=== PATIENT | male | born 1965 | race Caucasian/White ===

== ENCOUNTER 2018-05-21 13:30 | Outpatient (RCR) | payer OTHER, SELFPAY ==
[2018-05-14 14:03] VITALS: BP 128/60; PULSE 101; RESP 20; TEMP 36.6; BMI 81.3
--- NOTE | 2018-05-14 15:28 | PN.PCM_ITS ---
(1) Ulcer of right foot with fat layer exposed Status: Chronic Current Visit: Yes Code(s): L97.512 - Non-pressure chronic ulcer of other part of right foot with fat layer exposed (2) Small vessel disease Status: Chronic Current Visit: Yes Code(s): I99.9 - Unspecified disorder of circulatory system (3) Diabetes mellitus with neuropathy Status: Chronic Current Visit: Yes Code(s): E11.40 - Type 2 diabetes mellitus with diabetic neuropathy, unspecified Type of Wound Date of Service: 05/14/18 Chief Complaint: Right foot ulcer History of Wound: This 52 year old male was seen today for right sub-first metatarsal head ulcer with an onset of less than 2 weeks ago. He has kept his dressing clean, dry, and intact and changes it daily as advised with hydrogel with collagen.He offloads with his surgical shoe and pocket offloading pad as recommended. He has diabetic neuropathy. He denies fever, chill, nausea,. He denies foot redness. Progress of Wound: Stable - Physical Exam Vital Signs Temp Pulse Resp BP 98 F 101 H 20 H 128/60 H 05/14/18 14:03 05/14/18 14:03 05/14/18 14:03 05/14/18 14:03 General: Alert, Oriented x3, Cooperative Extremities: No cyanosis, Capillary Refill Less than 3 Seconds, No Calf Tenderness - Negative Renato and Aldrich right, Diminished Peripheral Pulses, Edema - Scant right foot Skin: Ulcer/ Wound - No purulence, no erythema, streaking, no odor, no acute signs of infection. The skin is atrophic and hairless right Wound Measurements and Assessment WC - Nurse 1 - General Ulcer Measurement Start: 05/14/18 14:02 Freq: Status: Active Protocol: Activity Type Activity Date Activity User E-Sign Co-Sign Detail Recorded Client Recorded Date Recorded By Document 05/14/18 14:03 DL [id number] 05/14/18 14:21 DL 05/14/18 14:03 Wound Center Nurse 1 [Ulcer Assessment] #4 R Foot Plantar -Current Size (cm) - Length 0.2 -Current Size (cm) - Width 0.2 -Current Size (cm) - Depth 0.2 -Total Square Cm 0.04 -Photo Taken Yes -Exudate Amt None Present (0 %) -Wound Margin Thickened -Granulation Amt Small (1-33%) -Granulation Quality [place] -Necrosis Amt None Present (0 %) -Structure Exposed N/A -Texture (Aleyda-wound Skin Appearance) Callus -Moisture (Aleyda-wound Skin Appearance Dry/Scaly ) -Color (Aleyda-wound Skin Appearance) No Abnormality -Temperature (Aleyda-wound Skin No Abnormality Appearance) (Pt Warm) -Tenderness on Palpation (Aleyda-wound No Skin Appearance) -Ulcer Cleansing Wound Cleanser -Foul Odor after Cleansing No -Anesthetic Used 4% Lidocaine Solution - Nurse 2 - General Ulcer CM Notes Start: 05/14/18 14:02 Freq: Status: Active Protocol: Activity Type Activity Date Activity User E-Sign Co-Sign Detail Recorded Client Recorded Date Recorded By Document 05/14/18 15:02 [id number] 05/14/18 15:04 05/14/18 15:02 Wound Center Nurse 2 [Procedure/Treatment] -Time 15:04 -Correct Patient Yes -Correct Side, Site, Position Yes -Correct Procedure Yes -Procedure Performed Yes -Type of Procedure Debridement -Clinical Debridement Subcutaneous -Post Debridement Size (cm) - Length 0.3 -Post Debridement Size (cm) - Width 0.4 -Post Debridement Size (cm) - Depth 0.1 -Total Square Cm 0.12 -Wound/Ulcer Outcome Not Healed -Ulcer Cleansing Rinsed/ Irrigated with Saline -Foul Odor after Cleansing No -Bioengineered Tissue No -Bleeding Controlled with Pressure -Treatment Response Procedure Tolerated Well [See Physician Procedure note for Specifics] Pain Scale: 0-10 Numeric [Pain] -Is Patient Pain Free? Yes Musculoskeletal: No Tenderness to Palpation of Joints or Extremities, Muscle Wasting, - - Right hallux amputation Neurological: - - Lack of epicritic sensation light touch right foot Psych/Mental Status: Normal Affect, Appropriate Debridement Note Post-Debridement Measurements/Treatment - Nurse 2 - General Ulcer CM Notes Start: 05/14/18 14:02 Freq: Status: Active Protocol: Activity Type Activity Date Activity User E-Sign Co-Sign Detail Recorded Client Recorded Date Recorded By Document 05/14/18 15:02 [id number] 05/14/18 15:04 05/14/18 15:02 Wound Center Nurse 2 #4 R Foot Plantar -Time 15:04 -Correct Patient Yes -Correct Side, Site, Position Yes -Correct Procedure Yes -Procedure Performed Yes -Type of Procedure Debridement -Clinical Debridement Subcutaneous -Post Debridement Size (cm) - Length 0.3 -Post Debridement Size (cm) - Width 0.4 -Post Debridement Size (cm) - Depth 0.1 -Total Square Cm 0.12 -Wound/Ulcer Outcome Not Healed -Ulcer Cleansing Rinsed/ Irrigated with Saline -Foul Odor after Cleansing No -Bioengineered Tissue No -Bleeding Controlled with Pressure -Treatment Response Procedure Tolerated Well Pain Scale: 0-10 Numeric Is Patient Pain Free? Yes Wound debrided: sub 1st metatarsal head Laterality: Right Wound Grade/Stage: grade 1 Type of Debridement: Excisional debridement Anesthesia Used: 5% Lidocaine Gel Depth: in the subcutaneous layer Percentage of wound debrided: 100 Instrument Used: #15 blade Tissue Removed: fibrous, devitalized subcutaneous, biofilm, slough Severity: Fat Layer Exposed Amount of bleeding with debridement: Mild Bleeding Controlled with: Pressure Patient tolerated procedure well Assessment/Plan Active Problems Small vessel disease (Chronic) Diabetes mellitus with neuropathy (Chronic) Ulcer of right foot with fat layer exposed (Chronic) Assessment: Right sub-first metatarsal head-grade 1. h/o delayed wound healing. peripheral vascular disease; small vessel disease. diabetes with peripheral neuropathy. malnutrition Plan: I discussed and reviewed his case and plan today. Debridement was performed as noted in the clinical panel. To continue daily dressing changes w / hydrogel/collagen and offoad with adjusted surgical shoe with offloading pocket with Plastizote. To moisturize limbs daily but not right before donning socks and shoes to avoid excess motion. To optimize healing by proper glycemic control and nutritional supplementation. He is receiving this at a skilled facility. All of his questions were answered. To return to clinic in one week or call sooner if problems.
[2018-05-21 13:15] VITALS: BP 141/96; PULSE 100; RESP 18; TEMP 36.6; BMI 81.3
--- NOTE | 2018-05-21 16:04 | PCM.WC.PN ---
(1) Ulcer of right foot with fat layer exposed Status: Resolved Current Visit: Yes Code(s): L97.512 - Non-pressure chronic ulcer of other part of right foot with fat layer exposed (2) Small vessel disease Status: Chronic Current Visit: Yes Code(s): I99.9 - Unspecified disorder of circulatory system (3) Diabetes mellitus with neuropathy Status: Chronic Current Visit: Yes Code(s): E11.40 - Type 2 diabetes mellitus with diabetic neuropathy, unspecified Type of Wound Date of Service: 05/21/18 Chief Complaint: Right foot ulcer History of Wound: This 52 year old male was seen today for right sub-first metatarsal head ulcer. He has kept his dressing clean, dry, and intact and changes it daily as advised with hydrogel with collagen.He offloads with his surgical shoe and pocket offloading pad as recommended. He has diabetic neuropathy. He denies fever, chill, nausea. He denies drainage and thinks the site has healed today. Progress of Wound: healed - Physical Exam Vital Signs Temp Pulse Resp BP 97.8 F 100 18 141/96 H 05/21/18 13:15 05/21/18 13:15 05/21/18 13:15 05/21/18 13:15 General: Alert, Oriented x3, Cooperative Extremities: Capillary Refill Less than 3 Seconds, No Calf Tenderness, Diminished Peripheral Pulses Skin: Ulcer/ Wound - no purulence, infection or redness noted. full epithelialiation is noted and the wound site has healed. his skin is atrophic Wound Measurements and Assessment WC - Nurse 1 - General Ulcer Measurement Start: 05/14/18 14:02 Freq: Status: Active Protocol: Activity Type Activity Date Activity User E-Sign Co-Sign Detail Recorded Client Recorded Date Recorded By Document 05/21/18 13:15 RB [id number] 05/21/18 13:23 RB 05/21/18 13:15 Wound Center Nurse 1 [Ulcer Assessment] #4 R Foot Plantar -Combined with other wound No -Current Size (cm) - Length 0.1 -Current Size (cm) - Width 0.1 -Current Size (cm) - Depth 0.1 -Total Square Cm 0.01 -Photo Taken No -Tunneling No -Undermining/Tunneling No -Circular Undermining No -Classification - Little Grading ( Grade 1 Diabetic Ulcer) -Exudate Amt None Present (0 %) -Wound Margin Distinct, Outline Attached -Granulation Amt Large (67-100%) -Granulation Quality [place] -Slough/Fibrin Yes -Necrosis Amt Small (1-33%) -Necrotic Tissue Type Adherent Slough -Structure Exposed N/A -Texture (Aleyda-wound Skin Appearance) Assessed Callus -Moisture (Aleyda-wound Skin Appearance Assessed ) -Color (Aleyda-wound Skin Appearance) Assessed -Temperature (Aleyda-wound Skin No Abnormality Appearance) (Pt Warm) -Tenderness on Palpation (Aleyda-wound No Skin Appearance) -Ulcer Cleansing Rinsed/ Irrigated with Saline -Foul Odor after Cleansing No -Anesthetic Used 4% Lidocaine Solution - Nurse 2 - General Ulcer CM Notes Start: 05/14/18 14:02 Freq: Status: Active Protocol: Activity Type Activity Date Activity User E-Sign Co-Sign Detail Recorded Client Recorded Date Recorded By Document 05/21/18 13:39 [id number] 05/21/18 13:42 05/21/18 13:39 Wound Center Nurse 2 [Procedure/Treatment] -Time 13:40 -Post Debridement Size (cm) - Length 0 -Post Debridement Size (cm) - Width 0 -Post Debridement Size (cm) - Depth 0 -Total Square Cm 0 -Wound/Ulcer Outcome Healed- Epithelialized [See Physician Procedure note for Specifics] Pain Scale: 0-10 Numeric [Pain] -Is Patient Pain Free? Yes Musculoskeletal: No Tenderness to Palpation of Joints or Extremities, Muscle Wasting, - - prominent metatarsal head Neurological: - - lack of epicritic sensation via light touch Psych/Mental Status: Normal Affect, Appropriate Debridement Note Post-Debridement Measurements/Treatment - Nurse 2 - General Ulcer CM Notes Start: 05/14/18 14:02 Freq: Status: Active Protocol: Activity Type Activity Date Activity User E-Sign Co-Sign Detail Recorded Client Recorded Date Recorded By Document 05/14/18 15:02 [id number] 05/14/18 15:04 Document 05/21/18 13:39 [id number] 05/21/18 13:42 05/14/18 05/21/18 15:02 13:39 Wound Center Nurse 2 #4 R Foot Plantar -Time 15:04 13:40 -Correct Patient Yes -Correct Side, Site, Position Yes -Correct Procedure Yes -Procedure Performed Yes -Type of Procedure Debridement -Clinical Debridement Subcutaneous -Post Debridement Size (cm) - Length 0.3 0 -Post Debridement Size (cm) - Width 0.4 0 -Post Debridement Size (cm) - Depth 0.1 0 -Total Square Cm 0.12 0 -Wound/Ulcer Outcome Not Healed Healed- Epithelialized -Ulcer Cleansing Rinsed/ Irrigated with Saline -Foul Odor after Cleansing No -Bioengineered Tissue No -Bleeding Controlled with Pressure -Treatment Response Procedure Tolerated Well Pain Scale: 0-10 Numeric Is Patient Pain Free? Yes Yes No debridement was completed today - the wound site has healed Assessment/Plan Active Problems Small vessel disease (Chronic) Diabetes mellitus with neuropathy (Chronic) Assessment: Right sub-first metatarsal head-grade 1. h/o delayed wound healing. peripheral vascular disease; small vessel disease. diabetes with peripheral neuropathy. malnutrition Plan: I discussed and reviewed his case and plan today. Debridement was not performed as noted in the clinical panel because the site is healed. To continue offloading shoe until next follow up to allow skin remodeling. To d/c daily dressing changes due to wound healing. To moisturize limbs daily but not right before donning socks and shoes to avoid excess motion. To optimize healing by proper glycemic control. All of his questions were answered. To return to clinic in two week or call sooner if problems to confirm this friable site is still closed.
== END 2018-05-24 23:59 ==
LOC: WC 13:30
PROVIDERS: Family Provider Family Medicine Geriatric Medicine; PCP Family Medicine Geriatric Medicine; Visit Provider Podiatrist
DX: E11.621 Type 2 diabetes mellitus with foot ulcer (principal); I99.9 Unspecified disorder of circulatory system; L97.512 Non-pressure chronic ulcer of other part of right foot with fat layer exposed; E11.51 Type 2 diabetes mellitus with diabetic peripheral angiopathy without gangrene; E11.42 Type 2 diabetes mellitus with diabetic polyneuropathy
CPT/HCPCS: 11042; 99213; G0463

== ENCOUNTER 2018-06-04 09:05 | Outpatient (RCR) | payer MEDICARE, MEDICAID, SELFPAY ==
[2018-05-25 01:15] VITALS: BP 141/96; PULSE 100; RESP 18; TEMP 36.6
[2018-06-04 11:25] VITALS: BP 153/82; PULSE 78; RESP 16; TEMP 35.7
--- NOTE | 2018-06-04 12:59 | PCM.WC.PN ---
(1) Ulcer of right foot with fat layer exposed Status: Resolved Current Visit: Yes Code(s): L97.512 - Non-pressure chronic ulcer of other part of right foot with fat layer exposed (2) Other acquired deformities of right foot Status: Chronic Current Visit: Yes Code(s): M21.6X1 - Other acquired deformities of right foot Comment: plantarflexed 2nd metatarsal (3) Small vessel disease Status: Chronic Current Visit: Yes Code(s): I99.9 - Unspecified disorder of circulatory system (4) Malnutrition Status: Chronic Current Visit: Yes Code(s): E46 - Unspecified protein-calorie malnutrition (5) Diabetes mellitus with neuropathy Status: Chronic Current Visit: Yes Qualifiers: Diabetes mellitus type: type 2 Code(s): E11.40 - Type 2 diabetes mellitus with diabetic neuropathy, unspecified (6) Hammer toe of right foot Status: Chronic Current Visit: Yes Code(s): M20.41 - Other hammer toe(s) (acquired), right foot (7) Healed ulcer of right foot on examination Status: Acute Current Visit: Yes Code(s): L97.519 - Non-pressure chronic ulcer of other part of right foot with unspecified severity Type of Wound Date of Service: 06/04/18 Chief Complaint: Right foot ulcer healed History of Wound: This 52 year old male was seen today for right sub-first metatarsal head ulcer. He has kept his dressing clean, dry, and intact and changes it daily as advised. He has diabetic neuropathy. He denies fever, chill, nausea. He denies drainage and thinks the site has healed today. Progress of Wound: healed - Physical Exam Vital Signs Temp Pulse Resp BP 96.2 F L 78 16 153/82 H 06/04/18 11:25 06/04/18 11:25 06/04/18 11:25 06/04/18 11:25 General: Alert, Oriented x3, Cooperative Extremities: No cyanosis, Capillary Refill Less than 3 Seconds, No Calf Tenderness, Diminished Peripheral Pulses, - - hallux amputation noted . dorsal contraction of lesser digits Skin: Ulcer/ Wound - no purulence, no erythema, no infection, no streaking, no odor noted. full epithelialization noted to sub 1st metatarsal head, - - atrophic skin noted Wound Measurements and Assessment WC - Nurse 1 - General Ulcer Measurement Start: 06/04/18 11:25 Freq: Status: Active Protocol: Activity Type Activity Date Activity User E-Sign Co-Sign Detail Recorded Client Recorded Date Recorded By Document 06/04/18 11:25 [id number] 06/04/18 11:26 06/04/18 11:25 Wound Center Nurse 1 [Edema Assessment] -Lower Limb Edema Present NA WC - Nurse 2 - General Ulcer CM Notes Start: 06/04/18 11:25 Freq: Status: Active Protocol: Activity Type Activity Date Activity User E-Sign Co-Sign Detail Recorded Client Recorded Date Recorded By Document 06/04/18 11:36 [id number] 06/04/18 11:38 06/04/18 11:36 Pain Scale: 0-10 Numeric [Pain] -Is Patient Pain Free? Yes Musculoskeletal: No Tenderness to Palpation of Joints or Extremities, Muscle Wasting Neurological: - - lack of epicritic sensation to touch noted Psych/Mental Status: Normal Affect, Appropriate Debridement Note Post-Debridement Measurements/Treatment - Nurse 2 - General Ulcer CM Notes Start: 06/04/18 11:25 Freq: Status: Active Protocol: Activity Type Activity Date Activity User E-Sign Co-Sign Detail Recorded Client Recorded Date Recorded By Document 06/04/18 11:36 [id number] 06/04/18 11:38 06/04/18 11:36 Pain Scale: 0-10 Numeric Is Patient Pain Free? Yes No debridement was completed today - Wound has healed Assessment/Plan Active Problems Other acquired deformities of right foot (Chronic) plantarflexed 2nd metatarsal Small vessel disease (Chronic) Malnutrition (Chronic) Diabetes mellitus with neuropathy (Chronic) Hammer toe of right foot (Chronic) Healed ulcer of right foot on examination (Acute) Assessment: Right sub-first metatarsal head-healed. h/o delayed wound healing. peripheral vascular disease; small vessel disease. diabetes with peripheral neuropathy. malnutrition Plan: I discussed and reviewed his case and plan today. Debridement was not performed as noted in the clinical panel because the site remains healed. Okay to transition back to extra-depth diabetic shoes with dual density Plastizote liners. To monitor very closely during this transitional. To look for any skin irritation, blister, wound reopening. To d/c daily dressing changes due to wound healing. To moisturize limbs daily but not right before donning socks and shoes to avoid excess motion. To optimize healing by proper glycemic control. All of his questions were answered. He is discharged from the wound care center today we will follow-up at the foot and ankle center as previously scheduled.
--- NOTE | 2018-06-04 13:08 | PN.PCM_ITS ---
(1) Ulcer of right foot with fat layer exposed Status: Resolved Current Visit: Yes Code(s): L97.512 - Non-pressure chronic ulcer of other part of right foot with fat layer exposed (2) Other acquired deformities of right foot Status: Chronic Current Visit: Yes Code(s): M21.6X1 - Other acquired deformities of right foot Comment: plantarflexed 2nd metatarsal (3) Small vessel disease Status: Chronic Current Visit: Yes Code(s): I99.9 - Unspecified disorder of circulatory system (4) Malnutrition Status: Chronic Current Visit: Yes Code(s): E46 - Unspecified protein- calorie malnutrition (5) Diabetes mellitus with neuropathy Status: Chronic Current Visit: Yes Qualifiers: Diabetes mellitus type: type 2 Code(s): E11.40 - Type 2 diabetes mellitus with diabetic neuropathy, unspecified (6) Hammer toe of right foot Status: Chronic Current Visit: Yes Code(s): M20.41 - Other hammer toe(s) ( acquired), right foot (7) Healed ulcer of right foot on examination Status: Acute Current Visit: Yes Code(s): L97.519 - Non-pressure chronic ulcer of other part of right foot with unspecified severity Type of Wound Date of Service: 06/04/18 Chief Complaint: Right foot ulcer healed History of Wound: This 52 year old male was seen today for right sub-first metatarsal head ulcer. He has kept his dressing clean, dry, and intact and changes it daily as advised. He has diabetic neuropathy. He denies fever, chill, nausea. He denies drainage and thinks the site has healed today. Progress of Wound: healed - Physical Exam Vital Signs Temp Pulse Resp BP 96.2 F L 78 16 153/82 H 06/04/18 11:25 06/04/18 11:25 06/04/18 11:25 06/04/18 11:25 General: Alert, Oriented x3, Cooperative Extremities: No cyanosis, Capillary Refill Less than 3 Seconds, No Calf Tenderness, Diminished Peripheral Pulses, - - hallux amputation noted . dorsal contraction of lesser digits Skin: Ulcer/ Wound - no purulence, no erythema, no infection, no streaking, no odor noted. full epithelialization noted to sub 1st metatarsal head, - - atrophic skin noted Wound Measurements and Assessment WC - Nurse 1 - General Ulcer Measurement Start: 06/04/18 11:25 Freq: Status: Active Protocol: Activity Type Activity Date Activity User E-Sign Co-Sign Detail Recorded Client Recorded Date Recorded By Document 06/04/18 11:25 [id number] 06/04/18 11:26 06/04/18 11:25 Wound Center Nurse 1 [Edema Assessment] -Lower Limb Edema Present NA WC - Nurse 2 - General Ulcer CM Notes Start: 06/04/18 11:25 Freq: Status: Active Protocol: Activity Type Activity Date Activity User E-Sign Co-Sign Detail Recorded Client Recorded Date Recorded By Document 06/04/18 11:36 [id number] 06/04/18 11:38 06/04/18 11:36 Pain Scale: 0-10 Numeric [Pain] -Is Patient Pain Free? Yes Musculoskeletal: No Tenderness to Palpation of Joints or Extremities, Muscle Wasting Neurological: - - lack of epicritic sensation to touch noted Psych/Mental Status: Normal Affect, Appropriate Debridement Note Post-Debridement Measurements/Treatment - Nurse 2 - General Ulcer CM Notes Start: 06/04/18 11:25 Freq: Status: Active Protocol: Activity Type Activity Date Activity User E-Sign Co-Sign Detail Recorded Client Recorded Date Recorded By Document 06/04/18 11:36 [id number] 06/04/18 11:38 06/04/18 11:36 Pain Scale: 0-10 Numeric Is Patient Pain Free? Yes No debridement was completed today - Wound has healed Assessment/Plan Active Problems Other acquired deformities of right foot (Chronic) plantarflexed 2nd metatarsal Small vessel disease (Chronic) Malnutrition (Chronic) Diabetes mellitus with neuropathy (Chronic) Hammer toe of right foot (Chronic) Healed ulcer of right foot on examination (Acute) Assessment: Right sub-first metatarsal head-healed. h/o delayed wound healing. peripheral vascular disease; small vessel disease. diabetes with peripheral neuropathy. malnutrition Plan: I discussed and reviewed his case and plan today. Debridement was not performed as noted in the clinical panel because the site remains healed. Okay to transition back to extra-depth diabetic shoes with dual density Plastizote liners. To monitor very closely during this transitional. To look for any skin irritation, blister, wound reopening. To d/c daily dressing changes due to wound healing. To moisturize limbs daily but not right before donning socks and shoes to avoid excess motion. To optimize healing by proper glycemic control. All of his questions were answered. He is discharged from the wound care center today we will follow-up at the foot and ankle center as previously scheduled.
== END 2018-06-24 23:59 ==
LOC: WC 09:05
PROVIDERS: Family Provider Family Medicine Geriatric Medicine; PCP Family Medicine Geriatric Medicine; Visit Provider Podiatrist
DX: E11.621 Type 2 diabetes mellitus with foot ulcer (principal); M21.6X1 Other acquired deformities of right foot; E11.40 Type 2 diabetes mellitus with diabetic neuropathy, unspecified; L97.512 Non-pressure chronic ulcer of other part of right foot with fat layer exposed; M20.41 Other hammer toe(s) (acquired), right foot; E11.51 Type 2 diabetes mellitus with diabetic peripheral angiopathy without gangrene
CPT/HCPCS: 99213; G0463

== ENCOUNTER → 2018-12-22 11:37 | Outpatient (CLI) | payer MEDICARE, MEDICAID, SELFPAY ==
[2018-10-01 09:05] VITALS: BMI 36.3
--- NOTE | 2018-12-22 11:45 | RAD_ITS ---
STUDY: X-RAY - LEFT HIP REASON FOR EXAM: Male, 53 years old. Pain times several weeks TECHNIQUE: 3 views of the hip. COMPARISON: None. FINDINGS: Normal femoral head, neck, intertrochanteric region and visualized proximal femur. Normal acetabulum. There is mild articular joint space narrowing. Normal visualized superior and inferior pubic rami and ischial tuberosities. RAD/HIP, UNI W/ Pelvis 2-3 Views IMPRESSION: Mild arthrosis, no demonstrated fracture. Electronically Signed: Michael Richardson MD at 12:13 EST , Service support ,
== END ==
PROVIDERS: Family Provider Family Medicine Geriatric Medicine; PCP Family Medicine Geriatric Medicine; Referring Provider Anesthesiology Pain Medicine; Visit Provider Anesthesiology Pain Medicine
DX: M25.552 Pain in left hip (principal)
CPT/HCPCS: 73502

== ENCOUNTER → 2019-03-24 | Outpatient (CLI) | payer MEDICARE, SELFPAY ==
--- NOTE | 2019-03-24 10:09 | MRI_ITS ---
STUDY: MRI LUMBAR SPINE WITHOUT CONTRAST REASON FOR EXAM: Male, 53 years old. TECHNIQUE: Standardized fat and water weighted pulse sequences were obtained in the sagittal and axial planes. COMPARISON: 07/24/2018 radiographs FINDINGS: T12-L1: Normal endplates. Normal disc height, hydration and morphology. Normal bilateral facet joints. Normal central canal and bilateral lateral recesses. Normal bilateral intervertebral neural foramina. 10 mm of grade 1 L4-5 anterolisthesis. 10 mm of grade 1 L3-4 retrolisthesis. S shaped scoliosis. Normal conus medullaris that terminates at the L1 level. L1-2: Disc space narrowing and desiccation with discogenic endplate changes and anterior osteophytes. Bulging annulus with moderate left and mild right foraminal stenoses. L2-3: Bulging annulus and bilateral facet and ligamentum flavum hypertrophy and facet joint effusions. Moderate central canal stenosis and severe left lateral recess stenosis, with mass effect on the transiting left L3 nerve root. Severe left and moderate right foraminal stenoses, with mass effect on the exiting left L2 nerve root. L3-4: Bulging annulus and bilateral facet hypertrophy with moderate to severe central canal stenosis and severe bilateral foraminal stenoses, with mass effect on both exiting L3 nerve roots. L4-5: Bulging annulus and bilateral facet hypertrophy with severe bilateral foraminal stenoses and mass effect on both exiting L4 nerve roots. L5-S1: Bulging annulus with severe right foraminal stenosis and mass effect on the exiting right L5 nerve root. Normal visualized sacral ala. Normal visualized paraspinous soft tissue structures. MRI/Spine Lumbar (Routine) IMPRESSION: Multilevel degenerative disease as described. Severe foraminal stenoses on the left at L2-3, bilaterally at L3-4, bilaterally at L4-5, and on the right at L5-S1, with mass effect on corresponding exiting nerve roots. Severe left lateral recess stenosis at L2-3 with mass effect on the transiting left L3 nerve root. 10 mm of grade 1 L4-5 anterolisthesis. 10 mm of grade 1 L3-4 retrolisthesis. Electronically Signed: Abisai Diez MD at 17:37 EDT Tel , Service support ,
== END | disposition home or self-care (01) ==
LOC: MRI 09:38
PROVIDERS: Family Provider Nurse Practitioner Adult Health; PCP Nurse Practitioner Adult Health; Referring Provider Physician Assistant; Visit Provider Physician Assistant
DX: M54.16 Radiculopathy, lumbar region (principal)
CPT/HCPCS: 72148

== ENCOUNTER → 2019-05-07 | Outpatient (CLI) | payer MEDICARE, SELFPAY ==
[2019-05-07 12:08] LABS: Absolute Lymphocyte Count 1.17 X10^3/ul (0.83-4.51); Absolute Neutrophil Count 5.7 X10^3/uL (2.0-7.7); Basophil# 0.02 X10^3/uL; Basophil% 0.3 % (0-1); Eosinophil# 0.11 X10^3/uL; Eosinophils% 1.4 % (0-5); Hematocrit 38.2 % (40-54); Hemoglobin 13.1 g/dl (13.0-16.5); Lymphocyte # 1.17 X10^3/ul (4.0); Lymphocyte % 15.2 % (19-41); Mean Corp Hgb Conc 34.3 g/gl (32-36); Mean Corpuscular Hgb 29.4 pg (27.0-32.0); Mean Corpuscular Volume 85.8 fL (80-94); Mean Platelet Vol. 9.1 fl (6.2-12.0); Monocyte# 0.66 X10^3/uL; Monocyte% 8.6 % (0-10); Neutrophil # 5.74 X10^3/uL (2.7-7.7); Neutrophil % 74.4 % (47-70); Platelet Count 287 K/mm3 (150-450); RBC Distribution Width CV 12.6 % (11.6-14.6); RBC Distribution Width SD 38.9 fl (35.1-43.9); Red Blood Count 4.45 M/mm3 (4.6-6.2); White Blood Count 7.7 K/mm3 (4.4-11.0)
[2019-05-07 12:19] LABS: POSITIVE COUNT NO; POSITIVE DIFFERENTIAL NO; POSITIVE MORPHOLOGY NO
[2019-05-07 12:50] LABS: ALB/GLOB Ratio 1.2 RATIO (0.9-2.4); AST(SGOT) 17 U/L (15-37); Alanine Aminotransfer ALT/SGPT 28 U/L (16-61); Alkaline Phosphatase 113 U/L (45-117); Anion Gap 7 (5-15); BUN 15 mg/dL (7-18); BUN/Creat Ratio 23.1 RATIO (10-20); Calcium,Total 9.1 mg/dL (8.5-10.1); Chloride 97 mmol/L (98-107); Creatinine, Serum 0.65 mg/dL (0.70-1.30); EST Glomerular Filtration Rate 136 mL/min (>60); Est Glom Filt Rate - Afr Amer 164 mL/min (>60); Globulin 3.3 g/dL (2.2-4.2); Glucose 84 mg/dL (74-106); Potassium 3.9 mmol/L (3.5-5.1); Protein, Total 7.3 g/dL (6.4-8.2); Sodium Level 129 mmol/L (136-145); Thyroid Stim Hormone (TSH) 0.88 uIU/mL (0.358-3.74)
== END | disposition home or self-care (01) ==
LOC: POLAB3 08:40
PROVIDERS: Family Provider Nurse Practitioner Adult Health; PCP Nurse Practitioner Adult Health; Visit Provider Family Medicine Geriatric Medicine
DX: E11.9 Type 2 diabetes mellitus without complications (principal); I10 Essential (primary) hypertension
CPT/HCPCS: 36415; 80053; 84443; 85025

== ENCOUNTER → 2019-05-13 | Outpatient (CLI) | payer MEDICARE, SELFPAY ==
[2019-05-13 10:55] LABS: Osmolality, Serum 272 mOsm/KG (275-295)
[2019-05-13 13:08] LABS: Urine Sodium 35 mmol/L (Not Establ.)
[2019-05-13 13:19] LABS: Osmolality, Urine 208 mOsm/KG
== END | disposition home or self-care (01) ==
LOC: LAB.FUTURE 09:58
PROVIDERS: Family Provider Nurse Practitioner Adult Health; PCP Nurse Practitioner Adult Health; Visit Provider Family Medicine Geriatric Medicine
DX: E87.1 Hypo-osmolality and hyponatremia (principal)
CPT/HCPCS: 36415; 82436; 83930; 83935; 84133; 84300

== ENCOUNTER → 2019-05-18 | Outpatient (CLI) | payer MEDICARE, SELFPAY ==
[2018-10-01 09:05] VITALS: BMI 36.3
[2019-05-18 12:01] LABS: Anion Gap 10 (5-15); BUN 10 mg/dL (7-18); BUN/Creat Ratio 16.3 RATIO (10-20); Calcium,Total 9.2 mg/dL (8.5-10.1); Chloride 100 mmol/L (98-107); Creatinine, Serum 0.61 mg/dL (0.70-1.30); EST Glomerular Filtration Rate 145 mL/min (>60); Est Glom Filt Rate - Afr Amer 176 mL/min (>60); Glucose 107 mg/dL (74-106); Potassium 3.8 mmol/L (3.5-5.1); Sodium Level 136 mmol/L (136-145)
== END | disposition home or self-care (01) ==
LOC: POLAB3 10:20
PROVIDERS: Family Provider Nurse Practitioner Adult Health; PCP Nurse Practitioner Adult Health; Visit Provider Family Medicine Geriatric Medicine
DX: E87.1 Hypo-osmolality and hyponatremia (principal)
CPT/HCPCS: 36415; 80048

== ENCOUNTER → 2019-07-07 10:40 | Outpatient (CLI) | payer MEDICARE, SELFPAY ==
[2019-07-07 10:34] VITALS: BMI 36.3
--- NOTE | 2019-07-07 10:43 | RAD_ITS ---
STUDY: X-RAY - LUMBAR SPINE REASON FOR EXAM: Male, 53 years old. Back pain TECHNIQUE: 4 view(s) of the lumbar spine were obtained. COMPARISON: None FINDINGS: Normal lumbar lordosis. There is a lumbar dextroscoliosis. There is a grade 1 anterolisthesis of L4 relative to L3 and L5. There is diffuse endplate spondylosis. There is multi-level degenerative disc disease with multi-level disc space narrowing. The soft tissue structures are unremarkable. RAD/L/S Spine Min 4 Views IMPRESSION: Lumbar dextroscoliosis. Grade 1 anterolisthesis of L4 relative to L3 and L5. Diffuse endplate spondylosis. Multilevel severe degenerative disc disease with multilevel disc space narrowing. Electronically Signed: Raimundo Martinez MD at 17:06 EDT , Service support ,
--- NOTE | 2019-07-07 11:33 | RAD_ITS ---
STUDY: X-RAY - CERVICAL SPINE REASON FOR EXAM: Male, 53 years old. Neck pain TECHNIQUE: 4 view(s) of the cervical spine were obtained. COMPARISON: Prior study of March 26, 2016 FINDINGS: And AP open-mouth odontoid view was not obtained. The atlantoaxial articulation appears within normal limits on the lateral and AP views. Normal odontoid process. There is reversal of the normal cervical lordosis. There is diffuse endplate spondylosis of the cervical spine. There is multi-level degenerative disc disease with multilevel disc space narrowing. The soft tissue structures are unremarkable. RAD/Cerv Spine 4 or 5 Views IMPRESSION: Cervical degenerative changes as detailed above. There is no evidence of fracture or subluxation. Electronically Signed: Raimundo Martinez MD at 17:08 EDT , Service support ,
== END ==
PROVIDERS: Family Provider Nurse Practitioner Adult Health; PCP Nurse Practitioner Adult Health; Referring Provider Orthopaedic Surgery; Visit Provider Orthopaedic Surgery
DX: M41.9 Scoliosis, unspecified (principal); M43.16 Spondylolisthesis, lumbar region; M54.16 Radiculopathy, lumbar region; M51.36 Other intervertebral disc degeneration, lumbar region; M54.2 Cervicalgia
CPT/HCPCS: 72050; 72110

== ENCOUNTER 2019-08-25 15:16 | Inpatient (IN) | payer MEDICARE, SELFPAY ==
[2019-07-07 10:34] VITALS: BMI 36.3
[2019-08-25 15:28] VITALS: BP 131/65; PULSE 70; RESP 18; TEMP 36.9; O2SAT 96; BMI 24.7
--- NOTE | 2019-08-25 17:06 | NURSING ---
PT ARRIVED BY COT FROM [facility] AT [id number].
[2019-08-25 17:40] LABS: Bedside Glucose 96 mg/dL (70-110)
[2019-08-25] MEDS: oxyCODONE 5 MG Tablet NG ×2 (18:43→22:43)
--- NOTE | 2019-08-25 19:40 | RAD_ITS ---
STUDY: X-RAY - ABDOMEN/PELVIS REASON FOR EXAM: Male, 53 years old. NG tube placement TECHNIQUE: KUB COMPARISON: None. FINDINGS: Normal visualized lung bases. There is an unremarkable bowel gas pattern. There is no demonstrated free abdominal air. The visualized liver, spleen and kidneys are grossly normal in size and morphology. NG tube noted with tip in expected location of the transverse portion of the duodenum Normal soft tissue structures. Lumbar spine demonstrates scoliosis and degenerative change RAD/Abdomen Single View (Portable) IMPRESSION: NG tube placement with tip in the expected location of the transverse portion of the duodenum. Electronically Signed: Niko Cortes MD at 20:42 EDT , Service support ,
--- NOTE | 2019-08-25 20:48 | HP.PCM_ITS ---
Problem List (1) Debility Status: Acute (2) Cervical spinal stenosis Status: Acute (3) Dysphagia Status: Acute (4) Lumbar spinal stenosis Status: Acute (5) Diet-controlled diabetes mellitus Status: Chronic (6) Hyperlipidemia Status: Chronic (7) Opioid dependence Status: Chronic (8) PAOD (peripheral arterial occlusive disease) Status: Chronic (9) Hypertension Status: Chronic (10) Sleep apnea Status: Chronic (11) COPD (chronic obstructive pulmonary disease) Status: Chronic History of Present Illness Date of Admission: 08/25/19 Chief Complaint: Here for rehabilitation, strengthening, prior to discharge to [facility]. The patient is a 53 year old Male with past medical history of Type 2 Diabetes Mellitus, Peripheral vascular disease, Hypertension, Obstructive sleep apnea, Hyperlipidemia who presented to the [facility] as a direct admission with C2-C7 cervical spinal stenosis with myeloradiculopathy and weakness, cervical kyphosis, multilevel lumbar spinal stenosis with scoliosis, urinary retention with chronic Bradley Catheter, chronic opioid use, and nicotine use. The patient elected to proceed with surgical intervention. The patient underwent stage 1: C3-C4 diskectomy, decompression fusion, C4-C5 diskectomy, decompression, fusion, C3 to C5 instrumentation; stage 2: posterior C3-C6 laminectomy, bilateral medial facetectomy, foraminotomy, C7 dome laminectomy, bilateral C4-C5 foraminotomy, and C2-T2 fusion with C2-T2 instrumentation on August 17, [address] Lora Senior. Urology assisted with bradley catheter placement (18 Fr coude catheter in the bladder) intra-operatively. The patient tolerated the procedures well. On POD 1, he was transferred to SICU for aggressive pulmonary hygiene, pain control, hemodynamic monitoring. He was transferred to medical-surgical status and patient was also seen and evaluated by hospital medicine colleagues for inpatient medical co-management. Pain was initially controlled with IV pain medication and was later transitioned to oral pain medication. Home medications continued. Hospitalist started Augmentin BID for 1 week thru 08/31/2019 for hospital- acquired pneumonia. Speech therapy recommended Dobhoff for tube feeding, his diet is NPO. 08/25/2019 Admit to TCU with debility, here for rehabilitation, strengthening, prior to discharge to [facility]. Past Medical History Past Medical History (Chronic Problems): Chronic Problems (Last Reviewed 10/01/18 @ 09:13 by Skylar Grady) Diet-controlled diabetes mellitus (Chronic) Hyperlipidemia (Chronic) Opioid dependence (Chronic) PAOD (peripheral arterial occlusive disease) (Chronic) Scoliosis (Chronic) Other acquired deformities of right foot (Chronic) plantarflexed 2nd metatarsal Small vessel disease (Chronic) Malnutrition (Chronic) Diabetes mellitus with neuropathy (Chronic) Hammer toe of right foot (Chronic) Tinea unguium (Chronic) Delayed wound healing (Chronic) Chronic ulcer of right foot with fat layer exposed (Chronic) Amputation of right foot with complication (Chronic) Dehiscence of amputation stump (Chronic) 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 2 diabetes mellitus with diabetic polyneuropathy (Chronic) Peripheral vascular disease (Chronic) Hammer toes, bilateral (Chronic) Hammer toe of left foot (Chronic) Hypertension (Chronic) Sleep apnea (Chronic) COPD (chronic obstructive pulmonary disease) (Chronic) Medical History: Medical History (Last Reviewed 10/01/18 @ 09:13 by Skylar Grady) Scoliosis (Chronic) M41.9 Allergies shellfish derived Allergy (Verified 05/14/18 14:25) Rash bacitracin [From Neosporin Plus] Adverse Reaction (Verified 05/14/18 14:25) Unknown bacitracin zinc [From Neosporin Plus] Adverse Reaction (Verified 05/14/18 14:25) Unknown lisinopril Adverse Reaction (Verified 05/14/18 14:25) Hives, throat closed neomycin sulfate [From Neosporin Plus] Adverse Reaction (Verified 05/14/18 14:25) Unknown polymyxin B [From Neosporin Plus] Adverse Reaction (Verified 05/14/18 14:25) Unknown polymyxin B sulfate [From Neosporin Plus] Adverse Reaction (Verified 05/14/18 14:25) Unknown pramoxine [From Neosporin Plus] Adverse Reaction (Verified 05/14/18 14:25) Unknown pramoxine HCl [From Neosporin Plus] Adverse Reaction (Verified 05/14/18 14:25) infection when placed on a cut Home Medications: Ambulatory Orders Medication Instructions Recorded Aspirin E.C. [Ecotrin] 81 mg NG DAILY@0800 08/22/16 Atorvastatin Calcium [Lipitor] 40 mg NG QHS 08/22/16 Ibuprofen 600 mg PO 4X/DAY PRN 08/22/16 Polyethylene Glycol 3350 [Miralax] 17 gm NG DAILY PRN 08/22/16 Calcium Carbonate [Tums] 1 tab PO PRN PRN 08/31/16 Losartan Potassium 100 mg NG QHS 05/01/17 amlodipine 5 mg tablet 1 tab NG DAILY #30 tab 07/07/19 buprenorphine 5 mcg/hour weekly 1 patch TRANSDERMAL QWEEK 07/07/19 transdermal patch citalopram 20 mg tablet 20 mg NG DAILY #30 tab 07/07/19 doxepin 25 mg capsule 25 mg NG QHS #30 cap 07/07/19 Albuterol Inhaler [Ventolin Hfa 2 puff INHALATION Q6H PRN PRN 08/25/19 (SP)] Amox/Clav 400mg/5ml Suspension 10 ml NG Q12H 08/25/19 [Augmentin Suspension 400mg/5ml] Ascorbic Acid 500 mg NG BID 08/25/19 Divalproex Sodium [Depakote 125 mg NG 4X/DAY 08/25/19 Sprinkle] Docusate Sodium [Docu Liquid] 50 mg NG BID 08/25/19 Enoxaparin [Lovenox] 40 mg SUBCUT DAILY@0600 08/25/19 Guaifenesin 15 ml NG Q4H 08/25/19 Multivitamin with Minerals 1 ea NG DAILY 08/25/19 [Multiple Vitamin] Oxycodone HCl [Roxicodone] 5 - 10 mg NG Q4H PRN PRN 08/25/19 Sennosides/Docusate Sodium [Senna 1 tab NG BID 08/25/19 Plus 8.6-50 mg Tablet] Surgical History: tonsillectomy, - - Cervical spine surgery 08/17/2019 Dr. Senior. Psychiatric History: Depression Lives: Skilled Nursing - [facility]. Smoking Status: Former smoker Tobacco Use: Cigarettes Alcohol: Sober Drugs: None - *Family History Maternal History Items: Cancer - Lung. Paternal History Items: Cancer, Diabetes Review of Systems Constitutional: Denies: Chills, Fever, Weight Change HEENT: Denies: Head Aches, Sinus Congestion, Sinus Drainage Cardiovascular: Denies: Chest Pain, Palpitations Respiratory: Denies: Cough, Shortness of breath at rest, Sputum production Gastrointestinal: Denies: Abdominal Pain, Nausea, Vomiting Genitourinary: Denies: Dysuria Musculoskeletal: Denies: Joint Pain, Joint Tenderness Skin: Denies: Rash, Wounds Neurological: Denies: Numbness, Tingling, Focal weakness Psychiatric: Denies: Anxiety, Depression, Homicidal Ideations, Suicidal Ideations Hematologic/ Lymphatic: Denies: Easy Bruising, Easy Bleeding VTE Information - Inpt Only VTE Present on Admission: No VTE Mechan Device Prophylaxis: Knee High LYNNE Hose VTE Pharm Prophylaxis ordered?: Yes Patient Problems: Active and Suspected Problems (Last Reviewed 10/01/18 @ 09:13 by Skylar Grady) Debility (Acute) Cervical spinal stenosis (Acute) Dysphagia (Acute) Lumbar spinal stenosis (Acute) - Physical Exam General: Alert, Oriented x3, Cooperative HEENT: Atraumatic, PERRLA, EOMI, Normocephalic, - - Dobbhoff tube present. Neck: Supple, No JVD, Negative Carotid Bruits Lungs: Clear to auscultation, Normal air movement Cardiovascular: Regular rate, No murmurs Abdomen: Bowel Sounds Present, Soft, Non Tender, - - Indwelling bradley catheter. Extremities: No edema, Capillary Refill Less than 3 Seconds Skin: No rashes, No breakdown, Incision - Upper back incision clean, dry, intact. Musculoskeletal: No Tenderness to Palpation of Joints or Extremities Neurological: Cranial nerves II-XII grossly intact Psych/Mental Status: Normal Affect, Appropriate Vital Signs Temp Pulse Resp BP Pulse Ox 98.4 F 70 18 131/65 H 96 08/25/19 15:28 08/25/19 15:28 08/25/19 15:28 08/25/19 15:28 08/25/19 15:28 Oxygen Delivery Method Room Air Weight: 78.2 kg Body Mass Index (BMI) 24.7 Intake and Output for Last 24 Hours 08/23/19 08/24/19 08/25/19 23:59 23:59 23:59 Output Total 900 / 900 Balance -900 / -900 POC Glucose 08/25/19 17:10 POC Glucose 96 Assessment/Plan All Active Problems (Last Reviewed 10/01/18 @ 09:13 by Skylar Grady) Debility (Acute) Cervical spinal stenosis (Acute) Dysphagia (Acute) Lumbar spinal stenosis (Acute) Segmental and somatic dysfunction of pelvic region (Acute) Segmental and somatic dysfunction of thoracic region (Acute) Segmental and somatic dysfunction of lumbar region (Acute) Ulcer of right foot with fat layer exposed (Resolved) Healed ulcer of right foot on examination (Acute) Non-pressure chronic ulcer of other part of right foot with necrosis of muscle (Acute) Non-pressure chronic ulcer of other part of right foot with fat layer exposed (Acute) Osteomyelitis of toe of right foot (Ruled-out) Diabetic ulcer of foot with fat layer exposed (Resolved) Ulcer of toe due to diabetes (Acute) Diabetic ulcer of toe with fat layer exposed (Resolved) Cellulitis of great toe of right foot (Acute) 53 year old male with below past medical history significant for C2-C7 cervical spinal stenosis with myeloradiculopathy, weakness, hospitalized for cervical spine surgery 08/17/[address] Lora Senior, admitted to TCU with debility, here for rehabilitation, strengthening, prior to discharge to [facility]. * Debility - PT/OT. * Dysphagia - NPO, TF via Dobbhoff, ST to advance diet. * Pain - Tylenol 1000MG Q8H PRN mild pain, Oxycodone 5-10MG Q4H PRN pain. * Bowel - Miralax 17GM daily, Senna/colace 1 tablet BID, Dulcolax 10MG daily PRN. * Pneumonia vaccination - Administer Prevnar 13 and/or Pneumovax 23 as necessary. * DVT prophylaxis - Lovenox 40MG SC daily. * Hypertension - Losartan 100MG daily, Amlodipine 5MG daily. * Hospital acquired pneumonia - Augmentin 800MG Q12H thru 08/31/2019. * Hyperlipidemia - Atorvastatin 40MG QHS. * Depression - Citalopram 20MG daily. 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 * Diet controlled Diabetes Mellitus - Monitor blood sugar.
[2019-08-25 22:18] VITALS: O2SAT 95
--- NOTE | 2019-08-25 22:18 | CPS ---
pt states wore at [facility] but no settings are confirmed and no notes from respiratory - pt does not know setting- pt also has ng tube.
[2019-08-25] MEDS: Losartan Potassium 100 MG Tablet NG (22:20)
[2019-08-25] MEDS: Atorvastatin Calcium 40 MG Tablet NG (22:20)
[2019-08-25] MEDS: Amox/Clav 400mg/5ml Susp 800 MG NG (22:21)
[2019-08-25] MEDS: Vital AF 1.2 Cal Liq 1,500 ML 30 ML GT (22:30)
--- NOTE | 2019-08-25 23:42 | CPS ---
pt placed on cool aerosol at 25% because pt could not go to sleep without mask on face.
[2019-08-26] MEDS: Polyethylene Glycol 3350 17 GM PACKET GT (04:46)
[2019-08-26] MEDS: oxyCODONE 5 MG Tablet NG ×4 (04:47→20:39)
[2019-08-26] MEDS: Senna/Docusate Sodium 1 Tablet NG ×2 (04:48→18:12)
[2019-08-26] MEDS: amLODIPine 5 MG Tablet NG (04:48)
[2019-08-26] MEDS: Citalopram 20 MG Tablet NG (04:48)
[2019-08-26] MEDS: Amox/Clav 400mg/5ml Susp 800 MG NG ×2 (04:50→18:12)
[2019-08-26] MEDS: Enoxaparin 40 MG/0.4 ML Syringe SC (05:01)
[2019-08-26 05:44] LABS: Absolute Lymphocyte Count 1.14 X10^3/uL (0.83-4.51); Absolute Neutrophil Count 6.7 X10^3/uL (2.0-7.7); Basophil# 0.04 X10^3/uL; Basophil% 0.4 % (0-1); Eosinophil# 0.14 X10^3/uL; Eosinophils% 1.5 % (0-5); Hematocrit 33.9 % (40-54); Hemoglobin 10.8 g/dL (13.0-16.5); Lymphocyte # 1.14 X10^3/ul (4.0); Lymphocyte % 12.6 % (19-41); Mean Corp Hgb Conc 31.9 g/dL (32-36); Mean Corpuscular Hgb 27.9 pg (27.0-32.0); Mean Corpuscular Volume 87.6 fL (80-94); Mean Platelet Vol. 8.9 fl (6.2-12.0); Monocyte# 0.97 X10^3/uL; Monocyte% 10.7 % (0-10); NRBC Flagged by Analyzer 0 % (0-5); Neutrophil # 6.73 X10^3/uL (2.7-7.7); Neutrophil % 74.2 % (47-70); Platelet Count 458 K/mm3 (150-450); RBC Distribution Width CV 13.9 % (11.6-14.6); Red Blood Count 3.87 M/mm3 (4.6-6.2); White Blood Count 9.1 K/mm3 (4.4-11.0)
[2019-08-26 06:04] LABS: Anion Gap 8 (5-15); BUN 20 mg/dL (7-18); Chloride 98 mmol/L (98-107); EST Glomerular Filtration Rate 184 mL/min (>60); Est Glom Filt Rate - Afr Amer 222 mL/min (>60); Estimated Creatinine Clearance 174.39 ml/min; Glucose 121 mg/dL (74-106); Potassium 4.2 mmol/L (3.5-5.1); Sodium Level 136 mmol/L (136-145)
[2019-08-26 06:21] LABS: Bedside Glucose 114 mg/dL (70-110)
[2019-08-26] MEDS: Tuberculin,Purif.prot.deriv. 50 TU/ML Vial 5 ML ID (09:54)
--- NOTE | 2019-08-26 13:50 | PCM.CONS.GEN ---
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 He is currently undergoing a rehabilitation program postoperative cervical neck surgery. He denies foot pain, redness, or drainage. He noticed a dark spot. He denies trauma. He has an extensive history of foot ulcers with delayed healing and infections and amputations. Past Medical History Past Medical History (Chronic Problems): Chronic Problems (Last Reviewed 10/01/18 @ 09:13 by Skylar Grady) Diet-controlled diabetes mellitus (Chronic) Hyperlipidemia (Chronic) Opioid dependence (Chronic) PAOD (peripheral arterial occlusive disease) (Chronic) Scoliosis (Chronic) Other acquired deformities of right foot (Chronic) plantarflexed 2nd metatarsal Small vessel disease (Chronic) Malnutrition (Chronic) Diabetes mellitus with neuropathy (Chronic) Hammer toe of right foot (Chronic) Tinea unguium (Chronic) Delayed wound healing (Chronic) Chronic ulcer of right foot with fat layer exposed (Chronic) Amputation of right foot with complication (Chronic) Dehiscence of amputation stump (Chronic) 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 2 diabetes mellitus with diabetic polyneuropathy (Chronic) Peripheral vascular disease (Chronic) Hammer toes, bilateral (Chronic) Hammer toe of left foot (Chronic) Hypertension (Chronic) Sleep apnea (Chronic) COPD (chronic obstructive pulmonary disease) (Chronic) Medical History: Medical History (Last Reviewed 10/01/18 @ 09:13 by Skylar Grady) Scoliosis (Chronic) M41.9 Allergies shellfish derived Allergy (Verified 05/14/18 14:25) Rash bacitracin [From Neosporin Plus] Adverse Reaction (Verified 05/14/18 14:25) Unknown bacitracin zinc [From Neosporin Plus] Adverse Reaction (Verified 05/14/18 14:25) Unknown lisinopril Adverse Reaction (Verified 05/14/18 14:25) Hives, throat closed neomycin sulfate [From Neosporin Plus] Adverse Reaction (Verified 05/14/18 14:25) Unknown polymyxin B [From Neosporin Plus] Adverse Reaction (Verified 05/14/18 14:25) Unknown polymyxin B sulfate [From Neosporin Plus] Adverse Reaction (Verified 05/14/18 14:25) Unknown pramoxine [From Neosporin Plus] Adverse Reaction (Verified 05/14/18 14:25) Unknown pramoxine HCl [From Neosporin Plus] Adverse Reaction (Verified 05/14/18 14:25) infection when placed on a cut Home Medications: Ambulatory Orders Medication Instructions Recorded Aspirin E.C. [Ecotrin] 81 mg NG DAILY@0800 08/22/16 Atorvastatin Calcium [Lipitor] 40 mg NG QHS 08/22/16 Ibuprofen 600 mg PO 4X/DAY PRN 08/22/16 Polyethylene Glycol 3350 [Miralax] 17 gm NG DAILY PRN 08/22/16 Calcium Carbonate [Tums] 1 tab PO PRN PRN 08/31/16 Losartan Potassium 100 mg NG QHS 05/01/17 amlodipine 5 mg tablet 1 tab NG DAILY #30 tab 07/07/19 buprenorphine 5 mcg/hour weekly 1 patch TRANSDERMAL QWEEK 07/07/19 transdermal patch citalopram 20 mg tablet 20 mg NG DAILY #30 tab 07/07/19 doxepin 25 mg capsule 25 mg NG QHS #30 cap 07/07/19 Albuterol Inhaler [Ventolin Hfa 2 puff INHALATION Q6H PRN PRN 08/25/19 (SP)] Amox/Clav 400mg/5ml Suspension 10 ml NG Q12H 08/25/19 [Augmentin Suspension 400mg/5ml] Ascorbic Acid 500 mg NG BID 08/25/19 Divalproex Sodium [Depakote 125 mg NG 4X/DAY 08/25/19 Sprinkle] Docusate Sodium [Docu Liquid] 50 mg NG BID 08/25/19 Enoxaparin [Lovenox] 40 mg SUBCUT DAILY@0600 08/25/19 Guaifenesin 15 ml NG Q4H 08/25/19 Multivitamin with Minerals 1 ea NG DAILY 08/25/19 [Multiple Vitamin] Oxycodone HCl [Roxicodone] 5 - 10 mg NG Q4H PRN PRN 08/25/19 Sennosides/Docusate Sodium [Senna 1 tab NG BID 08/25/19 Plus 8.6-50 mg Tablet] Surgical History: tonsillectomy, - - Cervical spine surgery 08/17/2019 Dr. Senior. Psychiatric History: Depression Lives: Detention - [facility]. Smoking Status: Former smoker Tobacco Use: Cigarettes Alcohol: Sober Drugs: None - *Family History Maternal History Items: Cancer - Lung. Paternal History Items: Cancer, Diabetes Review of Systems Constitutional: Denies: Chills, Fever Cardiovascular: Denies: Claudication Gastrointestinal: Denies: Vomiting Musculoskeletal: Denies: Foot Pain, Leg Pain Skin: Reports: Wounds Neurological: Reports: Balance problems, Numbness Patient Problems: Active and Suspected Problems (Last Reviewed 10/01/18 @ 09:13 by Skylar Grady) Debility (Acute) Cervical spinal stenosis (Acute) Dysphagia (Acute) Lumbar spinal stenosis (Acute) - Physical Exam General: Alert, Oriented x3, Cooperative HEENT: Atraumatic Extremities: No cyanosis - Bilateral foot, No edema - Bilateral foot, Capillary Refill Less than 3 Seconds - All remaining digit portions bilateral, No Calf Tenderness - Negative Renato and Aldrich sign bilateral, Diminished Peripheral Pulses, - - Dorsal contraction of lesser digits rigid bilateral with previous hallux amputation noted right Skin: Ulcer/ Wound - There is no skin discontinuity noted. There is evidence of a previous abrasion with well adhered eschar and full epithelialization is noted to the dorsal proximal interphalangeal joint level of the right second toe. There is no purulence, erythema, streaking, odor, infection. No interdigital maceration or necrosis noted., - - His lower extremity foot skin is hairless and atrophic. Musculoskeletal: No Tenderness to Palpation of Joints or Extremities, Muscle Wasting, - Neurological: - - Lack of normal epicritic sensation light touch is consistent with neuropathy status bilateral lower extremities Vital Signs Temp Pulse Resp BP Pulse Ox 98.4 F 70 18 131/65 H 95 08/25/19 15:28 08/25/19 15:28 08/25/19 15:28 08/25/19 15:28 08/25/19 22:18 Oxygen Delivery Method Room Air Weight: 78.2 kg Body Mass Index (BMI) 24.7 Intake and Output for Last 24 Hours 08/24/19 08/25/19 08/26/19 23:59 23:59 23:59 Intake Total 50 / 50 Output Total 900 / 900 1999 Balance -850 / -850 -1999 Laboratory Tests Past 24 Hrs 08/26/19 08/26/19 05:10 05:10 WBC 9.1 RBC 3.87 L Hgb 10.8 L Hct 33.9 L MCV 87.6 MCH 27.9 MCHC 31.9 L RDW Std Deviation 44.0 H RDW Coeff of Francine 13.9 Plt Count 458 H MPV 8.9 Immature Gran % (Auto) 0.600 Neut % (Auto) 74.2 H Lymph % (Auto) 12.6 L [place] % (Auto) 10.7 H Eos % (Auto) 1.5 Baso % (Auto) 0.4 Absolute Neuts (auto) 6.7 Absolute Lymphs (auto) 1.14 Nucleated RBC % 0 Sodium 136 Potassium 4.2 Chloride 98 Carbon Dioxide 30.0 Anion Gap 8 BUN 20 H Creatinine 0.50 L Estim Creat Clear Calc 174.39 Est GFR (MDRD) Af Amer 222 Est GFR (MDRD) Non-Af 184 BUN/Creatinine Ratio 40.0 H Glucose 121 H Calcium 9.0 POC Glucose 08/26/19 08/25/19 06:14 17:10 POC Glucose 114 H 96 Assessment/Plan All Active Problems (Last Reviewed 10/01/18 @ 09:13 by Skylar Grady) Debility (Acute) Cervical spinal stenosis (Acute) Dysphagia (Acute) Lumbar spinal stenosis (Acute) Ulcer of right second toe, limited to breakdown of skin (Resolved) Segmental and somatic dysfunction of pelvic region (Acute) Segmental and somatic dysfunction of thoracic region (Acute) Segmental and somatic dysfunction of lumbar region (Acute) Ulcer of right foot with fat layer exposed (Resolved) Healed ulcer of right foot on examination (Acute) Non-pressure chronic ulcer of other part of right foot with necrosis of muscle (Acute) Non-pressure chronic ulcer of other part of right foot with fat layer exposed (Acute) Osteomyelitis of toe of right foot (Ruled-out) Diabetic ulcer of foot with fat layer exposed (Resolved) Ulcer of toe due to diabetes (Acute) Diabetic ulcer of toe with fat layer exposed (Resolved) Cellulitis of great toe of right foot (Acute) Stable eschar right dorsal second toe, no open ulceration or infection Right hammertoe Diabetes with neuropathy Status post cervical neck surgery and transitional care unit I reviewed and discussed his case. Lower extremity exam was performed and he was reassured no open wound or infection is noted today. I do not recommend dressing care. He was advised to wear soft slippers or surgical shoes to keep pressure off his hammertoe sites. To periodically elevate the legs to reduce lower extremity edema. His lower extremity edema appears to be well controlled at this time. To perform daily foot checks. Thank you for the consultation. I will continue to follow him on a monthly or bimonthly basis while in the transitional care unit. Otherwise, he can follow-up at the foot and ankle center as scheduled for diabetic foot screenings, palliative foot care, or sooner if new problems arise. All of his questions. Eloise Villalba DPM, FACFAS [facility] [phone]
--- NOTE | 2019-08-26 14:19 | PHA.CONS_ITS ---
<JohndonnaChhaya - Last Filed: 08/26/19 14:19> Progress Note - Pharmacy Subjective: TCU Admission Objective: Allergies shellfish derived Allergy (Verified 05/14/18 14:25) Rash bacitracin [From Neosporin Plus] Adverse Reaction (Verified 05/14/18 14:25) Unknown bacitracin zinc [From Neosporin Plus] Adverse Reaction (Verified 05/14/18 14:25) Unknown lisinopril Adverse Reaction (Verified 05/14/18 14:25) Hives, throat closed neomycin sulfate [From Neosporin Plus] Adverse Reaction (Verified 05/14/18 14:25) Unknown polymyxin B [From Neosporin Plus] Adverse Reaction (Verified 05/14/18 14:25) Unknown polymyxin B sulfate [From Neosporin Plus] Adverse Reaction (Verified 05/14/18 14:25) Unknown pramoxine [From Neosporin Plus] Adverse Reaction (Verified 05/14/18 14:25) Unknown pramoxine HCl [From Neosporin Plus] Adverse Reaction (Verified 05/14/18 14:25) infection when placed on a cut Current Medications Generic Name Dose Route Start Last Admin Trade Name Freq PRN Reason Stop Dose Admin Acetaminophen 650 mg 08/25/19 21:12 Tylenol Liquid NG Q4H PRN PRN Pain Score 1-3/10 Amlodipine Besylate 5 mg 08/26/19 06:00 08/26/19 04:48 Norvasc NG 5 mg DAILY GOGO Administration Amoxicillin/Clavulanate Potassium 800 mg 08/25/19 19:30 08/26/19 04:50 Augmentin Suspension 400mg/5ml NG 08/31/19 19:31 800 mg Q12 GOGO Administration Atorvastatin Calcium 40 mg 08/25/19 22:00 08/25/19 22:20 Lipitor NG 40 mg QHS GOGO Administration Bisacodyl 10 mg 08/25/19 21:13 Dulcolax RECTAL DAILY PRN Constipation Citalopram Hydrobromide 20 mg 08/26/19 06:00 08/26/19 04:48 Celexa NG 20 mg DAILY GOGO Administration Enoxaparin Sodium 40 mg 08/26/19 06:00 08/26/19 05:01 Lovenox SC 40 mg DAILY@0600 GOGO Administration Nutritional Form-Impair Digest-Fibe 1,500 mls @ 30 mls/hr 08/25/19 21:00 08/25/19 22:30 Vital Af 1.2 Ivan Liquid GT 30 mls/hr .Q48H GOGO Administration Losartan Potassium 100 mg 08/25/19 22:00 08/25/19 22:20 Cozaar NG 100 mg QHS GOGO Administration Oxycodone HCl 5 - 10 mg 08/25/19 18:00 08/26/19 09:59 Oxyir NG 10 mg Q4H PRN PRN Administration Pain Score 1-1010 Polyethylene Glycol 17 gm 08/26/19 06:00 08/26/19 04:46 Miralax GT 17 gm DAILY GOGO Administration Senna/Docusate Sodium 1 tablet 08/26/19 06:00 08/26/19 04:48 Senokot-S, Aleyda-Colace NG 1 tablet BID GOGO Administration Tuberculin PPD 5 tu 09/02/19 10:00 Tubersol, Aplisol, Ppd ID 09/02/19 10:01 X1 ONE Problem List (Last Reviewed 10/01/18 @ 09:13 by Skylra Grady) Debility (Acute) Cervical spinal stenosis (Acute) Dysphagia (Acute) Lumbar spinal stenosis (Acute) Diet-controlled diabetes mellitus (Chronic) Hyperlipidemia (Chronic) Opioid dependence (Chronic) PAOD (peripheral arterial occlusive disease) (Chronic) Vital Signs Temp Pulse Resp BP Pulse Ox 98.4 F 70 18 131/65 H 95 08/25/19 15:28 08/25/19 15:28 08/25/19 15:28 08/25/19 15:28 08/25/19 22:18 Oxygen Delivery Method Room Air Weight: 78.2 kg Body Mass Index (BMI) 24.7 Sodium 136 mmol/L (136-145) 08/26/19 05:10 Potassium 4.2 mmol/L (3.5-5.1) 08/26/19 05:10 Chloride 98 mmol/L (98-107) 08/26/19 05:10 Carbon Dioxide 30.0 mmol/L (21.0-32.0) 08/26/19 05:10 Anion Gap 8 (5-15) 08/26/19 05:10 BUN 20 mg/dL (7-18) H 08/26/19 05:10 Creatinine 0.50 mg/dL (0.70-1.30) L 08/26/19 05:10 Est GFR (MDRD) Af Amer 222 mL/min (>60) 08/26/19 05:10 Est GFR (MDRD) Non-Af 184 mL/min (>60) 08/26/19 05:10 BUN/Creatinine Ratio 40.0 RATIO (10-20) H 08/26/19 05:10 Glucose 121 mg/dL (74-106) H 08/26/19 05:10 Assessment/Plan: *1. Pain: acetaminophen 650mg NG Q4H PRN mild pain (1-3/10) and oxycodone 5-10mg NG Q4H PRN pain (1-10/10, 5mg for pain scale 1-5/10, 10mg for pain scale 6- 10/10). There are duplicate orders for mild pain scores from 1-3. Please consider making acetaminophen 1st line and oxycodone 2nd line for a pain score of 1-3. Please continue to monitor for constipation, respiratory depression, and PRN usage. 2. Hospital acquired pneumonia: amoxicillin/clavulanate suspension 800mg NG Q12H thru 08/31/19. Please continue to monitor for S/S of worsening infection and diarrhea. 3. DVT prophylaxis: enoxaparin 40mg SC daily. Please continue to monitor renal function, platelets and S/S of bleeding. 4. Hypertension: losartan 100mg NG QHS, amlodipine 5mg NG daily. Please continue to monitor BP. *5. Hyperlipidemia: atorvastatin 40mg NG QHS. I could not find a lipid panel in patient's chart. Please consider ordering a lipid panel now and then annually as clinically appropriate. LFTs are WNL and appropriate for continued use. Please continue to monitor LFTs and muscle pain. Psychotropic Medications: 1. Depression: citalopram 20mg NG daily. Consider GDR 02/2020. Unnecessary Medications: None Bowel Regimen: Miralax 17gm GT daily, senna/docusate 1T NG BID, bisacodyl 10mg rectally daily PRN constipation. Please continue to monitor for constipation and diarrhea. Date of Note:: 08/26/19 - Provider Comments Provider responsibility: Provider responsible to enter orders to implement recommendations <Michael De Dios Chi - Last Filed: 08/26/19 16:53> Progress Note - Pharmacy Subjective: [] Objective: Allergies shellfish derived Allergy (Verified 05/14/18 14:25) Rash bacitracin [From Neosporin Plus] Adverse Reaction (Verified 05/14/18 14:25) Unknown bacitracin zinc [From Neosporin Plus] Adverse Reaction (Verified 05/14/18 14:25) Unknown lisinopril Adverse Reaction (Verified 05/14/18 14:25) Hives, throat closed neomycin sulfate [From Neosporin Plus] Adverse Reaction (Verified 05/14/18 14:25) Unknown polymyxin B [From Neosporin Plus] Adverse Reaction (Verified 05/14/18 14:25) Unknown polymyxin B sulfate [From Neosporin Plus] Adverse Reaction (Verified 05/14/18 14:25) Unknown pramoxine [From Neosporin Plus] Adverse Reaction (Verified 05/14/18 14:25) Unknown pramoxine HCl [From Neosporin Plus] Adverse Reaction (Verified 05/14/18 14:25) infection when placed on a cut Current Medications Generic Name Dose Route Start Last Admin Trade Name Freq PRN Reason Stop Dose Admin Acetaminophen 650 mg 08/25/19 21:12 Tylenol Liquid NG Q4H PRN PRN Pain Score 1-3/10 Amlodipine Besylate 5 mg 08/26/19 06:00 08/26/19 04:48 Norvasc NG 5 mg DAILY GOGO Administration Amoxicillin/Clavulanate Potassium 800 mg 08/25/19 19:30 08/26/19 04:50 Augmentin Suspension 400mg/5ml NG 08/31/19 19:31 800 mg Q12 GOGO Administration Atorvastatin Calcium 40 mg 08/25/19 22:00 08/25/19 22:20 Lipitor NG 40 mg QHS GOGO Administration Bisacodyl 10 mg 08/25/19 21:13 Dulcolax RECTAL DAILY PRN Constipation Citalopram Hydrobromide 20 mg 08/26/19 06:00 08/26/19 04:48 Celexa NG 20 mg DAILY GOGO Administration Enoxaparin Sodium 40 mg 08/26/19 06:00 08/26/19 05:01 Lovenox SC 40 mg DAILY@0600 GOGO Administration Nutritional Form-Impair Digest-Fibe 1,500 mls @ 30 mls/hr 08/25/19 21:00 08/25/19 22:30 Vital Af 1.2 Ivan Liquid GT 30 mls/hr .Q48H GOGO Administration Losartan Potassium 100 mg 08/25/19 22:00 08/25/19 22:20 Cozaar NG 100 mg QHS GOGO Administration Oxycodone HCl 5 - 10 mg 08/25/19 18:00 08/26/19 15:04 Oxyir NG 10 mg Q4H PRN PRN Administration Pain Score 1-09/03 Polyethylene Glycol 17 gm 08/26/19 06:00 08/26/19 04:46 Miralax GT 17 gm DAILY GOGO Administration Senna/Docusate Sodium 1 tablet 08/26/19 06:00 08/26/19 04:48 Senokot-S, Aleyda-Colace NG 1 tablet BID GOGO Administration Tuberculin PPD 5 tu 09/02/19 10:00 Tubersol, Aplisol, Ppd ID 09/02/19 10:01 X1 ONE Problem List (Last Reviewed 10/01/18 @ 09:13 by Skylar Grady) Debility (Acute) Cervical spinal stenosis (Acute) Dysphagia (Acute) Lumbar spinal stenosis (Acute) Diet-controlled diabetes mellitus (Chronic) Hyperlipidemia (Chronic) Opioid dependence (Chronic) PAOD (peripheral arterial occlusive disease) (Chronic) Vital Signs Temp Pulse Resp BP Pulse Ox 98.4 F 70 18 131/65 H 95 08/25/19 15:28 08/25/19 15:28 08/25/19 15:28 08/25/19 15:28 08/25/19 22:18 Oxygen Delivery Method Room Air Weight: 78.2 kg Body Mass Index (BMI) 24.7 Sodium 136 mmol/L (136-145) 08/26/19 05:10 Potassium 4.2 mmol/L (3.5-5.1) 08/26/19 05:10 Chloride 98 mmol/L (98-107) 08/26/19 05:10 Carbon Dioxide 30.0 mmol/L (21.0-32.0) 08/26/19 05:10 Anion Gap 8 (5-15) 08/26/19 05:10 BUN 20 mg/dL (7-18) H 08/26/19 05:10 Creatinine 0.50 mg/dL (0.70-1.30) L 08/26/19 05:10 Est GFR (MDRD) Af Amer 222 mL/min (>60) 08/26/19 05:10 Est GFR (MDRD) Non-Af 184 mL/min (>60) 08/26/19 05:10 BUN/Creatinine Ratio 40.0 RATIO (10-20) H 08/26/19 05:10 Glucose 121 mg/dL (74-106) H 08/26/19 05:10 Assessment/Plan: Psychotropic Medications: Unnecessary Medications: Bowel Regimen: - Provider Comments Provider responsibility: Provider responsible to enter orders to implement recommendations Provider Comments to Recommendations by Pharmacy: Agree
[2019-08-26] MEDS: Magnesium Citrate 300 ML NG (15:53)
[2019-08-26 16:00] VITALS: BP 123/58; PULSE 84; RESP 20; TEMP 36.6; O2SAT 94
[2019-08-26] MEDS: Losartan Potassium 100 MG Tablet NG (20:29)
[2019-08-26] MEDS: Atorvastatin Calcium 40 MG Tablet NG (20:29)
--- NOTE | 2019-08-26 20:52 | NURSING ---
Rosio patched noted to Rt deltoid dated 08/19. Pt without an order for it. Pt stating they put it on him at the other hospital to help with his pain. Patch removed and placed in Rx destroyer. Witnessed by KARIN Velasquez.
[2019-08-27] MEDS: amLODIPine 5 MG Tablet NG (04:56)
[2019-08-27] MEDS: Amox/Clav 400mg/5ml Susp 800 MG NG ×2 (04:56→17:08)
[2019-08-27] MEDS: Citalopram 20 MG Tablet NG (04:56)
[2019-08-27] MEDS: Enoxaparin 40 MG/0.4 ML Syringe SC (04:57)
[2019-08-27] MEDS: Senna/Docusate Sodium 1 Tablet NG ×2 (04:57→17:07)
[2019-08-27] MEDS: Polyethylene Glycol 3350 17 GM PACKET GT (04:57)
[2019-08-27] MEDS: oxyCODONE 5 MG Tablet NG ×4 (05:00→21:23)
--- NOTE | 2019-08-27 09:22 | NURSING ---
Addendum entered by Mahsa Simon 08/27/19 09:48: pt unhooked from tube feed at this time, flushed NG tube, 0cc residual. Mouth care given. slight coating noted on tongue. denies pain or sores. pt sitting in WC. pleasant and cooperative.Dr De Dios aware and ok with dieticians new orders per recommendations. Original Note: PT requesting to have tube feeding stopped so he can move around room in WC. Senior Qc Technician notified, she will review and adjust his tube feeds to run at night to assist pt in more freedom with therapy during day. Dr De Dios updated for new orders.
[2019-08-27 15:18] VITALS: BP 121/59; PULSE 80; RESP 20; TEMP 36.7; O2SAT 96
--- NOTE | 2019-08-27 16:18 | CASEMGMT ---
Insurance: Continued stay review faxed on 08/27/19. Auth #[id number]
--- NOTE | 2019-08-27 17:12 | CASEMGMT ---
Insurance: continued stay approved. Next update due 08/31/19. Auth # [id number]
[2019-08-27] MEDS: Losartan Potassium 100 MG Tablet NG (21:23)
[2019-08-27] MEDS: Atorvastatin Calcium 40 MG Tablet NG (21:23)
[2019-08-27] MEDS: Vital AF 1.2 Cal Liq 1,500 ML 70 ML GT (21:34)
--- NOTE | 2019-08-28 00:36 | NURSING ---
Addendum entered by Fátima Molina 08/28/19 03:35: Patient continues to tolerate tube feedings. Patient increased at this time to 130 cc/hr which is goal rate. Addendum entered by Fátima Molina 08/28/19 02:27: Patient continues to tolerate tube feeding. Patient at this time increased to 120 cc/hr. Patient has no residuals noted at this time. Original Note: Per Cut Off Machine Helper order patient has been increased by 10 cc/hr every hour since 2129. Patient increased to 100 cc/hr. Patient tolerating tube feed. No residuals noted at this time.
[2019-08-28] MEDS: oxyCODONE 5 MG Tablet NG ×3 (03:02→21:38)
--- NOTE | 2019-08-28 03:27 | NURSING ---
Pt requesting pain medication, pt sitting upright in recliner. Pt denies feeling full or discomfort to abdomen. Abd noted to be soft. Pain medication provided for back pain, no cough noted following administration.
[2019-08-28] MEDS: amLODIPine 5 MG Tablet NG (05:06)
[2019-08-28] MEDS: Citalopram 20 MG Tablet NG (05:06)
[2019-08-28] MEDS: Polyethylene Glycol 3350 17 GM PACKET GT (05:06)
[2019-08-28] MEDS: Senna/Docusate Sodium 1 Tablet NG ×2 (05:06→18:21)
[2019-08-28] MEDS: Amox/Clav 400mg/5ml Susp 800 MG NG ×2 (05:10→18:23)
[2019-08-28] MEDS: Enoxaparin 40 MG/0.4 ML Syringe SC (05:20)
[2019-08-28 06:20] LABS: Bedside Glucose 148 mg/dL (70-110)
[2019-08-28 15:58] VITALS: BP 123/59; PULSE 86; RESP 18; TEMP 36.6; O2SAT 97
[2019-08-28] MEDS: oxyCODONE 5 MG Tablet 10 MG NG (18:20)
[2019-08-28] MEDS: cycloBENZAPRine HCl 10 MG Tablet 5 MG NG (18:20)
[2019-08-28] MEDS: Atorvastatin Calcium 40 MG Tablet NG (21:40)
[2019-08-28] MEDS: Losartan Potassium 50 MG Tablet 100 MG NG (21:40)
[2019-08-28] MEDS: Vital AF 1.2 Cal Liq 1,500 ML 70 ML GT (21:40)
[2019-08-29] MEDS: Acetaminophen 650 MG/20 ML UDC NG ×3 (00:39→22:33)
[2019-08-29] MEDS: oxyCODONE 5 MG Tablet 10 MG NG ×2 (05:21→17:41)
[2019-08-29] MEDS: Amox/Clav 400mg/5ml Susp 800 MG NG ×2 (05:21→17:41)
[2019-08-29] MEDS: Citalopram 20 MG Tablet NG (05:22)
[2019-08-29] MEDS: cycloBENZAPRine HCl 10 MG Tablet 5 MG NG ×2 (05:22→17:42)
[2019-08-29] MEDS: amLODIPine 5 MG Tablet NG (05:23)
[2019-08-29] MEDS: Enoxaparin 40 MG/0.4 ML Syringe SC (05:23)
[2019-08-29 06:31] LABS: Bedside Glucose 183 mg/dL (70-110)
[2019-08-29] MEDS: oxyCODONE 5 MG Tablet NG ×2 (10:28→22:31)
--- NOTE | 2019-08-29 11:14 | NURSING ---
Oliveira removed at this time, NG remains patent, pt c/o of dryness to throat from tubing, oral mouth care done by patient
--- NOTE | 2019-08-29 12:15 | NURSING ---
ron patch applied to R posterior shoulder
[2019-08-29 15:36] LABS: Bedside Glucose 103 mg/dL (70-110)
[2019-08-29 16:00] VITALS: BP 111/56; PULSE 94; RESP 22; TEMP 36.4; O2SAT 95
[2019-08-29 16:29] VITALS: RESP 18
[2019-08-29] MEDS: Senna/Docusate Sodium 1 Tablet NG (17:42)
[2019-08-29] MEDS: Losartan Potassium 50 MG Tablet 100 MG NG (20:52)
[2019-08-29] MEDS: Atorvastatin Calcium 40 MG Tablet NG (20:52)
[2019-08-29] MEDS: Vital AF 1.2 Cal Liq 1,500 ML 70 ML GT (20:57)
--- NOTE | 2019-08-30 00:33 | NURSING ---
Butrans patch is on patient's right posterior shoulder.
[2019-08-30] MEDS: oxyCODONE 5 MG Tablet 10 MG NG ×2 (05:14→17:52)
[2019-08-30] MEDS: Amox/Clav 400mg/5ml Susp 800 MG NG ×2 (05:14→17:51)
[2019-08-30] MEDS: amLODIPine 5 MG Tablet NG (05:15)
[2019-08-30] MEDS: Polyethylene Glycol 3350 17 GM PACKET GT (05:15)
[2019-08-30] MEDS: Senna/Docusate Sodium 1 Tablet NG ×2 (05:15→17:53)
[2019-08-30] MEDS: Citalopram 20 MG Tablet NG (05:15)
[2019-08-30] MEDS: cycloBENZAPRine HCl 10 MG Tablet 5 MG NG ×2 (05:15→17:52)
--- NOTE | 2019-08-30 05:15 | NURSING ---
In to give patient his medications this morning, patient dry heaving and spitting in trash can. Patient c/o feeling full and that his stomach hurts. Patient tube feed stopped for a little while at this time. Patient has been encouraged to keep head of bed elevated all night and educated on the importance of having it elevated due to patient receiving tube feeds. Patient has expressed understanding but continues to put bed down because it hurts my back to sit up. Will continue to educate patient on importance of elevating head of bed.
[2019-08-30] MEDS: Enoxaparin 40 MG/0.4 ML Syringe SC (05:26)
[2019-08-30 11:27] LABS: Bedside Glucose 143 mg/dL (70-110)
--- NOTE | 2019-08-30 13:20 | NURSING ---
Butrans patch is on patient's right posterior shoulder.
[2019-08-30 15:35] VITALS: BP 151/72; PULSE 91; RESP 19; TEMP 36.1; O2SAT 96
[2019-08-30] MEDS: Losartan Potassium 50 MG Tablet 100 MG NG ×2 (20:27→20:28)
[2019-08-30] MEDS: Atorvastatin Calcium 40 MG Tablet NG (20:27)
[2019-08-30] MEDS: Acetaminophen 650 MG/20 ML UDC NG (20:28)
[2019-08-30] MEDS: Vital AF 1.2 Cal Liq 1,500 ML 70 ML GT (20:30)
[2019-08-30] MEDS: oxyCODONE 5 MG Tablet NG (22:28)
--- NOTE | 2019-08-30 22:32 | NURSING ---
Butrans patch is on patient's right posterior shoulder.
--- NOTE | 2019-08-31 | RAD_ITS ---
STUDY: SWALLOWING STUDY REASON FOR EXAM: Male, 53 years old. Patient had an anterior and posterior cervical fusion with difficulty swallowing. TECHNIQUE: The examination was performed with Speech Pathology in attendance. Under fluoroscopic observation, the patient ingested thin barium, thick barium, barium pudding, and barium coated cracker. FLUOROSCOPY TIME: 3:00 minutes/seconds RADIOLOGIST INVOLVEMENT: , Supervised the procedure COMPARISON: None. FINDINGS: The following was observed during swallowing of the various mixtures of barium: Thin Barium: There was penetration and aspiration with thin liquid barium with a mild cough reflex. Thick Barium: There was mild penetration was noted. Barium Pudding: No penetration or aspiration was seen. Barium Coated Cracker: Was not given as the patient had an NG tube in place.. RAD/Swallowing Function w/Video IMPRESSION: There was penetration and aspiration with thin liquid barium and penetration with nectar thick barium. The swallow study findings were discussed with the patient by the speech pathologist at the conclusion of the examination. Please see speech pathology report for more information and recommendations. The procedure was performed by the speech therapist under the direct supervision of Dr. Francis Odonnell Electronically Signed: Francis Odonnell, at 16:25 EDT Tel , Service support ,
[2019-08-31] MEDS: oxyCODONE 5 MG Tablet 10 MG NG ×2 (04:45→16:51)
[2019-08-31] MEDS: Enoxaparin 40 MG/0.4 ML Syringe SC (04:46)
[2019-08-31] MEDS: amLODIPine 5 MG Tablet NG (04:46)
[2019-08-31] MEDS: Citalopram 20 MG Tablet NG (04:46)
[2019-08-31] MEDS: Senna/Docusate Sodium 1 Tablet NG ×2 (04:46→16:50)
[2019-08-31] MEDS: cycloBENZAPRine HCl 10 MG Tablet 5 MG NG ×2 (04:46→16:50)
[2019-08-31] MEDS: Amox/Clav 400mg/5ml Susp 800 MG NG ×2 (04:47→16:50)
[2019-08-31 06:10] LABS: Bedside Glucose 189 mg/dL (70-110)
--- NOTE | 2019-08-31 08:24 | NURSING ---
butrans patch intact to RT upper shoulder/neck/back area. Unhooked Tube feeding from NG tube. flushed after w/100cc sterile water. Pt oral care provided at this time. pt assisted to BR then back to WC.
--- NOTE | 2019-08-31 10:56 | CASEMGMT ---
Insurance: Continued stay review faxed to [facility] this day. Auth #[id number]
[2019-08-31] MEDS: oxyCODONE 5 MG Tablet NG (11:23)
[2019-08-31 11:44] VITALS: PULSE 88
--- NOTE | 2019-08-31 13:03 | NURSING ---
Addendum entered by Lindsay Morales 08/31/19 13:22: STRAIGHT CATH AT THIS TIME FOR 475CC CLEAR, STRAW-COLORED URINE. R' TOLERATED WELL. Original Note: NOTIFIED DR RED OF PVR 591CC AFTER VOIDING 200CC. ORDER FOR ST CATH UP TO 3 TIMES FOR PVR >500CC THEN NOTIFY HIM IF STILL CONTINUES HIGH PVR'S. .
--- NOTE | 2019-08-31 13:30 | SP.MBSS_ITS ---
PRIMARY / SECONDARY DIAGNOSIS: dysphagia (R13.10) REFERRING PHYSICIAN: Dr. Debbie De Dios MD CURRENT DIET: NPO with Dobhoff DENTITION: WFL MENTAL STATUS: sufficient for participation. RESPIRATORY STATUS: O2 via room air REASON FOR REFERRAL: The Patient is a 53 year old male referred for a modified barium swallow (MBS) study to objectively assess the Patients oropharyngeal swallow function under fluoroscopy secondary to concerns for dysphagia associated with C2-C7 cervical spinal stenosis with myeloradiculopathy, status post 08/17/2019 C3- C5 cervical fusion and diskectomy and C2-T2 fusion. 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 PREVIOUS MODIFIED BARIUM SWALLOW STUDY: None. ASSESSMENT PARAMETERS: The Patient participated in a Modified Barium Swallow (MBS) study on 08/31/2019. Dr. Odonnell was the radiologist present for this evaluation. This study was recorded in the lateral view and images were sent to PACs for storage. Scoring was completed through each trial using the 8-point Penetration-Aspiration Scale (PAS) and the Videofluoroscopic Scale Score (VSS), and summarized via the Modified Barium Swallow Impairment Profile (MBSImP) and the Bolus Residue Scale (BRS), with severity scoring through the Dysphagia Severity Rating Scale (DSRS) and the Swallowing Performance Scale (PSP), and recommended diet textures through the International Dysphagia Diet Standardisation Initiative (IDDSI). RESULTS OF THE EVALUATION: The Patient presents with moderate pharyngeal dysphagia (DSRS: 4; SPS: 5) with grade I overt aspiration of thin liquids status post C2-C7 cervical spinal stenosis with myeloradiculopathy status post C3-C5 and C2-T2 fusion. OBJECTIVE ASSESSMENT OF SWALLOW FUNCTION (QUANTITATIVE ? PER TRIAL): PENETRATION / ASPIRATION SCALE (CARVER): 1 = does not enter airway 2 = enters airway/above vocal folds/ejected 3 = enters airway/above vocal folds/not ejected 4 = enters airway/contacts vocal folds/ejected 5 = enters airway/contacts vocal folds/not ejected 6 = enters airway/below vocal folds/ejected 7 = enters airway/below vocal folds/not ejected despite effort 8 = enters airway/below vocal folds/no effort VIDEOFLOROSCOPIC SCALE SCORE (CARVER): Grade I = aspiration of material that has penetrated into the laryngeal vestibule, intact cough reflex Grade II = aspiration < 10 % of the bolus, intact cough reflex Grade III = aspiration of < 10 % of the bolus, reduced cough reflex or aspiration of > 10 % of the bolus, intact cough reflex Grade IV = aspiration of > 10 % of the bolus, reduced cough reflex PENETRATION / ASPIRATION SCALE (SCORE) WITH VIDEOFLOROSCOPIC SCALE SCORE: Thin liquid - 5 mL tsp.: 1 Thin liquids via cup (single sip): 2 Thin liquids via straw (single sip): 2 Thin liquids via straw (single sip): 5 Thin liquids via straw (single sip): 5 Thin liquids via straw (single sip): 7 ? Grade I [place] thickened liquids via straw (single sip): 1 [place] thickened liquids via straw (single sip): 2* [place] thickened liquids via straw (single sip): 1 [place] thickened liquids via straw (single sip): 1 Pudding via spoon: 1 [place] thickened liquids via straw (single sip): 2* [place] thickened liquids via straw (single sip): 3* [place] thickened liquids via straw (single sip): 2 [place] thickened liquids via straw (single sip): 2* [place] thickened liquids via straw (post cough): 1 * denotes occurrence with re-swallow OBJECTIVE ASSESSMENT OF SWALLOW FUNCTION (QUANTITATIVE ? AGGREGATE): MODIFIED BARIUM SWALLOW IMPAIRMENT PROFILE (MBSImP) LABIAL SEAL: 0 (of 4) no labial escape TONGUE CONTROL: 0 (of 3) cohesive bolus BOLUS PREPARATION / MASTICATION: did not test BOLUS TRANSPORT / LINGUAL MOTION: 0 (of 4) brisk tongue motion ORAL RESIDUE: 2 (of 4) residue collection on oral structures INITIATION OF PHARYNGEAL SWALLOW: 1 (of 4) valleculae SOFT PALATE ELEVATION: 0 (of 4) no bolus between soft palate & pharyngeal wall LARYNGEAL ELEVATION: 2 (of 3) minimal superior movement / approximation ANTERIOR HYOID EXCURSION: 1 (of 2) partial movement EPIGLOTTIC MOVEMENT: 1 (of 2) partial inversion LARYNGEAL VESTIBULE CLOSURE: 1 (of 2) incomplete closure PHARYNGEAL STRIPPING WAVE: 1 (of 2) present / diminished PE SEGMENT OPENIN (of 3) partial distension / duration / obstruction TONGUE BASE RETRACTION: 2 (of 4) narrow column of contrast PHARYNGEAL RESIDUE: 2 (of 4) collection of residue ESOPHAGEAL BOLUS CLEARANCE: could not view BOLUS RESIDUE SCALE (BRS): 6 (of 6) residue in valleculae, posterior pharyngeal wall, and piriform sinus DYSPHAGIA SEVERITY RATING SCALE (DSRS): 4 (moderate) SWALLOWING PERFORMANCE SCALE (SPS): 5 (moderate) OBJECTIVE ASSESSMENT OF SWALLOW FUNCTION (QUALITATIVE): ORAL PREPARATORY PHASE: solid textures held due to concerns for asphyxiation given the large amounts of pharyngeal retention complicated by the presence of the nasogastric tube; sufficient anterior oral containment during presentation / manipulation; preserved management of breathing / bolus formation. ORAL TRANSITIONAL PHASE: no presence of transitional incompetence; overall sufficient oral clearance; no presence of premature posterior bolus loss; PHARYNGEAL PHASE: no signs of pharyngeal dyssynchrony; reduced hyolaryngeal excursion and duration with inconsistent laryngeal vestibule pressure generated to expel penetrated material; significant pharyngeal dysmotility most prominently with thicker viscosities attributed to reduced pharyngeal constriction, pharyngoesophageal segment opening, and incomplete epiglottic deflection, all complicated by the presence of the nasogastric tube (difficult to fully assess pharyngeal constriction; NG tube impeding full epiglottic deflection); no signs of velopharyngeal impairments. ESOPHAGEAL PHASE: no obvious esophageal phase abnormalities observed. CONTRIBUTING / COMPLICATING FACTORS AND NOTABLE FINDINGS: strategy selection complicated by the Patients limited cervical mobility / range of motion limitations and restrictions; sufficient volitional cough intensity to expel penetrated material / laryngotracheal aspiration; extensive hardware visualized following extensive cervical fusion with both a posterior (C1-T1) and anterior (C4-C6) approach with suspected tissue swelling complicating pharyngeal motility; nasopharyngeal tube observed complicating pharyngoesophageal segment opening and pharyngeal motility, further complicating assessment of pharyngeal constrictor sufficiency. RESPONSE TO STRATEGIES: all deficits managed successfully with reduction in bolus rate / volume adjustments, diet texture adjustments, diet texture / viscosity adjustments, alteration between solids and liquids, and execution of post deglutition cough. INTERVENTION RECOMMENDATIONS AND CONSIDERATIONS: The Patient requires continued skilled speech-language intervention targeting diet texture management and training / implementation of recommended compensatory strategies; training and implementation of recommended oropharyngeal strengthening exercises to facilitate improved laryngeal vestibule closure / pressure and pharyngeal motility, training, implementation, and Patient / caregiver education regarding implementation of the [place] Free Water Protocol (FFWP); Patient and caregiver training targeting meal preparation / thickened liquid preparation if unable to advance to baseline diet textures prior to discharge. POST ASSESSMENT EDUCATION: Results and recommendations were briefly discussed with the Patient immediately following MBS completion, with the Patient verbalizing understanding and agreement with all recommendations and education provided, though further education is indicated. DIET TEXTURE RECOMMENDATIONS: Will recommend a pureed textured (IDDSI: 4), nectar thickened liquid (IDDSI: 2) diet RECOMMENDED COMPENSATORY STRATEGIES: Supervision, cough post deglutition (consider training and implementation of the supraglottic swallow), reduced bolus volume / rate of ingestion, liquid chaser following semisolids and solids, seated upright at 90 degrees during PO intake, remain upright for 30-60 minutes post meal (GERD precaution), medications crushed in purees. IMAGE COUNT: [id number] Rivas Landry M.A., AMY-ECOMMERCE ANALYST, CBIS MBSImP Certified, LSVT Certified [facility] Speech-Language Pathology Department [email or web address]
[2019-08-31] MEDS: Acetaminophen 650 MG/20 ML UDC NG ×2 (15:36→21:00)
[2019-08-31 16:00] VITALS: BP 123/68; PULSE 74; RESP 18; TEMP 36.4; O2SAT 100
--- NOTE | 2019-08-31 17:12 | NURSING ---
DR. RED ASSESSED REDNESS TO INCISION. NO NEW ORDERS.
--- NOTE | 2019-08-31 17:32 | NURSING ---
speech requesting that NG tube be pulled, Dr De Dios aware. New order to run feeding until 3am then remove dobhoff when pt awake in AM, so he can eat brkfst with supervision of speech therapy.
[2019-08-31] MEDS: Losartan Potassium 50 MG Tablet 100 MG NG (20:59)
[2019-08-31] MEDS: Atorvastatin Calcium 40 MG Tablet NG (21:00)
[2019-08-31] MEDS: Vital AF 1.2 Cal Liq 1,500 ML 70 ML GT (21:12)
--- NOTE | 2019-08-31 22:56 | NURSING ---
Butrans patch intact to Rt posterior shoulder.
[2019-09-01] MEDS: cycloBENZAPRine HCl 10 MG Tablet 5 MG NG (05:29)
[2019-09-01] MEDS: Enoxaparin 40 MG/0.4 ML Syringe SC (05:29)
[2019-09-01] MEDS: oxyCODONE 5 MG Tablet 10 MG NG (05:29)
[2019-09-01] MEDS: Citalopram 20 MG Tablet NG (05:29)
[2019-09-01] MEDS: amLODIPine 5 MG Tablet NG (05:29)
[2019-09-01] MEDS: Senna/Docusate Sodium 1 Tablet NG (05:29)
[2019-09-01 05:39] VITALS: O2SAT 98
[2019-09-01 06:36] LABS: Bedside Glucose 109 mg/dL (70-110)
--- NOTE | 2019-09-01 07:32 | NURSING ---
Addendum entered by Mahsa Simon 09/01/19 09:45: pt ate 25% of brkfst with speech this AM. she reported he did very well, pt c/o scratchy throat from NG tube. Original Note: Removed dobhoff tube this AM w/out incident. Tube intact, dark discoloration noted to distal end of tube on removal. Pt tolerated well, denied any issues or complaints. Speech to supervise pt with brkfst this AM. Pt sitting in recliner chair, call light in reach.
[2019-09-01] MEDS: oxyCODONE 5 MG Tablet NG (10:32)
--- NOTE | 2019-09-01 11:31 | NURSING ---
Reports urinating a small amount prior to this nurse entering his room. Assisted to bed and bladder scanned for a PVR of 42. Denies feeling of bladder feeling full. Refuses offer of tylenol at this pain.
[2019-09-01] MEDS: Acetaminophen 325 MG Tablet 650 MG PO (14:23)
[2019-09-01 16:00] VITALS: BP 140/76; PULSE 80; RESP 18; TEMP 36.6; O2SAT 96
[2019-09-01] MEDS: Senna/Docusate Sodium 1 Tablet PO (17:15)
[2019-09-01] MEDS: cycloBENZAPRine HCl 10 MG Tablet 5 MG PO (17:15)
[2019-09-01] MEDS: oxyCODONE 5 MG Tablet 10 MG PO (17:15)
[2019-09-01] MEDS: Atorvastatin Calcium 40 MG Tablet PO (20:00)
[2019-09-01] MEDS: Losartan Potassium 50 MG Tablet 100 MG PO (20:00)
--- NOTE | 2019-09-01 22:19 | NURSING ---
Butrans patch intact to Rt posterior shoulder.
[2019-09-01] MEDS: oxyCODONE 5 MG Tablet PO (23:07)
[2019-09-02] MEDS: Citalopram 20 MG Tablet PO (05:44)
[2019-09-02] MEDS: Senna/Docusate Sodium 1 Tablet PO ×2 (05:44→18:11)
[2019-09-02] MEDS: oxyCODONE 5 MG Tablet 10 MG PO ×2 (05:45→18:10)
[2019-09-02] MEDS: cycloBENZAPRine HCl 10 MG Tablet 5 MG PO ×2 (05:45→18:11)
[2019-09-02] MEDS: amLODIPine 5 MG Tablet PO (05:45)
[2019-09-02] MEDS: Enoxaparin 40 MG/0.4 ML Syringe SC (05:50)
[2019-09-02 06:05] LABS: Absolute Lymphocyte Count 1.67 X10^3/uL (0.83-4.51); Absolute Neutrophil Count 9.6 X10^3/uL (2.0-7.7); Basophil# 0.06 X10^3/uL; Basophil% 0.5 % (0-1); Eosinophil# 0.08 X10^3/uL; Eosinophils% 0.6 % (0-5); Hematocrit 37.3 % (40-54); Hemoglobin 11.7 g/dL (13.0-16.5); Lymphocyte # 1.67 X10^3/ul (4.0); Lymphocyte % 13.5 % (19-41); Mean Corp Hgb Conc 31.4 g/dL (32-36); Mean Corpuscular Hgb 27.5 pg (27.0-32.0); Mean Corpuscular Volume 87.8 fL (80-94); Mean Platelet Vol. 8.5 fl (6.2-12.0); Monocyte# 0.84 X10^3/uL; Monocyte% 6.8 % (0-10); NRBC Flagged by Analyzer 0 % (0-5); Neutrophil # 9.64 X10^3/uL (2.7-7.7); Neutrophil % 78.2 % (47-70); Platelet Count 578 K/mm3 (150-450); RBC Distribution Width CV 14.2 % (11.6-14.6); RBC Distribution Width SD 45.5 fl (35.1-43.9); Red Blood Count 4.25 M/mm3 (4.6-6.2); White Blood Count 12.3 K/mm3 (4.4-11.0)
[2019-09-02 06:22] LABS: Anion Gap 7 (5-15); BUN 15 mg/dL (7-18); BUN/Creat Ratio 29.6 RATIO (10-20); Calcium,Total 9.3 mg/dL (8.5-10.1); Chloride 99 mmol/L (98-107); Creatinine, Serum 0.51 mg/dL (0.70-1.30); EST Glomerular Filtration Rate 181 mL/min (>60); Est Glom Filt Rate - Afr Amer 219 mL/min (>60); Estimated Creatinine Clearance 170.97 ml/min; Glucose 95 mg/dL (74-106); Potassium 4.2 mmol/L (3.5-5.1); Sodium Level 137 mmol/L (136-145)
[2019-09-02 06:25] LABS: Bedside Glucose 69 mg/dL (70-110)
[2019-09-02 07:01] LABS: Bedside Glucose 141 mg/dL (70-110)
--- NOTE | 2019-09-02 10:15 | CASEMGMT ---
Social Work IDT met with patient and aunt for care plan meeting. Discussed patient's progress in therapy. Patient is puree, nectar, diabetic diet with supervision with meals. Pt has magic cup and ensure to assist with weight gain and nutrition. Patient is SBA to min assist with walking with FWW and ADLs - pt still struggles with fatigue. Pt will continue to work with therapy. Explained insurance and NRD 09/07. Pt is not please with [facility] and would like to search for other places to reside. Will notify watch case polisher to search for options and pt gave permission to speak with aunt about those options. Pt is awaiting to get medical clearance for CPAP and SW will assist in getting new CPAP at home through [facility]. Will continue to follow. MARC SantiagoW
--- NOTE | 2019-09-02 10:47 | NURSING ---
Spoke to resp therapy regarding cpap at night now that dobhoff is removed, they will set up tonight.
[2019-09-02] MEDS: oxyCODONE 5 MG Tablet PO (11:03)
[2019-09-02] MEDS: Tuberculin,Purif.prot.deriv. 50 TU/ML Vial 5 ML ID (11:05)
[2019-09-02 15:42] VITALS: BP 106/53; PULSE 91; RESP 18; TEMP 36.8; O2SAT 95
[2019-09-02] MEDS: Atorvastatin Calcium 40 MG Tablet PO (21:15)
[2019-09-02] MEDS: Losartan Potassium 50 MG Tablet 100 MG PO (21:15)
--- NOTE | 2019-09-02 21:19 | NURSING ---
Butrans patch intact to Rt posterior shoulder.
[2019-09-02 22:18] VITALS: O2SAT 97
--- NOTE | 2019-09-02 22:18 | CPS ---
PATIENT REFUSED BIPAP. RT EXPLAINED IMPORTANCE OF THERAPY. PATIENT REFUSED. RT EXPLAINED IMPORTANCE OF WEARING DEVICE FOR INSURANCE APPROVAL AT HOME. PATIENT REFUSED. PATIENTS NURSE INFOMRED. PATIENT PLACED ON 2 LPM NC.
[2019-09-03] MEDS: oxyCODONE 5 MG Tablet PO ×2 (02:09→23:52)
[2019-09-03] MEDS: Senna/Docusate Sodium 1 Tablet PO ×2 (05:38→17:23)
[2019-09-03] MEDS: cycloBENZAPRine HCl 10 MG Tablet 5 MG PO ×2 (05:39→17:24)
[2019-09-03] MEDS: oxyCODONE 5 MG Tablet 10 MG PO ×2 (05:39→17:23)
[2019-09-03] MEDS: Citalopram 20 MG Tablet PO (05:39)
[2019-09-03] MEDS: amLODIPine 5 MG Tablet PO (05:39)
[2019-09-03] MEDS: Enoxaparin 40 MG/0.4 ML Syringe SC (05:41)
[2019-09-03 06:20] LABS: Bedside Glucose 98 mg/dL (70-110)
[2019-09-03] MEDS: Acetaminophen 325 MG Tablet 650 MG PO (10:22)
--- NOTE | 2019-09-03 10:34 | NURSING ---
Leaves unit for ALESSANDRA today.
--- NOTE | 2019-09-03 11:56 | CASEMGMT ---
Insurance: Next continued stay review is due 09/07/19. auth 3 [id number]
--- NOTE | 2019-09-03 11:56 | MDS.RN ---
Information for the mds was obtained from review of the clinical record, interview of resident, staff, and direct observation of resident's care. Did not finalize assessment/ 5 day assessment per instructions from information systems, will finalize when instructed.
--- NOTE | 2019-09-03 12:03 | NURSING ---
Pt left for [facility]A with Aunt and just returned for lunch.
[2019-09-03 16:00] VITALS: BP 122/68; PULSE 90; RESP 20; TEMP 36.4; O2SAT 96
[2019-09-03] MEDS: Atorvastatin Calcium 40 MG Tablet PO (19:49)
[2019-09-03] MEDS: Losartan Potassium 50 MG Tablet 100 MG PO (19:49)
[2019-09-04] MEDS: oxyCODONE 5 MG Tablet 10 MG PO ×2 (05:15→18:04)
[2019-09-04] MEDS: Enoxaparin 40 MG/0.4 ML Syringe SC (05:16)
[2019-09-04] MEDS: Citalopram 20 MG Tablet PO (05:16)
[2019-09-04] MEDS: Senna/Docusate Sodium 1 Tablet PO ×2 (05:16→18:04)
[2019-09-04] MEDS: amLODIPine 5 MG Tablet PO (05:16)
[2019-09-04] MEDS: cycloBENZAPRine HCl 10 MG Tablet 5 MG PO ×2 (05:17→18:05)
[2019-09-04] MEDS: Polyethylene Glycol 3350 17 GM PACKET PO (05:17)
[2019-09-04 06:25] LABS: Bedside Glucose 115 mg/dL (70-110)
[2019-09-04] MEDS: Acetaminophen 325 MG Tablet 650 MG PO (12:57)
[2019-09-04] MEDS: oxyCODONE 5 MG Tablet PO (12:57)
[2019-09-04 16:00] VITALS: BP 129/64; PULSE 104; RESP 20; TEMP 36.7; O2SAT 96
[2019-09-04] MEDS: Atorvastatin Calcium 40 MG Tablet PO (19:49)
[2019-09-04] MEDS: Losartan Potassium 50 MG Tablet 100 MG PO (19:49)
--- NOTE | 2019-09-04 19:52 | NURSING ---
Butrans patch intact to Rt posterior shoulder.
[2019-09-04 19:53] VITALS: O2SAT 97
[2019-09-05] MEDS: oxyCODONE 5 MG Tablet PO ×2 (02:07→12:33)
[2019-09-05] MEDS: Citalopram 20 MG Tablet PO (05:44)
[2019-09-05] MEDS: amLODIPine 5 MG Tablet PO (05:44)
[2019-09-05] MEDS: Senna/Docusate Sodium 1 Tablet PO ×2 (05:44→17:32)
[2019-09-05] MEDS: cycloBENZAPRine HCl 10 MG Tablet 5 MG PO ×2 (05:44→17:33)
[2019-09-05] MEDS: Polyethylene Glycol 3350 17 GM PACKET PO (05:44)
[2019-09-05] MEDS: Enoxaparin 40 MG/0.4 ML Syringe SC (05:44)
[2019-09-05] MEDS: oxyCODONE 5 MG Tablet 10 MG PO ×2 (05:44→17:30)
[2019-09-05 06:46] LABS: Bedside Glucose 129 mg/dL (70-110)
[2019-09-05] MEDS: Acetaminophen 325 MG Tablet 650 MG PO (09:02)
[2019-09-05 15:54] VITALS: BP 119/64; PULSE 89; RESP 18; TEMP 36.4; O2SAT 96
--- NOTE | 2019-09-05 18:28 | CPS ---
Pts. BiPAP taken out of room. Pt. reported that he was not using it the past few nights and didn't care to have it in his room. He will wear O2 by [place] for tonight.
[2019-09-05] MEDS: Atorvastatin Calcium 40 MG Tablet PO (20:22)
[2019-09-05] MEDS: Losartan Potassium 50 MG Tablet 100 MG PO (20:22)
--- NOTE | 2019-09-06 00:10 | NURSING ---
09/05/192099 Butranz patch noted to be in place on L shoulder.
[2019-09-06] MEDS: Citalopram 20 MG Tablet PO (04:18)
[2019-09-06] MEDS: cycloBENZAPRine HCl 10 MG Tablet 5 MG PO ×2 (04:19→17:06)
[2019-09-06] MEDS: Enoxaparin 40 MG/0.4 ML Syringe SC (04:19)
[2019-09-06] MEDS: Polyethylene Glycol 3350 17 GM PACKET PO (04:20)
[2019-09-06] MEDS: amLODIPine 5 MG Tablet PO (04:20)
[2019-09-06] MEDS: Senna/Docusate Sodium 1 Tablet PO ×2 (04:20→17:06)
[2019-09-06] MEDS: oxyCODONE 5 MG Tablet 10 MG PO ×2 (05:07→17:06)
--- NOTE | 2019-09-06 05:13 | NURSING ---
[id number]- pt asked nurse to check his coccyx states it feels like there's something back there. Site assessed and pt has what appears to be a small stage ii presure injury with a protruding piece of dry skin, surrounding site has a small amount of erythema. Site cleansed and mepilex applied. pt educated on importance of changing position. pt is frequently moving between bed and chair and wheelchair. will monitor.
[2019-09-06 06:45] LABS: Bedside Glucose 89 mg/dL (70-110)
[2019-09-06 09:33] VITALS: O2SAT 92
[2019-09-06 20:20] VITALS: BP 98/53; PULSE 84; RESP 14; TEMP 37; O2SAT 99
[2019-09-06] MEDS: Atorvastatin Calcium 40 MG Tablet PO (20:24)
[2019-09-06] MEDS: Losartan Potassium 50 MG Tablet 100 MG PO (20:24)
[2019-09-07] MEDS: oxyCODONE 5 MG Tablet PO ×2 (01:57→14:27)
[2019-09-07] MEDS: oxyCODONE 5 MG Tablet 10 MG PO ×2 (05:25→17:01)
[2019-09-07] MEDS: Enoxaparin 40 MG/0.4 ML Syringe SC (05:25)
[2019-09-07] MEDS: Senna/Docusate Sodium 1 Tablet PO (05:25)
[2019-09-07] MEDS: cycloBENZAPRine HCl 10 MG Tablet 5 MG PO ×2 (05:26→17:01)
[2019-09-07] MEDS: Citalopram 20 MG Tablet PO (05:26)
[2019-09-07] MEDS: amLODIPine 5 MG Tablet PO (05:26)
[2019-09-07] MEDS: Polyethylene Glycol 3350 17 GM PACKET PO (05:26)
[2019-09-07 06:46] LABS: Bedside Glucose 89 mg/dL (70-110)
[2019-09-07] MEDS: Acetaminophen 325 MG Tablet 650 MG PO (12:17)
[2019-09-07 15:36] VITALS: BP 118/76; PULSE 95; RESP 16; TEMP 36.8; O2SAT 96
--- NOTE | 2019-09-07 16:17 | CASEMGMT ---
Addendum entered by Ellie Foley 09/08/19 14:58: Patient has extended tub bench already. Referred to [facility]. Faxed DC instructions to [facility] and [facility]. Original Note: Social Work Spoke with patient about discharge plans. Pt agreeable to DC to [facility] 09/10 with [facility] PT/OT/SN and needs an extended tub bench. Left message with C.M. about DME and HHC used prior. No other needs. WIll continue to follow to make necessary referrals. Plan: DC to [facility] 09/10 with [facility] PT/OT/SN and extended tub bench Ellie Foley, MARC LEESW
--- NOTE | 2019-09-07 19:43 | DCINST_ITS ---
- Discharge Diagnoses Current Active Problems: Current Active and Chronic Problems (Last Reviewed 10/01/18 @ 09:13 by Skylar Grady) Debility (Acute) Cervical spinal stenosis (Acute) Dysphagia (Acute) Lumbar spinal stenosis (Acute) Diet-controlled diabetes mellitus (Chronic) Hyperlipidemia (Chronic) Opioid dependence (Chronic) PAOD (peripheral arterial occlusive disease) (Chronic) You will use the following diet at home:: No restrictions, Regular Your food should be the consistency of: Regular Your liquids should be the consistency of: Regular/Thin Discharge Activity: Return to Normal Activity, May Shower, Use Walker Weight Bearing Status: Weight bearing as tolerated Call your doctor if you observe: Fever of 101 or Higher, Inability to urinate, Inability to have a bowel movement, Shortness of breath, Chest pain, Uncontrolled pain Allergies/Adverse Reactions: Allergies shellfish derived Allergy (Verified 05/14/18 14:25) Rash bacitracin [From Neosporin Plus] Adverse Reaction (Verified 05/14/18 14:25) Unknown bacitracin zinc [From Neosporin Plus] Adverse Reaction (Verified 05/14/18 14:25) Unknown lisinopril Adverse Reaction (Verified 05/14/18 14:25) Hives, throat closed neomycin sulfate [From Neosporin Plus] Adverse Reaction (Verified 05/14/18 14:25) Unknown polymyxin B [From Neosporin Plus] Adverse Reaction (Verified 05/14/18 14:25) Unknown polymyxin B sulfate [From Neosporin Plus] Adverse Reaction (Verified 05/14/18 14:25) Unknown pramoxine [From Neosporin Plus] Adverse Reaction (Verified 05/14/18 14:25) Unknown pramoxine HCl [From Neosporin Plus] Adverse Reaction (Verified 05/14/18 14:25) infection when placed on a cut Medications to take at Discharge buprenorphine 5 mcg/hour weekly transdermal patch 1 patch TRANSDERMAL QWEEK 07/07/19 Acetaminophen [Tylenol Tablet] 650 mg PO Q4H PRN PRN tab 09/07/19 Amlodipine [Norvasc] 5 mg PO DAILY tab 09/07/19 Atorvastatin Calcium [Lipitor] 40 mg PO QHS tab 09/07/19 Buprenorphine [Butrans 5 Mcg/Hr] 1 ea TD Sa@1000 7 Days #1 patch.tdwk 09/07/19 Citalopram [Celexa] 20 mg PO DAILY tab 09/07/19 Losartan Potassium [Cozaar] 100 mg PO QHS tab 09/07/19 Oxycodone [Oxyir] 5 mg PO Q12H PRN PRN 7 Days #14 tab 09/07/19 Oxycodone [Oxyir] 10 mg PO Q12H 7 Days #28 tab 09/07/19 Polyethylene Glycol 3350 [Miralax] 17 gm PO DAILY #30 packet 09/07/19 Senna/Docusate Sodium [Senokot-S] 1 tab PO BID #60 tab 09/07/19 cycloBENZAPRine HCl [Flexeril] 5 mg PO BID tab 09/07/19 The following prescriptions were given: Buprenorphine [Butrans 5 Mcg/Hr] 1 ea TD Sa@1000 7 Days #1 patch.tdwk Prescription Printed Polyethylene Glycol 3350 [Miralax] 17 gm PO DAILY #30 packet Prescription Printed Oxycodone [Oxyir] 5 mg PO Q12H PRN PRN 7 Days #14 tab PRN Reason: Pain Score 4-10/10 Prescription Printed Oxycodone [Oxyir] 10 mg PO Q12H 7 Days #28 tab Prescription Printed Senna/Docusate Sodium [Senokot-S] 1 tab PO BID #60 tab Prescription Printed Primary Care Physician: Michael D eDios Chi, MD [COURTESY STAFF PHYSICIAN] - Please follow up with your Primary Care Physician in: 1 week. Test Results: Test results from this visit will be discussed in further detail at your follow- up appointment, if applicable. Please Follow Up With: Tony Stephenson PA When: 2 weeks. Please Follow Up With: Shwetha Simon APRN-MARLENA When: 2 weeks. Please Follow Up With: SPR CALL When: 2 weeks. Please Follow Up With: Lora Senior MD When: 2 weeks. Please Follow Up With: Charley Shepherd MD When: 2 weeks. Proposed Discharge Date: 09/10/19
--- NOTE | 2019-09-07 19:46 | PCM.DC.SUM ---
Discharge Date and Diagnosis - Problem List Patient Problems: Active and Suspected Problems (Last Reviewed 10/01/18 @ 09:13 by Skylar Grady) Debility (Acute) Cervical spinal stenosis (Acute) Dysphagia (Acute) Lumbar spinal stenosis (Acute) Date of Admission: 08/25/19 Date of Discharge: 09/10/19 - Primary Discharge Diagnosis Active and Suspected Problems (Last Reviewed 10/01/18 @ 09:13 by Skylar Grady) Debility (Acute) Cervical spinal stenosis (Acute) Dysphagia (Acute) Lumbar spinal stenosis (Acute) - Secondary Discharge Diagnosis Chronic Problems (Last Reviewed 10/01/18 @ 09:13 by Skylar Grady) Diet-controlled diabetes mellitus (Chronic) Hyperlipidemia (Chronic) Opioid dependence (Chronic) PAOD (peripheral arterial occlusive disease) (Chronic) Scoliosis (Chronic) Other acquired deformities of right foot (Chronic) plantarflexed 2nd metatarsal Small vessel disease (Chronic) Malnutrition (Chronic) Diabetes mellitus with neuropathy (Chronic) Hammer toe of right foot (Chronic) Tinea unguium (Chronic) Delayed wound healing (Chronic) Chronic ulcer of right foot with fat layer exposed (Chronic) Amputation of right foot with complication (Chronic) Dehiscence of amputation stump (Chronic) 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 2 diabetes mellitus with diabetic polyneuropathy (Chronic) Peripheral vascular disease (Chronic) Hammer toes, bilateral (Chronic) Hammer toe of left foot (Chronic) Hypertension (Chronic) Sleep apnea (Chronic) COPD (chronic obstructive pulmonary disease) (Chronic) Hospital Course and Treatment Imaging Results: 08/31/19 19:34 Diet: Regular Diet Food consistency:: Mechanical Soft/Ground Liquid Consistency:: [place] Thick Is pt able to select menu?: Yes Diet Comments: supervised meals; cough and re-swallow with every bite and sip Clinical Impression(s) from Imaging Studies KUB X-Ray 08/25/19 19:40 IMPRESSION: NG tube placement with tip in the expected location of the transverse portion of the duodenum. Electronically Signed: Niko Cortes MD at 20:42 EDT , Service support , Videofluoroscopic Swallow 08/31/19 00:00 IMPRESSION: There was penetration and aspiration with thin liquid barium and penetration with nectar thick barium. The swallow study findings were discussed with the patient by the speech pathologist at the conclusion of the examination. Please see speech pathology report for more information and recommendations. The procedure was performed by the speech therapist under the direct supervision of Dr. Francis Odonnell Electronically Signed: Francis Odonnell, at 16:25 EDT Tel , Service support , Labs (Last 48 Hours) 09/06/19 09/07/19 06:39 06:33 POC Glucose 89 89 Operations: None Procedures: None Summary of Care Provided: The patient is a 53 year old Male with below past medical history significant for C2-C7 cervical spinal stenosis with myeloradiculopathy, weakness, hospitalized for cervical spine surgery 08/17/[address] Lora Senior, admitted to TCU with debility, here for rehabilitation, strengthening, prior to discharge to [facility]. Discharge to [facility], Home Health Care for PT/OT/SN, extended tub bench. Patient Problems: Active and Suspected Problems (Last Reviewed 10/01/18 @ 09:13 by Skylar Grady) Debility (Acute) Cervical spinal stenosis (Acute) Dysphagia (Acute) Lumbar spinal stenosis (Acute) - Physical Exam Vital Signs Temp Pulse Resp BP Pulse Ox 98.2 F 95 16 118/76 96 09/07/19 15:36 09/07/19 15:36 09/07/19 15:36 09/07/19 15:36 09/07/19 15:36 Oxygen Flow Rate (L/min) 2 Oxygen Delivery Method Room Air Weight: 72.745 kg Body Mass Index (BMI) 24.7 Intake and Output for Last 24 Hours 09/05/19 09/06/19 09/07/19 23:59 23:59 23:59 Intake Total 600 / 600 600 / 600 720 / 720 Balance 600 / 600 600 / 600 720 / 720 POC Glucose 09/07/19 06:33 POC Glucose 89 Discharge Diet: No Restrictions Discharge Activity: Return to Normal Activity, May Shower, Use Walker Weight Bearing Status: Weight bearing as tolerated Call your doctor if you observe: Fever of 101 or Higher, Inability to urinate, Inability to have a bowel movement, Shortness of breath, Chest pain, Uncontrolled pain Home Medications: Medications to take at Discharge buprenorphine 5 mcg/hour weekly transdermal patch 1 patch TRANSDERMAL QWEEK 07/07/19 Acetaminophen [Tylenol Tablet] 650 mg PO Q4H PRN PRN tab 09/07/19 Amlodipine [Norvasc] 5 mg PO DAILY tab 09/07/19 Atorvastatin Calcium [Lipitor] 40 mg PO QHS tab 09/07/19 Buprenorphine [Butrans 5 Mcg/Hr] 1 ea TD Sa@1000 7 Days #1 patch.tdwk 09/07/19 Citalopram [Celexa] 20 mg PO DAILY tab 09/07/19 Losartan Potassium [Cozaar] 100 mg PO QHS tab 09/07/19 Oxycodone [Oxyir] 5 mg PO Q12H PRN PRN 7 Days #14 tab 09/07/19 Oxycodone [Oxyir] 10 mg PO Q12H 7 Days #28 tab 09/07/19 Polyethylene Glycol 3350 [Miralax] 17 gm PO DAILY #30 packet 09/07/19 Senna/Docusate Sodium [Senokot-S] 1 tab PO BID #60 tab 09/07/19 cycloBENZAPRine HCl [Flexeril] 5 mg PO BID tab 09/07/19 Following Prescrptions Were Given to Patient: Buprenorphine [Butrans 5 Mcg/Hr] 1 ea TD Sa@1000 7 Days #1 patch.tdwk Prescription Printed Polyethylene Glycol 3350 [Miralax] 17 gm PO DAILY #30 packet Prescription Printed Oxycodone [Oxyir] 5 mg PO Q12H PRN PRN 7 Days #14 tab PRN Reason: Pain Score 4-10/10 Prescription Printed Oxycodone [Oxyir] 10 mg PO Q12H 7 Days #28 tab Prescription Printed Senna/Docusate Sodium [Senokot-S] 1 tab PO BID #60 tab Prescription Printed Primary Care Physician: Michael De Dios Chi, MD [COURTESY STAFF PHYSICIAN] - Please follow up with your Primary Care Physician in: 1 week. Please Follow Up With: Tony Stephenson PA When: 2 weeks. Please Follow Up With: Shwetha Simon APRN-MARLENA When: 2 weeks. Please Follow Up With: SPR CALL When: 2 weeks. Please Follow Up With: Lora Senior MD When: 2 weeks. Please Follow Up With: Charley Shepherd MD When: 2 weeks. Disposition: Asstd Living/Non-Skill NH Minutes spent on discharge:: 35 Patient Condition:: Good Medical Necessity - Tobacco Use Smoking Status: Former smoker Tobacco Use: Cigarettes Meaningful Use Info Meaningful Use Diagnoses (Choose all that apply): None applicable
--- NOTE | 2019-09-07 19:48 | HHNOTE_ITS ---
Home Health Note - Plan Overview of reason of hospitalization: The patient is a 53 year old Male with below past medical history significant for C2-C7 cervical spinal stenosis with myeloradiculopathy, weakness, hospitalized for cervical spine surgery 08/17/[address] Lora Senior, admitted to TCU with debility, here for rehabilitation, strengthening, prior to discharge to [facility]. Discharge to [facility], Home Health Care for PT/OT/SN, extended tub bench. Problems: Patient was seen for (Last Reviewed 10/01/18 @ 09:13 by Skylar Grady) Debility (Acute) Cervical spinal stenosis (Acute) Dysphagia (Acute) Lumbar spinal stenosis (Acute) Diet-controlled diabetes mellitus (Chronic) Hyperlipidemia (Chronic) Opioid dependence (Chronic) PAOD (peripheral arterial occlusive disease) (Chronic) Complete List of Medical Problems (Last Reviewed 10/01/18 @ 09:13 by Skylar Grady) Debility (Acute) Cervical spinal stenosis (Acute) Dysphagia (Acute) Lumbar spinal stenosis (Acute) Diet-controlled diabetes mellitus (Chronic) Hyperlipidemia (Chronic) Opioid dependence (Chronic) PAOD (peripheral arterial occlusive disease) (Chronic) Scoliosis (Chronic) Segmental and somatic dysfunction of pelvic region (Acute) Segmental and somatic dysfunction of thoracic region (Acute) Segmental and somatic dysfunction of lumbar region (Acute) Other acquired deformities of right foot (Chronic) Small vessel disease (Chronic) Malnutrition (Chronic) Diabetes mellitus with neuropathy (Chronic) Hammer toe of right foot (Chronic) Tinea unguium (Chronic) Healed ulcer of right foot on examination (Acute) Delayed wound healing (Chronic) Chronic ulcer of right foot with fat layer exposed (Chronic) Non-pressure chronic ulcer of other part of right foot with necrosis of muscle (Acute) Non-pressure chronic ulcer of other part of right foot with fat layer exposed (Acute) Amputation of right foot with complication (Chronic) Dehiscence of amputation stump (Chronic) 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) Ulcer of toe due to diabetes (Acute) Type 2 diabetes mellitus with diabetic polyneuropathy (Chronic) Peripheral vascular disease (Chronic) Hammer toes, bilateral (Chronic) Hammer toe of left foot (Chronic) Cellulitis of great toe of right foot (Acute) Hypertension (Chronic) Sleep apnea (Chronic) COPD (chronic obstructive pulmonary disease) (Chronic) - Requirements and Reasons Disciplines Needed/Ordered: Group Home, Physical Therapy Reason for Disciplines: Disease Specific Monitoring/education, Medication Management/Knowledge Deficit, Gait Training, Stair Training, Fall Prevention, Home Safety/Equipment Instruction, Balance and/or Posture Training, Transfer Training, Swallowing Exercise/Education Related To: Change in Medical Treatment Plan, Limited/Poor Endurance, Shortness of Breath with Activity, Physical Impairments, Unsteady Gait/Balance, Intractable Pain Patient is unable to leave the home: Without Aid of Supportive Devices (crutches, cane, wheelchair, walker), Without the assistance of another person - Additional Disciplines Additional Disciplines Needed/Ordered: Occupational Therapy
[2019-09-07] MEDS: Losartan Potassium 50 MG Tablet 100 MG PO (20:14)
[2019-09-07] MEDS: Atorvastatin Calcium 40 MG Tablet PO (20:14)
[2019-09-07 20:19] VITALS: O2SAT 97
[2019-09-08] MEDS: amLODIPine 5 MG Tablet PO (05:06)
[2019-09-08] MEDS: cycloBENZAPRine HCl 10 MG Tablet 5 MG PO ×2 (05:06→17:08)
[2019-09-08] MEDS: Senna/Docusate Sodium 1 Tablet PO ×2 (05:06→17:08)
[2019-09-08] MEDS: oxyCODONE 5 MG Tablet 10 MG PO ×2 (05:06→17:08)
[2019-09-08] MEDS: Enoxaparin 40 MG/0.4 ML Syringe SC (05:06)
[2019-09-08] MEDS: Citalopram 20 MG Tablet PO (05:07)
[2019-09-08 06:36] LABS: Bedside Glucose 104 mg/dL (70-110)
--- NOTE | 2019-09-08 11:23 | NURSING ---
Butran patch to Lt shoulder.
[2019-09-08] MEDS: Acetaminophen 325 MG Tablet 650 MG PO (11:31)
--- NOTE | 2019-09-08 11:35 | NURSING ---
Reports not feeling like he is emptying his bladder. States he feels like he has to urinate all the time but able to only go a little at a time. Urinates a little bit at this time and bladder scanned done. Will update Dr De Dios.
--- NOTE | 2019-09-08 11:49 | CASEMGMT ---
Insurance: Continued stay review faxed to [facility] on 09/07. Next update due 09/14. auth # [id number]
[2019-09-08] MEDS: oxyCODONE 5 MG Tablet PO (12:07)
[2019-09-08 13:35] VITALS: O2SAT 93
[2019-09-08 15:57] VITALS: BP 132/74; PULSE 102; RESP 18; TEMP 36.7; O2SAT 98
[2019-09-08] MEDS: Losartan Potassium 50 MG Tablet 100 MG PO (19:40)
[2019-09-08] MEDS: Atorvastatin Calcium 40 MG Tablet PO (19:40)
--- NOTE | 2019-09-08 22:37 | NURSING ---
Butrans patch intact to Lt shoulder.
[2019-09-09] MEDS: oxyCODONE 5 MG Tablet PO ×2 (00:08→19:58)
[2019-09-09] MEDS: amLODIPine 5 MG Tablet PO (05:04)
[2019-09-09] MEDS: cycloBENZAPRine HCl 10 MG Tablet 5 MG PO ×2 (05:04→17:49)
[2019-09-09] MEDS: Citalopram 20 MG Tablet PO (05:04)
[2019-09-09] MEDS: Senna/Docusate Sodium 1 Tablet PO ×2 (05:04→17:50)
[2019-09-09] MEDS: Enoxaparin 40 MG/0.4 ML Syringe SC (05:04)
[2019-09-09] MEDS: oxyCODONE 5 MG Tablet 10 MG PO ×2 (05:04→17:49)
[2019-09-09 05:52] LABS: Absolute Lymphocyte Count 1.44 X10^3/uL (0.83-4.51); Absolute Neutrophil Count 7.5 X10^3/uL (2.0-7.7); Basophil# 0.02 X10^3/uL; Basophil% 0.2 % (0-1); Eosinophil# 0.09 X10^3/uL; Eosinophils% 0.9 % (0-5); Hematocrit 37.7 % (40-54); Hemoglobin 11.8 g/dL (13.0-16.5); Lymphocyte # 1.44 X10^3/ul (4.0); Lymphocyte % 14.7 % (19-41); Mean Corp Hgb Conc 31.3 g/dL (32-36); Mean Corpuscular Hgb 27.6 pg (27.0-32.0); Mean Corpuscular Volume 88.3 fL (80-94); Mean Platelet Vol. 8.6 fl (6.2-12.0); Monocyte# 0.74 X10^3/uL; Monocyte% 7.5 % (0-10); NRBC Flagged by Analyzer 0 % (0-5); Neutrophil # 7.47 X10^3/uL (2.7-7.7); Neutrophil % 76.2 % (47-70); Platelet Count 341 K/mm3 (150-450); RBC Distribution Width CV 13.9 % (11.6-14.6); RBC Distribution Width SD 44.9 fl (35.1-43.9); Red Blood Count 4.27 M/mm3 (4.6-6.2); White Blood Count 9.8 K/mm3 (4.4-11.0)
[2019-09-09 06:17] LABS: Anion Gap 5 (5-15); BUN 10 mg/dL (7-18); BUN/Creat Ratio 19.6 RATIO (10-20); Chloride 100 mmol/L (98-107); Creatinine, Serum 0.51 mg/dL (0.70-1.30); EST Glomerular Filtration Rate 179 mL/min (>60); Est Glom Filt Rate - Afr Amer 217 mL/min (>60); Estimated Creatinine Clearance 170.44 ml/min; Glucose 98 mg/dL (74-106); Potassium 3.7 mmol/L (3.5-5.1); Sodium Level 136 mmol/L (136-145)
[2019-09-09 06:26] LABS: Bedside Glucose 90 mg/dL (70-110)
--- NOTE | 2019-09-09 12:30 | NURSING ---
Addendum entered by Mahsa Simon 09/09/19 17:47: pt is following up with DR De Dios after discharge and he will consult Dr Bentley at appt. Addendum entered by Mahsa Simon 09/09/19 15:17: will set up outpt appt for pt since pt discharging home tomorrow, Original Note: attempted to call DR Bentley office but office closed
--- NOTE | 2019-09-09 15:24 | NURSING ---
Butrans patch to LT posterior shoulder intact
[2019-09-09 16:00] VITALS: BP 100/53; PULSE 93; RESP 18; TEMP 36.6; O2SAT 99
[2019-09-09] MEDS: Losartan Potassium 50 MG Tablet 100 MG PO (19:58)
[2019-09-09] MEDS: Atorvastatin Calcium 40 MG Tablet PO (19:59)
--- NOTE | 2019-09-09 20:00 | NURSING ---
Patient has Butrans patch to LT posterior shoulder.
[2019-09-10] MEDS: oxyCODONE 5 MG Tablet 10 MG PO (05:56)
[2019-09-10] MEDS: Enoxaparin 40 MG/0.4 ML Syringe SC (05:56)
[2019-09-10] MEDS: cycloBENZAPRine HCl 10 MG Tablet 5 MG PO (05:57)
[2019-09-10] MEDS: Citalopram 20 MG Tablet PO (05:57)
[2019-09-10] MEDS: amLODIPine 5 MG Tablet PO (05:57)
[2019-09-10 06:21] LABS: Bedside Glucose 76 mg/dL (70-110)
--- NOTE | 2019-09-10 08:00 | PCM.PROGNOTE ---
Subjective: Patient was seen today for follow up on his feet. He relates he is doing well, no new complaints. No complaints of fever, chills, nausea or vomiting. He relates he is going to be discharged home today. - Physical Exam General: Alert, Oriented x3, Cooperative, No apparent distress Extremities: Capillary Refill Less than 3 Seconds, No Calf Tenderness, - - No open lesions, no drainage, no erythema, no cellulitis, no fluctuance, no crepitus bilateral foot/ankle. There is very small stable eschar to the dorsal right 2nd toe. No necrosis, no evidence of acute ischemia to the foot/ankle bilateral. No POP or pain on ROM to the foot or ankle bilateral. Vital Signs Temp Pulse Resp BP Pulse Ox 98.2 F 88 18 110/64 98 09/10/19 09:48 09/10/19 09:48 09/10/19 09:48 09/10/19 09:48 09/10/19 09:48 Oxygen Flow Rate (L/min) 2 Oxygen Delivery Method Room Air Weight: 72.773 kg Body Mass Index (BMI) 24.7 Intake and Output for Last 24 Hours 09/08/19 09/09/19 09/10/19 23:59 23:59 23:59 Intake Total 1000 / 1000 720 / 720 120 / 120 Balance 1000 / 1000 720 / 720 120 / 120 POC Glucose 09/10/19 06:03 POC Glucose 76 Medical Necessity - Tobacco Use Smoking Status: Former smoker Tobacco Use: Cigarettes Assessment/Plan All Active Problems (Last Reviewed 10/01/18 @ 09:13 by Skylar Grady) Debility (Acute) Cervical spinal stenosis (Acute) Dysphagia (Acute) Lumbar spinal stenosis (Acute) Ulcer of right second toe, limited to breakdown of skin (Resolved) Segmental and somatic dysfunction of pelvic region (Acute) Segmental and somatic dysfunction of thoracic region (Acute) Segmental and somatic dysfunction of lumbar region (Acute) Ulcer of right foot with fat layer exposed (Resolved) Healed ulcer of right foot on examination (Acute) Non-pressure chronic ulcer of other part of right foot with necrosis of muscle (Acute) Non-pressure chronic ulcer of other part of right foot with fat layer exposed (Acute) Osteomyelitis of toe of right foot (Ruled-out) Diabetic ulcer of foot with fat layer exposed (Resolved) Ulcer of toe due to diabetes (Acute) Diabetic ulcer of toe with fat layer exposed (Resolved) Cellulitis of great toe of right foot (Acute) Stable eschar right dorsal second toe, no open ulceration or infection Right hammertoe Diabetes with neuropathy Status post cervical neck surgery and transitional care unit Lower extremity exam was performed and he was reassured no open wound or infection is noted today. I do not recommend dressing care. He was advised to wear shoes which do not rub. To perform daily foot checks. Patient to follow up at [facility] center once discharged.
[2019-09-10 08:51] VITALS: O2SAT 95
[2019-09-10 09:48] VITALS: BP 110/64; PULSE 88; RESP 18; TEMP 36.8; O2SAT 98
== END 2019-09-10 09:50 | disposition home health service (06) | DRG 559 ==
PROVIDERS: Admitting Provider Family Medicine Geriatric Medicine; Family Provider Nurse Practitioner Adult Health; PCP Nurse Practitioner Adult Health; Visit Provider Family Medicine Geriatric Medicine
DX: Z47.89 Encounter for other orthopedic aftercare (principal); J18.9 Pneumonia, unspecified organism; F11.20 Opioid dependence, uncomplicated; J44.0 Chronic obstructive pulmonary disease with (acute) lower respiratory infection; G47.33 Obstructive sleep apnea (adult) (pediatric); E11.42 Type 2 diabetes mellitus with diabetic polyneuropathy; Z23 Encounter for immunization; E11.51 Type 2 diabetes mellitus with diabetic peripheral angiopathy without gangrene; E78.5 Hyperlipidemia, unspecified; I10 Essential (primary) hypertension; M43.22 Fusion of spine, cervical region; M41.9 Scoliosis, unspecified; F32.9 Major depressive disorder, single episode, unspecified; Y95 Nosocomial condition; R33.9 Retention of urine, unspecified; F17.210 Nicotine dependence, cigarettes, uncomplicated; M99.05 Segmental and somatic dysfunction of pelvic region; M99.03 Segmental and somatic dysfunction of lumbar region; M99.02 Segmental and somatic dysfunction of thoracic region; M20.41 Other hammer toe(s) (acquired), right foot; M20.42 Other hammer toe(s) (acquired), left foot; S90.414D Abrasion, right lesser toe(s), subsequent encounter; X58.XXXD Exposure to other specified factors, subsequent encounter
CPT/HCPCS: 36415; 74018; 74230; 80048; 82962; 85025; 92526; 92610; 92611; 97110; 97116; 97162; 97166; 97530; 97535; 97802; 97803; 90686

== ENCOUNTER → 2019-09-15 | Outpatient (CLI) | payer MEDICARE, MEDICAID, SELFPAY ==
[2019-09-15 09:21] VITALS: BMI 24.7
--- NOTE | 2019-09-15 09:33 | RAD_ITS ---
STUDY: X-RAY - CERVICAL SPINE REASON FOR EXAM: Male, 53 years old. Postop TECHNIQUE: 3 view(s) of the cervical spine were obtained. COMPARISON: Prior study of 07/07/2019 FINDINGS: Normal anterior atlantoaxial articulation. Normal odontoid process. There is straightening of the normal cervical lordosis. There are posterior spinal fusion changes with rods and intrapedicular screws from C2 to T2. Disc spaces are present at the C3-4 and 4-5 levels. An anterior fusion plate is also noted from C3 to C5. There is endplate spondylosis of the mid to lower cervical spine. There is narrowing of the C5-6 and 6-7 disc spaces. There are posterior laminectomy changes from C3 through C6. The soft tissue structures are unremarkable. RAD/Cerv Spine 2 or 3 Views IMPRESSION: Postsurgical and degenerative changes as detailed above. There is no evidence of fracture or subluxation. Electronically Signed: Raimundo Martinez MD at 17:24 EDT , Service support ,
== END | disposition home or self-care (01) ==
LOC: HPRAD 09:33
PROVIDERS: Family Provider Nurse Practitioner Adult Health; PCP Nurse Practitioner Adult Health; Referring Provider Orthopaedic Surgery; Visit Provider Orthopaedic Surgery
DX: M54.2 Cervicalgia (principal)
CPT/HCPCS: 72040

== ENCOUNTER → 2019-09-16 | Outpatient (CLI) | payer MEDICARE, SELFPAY ==
[2019-09-15 09:21] VITALS: BMI 24.7
[2019-09-16 12:50] LABS: Absolute Lymphocyte Count 1.39 X10^3/uL (0.83-4.51); Absolute Neutrophil Count 4.6 X10^3/uL (2.0-7.7); Basophil# 0.02 X10^3/uL; Basophil% 0.3 % (0-1); Eosinophil# 0.22 X10^3/uL; Eosinophils% 3.2 % (0-5); Hematocrit 35.1 % (40-54); Hemoglobin 11.3 g/dL (13.0-16.5); Lymphocyte # 1.39 X10^3/ul (4.0); Lymphocyte % 20.1 % (19-41); Mean Corp Hgb Conc 32.2 g/dL (32-36); Mean Corpuscular Hgb 27.7 pg (27.0-32.0); Monocyte# 0.68 X10^3/uL; Monocyte% 9.8 % (0-10); NRBC Flagged by Analyzer 0 % (0-5); Neutrophil # 4.57 X10^3/uL (2.7-7.7); Neutrophil % 66.2 % (47-70); Platelet Count 260 K/mm3 (150-450); RBC Distribution Width SD 43.9 fl (35.1-43.9); Red Blood Count 4.08 M/mm3 (4.6-6.2); White Blood Count 6.9 K/mm3 (4.4-11.0)
[2019-09-16 13:07] LABS: Vitamin D,25 Hydroxy 25.3 ng/mL (29.95-100.01)
[2019-09-16 13:08] LABS: ALB/GLOB Ratio 0.8 RATIO (0.9-2.4); AST(SGOT) 20 U/L (15-37); Alanine Aminotransfer ALT/SGPT 32 U/L (16-61); Albumin, Serum 3.1 g/dL (3.2-5.0); Alkaline Phosphatase 128 U/L (45-117); Anion Gap 7 (5-15); BUN 7 mg/dL (7-18); BUN/Creat Ratio 11.9 RATIO (10-20); Calcium,Total 8.7 mg/dL (8.5-10.1); Chloride 101 mmol/L (98-107); Creatinine, Serum 0.59 mg/dL (0.70-1.30); EST Glomerular Filtration Rate 153 mL/min (>60); Est Glom Filt Rate - Afr Amer 185 mL/min (>60); Glucose 82 mg/dL (74-106); Potassium 4.2 mmol/L (3.5-5.1); Protein, Total 7.1 g/dL (6.4-8.2); Sodium Level 135 mmol/L (136-145); Thyroid Stim Hormone (TSH) 1.12 uIU/mL (0.358-3.74)
== END | disposition home or self-care (01) ==
LOC: POLAB3 11:20
PROVIDERS: Visit Provider Family Medicine Geriatric Medicine
DX: E11.9 Type 2 diabetes mellitus without complications (principal); E55.9 Vitamin D deficiency, unspecified; I10 Essential (primary) hypertension
CPT/HCPCS: 36415; 80053; 82306; 84443; 85025

== ENCOUNTER 2019-11-03 12:25 | Inpatient (IN) | payer MEDICARE, MEDICAID, SELFPAY ==
[2019-09-15 09:21] VITALS: BMI 24.7
[2019-11-03 12:36] VITALS: BMI 27.3
[2019-11-03 12:37] VITALS: BP 120/75; PULSE 103; RESP 20; TEMP 36.9; O2SAT 100
[2019-11-03 12:45] VITALS: BP 120/75; PULSE 100; RESP 20; TEMP 36.9
[2019-11-03] MEDS: oxyCODONE 5 MG Tablet PO (14:33)
[2019-11-03 15:32] VITALS: BP 109/55; PULSE 103; RESP 18; TEMP 36.7; O2SAT 98
[2019-11-03] MEDS: Divalproex Sodium 125 MG Tablet PO ×2 (17:40→21:19)
[2019-11-03] MEDS: Senna/Docusate Sodium 1 Tablet PO (17:40)
[2019-11-03] MEDS: cycloBENZAPRine HCl 5 MG TABLET PO (17:40)
[2019-11-03] MEDS: Ascorbic Acid 500 MG Tablet PO (17:40)
[2019-11-03] MEDS: Doxepin Hcl 25 MG Capsule PO (21:19)
[2019-11-03] MEDS: Atorvastatin Calcium 40 MG Tablet PO (21:19)
[2019-11-03] MEDS: Losartan Potassium 100 MG Tablet PO (21:19)
[2019-11-03 21:31] LABS: Bedside Glucose 158 mg/dL (70-110)
--- NOTE | 2019-11-03 21:34 | PCM.HP.STD ---
Problem List (1) Pseudomonas aeruginosa infection Status: Acute (2) Hyponatremia Status: Acute (3) Hypomagnesemia Status: Acute (4) Complicated UTI (urinary tract infection) Status: Acute (5) Sepsis Status: Acute (6) Obstructive sleep apnea Status: Chronic (7) Urinary retention Status: Chronic (8) Debility Status: Acute (9) Lumbar spinal stenosis Status: Chronic (10) Diet-controlled diabetes mellitus Status: Chronic (11) Hyperlipidemia Status: Chronic (12) Opioid dependence Status: Chronic (13) PAOD (peripheral arterial occlusive disease) Status: Chronic (14) Hypertension Status: Chronic (15) COPD (chronic obstructive pulmonary disease) Status: Chronic History of Present Illness Date of Admission: 11/03/19 Chief Complaint: Here for rehabilitation, strengthening, prior to discharge to [facility]. The patient is a 53 year old Male with below past medical history admitted to [facility] 10/24/2019 with lumbar spinal stenosis with spondylolisthesis L1-L2, L2-L3, L3-L4, L4-L5, L5-S1, degenerative thoracolumbar scoliosis, and chronic urinary retention and weakness. The patient elected to proceed with surgical intervention. The patient underwent an L1-L2, L2-L3, L3-L4, L4-L5, L5-S1 laminectomy, bilateral medial facetectomy and foraminotomy, [id number] fusion with T10-S1 instrumentation, bilateral pelvic instrumentation, and S2A1 screws on October 26, [address] Lora Senior. The patient tolerated procedure well. On POD 2, he had episode of hypoxia, with persistent tachycardia, CT chest negative for PE. Pain controlled with IV pain medication, transitioned to oral pain medication. Diet advanced and tolerated. Postoperative course complicated by sepsis secondary to urinary tract infection treated with antibiotics. Patient does have indwelling bradley catheter for urinary retention. He is to wear TLSO brace. 11/03/2019 Admit to TCU with debility, here for rehabilitation, strengthening, prior to discharge to [facility]. Past Medical History Past Medical History (Chronic Problems): Chronic Problems (Last Reviewed 10/01/18 @ 09:13 by Skylar Grady) Lumbar spinal stenosis (Chronic) Diet-controlled diabetes mellitus (Chronic) Hyperlipidemia (Chronic) Opioid dependence (Chronic) PAOD (peripheral arterial occlusive disease) (Chronic) Obstructive sleep apnea (Chronic) Urinary retention (Chronic) Scoliosis (Chronic) Other acquired deformities of right foot (Chronic) plantarflexed 2nd metatarsal Small vessel disease (Chronic) Malnutrition (Chronic) Diabetes mellitus with neuropathy (Chronic) Hammer toe of right foot (Chronic) Tinea unguium (Chronic) Delayed wound healing (Chronic) Chronic ulcer of right foot with fat layer exposed (Chronic) Amputation of right foot with complication (Chronic) Dehiscence of amputation stump (Chronic) 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 2 diabetes mellitus with diabetic polyneuropathy (Chronic) Peripheral vascular disease (Chronic) Hammer toes, bilateral (Chronic) Hammer toe of left foot (Chronic) Hypertension (Chronic) Sleep apnea (Chronic) COPD (chronic obstructive pulmonary disease) (Chronic) Medical History: Medical History (Last Reviewed 10/01/18 @ 09:13 by Skylar Grady) Scoliosis (Chronic) M41.9 Allergies shellfish derived Allergy (Verified 05/14/18 14:25) Rash bacitracin [From Neosporin Plus] Adverse Reaction (Verified 05/14/18 14:25) Unknown bacitracin zinc [From Neosporin Plus] Adverse Reaction (Verified 05/14/18 14:25) Unknown lisinopril Adverse Reaction (Verified 05/14/18 14:25) Hives, throat closed neomycin sulfate [From Neosporin Plus] Adverse Reaction (Verified 05/14/18 14:25) Unknown polymyxin B [From Neosporin Plus] Adverse Reaction (Verified 05/14/18 14:25) Unknown polymyxin B sulfate [From Neosporin Plus] Adverse Reaction (Verified 05/14/18 14:25) Unknown pramoxine [From Neosporin Plus] Adverse Reaction (Verified 05/14/18 14:25) Unknown pramoxine HCl [From Neosporin Plus] Adverse Reaction (Verified 05/14/18 14:25) infection when placed on a cut Home Medications: Ambulatory Orders Medication Instructions Recorded buprenorphine 5 mcg/hour weekly 1 patch TRANSDERMAL QWEEK 07/07/19 transdermal patch Acetaminophen [Tylenol Tablet] 650 mg PO Q4H PRN PRN tab 09/07/19 Amlodipine [Norvasc] 5 mg PO DAILY 11/03/19 Ascorbic Acid 500 mg PO BID 11/03/19 Aspirin 81 mg PO DAILY 11/03/19 Atorvastatin Calcium [Lipitor] 40 mg PO QHS 11/03/19 Citalopram [Celexa] 20 mg PO DAILY 11/03/19 Divalproex Sodium 125 mg PO 4X/DAY 11/03/19 Doxepin HCl [Sinequan] 25 mg PO QHS 11/03/19 Enoxaparin [Lovenox] 40 mg SUBCUT DAILY@0600 11/03/19 Losartan Potassium [Cozaar] 100 mg PO QHS 11/03/19 Multivitamin [Daily Multiple 1 ea PO DAILY 11/03/19 Vitamin] Oxycodone [Oxyir] 5 mg PO Q6H PRN PRN 11/03/19 Polyethylene Glycol 3350 [Miralax] 17 gm PO DAILY 11/03/19 Senna/Docusate Sodium [Senokot-S] 1 tab PO BID 11/03/19 Tamsulosin HCl [Flomax] 0.4 mg PO DAILY 11/03/19 cycloBENZAPRine HCl [Flexeril] 5 mg PO BID 11/03/19 traMADol [Ultram (G)] 50 mg PO Q8H PRN PRN 11/03/19 Surgical History: tonsillectomy, - - Cervical spine surgery 08/17/2019 Dr. Senior. Lumbar spine surgery Dr. Senior. Psychiatric History: Depression Lives: Senior Living - [facility]. Smoking Status: Former smoker Tobacco Use: Cigarettes Alcohol: None Drugs: None - *Family History Maternal History Items: Cancer - Lung. Paternal History Items: Cancer, Diabetes Review of Systems Constitutional: Denies: Chills, Fever, Weight Change HEENT: Denies: Head Aches, Sinus Congestion, Sinus Drainage Cardiovascular: Denies: Chest Pain, Palpitations Respiratory: Denies: Cough, Shortness of breath at rest, Sputum production Gastrointestinal: Denies: Abdominal Pain, Nausea, Vomiting Genitourinary: Denies: Dysuria Musculoskeletal: Denies: Joint Pain, Joint Tenderness Skin: Denies: Rash, Wounds Neurological: Denies: Numbness, Tingling, Focal weakness Psychiatric: Denies: Anxiety, Depression, Homicidal Ideations, Suicidal Ideations Hematologic/ Lymphatic: Denies: Easy Bruising, Easy Bleeding VTE Information - Inpt Only VTE Present on Admission: No VTE Mechan Device Prophylaxis: Knee High LYNNE Hose VTE Pharm Prophylaxis ordered?: Yes Patient Problems: Active and Suspected Problems (Last Reviewed 10/01/18 @ 09:13 by Skylar Grady) Pseudomonas aeruginosa infection (Acute) Hyponatremia (Acute) Hypomagnesemia (Acute) Complicated UTI (urinary tract infection) (Acute) Sepsis (Acute) - Physical Exam Vitals/I&O's: Vital Signs Temp Pulse Resp BP Pulse Ox 98.0 F 103 H 18 109/55 L 98 11/03/19 15:32 11/03/19 15:32 11/03/19 15:32 11/03/19 15:32 11/03/19 15:32 Oxygen Flow Rate (L/min) 103 Oxygen Delivery Method Room Air Weight: 76.856 kg Body Mass Index (BMI) 27.3 Intake and Output for Last 24 Hours 11/01/19 11/02/19 11/03/19 23:59 23:59 23:59 Output Total 800 / 800 Balance -800 / -800 General: Alert, Oriented x3, Cooperative HEENT: Atraumatic, PERRLA, EOMI, Normocephalic Neck: Supple, No JVD, Negative Carotid Bruits Lungs: Clear to auscultation, Normal air movement Cardiovascular: Regular rate, No murmurs, - - TLSO brace. Abdomen: Bowel Sounds Present, Soft, Non Tender, - - Indwelling bradley catheter. Extremities: No edema, Capillary Refill Less than 3 Seconds Skin: No rashes, No breakdown Musculoskeletal: No Tenderness to Palpation of Joints or Extremities Neurological: Cranial nerves II-XII grossly intact Psych/Mental Status: Normal Affect, Appropriate Laboratory Results 11/03/19 21:21: POC Glucose 158 H Current Medications Acetaminophen (Tylenol) 650 mg PO Q4H PRN PRN PRN Reason: Pain Score 1-3/10 Amlodipine Besylate (Norvasc) 5 mg PO DAILY [facility] Ascorbic Acid (Vitamin C) 500 mg PO BIDCM [facility] Last Admin: 11/03/19 17:40 Dose: 500 mg Documented by: Aspirin (Aspirin, Baby) 81 mg PO DAILY@0745 [facility] Atorvastatin Calcium (Lipitor) 40 mg PO QHS [facility] Last Admin: 11/03/19 21:19 Dose: 40 mg Documented by: Citalopram Hydrobromide (Celexa) 20 mg PO DAILY [facility] Cyclobenzaprine HCl (Cyclobenzaprine Hcl) 5 mg PO BID [facility] Last Admin: 11/03/19 17:40 Dose: 5 mg Documented by: Divalproex Sodium (Depakote) 125 mg PO 4X/DAY [facility] Last Admin: 11/03/19 21:19 Dose: 125 mg Documented by: Doxepin HCl (Sinequan) 25 mg PO QHS [facility] Last Admin: 11/03/19 21:19 Dose: 25 mg Documented by: Enoxaparin Sodium (Lovenox) 40 mg SC DAILY@0600 [facility] Losartan Potassium (Cozaar) 100 mg PO QHS [facility] Last Admin: 11/03/19 21:19 Dose: 100 mg Documented by: Multivitamins (Multivitamin) 1 tablet PO DAILY@0800 [facility] Oxycodone HCl (Oxyir) 5 mg PO Q6H PRN PRN PRN Reason: Pain Score 6-10/10 Last Admin: 11/03/19 14:33 Dose: 5 mg Documented by: Polyethylene Glycol (Miralax) 17 gm PO DAILY [facility] Senna/Docusate Sodium (Senokot-S, Aleyda-Colace) 1 tablet PO BID [facility] Last Admin: 11/03/19 17:40 Dose: 1 tablet Documented by: Tamsulosin HCl (Flomax) 0.4 mg PO DAILY [facility] Tramadol HCl (Ultram) 50 mg PO Q8H PRN PRN PRN Reason: Pain Score 4-5/10 Tuberculin PPD (Tubersol, Aplisol, Ppd) 5 tu ID X1 ONE Stop: 11/04/19 10:01 Tuberculin PPD (Tubersol, Aplisol, Ppd) 5 tu ID X1 ONE Stop: 11/11/19 10:01 Assessment/Plan All Active Problems (Last Reviewed 10/01/18 @ 09:13 by Skylar Grady) Debility (Acute) Cervical spinal stenosis (Acute) Dysphagia (Acute) Ulcer of right second toe, limited to breakdown of skin (Resolved) Pseudomonas aeruginosa infection (Acute) Hyponatremia (Acute) Hypomagnesemia (Acute) Complicated UTI (urinary tract infection) (Acute) Sepsis (Acute) Segmental and somatic dysfunction of pelvic region (Acute) Segmental and somatic dysfunction of thoracic region (Acute) Segmental and somatic dysfunction of lumbar region (Acute) Ulcer of right foot with fat layer exposed (Resolved) Healed ulcer of right foot on examination (Acute) Non-pressure chronic ulcer of other part of right foot with necrosis of muscle (Acute) Non-pressure chronic ulcer of other part of right foot with fat layer exposed (Acute) Osteomyelitis of toe of right foot (Ruled-out) Diabetic ulcer of foot with fat layer exposed (Resolved) Ulcer of toe due to diabetes (Acute) Diabetic ulcer of toe with fat layer exposed (Resolved) Cellulitis of great toe of right foot (Acute) 53 year old male with below past medical history hospitalized for lumbar spinal stenosis, underwent lumbar spine surgery 10/26/[address] Lora Senior, complicated by complicated urinary tract infection, admitted to TCU with debility, here for rehabilitation, strengthening, prior to discharge to [facility]. Debility - PT/OT. Pain - Tylenol 650MG Q4H PRN pain (1-3), Tramadol 50MG Q6H PRN pain (4-5), Oxycodone 5MG Q4H PRN pain (6-10) Bowel - Miralax 17GM daily, Senna/colace 2 tablets BID, Dulcolax 10MG daily PRN. Adult immunization - Administer Prevnar 13, Pneumovax 23, Fluzone as necessary. DVT prophylaxis - Lovenox 40MG SC daily. Hyperlipidemia - Atorvastatin 40MG QHS. Opioid dependence - Butrans 5MCG patch 1 patch TD per week. Depression - Citalopram 20MG daily, stable chronic salvage determiner use, GDR clinically not recommended. Muscle spasm - Flexeril 5MG BID. Insomnia - Doxepin 25MG QHS. BPH - Tamsulosin 0.4MG daily. Neurogenic bladder - Chronic indwelling bradley catheter, will attempt voiding trials.
[2019-11-04] MEDS: oxyCODONE 5 MG Tablet PO ×4 (00:58→21:07)
[2019-11-04] MEDS: Tamsulosin HCl 0.4 MG Capsule PO (05:41)
[2019-11-04] MEDS: cycloBENZAPRine HCl 5 MG TABLET PO ×2 (05:41→16:51)
[2019-11-04] MEDS: Enoxaparin 40 MG/0.4 ML Syringe SC (05:41)
[2019-11-04] MEDS: Citalopram 20 MG Tablet PO (05:41)
[2019-11-04] MEDS: Senna/Docusate Sodium 1 Tablet 2 TABLET PO ×2 (05:42→16:51)
[2019-11-04 06:17] LABS: Absolute Lymphocyte Count 1.39 X10^3/uL (0.83-4.51); Absolute Neutrophil Count 8.2 X10^3/uL (2.0-7.7); Basophil# 0.03 X10^3/uL; Basophil% 0.3 % (0-1); Eosinophil# 0.16 X10^3/uL; Eosinophils% 1.5 % (0-5); Hematocrit 32.3 % (40-54); Hemoglobin 10.5 g/dL (13.0-16.5); Lymphocyte # 1.39 X10^3/ul (4.0); Lymphocyte % 12.9 % (19-41); Mean Corp Hgb Conc 32.5 g/dL (32-36); Mean Corpuscular Hgb 27.6 pg (27.0-32.0); Mean Corpuscular Volume 84.8 fL (80-94); Mean Platelet Vol. 8.8 fl (6.2-12.0); Monocyte# 0.88 X10^3/uL; Monocyte% 8.2 % (0-10); NRBC Flagged by Analyzer 0 % (0-5); Neutrophil # 8.24 X10^3/uL (2.7-7.7); Neutrophil % 76.5 % (47-70); Platelet Count 417 K/mm3 (150-450); RBC Distribution Width CV 14.1 % (11.6-14.6); RBC Distribution Width SD 43.3 fl (35.1-43.9); Red Blood Count 3.81 M/mm3 (4.6-6.2); White Blood Count 10.8 K/mm3 (4.4-11.0)
[2019-11-04 06:30] LABS: Anion Gap 5 (5-15); BUN 9 mg/dL (7-18); BUN/Creat Ratio 19.4 RATIO (10-20); Calcium,Total 8.8 mg/dL (8.5-10.1); Chloride 102 mmol/L (98-107); Creatinine, Serum 0.46 mg/dL (0.70-1.30); EST Glomerular Filtration Rate 200 mL/min (>60); Est Glom Filt Rate - Afr Amer 242 mL/min (>60); Estimated Creatinine Clearance 165.66 ml/min; Glucose 112 mg/dL (74-106); Sodium Level 134 mmol/L (136-145)
[2019-11-04 06:40] LABS: Bedside Glucose 103 mg/dL (70-110)
[2019-11-04] MEDS: traMADol 50 MG Tablet PO (09:43)
[2019-11-04 10:55] LABS: Bedside Glucose 140 mg/dL (70-110)
[2019-11-04] MEDS: Tuberculin,Purif.prot.deriv. 50 TU/ML Vial 5 ML ID (11:29)
[2019-11-04 16:00] VITALS: BP 99/73; PULSE 103; RESP 18; TEMP 36.8; O2SAT 98
[2019-11-04 17:35] LABS: Bedside Glucose 114 mg/dL (70-110)
[2019-11-04] MEDS: Atorvastatin Calcium 40 MG Tablet PO (21:07)
[2019-11-04] MEDS: Doxepin Hcl 25 MG Capsule PO (21:07)
[2019-11-04 21:45] LABS: Bedside Glucose 132 mg/dL (70-110)
[2019-11-05] MEDS: Senna/Docusate Sodium 1 Tablet 2 TABLET PO (05:38)
[2019-11-05] MEDS: oxyCODONE 5 MG Tablet PO ×3 (05:39→21:01)
[2019-11-05] MEDS: Citalopram 20 MG Tablet PO (05:39)
[2019-11-05] MEDS: Enoxaparin 40 MG/0.4 ML Syringe SC (05:39)
[2019-11-05] MEDS: cycloBENZAPRine HCl 5 MG TABLET PO ×2 (05:39→17:49)
[2019-11-05] MEDS: Tamsulosin HCl 0.4 MG Capsule PO (05:39)
[2019-11-05 06:25] LABS: Bedside Glucose 121 mg/dL (70-110)
--- NOTE | 2019-11-05 07:51 | PCM.CONS.U ---
Reason for Consult Date of Consultation: 11/05/19 Reason for Consultation: Postop urinary retention History of Present Illness: The patient is a 53 year old male with spinal stenosis underwent decompression surgery done at [facility]. Postoperatively he was not able to urinate required a Oliveira catheter also had an infection that was been treated. Currently has a catheter in place. Currently is taking Flomax 0.4 mg daily. Probably would be reasonable to do another voiding trial to see if he can urinate he does admit to having some difficulties emptying his bladder before the surgery. Denies having prostate cancer. Past Medical History Past Medical History (Chronic Problems): Chronic Problems (Last Reviewed 10/01/18 @ 09:13 by Skylar Grady) Lumbar spinal stenosis (Chronic) Diet-controlled diabetes mellitus (Chronic) Hyperlipidemia (Chronic) Opioid dependence (Chronic) PAOD (peripheral arterial occlusive disease) (Chronic) Obstructive sleep apnea (Chronic) Urinary retention (Chronic) Scoliosis (Chronic) Other acquired deformities of right foot (Chronic) plantarflexed 2nd metatarsal Small vessel disease (Chronic) Malnutrition (Chronic) Diabetes mellitus with neuropathy (Chronic) Hammer toe of right foot (Chronic) Tinea unguium (Chronic) Delayed wound healing (Chronic) Chronic ulcer of right foot with fat layer exposed (Chronic) Amputation of right foot with complication (Chronic) Dehiscence of amputation stump (Chronic) 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 2 diabetes mellitus with diabetic polyneuropathy (Chronic) Peripheral vascular disease (Chronic) Hammer toes, bilateral (Chronic) Hammer toe of left foot (Chronic) Hypertension (Chronic) Sleep apnea (Chronic) COPD (chronic obstructive pulmonary disease) (Chronic) Medical History: Medical History (Last Reviewed 10/01/18 @ 09:13 by Skylar Grady) Scoliosis (Chronic) M41.9 Allergies shellfish derived Allergy (Verified 05/14/18 14:25) Rash bacitracin [From Neosporin Plus] Adverse Reaction (Verified 05/14/18 14:25) Unknown bacitracin zinc [From Neosporin Plus] Adverse Reaction (Verified 05/14/18 14:25) Unknown lisinopril Adverse Reaction (Verified 05/14/18 14:25) Hives, throat closed neomycin sulfate [From Neosporin Plus] Adverse Reaction (Verified 05/14/18 14:25) Unknown polymyxin B [From Neosporin Plus] Adverse Reaction (Verified 05/14/18 14:25) Unknown polymyxin B sulfate [From Neosporin Plus] Adverse Reaction (Verified 05/14/18 14:25) Unknown pramoxine [From Neosporin Plus] Adverse Reaction (Verified 05/14/18 14:25) Unknown pramoxine HCl [From Neosporin Plus] Adverse Reaction (Verified 05/14/18 14:25) infection when placed on a cut Home Medications: Ambulatory Orders Medication Instructions Recorded buprenorphine 5 mcg/hour weekly 1 patch TRANSDERMAL QWEEK 07/07/19 transdermal patch Acetaminophen [Tylenol Tablet] 650 mg PO Q4H PRN PRN tab 09/07/19 Amlodipine [Norvasc] 5 mg PO DAILY 11/03/19 Ascorbic Acid 500 mg PO BID 11/03/19 Aspirin 81 mg PO DAILY 11/03/19 Atorvastatin Calcium [Lipitor] 40 mg PO QHS 11/03/19 Citalopram [Celexa] 20 mg PO DAILY 11/03/19 Divalproex Sodium 125 mg PO 4X/DAY 11/03/19 Doxepin HCl [Sinequan] 25 mg PO QHS 11/03/19 Enoxaparin [Lovenox] 40 mg SUBCUT DAILY@0600 11/03/19 Losartan Potassium [Cozaar] 100 mg PO QHS 11/03/19 Multivitamin [Daily Multiple 1 ea PO DAILY 11/03/19 Vitamin] Oxycodone [Oxyir] 5 mg PO Q6H PRN PRN 11/03/19 Polyethylene Glycol 3350 [Miralax] 17 gm PO DAILY 11/03/19 Senna/Docusate Sodium [Senokot-S] 1 tab PO BID 11/03/19 Tamsulosin HCl [Flomax] 0.4 mg PO DAILY 11/03/19 cycloBENZAPRine HCl [Flexeril] 5 mg PO BID 11/03/19 traMADol [Ultram (G)] 50 mg PO Q8H PRN PRN 11/03/19 Surgical History: tonsillectomy, - - Cervical spine surgery 08/17/2019 Dr. Senior. Lumbar spine surgery Dr. Senior. Psychiatric History: Depression Lives: Custodial - [facility]. Smoking Status: Former smoker Tobacco Use: Cigarettes Alcohol: None Drugs: None - *Family History Maternal History Items: Cancer - Lung. Paternal History Items: Cancer, Diabetes Physical Exam - Physical Exam Vital Signs Temp 98.2 F 11/04/19 16:00 Pulse 103 H 11/04/19 16:00 Resp 18 11/04/19 16:00 BP 99/73 11/04/19 16:00 Pulse Ox 98 11/04/19 16:00 Intake & Output 11/03/19 11/04/19 11/05/19 23:59 23:59 23:59 Intake Total 360 / 360 840 / 840 Output Total 800 / 800 4600 / 4600 2800 / 2800 Balance -440 / -440 -3760 / -3760 -2800 / -2800 Weight: 76.856 kg 76.856 kg Intake: Oral 360 / 360 840 / 840 Output: Urine 800 / 800 4600 / 4600 2800 / 2800 General: Alert, Oriented x3 Oral: Moist Mucosa Neck: Supple - Is alert oriented x3 is in a wheelchair unable to do a rectal exam today still not ambulatory Rectal: Exam deferred - Patient's in a wheelchair still not ambulatory Assessment/Plan All Active Problems (Last Reviewed 10/01/18 @ 09:13 by Skylar Grady) Debility (Acute) Cervical spinal stenosis (Acute) Dysphagia (Acute) Ulcer of right second toe, limited to breakdown of skin (Resolved) Pseudomonas aeruginosa infection (Acute) Hyponatremia (Acute) Hypomagnesemia (Acute) Complicated UTI (urinary tract infection) (Acute) Sepsis (Acute) Segmental and somatic dysfunction of pelvic region (Acute) Segmental and somatic dysfunction of thoracic region (Acute) Segmental and somatic dysfunction of lumbar region (Acute) Ulcer of right foot with fat layer exposed (Resolved) Healed ulcer of right foot on examination (Acute) Non-pressure chronic ulcer of other part of right foot with necrosis of muscle (Acute) Non-pressure chronic ulcer of other part of right foot with fat layer exposed (Acute) Osteomyelitis of toe of right foot (Ruled-out) Diabetic ulcer of foot with fat layer exposed (Resolved) Ulcer of toe due to diabetes (Acute) Diabetic ulcer of toe with fat layer exposed (Resolved) Cellulitis of great toe of right foot (Acute) 53-year-old male with a history of spinal stenosis underwent decompression surgery on the spine has a catheter in place is currently on Flomax recommend we do another voiding trial remove the catheter to see if he can urinate we can do self intermittent catheterization x3-4 times every 8 hours but if still is in retention of urine then I would replace the Oliveira continue with Flomax he can follow-up in the office for another voiding trial as an outpatient. Call with questions
[2019-11-05 10:51] LABS: Bedside Glucose 167 mg/dL (70-110)
[2019-11-05] MEDS: Acetaminophen 325 MG Tablet 650 MG PO ×2 (12:18→21:01)
--- NOTE | 2019-11-05 14:22 | PHA.CONS_ITS ---
<Leesa Bains M - Last Filed: 11/05/19 14:22> Progress Note - Pharmacy Subjective: TCU ADMISSION Objective: Allergies shellfish derived Allergy (Verified 05/14/18 14:25) Rash bacitracin [From Neosporin Plus] Adverse Reaction (Verified 05/14/18 14:25) Unknown bacitracin zinc [From Neosporin Plus] Adverse Reaction (Verified 05/14/18 14:25) Unknown lisinopril Adverse Reaction (Verified 05/14/18 14:25) Hives, throat closed neomycin sulfate [From Neosporin Plus] Adverse Reaction (Verified 05/14/18 14:25) Unknown polymyxin B [From Neosporin Plus] Adverse Reaction (Verified 05/14/18 14:25) Unknown polymyxin B sulfate [From Neosporin Plus] Adverse Reaction (Verified 05/14/18 14:25) Unknown pramoxine [From Neosporin Plus] Adverse Reaction (Verified 05/14/18 14:25) Unknown pramoxine HCl [From Neosporin Plus] Adverse Reaction (Verified 05/14/18 14:25) infection when placed on a cut Current Medications Generic Name Dose Route Start Last Admin Trade Name Freq PRN Reason Stop Dose Admin Acetaminophen 650 mg 11/03/19 13:34 11/05/19 12:18 Tylenol PO 650 mg Q4H PRN PRN Administration Pain Score 1-3/10 Atorvastatin Calcium 40 mg 11/03/19 22:00 11/04/19 21:07 Lipitor PO 40 mg QHS GOGO Administration Bisacodyl 10 mg 11/03/19 21:58 Dulcolax PO DAILY PRN Constipation Citalopram Hydrobromide 20 mg 11/04/19 06:00 11/05/19 05:39 Celexa PO 20 mg DAILY GOGO Administration Cyclobenzaprine HCl 5 mg 11/03/19 18:00 11/05/19 05:39 Cyclobenzaprine Hcl PO 5 mg BID GOGO Administration Doxepin HCl 25 mg 11/03/19 22:00 11/04/19 21:07 Sinequan PO 25 mg QHS GOGO Administration Enoxaparin Sodium 40 mg 11/04/19 06:00 11/05/19 05:39 Lovenox SC 40 mg DAILY@0600 GOGO Administration Nutritional Formula (Lactose Free) 120 ml 11/05/19 07:45 12/12/19 12:19 Glucerna Shake PO Not Given TIDCM GOGO Oxycodone HCl 5 mg 11/03/19 21:58 11/05/19 12:18 Oxyir PO 5 mg Q4H PRN Administration Pain Score 6-10/10 Polyethylene Glycol 17 gm 11/04/19 06:00 11/05/19 05:40 Miralax PO Not Given DAILY GOGO Senna/Docusate Sodium 2 tablet 11/04/19 06:00 11/05/19 05:38 Senokot-S, Aleyda-Colace PO 2 tablet BID GOGO Administration Tamsulosin HCl 0.4 mg 11/04/19 06:00 11/05/19 05:39 Flomax PO 0.4 mg DAILY GOGO Administration Tramadol HCl 50 mg 11/03/19 21:59 11/04/19 09:43 Ultram PO 50 mg Q6H PRN PRN Administration Pain Score 4-5/10 Tuberculin PPD 5 tu 11/11/19 10:00 Tubersol, Aplisol, Ppd ID 11/11/19 10:01 X1 ONE Problem List (Last Reviewed 10/01/18 @ 09:13 by Skylar Grady) Pseudomonas aeruginosa infection (Acute) Hyponatremia (Acute) Hypomagnesemia (Acute) Complicated UTI (urinary tract infection) (Acute) Sepsis (Acute) Obstructive sleep apnea (Chronic) Urinary retention (Chronic) Vital Signs Temp Pulse Resp BP Pulse Ox 98.2 F 103 H 18 99/73 98 11/04/19 16:00 11/04/19 16:00 11/04/19 16:00 11/04/19 16:00 11/04/19 16:00 Oxygen Flow Rate (L/min) 103 Oxygen Delivery Method Room Air Weight: 76.856 kg Body Mass Index (BMI) 27.3 Sodium 134 mmol/L (136-145) L 11/04/19 05:25 Potassium 4.0 mmol/L (3.5-5.1) 11/04/19 05:25 Chloride 102 mmol/L (98-107) 11/04/19 05:25 Carbon Dioxide 27.0 mmol/L (21.0-32.0) 11/04/19 05:25 Anion Gap 5 (5-15) 11/04/19 05:25 BUN 9 mg/dL (7-18) 11/04/19 05:25 Creatinine 0.46 mg/dL (0.70-1.30) L 11/04/19 05:25 Est GFR (MDRD) Af Amer 242 mL/min (>60) 11/04/19 05:25 Est GFR (MDRD) Non-Af 200 mL/min (>60) 11/04/19 05:25 BUN/Creatinine Ratio 19.4 RATIO (10-20) 11/04/19 05:25 Glucose 112 mg/dL (74-106) H 11/04/19 05:25 Assessment/Plan: 1. Pain: Tylenol 650mg PO Q4H PRN pain (1-3), Tramadol 50mg PO Q6H PRN pain (4- 5), Oxycodone 5mg PO Q4H PRN pain (6-10). Please continue to monitor for increased/decreased pain, PRN use 2. DVT prophylaxis: Lovenox 40mg SC daily. Please continue to monitor renal function, and for S/S bleeding and/or bruising 3. Hyperlipidemia: Atorvastatin 40mg PO QHS. Please continue to monitor lipid panels. Have lipid panel drawn at least annually or more frequently if clinically appropriate 4. Opioid dependence: Butrans 5mcg patch 1 patch transdermally per week. Please continue to monitor for medication effectiveness, respiratory status, and PRN opioid medication use while using Butrans Patch 5. Muscle spasm: Flexeril 5mg PO BID. Please continue to monitor for medication effectiveness, drowsiness, respiratory status with opioid use 6. Insomnia: Doxepin 25mg PO QHS. Please continue to monitor medication effectiveness 7. BPH: Tamsulosin 0.4mg PO daily. Please continue to monitor for improvement in BPH symptoms, effectiveness of medication Psychotropic Medications: 8. Depression: Citalopram 20mg PO daily. Per H/P, pt has been stable on medication and has been using chronically, GDR not clinically appropriate per H/P. Continue to monitor. Unnecessary Medications: None Bowel Regimen: Miralax 17g PO daily, Senna/Docusate 2 tablets PO BID, Dulcolax 10mg PO daily PRN. Please continue to monitor PRN medication use, Increased/decreased bowel movements. Date of Note:: 12/12/19 - Provider Comments Provider responsibility: Provider responsible to enter orders to implement recommendations <Michael De Dios Chi - Last Filed: 11/05/19 20:25> Progress Note - Pharmacy Subjective: [] Objective: Allergies shellfish derived Allergy (Verified 05/14/18 14:25) Rash bacitracin [From Neosporin Plus] Adverse Reaction (Verified 05/14/18 14:25) Unknown bacitracin zinc [From Neosporin Plus] Adverse Reaction (Verified 05/14/18 14:25) Unknown lisinopril Adverse Reaction (Verified 05/14/18 14:25) Hives, throat closed neomycin sulfate [From Neosporin Plus] Adverse Reaction (Verified 05/14/18 14:25) Unknown polymyxin B [From Neosporin Plus] Adverse Reaction (Verified 05/14/18 14:25) Unknown polymyxin B sulfate [From Neosporin Plus] Adverse Reaction (Verified 05/14/18 14:25) Unknown pramoxine [From Neosporin Plus] Adverse Reaction (Verified 05/14/18 14:25) Unknown pramoxine HCl [From Neosporin Plus] Adverse Reaction (Verified 05/14/18 14:25) infection when placed on a cut Current Medications Generic Name Dose Route Start Last Admin Trade Name Freq PRN Reason Stop Dose Admin Acetaminophen 650 mg 11/03/19 13:34 11/05/19 12:18 Tylenol PO 650 mg Q4H PRN PRN Administration Pain Score 1-3/10 Atorvastatin Calcium 40 mg 11/03/19 22:00 11/04/19 21:07 Lipitor PO 40 mg QHS GOGO Administration Bisacodyl 10 mg 11/03/19 21:58 Dulcolax PO DAILY PRN Constipation Citalopram Hydrobromide 20 mg 11/04/19 06:00 11/05/19 05:39 Celexa PO 20 mg DAILY GOGO Administration Cyclobenzaprine HCl 5 mg 11/03/19 18:00 11/05/19 17:49 Cyclobenzaprine Hcl PO 5 mg BID GOGO Administration Doxepin HCl 25 mg 11/03/19 22:00 11/04/19 21:07 Sinequan PO 25 mg QHS GOGO Administration Enoxaparin Sodium 40 mg 11/04/19 06:00 11/05/19 05:39 Lovenox SC 40 mg DAILY@0600 GOGO Administration Nutritional Formula (Lactose Free) 120 ml 11/05/19 07:45 11/05/19 17:49 Glucerna Shake PO Not Given TIDCM GOGO Oxycodone HCl 5 mg 11/03/19 21:58 11/05/19 12:18 Oxyir PO 5 mg Q4H PRN Administration Pain Score 6-10/10 Polyethylene Glycol 17 gm 11/04/19 06:00 11/05/19 05:40 Miralax PO Not Given DAILY [facility] Senna/Docusate Sodium 2 tablet 11/04/19 06:00 11/05/19 17:49 Senokot-S, Aleyda-Colace PO Not Given BID [facility] Tamsulosin HCl 0.4 mg 11/04/19 06:00 11/05/19 05:39 Flomax PO 0.4 mg DAILY GOGO Administration Tramadol HCl 50 mg 11/03/19 21:59 11/04/19 09:43 Ultram PO 50 mg Q6H PRN PRN Administration Pain Score 4-5/10 Tuberculin PPD 5 tu 11/11/19 10:00 Tubersol, Aplisol, Ppd ID 11/11/19 10:01 X1 ONE Problem List (Last Reviewed 10/01/18 @ 09:13 by Skylar Grady) Pseudomonas aeruginosa infection (Acute) Hyponatremia (Acute) Hypomagnesemia (Acute) Complicated UTI (urinary tract infection) (Acute) Sepsis (Acute) Obstructive sleep apnea (Chronic) Urinary retention (Chronic) Vital Signs Temp Pulse Resp BP Pulse Ox 98.2 F 107 H 18 116/62 98 11/05/19 16:00 11/05/19 16:00 11/05/19 16:00 11/05/19 16:00 11/05/19 16:00 Oxygen Flow Rate (L/min) 103 Oxygen Delivery Method Room Air Weight: 76.856 kg Body Mass Index (BMI) 27.3 Sodium 134 mmol/L (136-145) L 11/04/19 05:25 Potassium 4.0 mmol/L (3.5-5.1) 11/04/19 05:25 Chloride 102 mmol/L (98-107) 11/04/19 05:25 Carbon Dioxide 27.0 mmol/L (21.0-32.0) 11/04/19 05:25 Anion Gap 5 (5-15) 11/04/19 05:25 BUN 9 mg/dL (7-18) 11/04/19 05:25 Creatinine 0.46 mg/dL (0.70-1.30) L 11/04/19 05:25 Est GFR (MDRD) Af Amer 242 mL/min (>60) 11/04/19 05:25 Est GFR (MDRD) Non-Af 200 mL/min (>60) 11/04/19 05:25 BUN/Creatinine Ratio 19.4 RATIO (10-20) 11/04/19 05:25 Glucose 112 mg/dL (74-106) H 11/04/19 05:25 Assessment/Plan: Psychotropic Medications: Unnecessary Medications: Bowel Regimen: - Provider Comments Provider responsibility: Provider responsible to enter orders to implement recommendations Provider Comments to Recommendations by Pharmacy: Agree
[2019-11-05 16:00] VITALS: BP 116/62; PULSE 107; RESP 18; TEMP 36.8; O2SAT 98
[2019-11-05 17:11] LABS: Bedside Glucose 117 mg/dL (70-110)
[2019-11-05] MEDS: Atorvastatin Calcium 40 MG Tablet PO (21:01)
[2019-11-05] MEDS: Doxepin Hcl 25 MG Capsule PO (21:01)
[2019-11-05 21:41] LABS: Bedside Glucose 164 mg/dL (70-110)
--- NOTE | 2019-11-06 03:42 | NURSING ---
Per orders, patient's bradley removed at this time for voiding trials. Patient tolerated procedure well.
[2019-11-06] MEDS: Acetaminophen 325 MG Tablet 650 MG PO ×3 (04:40→20:54)
[2019-11-06] MEDS: oxyCODONE 5 MG Tablet PO ×3 (04:40→20:54)
[2019-11-06] MEDS: Tamsulosin HCl 0.4 MG Capsule PO (04:41)
[2019-11-06] MEDS: cycloBENZAPRine HCl 5 MG TABLET PO ×2 (04:41→17:39)
[2019-11-06] MEDS: Enoxaparin 40 MG/0.4 ML Syringe SC (04:41)
[2019-11-06] MEDS: Citalopram 20 MG Tablet PO (04:41)
[2019-11-06] MEDS: Senna/Docusate Sodium 1 Tablet 2 TABLET PO ×2 (04:42→17:39)
[2019-11-06 06:46] LABS: Bedside Glucose 118 mg/dL (70-110)
--- NOTE | 2019-11-06 08:02 | NURSING ---
butrans patch intact to RT posterior shoulder blade
[2019-11-06 11:01] LABS: Bedside Glucose 123 mg/dL (70-110)
--- NOTE | 2019-11-06 15:10 | MDS.RN ---
Pain interview for alisa 11/10/19 completed.
[2019-11-06 16:00] VITALS: BP 122/65; PULSE 108; RESP 17; TEMP 36.8; O2SAT 96
--- NOTE | 2019-11-06 16:25 | NURSING ---
Addendum entered by Yue Andersen 11/11/19 10:42: late entry: Original Note: Pt failed voiding trial, unable to void, expressed discomfort, requesting that bradley be put back in, bladder scanned for 450ml, DOMO from Dr. De Dios to replace bradley. Placed using sterile technique, clear yellow urine returned, pt tolerated.
[2019-11-06 17:31] LABS: Bedside Glucose 114 mg/dL (70-110)
[2019-11-06] MEDS: Doxepin Hcl 25 MG Capsule PO (20:54)
[2019-11-06] MEDS: Atorvastatin Calcium 40 MG Tablet PO (20:54)
[2019-11-06 22:25] LABS: Bedside Glucose 125 mg/dL (70-110)
[2019-11-07] MEDS: oxyCODONE 5 MG Tablet PO ×3 (03:46→21:29)
[2019-11-07] MEDS: Acetaminophen 325 MG Tablet 650 MG PO ×3 (03:47→21:30)
[2019-11-07] MEDS: cycloBENZAPRine HCl 5 MG TABLET PO ×2 (06:18→18:00)
[2019-11-07] MEDS: Enoxaparin 40 MG/0.4 ML Syringe SC (06:18)
[2019-11-07] MEDS: Senna/Docusate Sodium 1 Tablet 2 TABLET PO ×2 (06:18→18:00)
[2019-11-07] MEDS: Tamsulosin HCl 0.4 MG Capsule PO (06:19)
[2019-11-07] MEDS: Citalopram 20 MG Tablet PO (06:19)
[2019-11-07 06:21] LABS: Bedside Glucose 134 mg/dL (70-110)
[2019-11-07 11:05] LABS: Bedside Glucose 127 mg/dL (70-110)
[2019-11-07 16:00] VITALS: BP 116/59; PULSE 118; RESP 20; TEMP 36.8; O2SAT 98
[2019-11-07 18:45] LABS: Bedside Glucose 212 mg/dL (70-110)
[2019-11-07] MEDS: Doxepin Hcl 25 MG Capsule PO (21:31)
[2019-11-07] MEDS: Atorvastatin Calcium 40 MG Tablet PO (21:31)
[2019-11-07 22:00] LABS: Bedside Glucose 121 mg/dL (70-110)
[2019-11-08] MEDS: Enoxaparin 40 MG/0.4 ML Syringe SC (06:21)
[2019-11-08] MEDS: Senna/Docusate Sodium 1 Tablet 2 TABLET PO ×2 (06:21→16:57)
[2019-11-08] MEDS: Polyethylene Glycol 3350 17 GM PACKET PO (06:21)
[2019-11-08] MEDS: cycloBENZAPRine HCl 5 MG TABLET PO ×2 (06:21→16:57)
[2019-11-08] MEDS: Tamsulosin HCl 0.4 MG Capsule PO (06:21)
[2019-11-08] MEDS: oxyCODONE 5 MG Tablet PO ×3 (06:21→20:21)
[2019-11-08] MEDS: Acetaminophen 325 MG Tablet 650 MG PO ×3 (06:22→20:21)
[2019-11-08] MEDS: Citalopram 20 MG Tablet PO (06:22)
[2019-11-08 06:31] LABS: Bedside Glucose 100 mg/dL (70-110)
[2019-11-08 11:05] LABS: Bedside Glucose 121 mg/dL (70-110)
--- NOTE | 2019-11-08 11:34 | NURSING ---
Butrans patch intact to RT posterior shoulder
[2019-11-08 16:00] VITALS: BP 138/73; PULSE 101; RESP 20; TEMP 36.7; O2SAT 100
[2019-11-08 17:40] LABS: Bedside Glucose 123 mg/dL (70-110)
[2019-11-08] MEDS: Doxepin Hcl 25 MG Capsule PO (20:22)
[2019-11-08] MEDS: Atorvastatin Calcium 40 MG Tablet PO (20:22)
[2019-11-08 21:25] LABS: Bedside Glucose 141 mg/dL (70-110)
[2019-11-09] MEDS: oxyCODONE 5 MG Tablet PO ×3 (05:25→20:30)
[2019-11-09] MEDS: Polyethylene Glycol 3350 17 GM PACKET PO (05:25)
[2019-11-09] MEDS: Senna/Docusate Sodium 1 Tablet 2 TABLET PO ×2 (05:29→16:59)
[2019-11-09] MEDS: cycloBENZAPRine HCl 5 MG TABLET PO ×2 (05:29→16:59)
[2019-11-09] MEDS: Enoxaparin 40 MG/0.4 ML Syringe SC (05:29)
[2019-11-09] MEDS: Citalopram 20 MG Tablet PO (05:29)
[2019-11-09] MEDS: Tamsulosin HCl 0.4 MG Capsule PO (05:29)
[2019-11-09 06:26] LABS: Bedside Glucose 115 mg/dL (70-110)
[2019-11-09] MEDS: Acetaminophen 325 MG Tablet 650 MG PO ×2 (08:22→20:30)
[2019-11-09 10:51] LABS: Bedside Glucose 106 mg/dL (70-110)
[2019-11-09 15:50] VITALS: BP 122/67; PULSE 107; RESP 20; TEMP 36.8; O2SAT 98
[2019-11-09 17:00] LABS: Bedside Glucose 106 mg/dL (70-110)
[2019-11-09] MEDS: traMADol 50 MG Tablet PO (17:04)
[2019-11-09] MEDS: Atorvastatin Calcium 40 MG Tablet PO (20:31)
[2019-11-09] MEDS: Doxepin Hcl 25 MG Capsule PO (20:32)
[2019-11-09 21:31] LABS: Bedside Glucose 136 mg/dL (70-110)
[2019-11-10] MEDS: oxyCODONE 5 MG Tablet PO ×3 (04:55→20:54)
[2019-11-10] MEDS: Tamsulosin HCl 0.4 MG Capsule PO (04:56)
[2019-11-10] MEDS: cycloBENZAPRine HCl 5 MG TABLET PO ×2 (04:56→16:47)
[2019-11-10] MEDS: Citalopram 20 MG Tablet PO (04:56)
[2019-11-10] MEDS: Enoxaparin 40 MG/0.4 ML Syringe SC (04:56)
[2019-11-10] MEDS: Senna/Docusate Sodium 1 Tablet 2 TABLET PO (04:57)
[2019-11-10] MEDS: Polyethylene Glycol 3350 17 GM PACKET PO (04:57)
[2019-11-10 06:56] LABS: Bedside Glucose 107 mg/dL (70-110)
--- NOTE | 2019-11-10 10:53 | NURSING ---
Butrans Patch intact to rt posterior shoulder
--- NOTE | 2019-11-10 11:05 | NURSING ---
Butrans patch in place to Rt posterior shoulder.
[2019-11-10] MEDS: traMADol 50 MG Tablet PO (11:08)
[2019-11-10 16:00] VITALS: BP 129/62; PULSE 105; RESP 17; TEMP 36.9; O2SAT 98
[2019-11-10 17:06] LABS: Bedside Glucose 93 mg/dL (70-110)
[2019-11-10] MEDS: Acetaminophen 325 MG Tablet 650 MG PO (20:53)
[2019-11-10] MEDS: Atorvastatin Calcium 40 MG Tablet PO (20:54)
[2019-11-10] MEDS: Doxepin Hcl 25 MG Capsule PO (20:54)
[2019-11-10 21:41] LABS: Bedside Glucose 143 mg/dL (70-110)
--- NOTE | 2019-11-11 01:49 | NURSING ---
Chis patch noted to rt back
[2019-11-11 05:54] LABS: Absolute Lymphocyte Count 1.52 X10^3/uL (0.83-4.51); Absolute Neutrophil Count 4.4 X10^3/uL (2.0-7.7); Basophil# 0.04 X10^3/uL; Basophil% 0.6 % (0-1); Eosinophil# 0.18 X10^3/uL; Eosinophils% 2.6 % (0-5); Hematocrit 32.2 % (40-54); Hemoglobin 10.2 g/dL (13.0-16.5); Lymphocyte # 1.52 X10^3/ul (4.0); Lymphocyte % 22.2 % (19-41); Mean Corp Hgb Conc 31.7 g/dL (32-36); Mean Corpuscular Hgb 27.2 pg (27.0-32.0); Mean Corpuscular Volume 85.9 fL (80-94); Mean Platelet Vol. 8.4 fl (6.2-12.0); Monocyte# 0.72 X10^3/uL; Monocyte% 10.5 % (0-10); NRBC Flagged by Analyzer 0 % (0-5); Neutrophil # 4.35 X10^3/uL (2.7-7.7); Neutrophil % 63.7 % (47-70); Platelet Count 469 K/mm3 (150-450); RBC Distribution Width SD 43.8 fl (35.1-43.9); Red Blood Count 3.75 M/mm3 (4.6-6.2); White Blood Count 6.8 K/mm3 (4.4-11.0)
[2019-11-11] MEDS: Citalopram 20 MG Tablet PO (05:54)
[2019-11-11] MEDS: Senna/Docusate Sodium 1 Tablet 2 TABLET PO ×2 (05:54→16:45)
[2019-11-11] MEDS: Enoxaparin 40 MG/0.4 ML Syringe SC (05:54)
[2019-11-11] MEDS: cycloBENZAPRine HCl 5 MG TABLET PO ×2 (05:54→16:45)
[2019-11-11] MEDS: Tamsulosin HCl 0.4 MG Capsule PO (05:54)
[2019-11-11] MEDS: oxyCODONE 5 MG Tablet PO ×3 (05:57→21:07)
[2019-11-11 06:27] LABS: Bedside Glucose 72 mg/dL (70-110)
[2019-11-11 06:44] LABS: Anion Gap 4 (5-15); BUN 7 mg/dL (7-18); BUN/Creat Ratio 16.1 RATIO (10-20); Calcium,Total 8.8 mg/dL (8.5-10.1); Chloride 103 mmol/L (98-107); Creatinine, Serum 0.43 mg/dL (0.70-1.30); EST Glomerular Filtration Rate 216 mL/min (>60); Est Glom Filt Rate - Afr Amer 262 mL/min (>60); Estimated Creatinine Clearance 177.22 ml/min; Glucose 90 mg/dL (74-106); Potassium 4.1 mmol/L (3.5-5.1); Sodium Level 137 mmol/L (136-145)
--- NOTE | 2019-11-11 09:59 | NURSING ---
old patch removed from RT upper back and new Butrans patch applied to LT upper shoulder/back
[2019-11-11] MEDS: Tuberculin,Purif.prot.deriv. 50 TU/ML Vial 5 ML ID (10:45)
[2019-11-11] MEDS: Iron Polysaccharide Complex 150 MG CAPSULE PO (10:47)
[2019-11-11] MEDS: Acetaminophen 325 MG Tablet 650 MG PO ×2 (10:53→21:07)
--- NOTE | 2019-11-11 11:07 | CASEMGMT ---
Social Work IDT met with patient and aunt for care plan meeting. Discussed patient's progress in therapy. Pt has back brace and precautions to follow. CGA for transfers, 90 ft FWW SBA, mod assist for LE ADLs, min assist for UE ADLs, min to max for toileting tasks. Pt will return to [facility]. Aunt expressed concerns with AL. Pt does not share all of the same concerns, but would like to ensure [facility] can assist with back brace, catheter and ADLs to adhere to precautions. Pt has [facility] Bhavana [place] [phone]. Will relay DC instructions to AL to ensure pt can return. Explained insurance update 11/16 and continued stay is not guaranteed. Will continue to follow. MARC SantiagoW
[2019-11-11 11:31] LABS: Bedside Glucose 165 mg/dL (70-110)
[2019-11-11 15:26] VITALS: BP 125/70; PULSE 105; RESP 18; TEMP 36.6; O2SAT 97
[2019-11-11 17:30] LABS: Bedside Glucose 137 mg/dL (70-110)
[2019-11-11] MEDS: Atorvastatin Calcium 40 MG Tablet PO (21:08)
[2019-11-11] MEDS: Doxepin Hcl 25 MG Capsule PO (21:08)
[2019-11-11 21:36] LABS: Bedside Glucose 108 mg/dL (70-110)
--- NOTE | 2019-11-12 00:27 | NURSING ---
Butrans patch noted to left upper back
[2019-11-12] MEDS: Tamsulosin HCl 0.4 MG Capsule PO (06:15)
[2019-11-12] MEDS: Citalopram 20 MG Tablet PO (06:15)
[2019-11-12] MEDS: cycloBENZAPRine HCl 5 MG TABLET PO ×2 (06:15→17:49)
[2019-11-12] MEDS: Polyethylene Glycol 3350 17 GM PACKET PO (06:16)
[2019-11-12] MEDS: Senna/Docusate Sodium 1 Tablet 2 TABLET PO (06:16)
[2019-11-12] MEDS: Enoxaparin 40 MG/0.4 ML Syringe SC (06:16)
[2019-11-12] MEDS: oxyCODONE 5 MG Tablet PO ×3 (06:16→20:10)
[2019-11-12 06:31] LABS: Bedside Glucose 88 mg/dL (70-110)
[2019-11-12] MEDS: Iron Polysaccharide Complex 150 MG CAPSULE PO (08:01)
[2019-11-12] MEDS: Acetaminophen 325 MG Tablet 650 MG PO (10:29)
--- NOTE | 2019-11-12 10:32 | NURSING ---
medicated for back pain 8-08/04. pt up in [facility] in rec room w/group and staff making cookies
[2019-11-12 11:10] LABS: Bedside Glucose 132 mg/dL (70-110)
[2019-11-12] MEDS: traMADol 50 MG Tablet PO ×2 (12:56→20:57)
--- NOTE | 2019-11-12 12:57 | NURSING ---
back pain 4/10, ultram given.
[2019-11-12 16:00] VITALS: BP 130/69; PULSE 100; RESP 16; TEMP 36.8; O2SAT 99
[2019-11-12 17:21] LABS: Bedside Glucose 109 mg/dL (70-110)
[2019-11-12] MEDS: Doxepin Hcl 25 MG Capsule PO (20:11)
[2019-11-12] MEDS: Atorvastatin Calcium 40 MG Tablet PO (20:11)
[2019-11-12 22:05] LABS: Bedside Glucose 111 mg/dL (70-110)
[2019-11-13] MEDS: oxyCODONE 5 MG Tablet PO ×3 (01:01→21:18)
[2019-11-13] MEDS: cycloBENZAPRine HCl 5 MG TABLET PO ×2 (05:18→17:16)
[2019-11-13] MEDS: Citalopram 20 MG Tablet PO (05:19)
[2019-11-13] MEDS: Tamsulosin HCl 0.4 MG Capsule PO (05:19)
[2019-11-13] MEDS: Enoxaparin 40 MG/0.4 ML Syringe SC (05:19)
[2019-11-13] MEDS: traMADol 50 MG Tablet PO (06:26)
[2019-11-13 06:31] LABS: Bedside Glucose 74 mg/dL (70-110)
[2019-11-13] MEDS: Iron Polysaccharide Complex 150 MG CAPSULE PO (08:09)
[2019-11-13 11:11] LABS: Bedside Glucose 159 mg/dL (70-110)
--- NOTE | 2019-11-13 12:23 | CASEMGMT ---
Social Work Spoke with DON at [facility] to update on patient's status and needs at DC. DON stated they can assist with back brace, cath, and ADLs as requested. DON to visit pt on this date and get training from nursing on back brace and precautions. Insurance update 11/16. Spoke with aunt ALEYDA to update on above as aunt had concerns. Aunt appreciative and feels more comfortable with DC to [facility]. Will continue to follow. Ellie Foley, [employer] SURFACE HEATER OPERATOR
[2019-11-13 16:00] VITALS: BP 136/76; PULSE 117; RESP 19; TEMP 37; O2SAT 98
[2019-11-13 17:41] LABS: Bedside Glucose 106 mg/dL (70-110)
[2019-11-13] MEDS: Atorvastatin Calcium 40 MG Tablet PO (21:18)
[2019-11-13] MEDS: Doxepin Hcl 25 MG Capsule PO (21:18)
[2019-11-13] MEDS: Acetaminophen 325 MG Tablet 650 MG PO (21:19)
[2019-11-13 21:30] LABS: Bedside Glucose 103 mg/dL (70-110)
[2019-11-14] MEDS: Acetaminophen 325 MG Tablet 650 MG PO ×2 (06:31→22:28)
[2019-11-14] MEDS: Citalopram 20 MG Tablet PO (06:32)
[2019-11-14] MEDS: Enoxaparin 40 MG/0.4 ML Syringe SC (06:32)
[2019-11-14] MEDS: cycloBENZAPRine HCl 5 MG TABLET PO ×2 (06:32→16:46)
[2019-11-14] MEDS: oxyCODONE 5 MG Tablet PO ×2 (06:32→22:29)
[2019-11-14] MEDS: Tamsulosin HCl 0.4 MG Capsule PO (06:32)
[2019-11-14 06:36] LABS: Bedside Glucose 89 mg/dL (70-110)
[2019-11-14] MEDS: Iron Polysaccharide Complex 150 MG CAPSULE PO (09:17)
[2019-11-14] MEDS: traMADol 50 MG Tablet PO (10:25)
[2019-11-14 10:56] LABS: Bedside Glucose 92 mg/dL (70-110)
[2019-11-14 16:00] VITALS: BP 138/61; PULSE 111; RESP 17; TEMP 36.8; O2SAT 97
[2019-11-14 17:01] LABS: Bedside Glucose 136 mg/dL (70-110)
[2019-11-14 21:21] LABS: Bedside Glucose 122 mg/dL (70-110)
[2019-11-14] MEDS: Atorvastatin Calcium 40 MG Tablet PO (22:29)
[2019-11-14] MEDS: Doxepin Hcl 25 MG Capsule PO (22:29)
[2019-11-15] MEDS: Citalopram 20 MG Tablet PO (05:57)
[2019-11-15] MEDS: Tamsulosin HCl 0.4 MG Capsule PO (05:58)
[2019-11-15] MEDS: oxyCODONE 5 MG Tablet PO ×2 (05:58→19:59)
[2019-11-15] MEDS: cycloBENZAPRine HCl 5 MG TABLET PO ×2 (05:58→17:33)
[2019-11-15] MEDS: Acetaminophen 325 MG Tablet 650 MG PO ×2 (05:58→19:59)
[2019-11-15] MEDS: Enoxaparin 40 MG/0.4 ML Syringe SC (05:58)
[2019-11-15 06:31] LABS: Bedside Glucose 54 mg/dL (70-110)
--- NOTE | 2019-11-15 06:48 | NURSING ---
butrans patch noted to left posterior shoulder
[2019-11-15 07:01] LABS: Bedside Glucose 107 mg/dL (70-110)
[2019-11-15] MEDS: Iron Polysaccharide Complex 150 MG CAPSULE PO (08:29)
[2019-11-15 11:00] LABS: Bedside Glucose 120 mg/dL (70-110)
--- NOTE | 2019-11-15 14:50 | NURSING ---
Dr De Dios updated on pt low BS this AM, pt is not on any diabetic medications. would like pt to eat an HS snack to prevent hypoglycemia.
[2019-11-15 16:00] VITALS: BP 121/67; PULSE 96; RESP 18; TEMP 37; O2SAT 97
[2019-11-15 16:50] LABS: Bedside Glucose 131 mg/dL (70-110)
[2019-11-15] MEDS: Doxepin Hcl 25 MG Capsule PO (19:59)
[2019-11-15] MEDS: Atorvastatin Calcium 40 MG Tablet PO (19:59)
[2019-11-15 21:01] LABS: Bedside Glucose 147 mg/dL (70-110)
[2019-11-16] MEDS: Tamsulosin HCl 0.4 MG Capsule PO (05:36)
[2019-11-16] MEDS: Citalopram 20 MG Tablet PO (05:36)
[2019-11-16] MEDS: cycloBENZAPRine HCl 5 MG TABLET PO ×2 (05:36→16:54)
[2019-11-16] MEDS: oxyCODONE 5 MG Tablet PO ×3 (05:36→19:56)
[2019-11-16] MEDS: Acetaminophen 325 MG Tablet 650 MG PO ×3 (05:36→19:57)
[2019-11-16] MEDS: Enoxaparin 40 MG/0.4 ML Syringe SC (05:37)
[2019-11-16 06:21] LABS: Bedside Glucose 71 mg/dL (70-110)
[2019-11-16] MEDS: Iron Polysaccharide Complex 150 MG CAPSULE PO (07:59)
--- NOTE | 2019-11-16 08:55 | MDS.RN ---
Information for the mds was obtained from review of the clinical record, interview of resident, staff, and direct observation of resident's care.
[2019-11-16 11:31] LABS: Bedside Glucose 137 mg/dL (70-110)
[2019-11-16 16:00] VITALS: BP 117/58; PULSE 98; RESP 18; TEMP 36.8; O2SAT 94
[2019-11-16 17:10] LABS: Bedside Glucose 152 mg/dL (70-110)
[2019-11-16] MEDS: Atorvastatin Calcium 40 MG Tablet PO (19:57)
[2019-11-16] MEDS: Doxepin Hcl 25 MG Capsule PO (19:58)
[2019-11-16 21:50] LABS: Bedside Glucose 104 mg/dL (70-110)
--- NOTE | 2019-11-17 01:10 | NURSING ---
Butran patch noted to left posterior shoulder
[2019-11-17] MEDS: oxyCODONE 5 MG Tablet PO ×3 (05:18→20:08)
[2019-11-17] MEDS: Tamsulosin HCl 0.4 MG Capsule PO (05:19)
[2019-11-17] MEDS: cycloBENZAPRine HCl 5 MG TABLET PO ×2 (05:19→16:46)
[2019-11-17] MEDS: Acetaminophen 325 MG Tablet 650 MG PO ×3 (05:19→20:08)
[2019-11-17] MEDS: Citalopram 20 MG Tablet PO (05:19)
[2019-11-17] MEDS: Enoxaparin 40 MG/0.4 ML Syringe SC (05:19)
[2019-11-17] MEDS: Polyethylene Glycol 3350 17 GM PACKET PO (05:22)
[2019-11-17] MEDS: Senna/Docusate Sodium 1 Tablet 2 TABLET PO (05:24)
[2019-11-17 06:31] LABS: Bedside Glucose 83 mg/dL (70-110)
[2019-11-17] MEDS: Iron Polysaccharide Complex 150 MG CAPSULE PO (08:04)
--- NOTE | 2019-11-17 10:38 | NURSING ---
BUTRANS PATCH IN PLACE TO LEFT POSTERIOR SHOULDER.
[2019-11-17 11:56] LABS: Bedside Glucose 104 mg/dL (70-110)
[2019-11-17 15:32] VITALS: BP 127/70; PULSE 93; RESP 20; TEMP 36.5; O2SAT 98
[2019-11-17 17:06] LABS: Bedside Glucose 117 mg/dL (70-110)
[2019-11-17] MEDS: Atorvastatin Calcium 40 MG Tablet PO (20:09)
[2019-11-17] MEDS: Doxepin Hcl 25 MG Capsule PO (20:09)
[2019-11-17 21:16] LABS: Bedside Glucose 117 mg/dL (70-110)
[2019-11-18] MEDS: oxyCODONE 5 MG Tablet PO ×3 (05:18→20:45)
[2019-11-18] MEDS: Enoxaparin 40 MG/0.4 ML Syringe SC (05:18)
[2019-11-18] MEDS: Acetaminophen 325 MG Tablet 650 MG PO ×2 (05:18→11:32)
[2019-11-18] MEDS: cycloBENZAPRine HCl 5 MG TABLET PO ×2 (05:19→17:03)
[2019-11-18] MEDS: Tamsulosin HCl 0.4 MG Capsule PO (05:19)
[2019-11-18] MEDS: Citalopram 20 MG Tablet PO (05:19)
[2019-11-18 06:10] LABS: Bedside Glucose 135 mg/dL (70-110)
[2019-11-18 06:21] LABS: Absolute Lymphocyte Count 1.15 X10^3/uL (0.83-4.51); Absolute Neutrophil Count 4.1 X10^3/uL (2.0-7.7); Basophil# 0.02 X10^3/uL; Basophil% 0.3 % (0-1); Eosinophil# 0.12 X10^3/uL; Hemoglobin 10.8 g/dL (13.0-16.5); Lymphocyte # 1.15 X10^3/ul (4.0); Lymphocyte % 19.3 % (19-41); Mean Corp Hgb Conc 30.9 g/dL (32-36); Mean Corpuscular Hgb 26.6 pg (27.0-32.0); Mean Corpuscular Volume 86.2 fL (80-94); Mean Platelet Vol. 8.5 fl (6.2-12.0); Monocyte# 0.51 X10^3/uL; Monocyte% 8.6 % (0-10); NRBC Flagged by Analyzer 0 % (0-5); Neutrophil # 4.14 X10^3/uL (2.7-7.7); Neutrophil % 69.5 % (47-70); Platelet Count 319 K/mm3 (150-450); RBC Distribution Width CV 13.8 % (11.6-14.6); RBC Distribution Width SD 42.9 fl (35.1-43.9); Red Blood Count 4.06 M/mm3 (4.6-6.2)
[2019-11-18 06:43] LABS: Anion Gap 8 (5-15); BUN 10 mg/dL (7-18); BUN/Creat Ratio 17.9 RATIO (10-20); Calcium,Total 8.6 mg/dL (8.5-10.1); Chloride 99 mmol/L (98-107); Creatinine, Serum 0.56 mg/dL (0.70-1.30); EST Glomerular Filtration Rate 161 mL/min (>60); Est Glom Filt Rate - Afr Amer 195 mL/min (>60); Estimated Creatinine Clearance 136.08 ml/min; Glucose 107 mg/dL (74-106); Potassium 3.6 mmol/L (3.5-5.1); Sodium Level 136 mmol/L (136-145)
[2019-11-18] MEDS: Iron Polysaccharide Complex 150 MG CAPSULE PO (08:16)
--- NOTE | 2019-11-18 09:50 | NURSING ---
removed old butrans patch, applied new one to Rt upper post shoulder/back.
--- NOTE | 2019-11-18 10:16 | NURSING ---
Dr De Dios here, requesting that staff remove bradley and start voiding trials again.
[2019-11-18 11:01] LABS: Bedside Glucose 97 mg/dL (70-110)
[2019-11-18 16:00] VITALS: BP 107/65; PULSE 70; RESP 18; TEMP 36.7; O2SAT 97
[2019-11-18 17:01] LABS: Bedside Glucose 140 mg/dL (70-110)
[2019-11-18] MEDS: Atorvastatin Calcium 40 MG Tablet PO (20:45)
[2019-11-18] MEDS: Doxepin Hcl 25 MG Capsule PO (20:45)
[2019-11-18 21:21] LABS: Bedside Glucose 116 mg/dL (70-110)
[2019-11-19] MEDS: oxyCODONE 5 MG Tablet PO ×3 (03:47→20:07)
[2019-11-19] MEDS: Tamsulosin HCl 0.4 MG Capsule PO (05:12)
[2019-11-19] MEDS: Citalopram 20 MG Tablet PO (05:14)
[2019-11-19] MEDS: Enoxaparin 40 MG/0.4 ML Syringe SC (05:14)
[2019-11-19] MEDS: cycloBENZAPRine HCl 5 MG TABLET PO ×2 (05:14→17:30)
[2019-11-19 06:35] LABS: Bedside Glucose 110 mg/dL (70-110)
[2019-11-19] MEDS: Iron Polysaccharide Complex 150 MG CAPSULE PO (08:37)
[2019-11-19] MEDS: Acetaminophen 325 MG Tablet 650 MG PO ×2 (08:45→20:08)
[2019-11-19 10:46] LABS: Bedside Glucose 154 mg/dL (70-110)
--- NOTE | 2019-11-19 14:28 | CASEMGMT ---
Social Work Spoke with pt [facility] IDT agreeable. No DME or HHC needs. Spoke with aunt to confirm. Plan: DC to [facility] 11/22. MARC SantiagoW
[2019-11-19 15:44] VITALS: BP 150/69; PULSE 105; RESP 20; TEMP 36.9; O2SAT 97
[2019-11-19 17:16] LABS: Bedside Glucose 96 mg/dL (70-110)
--- NOTE | 2019-11-19 19:53 | PCM.DC ---
- Discharge Diagnoses Current Active Problems: Current Active and Chronic Problems (Last Reviewed 10/01/18 @ 09:13 by Skylar Grady) Pseudomonas aeruginosa infection (Acute) Hyponatremia (Acute) Hypomagnesemia (Acute) Complicated UTI (urinary tract infection) (Acute) Sepsis (Acute) Obstructive sleep apnea (Chronic) Urinary retention (Chronic) You will use the following diet at home:: No restrictions, Regular Your food should be the consistency of: Regular Your liquids should be the consistency of: Regular/Thin Discharge Activity: Return to Normal Activity, Use Walker Weight Bearing Status: Weight bearing as tolerated Call your doctor if you observe: Fever of 101 or Higher, Inability to urinate, Inability to have a bowel movement, Shortness of breath, Chest pain, Uncontrolled pain Allergies/Adverse Reactions: Allergies shellfish derived Allergy (Verified 05/14/18 14:25) Rash bacitracin [From Neosporin Plus] Adverse Reaction (Verified 05/14/18 14:25) Unknown bacitracin zinc [From Neosporin Plus] Adverse Reaction (Verified 05/14/18 14:25) Unknown lisinopril Adverse Reaction (Verified 05/14/18 14:25) Hives, throat closed neomycin sulfate [From Neosporin Plus] Adverse Reaction (Verified 05/14/18 14:25) Unknown polymyxin B [From Neosporin Plus] Adverse Reaction (Verified 05/14/18 14:25) Unknown polymyxin B sulfate [From Neosporin Plus] Adverse Reaction (Verified 05/14/18 14:25) Unknown pramoxine [From Neosporin Plus] Adverse Reaction (Verified 05/14/18 14:25) Unknown pramoxine HCl [From Neosporin Plus] Adverse Reaction (Verified 05/14/18 14:25) infection when placed on a cut Medications to take at Discharge Acetaminophen [Tylenol Tablet] 650 mg PO Q4H PRN PRN tab 09/07/19 Atorvastatin Calcium [Lipitor] 40 mg PO QHS 11/03/19 Citalopram [Celexa] 20 mg PO DAILY 11/03/19 cycloBENZAPRine HCl [Flexeril] 5 mg PO BID 11/03/19 Buprenorphine 1 patch TRANSDERMAL QWEEK 14 Days #2 11/19/19 Buprenorphine [Butrans 5 Mcg/Hr] 1 each TD We@1000 14 Days #2 patch.tdwk 11/19/19 Doxepin HCl [Sinequan] 25 mg PO QHS #30 cap 11/19/19 Iron Polysaccharide Complex [Ferrex 150] 150 mg PO DAILYCM #30 cap 11/19/19 Oxycodone [Oxyir] 5 mg PO Q6H PRN PRN 7 Days #28 tab 11/19/19 Polyethylene Glycol 3350 [Miralax] 17 gm PO DAILY #30 packet 11/19/19 Senna/Docusate Sodium [Senokot-S] 2 tab PO BID PRN #120 tab 11/19/19 Tamsulosin HCl [Flomax] 0.4 mg PO DAILY #30 cap 11/19/19 The following prescriptions were given: Buprenorphine 1 patch TRANSDERMAL QWEEK 14 Days #2 Buprenorphine [Butrans 5 Mcg/Hr] 1 each TD We@1000 14 Days #2 patch.tdwk Transmission Status: Received by [address] Iron Polysaccharide Complex [Ferrex 150] 150 mg PO DAILYCM #30 cap Transmission Status: Received by [address] Tamsulosin HCl [Flomax] 0.4 mg PO DAILY #30 cap Transmission Status: Received by [address] Polyethylene Glycol 3350 [Miralax] 17 gm PO DAILY #30 packet Transmission Status: Received by [address] Oxycodone [Oxyir] 5 mg PO Q6H PRN PRN 7 Days #28 tab PRN Reason: Pain Score 6-10/10 Transmission Status: Received by [address] Senna/Docusate Sodium [Senokot-S] 2 tab PO BID PRN #120 tab PRN Reason: Constipation Transmission Status: Received by [address] Doxepin HCl [Sinequan] 25 mg PO QHS #30 cap Transmission Status: Received by [address] Primary Care Physician: Michael De Dios Chi, MD [COURTESY STAFF PHYSICIAN] - Please follow up with your Primary Care Physician in: 1 week. Test Results: Test results from this visit will be discussed in further detail at your follow-up appointment, if applicable. Please Follow Up With: Tony Stephenson PA When: As scheduled. Please Follow Up With: Kia Salas APRN-MARLENA When: As scheduled. Please Follow Up With: Michael De Dios Chi, MD When: 1 week after discharge from TCU. Please Follow Up With: Dr. Lora Senior When: As scheduled. Proposed Discharge Date: 11/22/19
--- NOTE | 2019-11-19 19:56 | DS.PCM_ITS ---
Discharge Date and Diagnosis - Problem List Patient Problems: Active and Suspected Problems (Last Reviewed 10/01/18 @ 09:13 by Skylar Grady) Pseudomonas aeruginosa infection (Acute) Hyponatremia (Acute) Hypomagnesemia (Acute) Complicated UTI (urinary tract infection) (Acute) Sepsis (Acute) Date of Admission: 11/03/19 Date of Discharge: 11/22/19 - Primary Discharge Diagnosis Active and Suspected Problems (Last Reviewed 10/01/18 @ 09:13 by Skylar Grady) Pseudomonas aeruginosa infection (Acute) Hyponatremia (Acute) Hypomagnesemia (Acute) Complicated UTI (urinary tract infection) (Acute) Sepsis (Acute) - Secondary Discharge Diagnosis Chronic Problems (Last Reviewed 10/01/18 @ 09:13 by Skylar Grady) Lumbar spinal stenosis (Chronic) Diet-controlled diabetes mellitus (Chronic) Hyperlipidemia (Chronic) Opioid dependence (Chronic) PAOD (peripheral arterial occlusive disease) (Chronic) Obstructive sleep apnea (Chronic) Urinary retention (Chronic) Scoliosis (Chronic) Other acquired deformities of right foot (Chronic) plantarflexed 2nd metatarsal Small vessel disease (Chronic) Malnutrition (Chronic) Diabetes mellitus with neuropathy (Chronic) Hammer toe of right foot (Chronic) Tinea unguium (Chronic) Delayed wound healing (Chronic) Chronic ulcer of right foot with fat layer exposed (Chronic) Amputation of right foot with complication (Chronic) Dehiscence of amputation stump (Chronic) 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 2 diabetes mellitus with diabetic polyneuropathy (Chronic) Peripheral vascular disease (Chronic) Hammer toes, bilateral (Chronic) Hammer toe of left foot (Chronic) Hypertension (Chronic) Sleep apnea (Chronic) COPD (chronic obstructive pulmonary disease) (Chronic) Hospital Course and Treatment Imaging Results: 11/03/19 13:33 Diet: Regular Diet Is pt able to select menu?: Yes Labs (Last 48 Hours) 11/17/19 11/18/19 11/18/19 21:04 06:05 06:05 WBC 6.0 RBC 4.06 L Hgb 10.8 L Hct 35.0 L MCV 86.2 MCH 26.6 L MCHC 30.9 L RDW Std Deviation 42.9 RDW Coeff of Francine 13.8 Plt Count 319 MPV 8.5 Immature Gran % (Auto) 0.300 Neut % (Auto) 69.5 Lymph % (Auto) 19.3 [place] % (Auto) 8.6 Eos % (Auto) 2.0 Baso % (Auto) 0.3 Absolute Neuts (auto) 4.1 Absolute Lymphs (auto) 1.15 Nucleated RBC % 0 Sodium 136 Potassium 3.6 Chloride 99 Carbon Dioxide 29.0 Anion Gap 8 BUN 10 Creatinine 0.56 L Estim Creat Clear Calc 136.08 Est GFR (MDRD) Af Amer 195 Est GFR (MDRD) Non-Af 161 BUN/Creatinine Ratio 17.9 Glucose 107 H Calcium 8.6 POC Glucose 117 H 11/18/19 11/18/19 11/18/19 06:07 10:55 16:55 WBC RBC Hgb Hct MCV MCH MCHC RDW Std Deviation RDW Coeff of Francine Plt Count MPV Immature Gran % (Auto) Neut % (Auto) Lymph % (Auto) [place] % (Auto) Eos % (Auto) Baso % (Auto) Absolute Neuts (auto) Absolute Lymphs (auto) Nucleated RBC % Sodium Potassium Chloride Carbon Dioxide Anion Gap BUN Creatinine Estim Creat Clear Calc Est GFR (MDRD) Af Amer Est GFR (MDRD) Non-Af BUN/Creatinine Ratio Glucose Calcium POC Glucose 135 H 97 140 H 11/18/19 11/19/19 11/19/19 21:16 06:32 10:39 WBC RBC Hgb Hct MCV MCH MCHC RDW Std Deviation RDW Coeff of Francine Plt Count MPV Immature Gran % (Auto) Neut % (Auto) Lymph % (Auto) [place] % (Auto) Eos % (Auto) Baso % (Auto) Absolute Neuts (auto) Absolute Lymphs (auto) Nucleated RBC % Sodium Potassium Chloride Carbon Dioxide Anion Gap BUN Creatinine Estim Creat Clear Calc Est GFR (MDRD) Af Amer Est GFR (MDRD) Non-Af BUN/Creatinine Ratio Glucose Calcium POC Glucose 116 H 110 154 H 11/19/19 17:09 WBC RBC Hgb Hct MCV MCH MCHC RDW Std Deviation RDW Coeff of Francine Plt Count MPV Immature Gran % (Auto) Neut % (Auto) Lymph % (Auto) [place] % (Auto) Eos % (Auto) Baso % (Auto) Absolute Neuts (auto) Absolute Lymphs (auto) Nucleated RBC % Sodium Potassium Chloride Carbon Dioxide Anion Gap BUN Creatinine Estim Creat Clear Calc Est GFR (MDRD) Af Amer Est GFR (MDRD) Non-Af BUN/Creatinine Ratio Glucose Calcium POC Glucose 96 Operations: None Procedures: None Summary of Care Provided: The patient is a 53 year old Male with below past medical history hospitalized for lumbar spinal stenosis, underwent lumbar spine surgery 10/26/[address] Lora Senior, complicated by complicated urinary tract infection, admitted to TCU with debility, here for rehabilitation, strengthening, prior to discharge to [facility]. Oliveira removed after 2nd attempt, now CIC. Discharge to [facility]. Patient Problems: Active and Suspected Problems (Last Reviewed 10/01/18 @ 09:13 by Skylar Grady) Pseudomonas aeruginosa infection (Acute) Hyponatremia (Acute) Hypomagnesemia (Acute) Complicated UTI (urinary tract infection) (Acute) Sepsis (Acute) - Physical Exam Vitals/I&O's: Vital Signs Temp Pulse Resp BP Pulse Ox 98.4 F 105 H 20 H 150/69 H 97 11/19/19 15:44 11/19/19 15:44 11/19/19 15:44 11/19/19 15:44 11/19/19 15:44 Oxygen Flow Rate (L/min) 103 Oxygen Delivery Method Room Air Weight: 75.495 kg Body Mass Index (BMI) 27.3 Intake and Output for Last 24 Hours 11/17/19 11/18/19 11/19/19 23:59 23:59 23:59 Intake Total 1140 / 1140 1080 / 1080 840 / 840 Output Total 4100 / 4100 4100 / 4100 3275 / 3275 Balance -2960 / -2960 -3020 / -3020 -2435 / -2435 Laboratory Results 11/18/19 21:16: POC Glucose 116 H 11/19/19 06:32: POC Glucose 110 11/19/19 10:39: POC Glucose 154 H 11/19/19 17:09: POC Glucose 96 Current Medications Acetaminophen (Tylenol) 650 mg PO Q4H PRN PRN PRN Reason: Pain Score 1-3/10 Last Admin: 11/19/19 08:45 Dose: 650 mg Documented by: Atorvastatin Calcium (Lipitor) 40 mg PO QHS GOGO Last Admin: 11/18/19 20:45 Dose: 40 mg Documented by: Bisacodyl (Dulcolax) 10 mg PO DAILY PRN PRN Reason: Constipation Citalopram Hydrobromide (Celexa) 20 mg PO DAILY [facility] Last Admin: 11/19/19 05:14 Dose: 20 mg Documented by: Cyclobenzaprine HCl (Cyclobenzaprine Hcl) 5 mg PO BID [facility] Last Admin: 11/19/19 17:30 Dose: 5 mg Documented by: Doxepin HCl (Sinequan) 25 mg PO QHS [facility] Last Admin: 11/18/19 20:45 Dose: 25 mg Documented by: Enoxaparin Sodium (Lovenox) 40 mg SC DAILY@0600 [facility] Last Admin: 11/19/19 05:14 Dose: 40 mg Documented by: Oxycodone HCl (Oxyir) 5 mg PO Q4H PRN PRN Reason: Pain Score 6-10/10 Last Admin: 11/19/19 14:59 Dose: 5 mg Documented by: Polyethylene Glycol (Miralax) 17 gm PO DAILY PRN PRN Reason: Constipation Last Admin: 11/17/19 05:22 Dose: 17 gm Documented by: Pol[facility]accharide [facility] 150[facility] Admin: 11/19/19 08:37 Dose: 150 mg Documented by: Senna/Docusate Sodium (Senokot-S, Aleyda-Colace) 2 tablet PO BID PRN PRN Reason: Constipation Last Admin: 11/17/19 05:24 Dose: 1 tablet Documented by: Tamsulosin HCl (Flomax) 0.4 mg PO DAILY [facility] Last Admin: 11/19/19 05:12 Dose: 0.4 mg Documented by: Tramadol HCl (Ultram) 50 mg PO Q6H PRN PRN PRN Reason: Pain Score 4-5/10 Last Admin: 11/14/19 10:25 Dose: 50 mg Documented by: Discharge Diet: No Restrictions Discharge Activity: Return to Normal Activity, Use Walker Weight Bearing Status: Weight bearing as tolerated Call your doctor if you observe: Fever of 101 or Higher, Inability to urinate, Inability to have a bowel movement, Shortness of breath, Chest pain, Uncontrolled pain Home Medications: Medications to take at Discharge Acetaminophen [Tylenol Tablet] 650 mg PO Q4H PRN PRN tab 09/07/19 Atorvastatin Calcium [Lipitor] 40 mg PO QHS 11/03/19 Citalopram [Celexa] 20 mg PO DAILY 11/03/19 cycloBENZAPRine HCl [Flexeril] 5 mg PO BID 11/03/19 Buprenorphine 1 patch TRANSDERMAL QWEEK 14 Days #2 11/19/19 Buprenorphine [Butrans 5 Mcg/Hr] 1 each TD We@1000 14 Days #2 patch.tdwk 11/19/19 Doxepin HCl [Sinequan] 25 mg PO QHS #30 cap 11/19/19 Iron Polysaccharide Complex [Ferrex 150] 150 mg PO DAILYCM #30 cap 11/19/19 Oxycodone [Oxyir] 5 mg PO Q6H PRN PRN 7 Days #28 tab 11/19/19 Polyethylene Glycol 3350 [Miralax] 17 gm PO DAILY #30 packet 11/19/19 Senna/Docusate Sodium [Senokot-S] 2 tab PO BID PRN #120 tab 11/19/19 Tamsulosin HCl [Flomax] 0.4 mg PO DAILY #30 cap 11/19/19 Following Prescrptions Were Given to Patient: Buprenorphine 1 patch TRANSDERMAL QWEEK 14 Days #2 Buprenorphine [Butrans 5 Mcg/Hr] 1 each TD We@1000 14 Days #2 patch.tdwk Transmission Status: Received by [facility] Iron Polysaccharide Complex [Ferrex 150] 150 mg PO DAILYCM #30 cap Transmission Status: Received by [facility] [address] Tamsulosin HCl [Flomax] 0.4 mg PO DAILY #30 cap Transmission Status: Received by JOHN [address] Polyethylene Glycol 3350 [Miralax] 17 gm PO DAILY #30 packet Transmission Status: Received by [address] Oxycodone [Oxyir] 5 mg PO Q6H PRN PRN 7 Days #28 tab PRN Reason: Pain Score 6-10/10 Transmission Status: Received by JOHN [address] Senna/Docusate Sodium [Senokot-S] 2 tab PO BID PRN #120 tab PRN Reason: Constipation Transmission Status: [facility] [place] [address] Doxepin HCl [Sinequan] 25 mg PO QHS #30 cap Transmission Status: Received by JOHN TEMPLETON[address] Primary Care Physician: Michael De Dios Chi, MD [COURTESY STAFF PHYSICIAN] - Please follow up with your Primary Care Physician in: 1 week. Please Follow Up With: Tony Stephenson PA When: As scheduled. Please Follow Up With: Kia Salas APRN-CNP When: As scheduled. Please Follow Up With: Michael De Dios Chi, MD When: 1 week after discharge from TCU. Please Follow Up With: Dr. Lora Senior When: As scheduled. Disposition: Asstd Living/Non-Skill OK Minutes spent on discharge:: 35 Patient Condition:: Stable Medical Necessity - Tobacco Use Smoking Status: Former smoker Tobacco Use: Cigarettes Meaningful Use Info Meaningful Use Diagnoses (Choose all that apply): None applicable
--- NOTE | 2019-11-19 19:57 | PCM.TXEXTCAR ---
- Diet 11/03/19 13:33 Diet: Regular Diet Is pt able to select menu?: Yes - Routine Orders/Code Status Suppository Type: Dulcolax 10mg Suppository Frequency: Daily PRN Code Status: Full Code - Wound(s) LOWER MID BACK Wound Type: Surgical Incision Dressing Change: Dry Sterile Dressing - Therapies Weight Bearing: Weight bearing as tolerated Extremity Affected:: Bilateral Lower - Problem/Diagnosis (1) Pseudomonas aeruginosa infection Status: Acute Current Visit: Yes (2) Hyponatremia Status: Acute Current Visit: Yes (3) Hypomagnesemia Status: Acute Current Visit: Yes (4) Complicated UTI (urinary tract infection) Status: Acute Current Visit: Yes (5) Sepsis Status: Acute Current Visit: Yes (6) Obstructive sleep apnea Status: Chronic Current Visit: Yes (7) Urinary retention Status: Chronic Current Visit: Yes (8) Debility Status: Acute Current Visit: No (9) Lumbar spinal stenosis Status: Chronic Current Visit: No (10) Diet-controlled diabetes mellitus Status: Chronic Current Visit: No (11) Hyperlipidemia Status: Chronic Current Visit: No (12) Opioid dependence Status: Chronic Current Visit: No (13) PAOD (peripheral arterial occlusive disease) Status: Chronic Current Visit: No (14) Hypertension Status: Chronic Current Visit: No (15) COPD (chronic obstructive pulmonary disease) Status: Chronic Current Visit: No - Allergies/Procedures Done in Hospital Allergies/Adverse Reactions: Allergies shellfish derived Allergy (Verified 05/14/18 14:25) Rash bacitracin [From Neosporin Plus] Adverse Reaction (Verified 05/14/18 14:25) Unknown bacitracin zinc [From Neosporin Plus] Adverse Reaction (Verified 05/14/18 14:25) Unknown lisinopril Adverse Reaction (Verified 05/14/18 14:25) Hives, throat closed neomycin sulfate [From Neosporin Plus] Adverse Reaction (Verified 05/14/18 14:25) Unknown polymyxin B [From Neosporin Plus] Adverse Reaction (Verified 05/14/18 14:25) Unknown polymyxin B sulfate [From Neosporin Plus] Adverse Reaction (Verified 05/14/18 14:25) Unknown pramoxine [From Neosporin Plus] Adverse Reaction (Verified 05/14/18 14:25) Unknown pramoxine HCl [From Neosporin Plus] Adverse Reaction (Verified 05/14/18 14:25) infection when placed on a cut - Type of Care/Length of Stay Estimated LOS: More Than 30 Days Type of Care Needed: Alf/Assisted Living Rehab Potential: Fair Prognosis: Fair - Additional Orders/Day of Discharge Day of Discharge: 11/22/19 - Dietary and Speech Recommendations Dietitian Recommendations/Changes: Rec diet change to Cardiac/CHO control d/t pmhx - Follow Up Care Primary Care Physician: Michael De Dios Chi, MD [COURTESY STAFF PHYSICIAN] - Please follow up with your Primary Care Physician in: 1 week. Please Follow Up With: Tony Stephenson PA When: As scheduled. Please Follow Up With: Kia Salas APRN-SERGEANT MISSILE CREWMAN When: As scheduled. Please Follow Up With: Michael De Dios Chi, MD When: 1 week after discharge from TCU. Please Follow Up With: Dr. Lora Senior When: As scheduled.
[2019-11-19] MEDS: Atorvastatin Calcium 40 MG Tablet PO (20:07)
[2019-11-19] MEDS: Doxepin Hcl 25 MG Capsule PO (20:08)
--- NOTE | 2019-11-19 20:24 | NURSING ---
Butrans patch noted to right posterior shoulder
[2019-11-19 21:36] LABS: Bedside Glucose 118 mg/dL (70-110)
[2019-11-20] MEDS: Polyethylene Glycol 3350 17 GM PACKET PO (05:16)
[2019-11-20] MEDS: Tamsulosin HCl 0.4 MG Capsule PO (05:18)
[2019-11-20] MEDS: Citalopram 20 MG Tablet PO (05:19)
[2019-11-20] MEDS: Acetaminophen 325 MG Tablet 650 MG PO ×2 (05:19→20:05)
[2019-11-20] MEDS: Senna/Docusate Sodium 1 Tablet 2 TABLET PO (05:19)
[2019-11-20] MEDS: oxyCODONE 5 MG Tablet PO ×2 (05:19→20:06)
[2019-11-20] MEDS: cycloBENZAPRine HCl 5 MG TABLET PO ×2 (05:19→17:19)
[2019-11-20] MEDS: Enoxaparin 40 MG/0.4 ML Syringe SC (05:19)
[2019-11-20 06:31] LABS: Bedside Glucose 110 mg/dL (70-110)
[2019-11-20] MEDS: Iron Polysaccharide Complex 150 MG CAPSULE PO (08:44)
--- NOTE | 2019-11-20 09:06 | NURSING ---
butrans patch intact to rt post shoulder
[2019-11-20 10:00] VITALS: PULSE 86; RESP 18
[2019-11-20 11:30] LABS: Bedside Glucose 98 mg/dL (70-110)
--- NOTE | 2019-11-20 12:52 | MDS.RN ---
Pain interview for alisa 11/22/19 completed.
--- NOTE | 2019-11-20 12:59 | CASEMGMT ---
Social Work BIMS and PHQ-9 completed for MDS assessment. Ellie Foley, E[employer]AME POLISHER DIRECTOR OF PARTNERSHIPS
[2019-11-20 15:03] VITALS: BP 120/64; PULSE 66; RESP 18; O2SAT 95
[2019-11-20 15:36] VITALS: BP 120/64; PULSE 90; RESP 18; TEMP 36.6; O2SAT 97
[2019-11-20 17:01] LABS: Bedside Glucose 126 mg/dL (70-110)
[2019-11-20] MEDS: Atorvastatin Calcium 40 MG Tablet PO (20:06)
[2019-11-20] MEDS: Doxepin Hcl 25 MG Capsule PO (20:07)
[2019-11-20 22:06] LABS: Bedside Glucose 102 mg/dL (70-110)
[2019-11-21] MEDS: Acetaminophen 325 MG Tablet 650 MG PO (06:17)
[2019-11-21] MEDS: oxyCODONE 5 MG Tablet PO ×2 (06:17→20:49)
[2019-11-21] MEDS: cycloBENZAPRine HCl 5 MG TABLET PO ×2 (06:18→16:47)
[2019-11-21] MEDS: Enoxaparin 40 MG/0.4 ML Syringe SC (06:18)
[2019-11-21] MEDS: Tamsulosin HCl 0.4 MG Capsule PO (06:18)
[2019-11-21] MEDS: Citalopram 20 MG Tablet PO (06:18)
[2019-11-21 06:26] LABS: Bedside Glucose 81 mg/dL (70-110)
[2019-11-21] MEDS: Iron Polysaccharide Complex 150 MG CAPSULE PO (07:55)
[2019-11-21 11:01] LABS: Bedside Glucose 97 mg/dL (70-110)
[2019-11-21 16:00] VITALS: BP 129/69; PULSE 103; RESP 17; TEMP 37.1; O2SAT 98
--- NOTE | 2019-11-21 16:48 | NURSING ---
Butran patch to Lt posterior shoulder.
[2019-11-21 16:56] LABS: Bedside Glucose 122 mg/dL (70-110)
[2019-11-21] MEDS: Atorvastatin Calcium 40 MG Tablet PO (20:49)
[2019-11-21] MEDS: Doxepin Hcl 25 MG Capsule PO (20:49)
[2019-11-21 21:06] LABS: Bedside Glucose 123 mg/dL (70-110)
--- NOTE | 2019-11-22 00:08 | NURSING ---
Butrans Patch is on Right posterior shoulder.
[2019-11-22] MEDS: Tamsulosin HCl 0.4 MG Capsule PO (05:06)
[2019-11-22] MEDS: Enoxaparin 40 MG/0.4 ML Syringe SC (05:07)
[2019-11-22] MEDS: Citalopram 20 MG Tablet PO (05:07)
[2019-11-22] MEDS: cycloBENZAPRine HCl 5 MG TABLET PO (05:07)
[2019-11-22] MEDS: oxyCODONE 5 MG Tablet PO (05:10)
[2019-11-22 06:45] LABS: Bedside Glucose 92 mg/dL (70-110)
[2019-11-22] MEDS: Iron Polysaccharide Complex 150 MG CAPSULE PO (07:36)
--- NOTE | 2019-11-22 08:50 | NURSING ---
report called to umang STOCKTON
[2019-11-22 11:06] VITALS: BP 130/70; PULSE 84; RESP 16; TEMP 36.9; O2SAT 97
== END 2019-11-22 10:05 | disposition home or self-care (01) | DRG 560 ==
PROVIDERS: Admitting Provider Family Medicine Geriatric Medicine; Referring Provider Family Medicine Geriatric Medicine; Visit Provider Family Medicine Geriatric Medicine
DX: Z47.89 Encounter for other orthopedic aftercare (principal); F11.20 Opioid dependence, uncomplicated; J44.9 Chronic obstructive pulmonary disease, unspecified; E78.5 Hyperlipidemia, unspecified; G47.33 Obstructive sleep apnea (adult) (pediatric); I10 Essential (primary) hypertension; E11.42 Type 2 diabetes mellitus with diabetic polyneuropathy; E11.51 Type 2 diabetes mellitus with diabetic peripheral angiopathy without gangrene; M41.9 Scoliosis, unspecified; Z87.891 Personal history of nicotine dependence; M99.05 Segmental and somatic dysfunction of pelvic region; M99.03 Segmental and somatic dysfunction of lumbar region; M99.02 Segmental and somatic dysfunction of thoracic region; F32.9 Major depressive disorder, single episode, unspecified; N40.0 Benign prostatic hyperplasia without lower urinary tract symptoms; N31.9 Neuromuscular dysfunction of bladder, unspecified; Z87.440 Personal history of urinary (tract) infections; R33.9 Retention of urine, unspecified
CPT/HCPCS: 36415; 80048; 82962; 85025; 97110; 97116; 97162; 97166; 97530; 97535; 97802

== ENCOUNTER → 2019-11-09 08:50 | Outpatient (CLI) | payer MEDICARE, MEDICAID, SELFPAY ==
[2019-11-09 08:39] VITALS: BMI 27.3
--- NOTE | 2019-11-09 08:51 | RAD_ITS ---
STUDY: X-RAY - LUMBAR SPINE REASON FOR EXAM: Male, 53 years old. Status post fusion TECHNIQUE: 3 view(s) of the lumbar spine were obtained. COMPARISON: 07/07/2019 FINDINGS: Normal lumbar lordosis. There is no substantial scoliosis. There is a normal alignment of the vertebrae. Long segment fusion of the thoracolumbar spine extending from T10 through the sacrum. Spondylolisthesis of L4-L5 is grossly similar. Multilevel laminectomies involving L1-L5. No destructive bony process. The soft tissue structures are unremarkable. RAD/Lumbar Spine 2 or 3 Views IMPRESSION: Status post long segment fusion of the thoracolumbar spine extending into the sacroiliac joints. Laminectomies. Electronically Signed: Chato Maddox MD (Brooks) at 22:44 EST , Service support ,
== END ==
PROVIDERS: Referring Provider Physician Assistant; Visit Provider Physician Assistant
DX: M48.062 Spinal stenosis, lumbar region with neurogenic claudication (principal); Z98.890 Other specified postprocedural states
CPT/HCPCS: 72100

== ENCOUNTER → 2019-11-30 15:15 | Outpatient (CLI) | payer MEDICARE, SELFPAY ==
[2019-11-09 08:39] VITALS: BMI 27.3
[2019-11-30 18:07] LABS: Absolute Lymphocyte Count 1.45 X10^3/uL (0.83-4.51); Basophil# 0.04 X10^3/uL; Basophil% 0.6 % (0-1); Eosinophil# 0.13 X10^3/uL; Eosinophils% 1.8 % (0-5); Hematocrit 32.5 % (40-54); Hemoglobin 10.2 g/dL (13.0-16.5); Lymphocyte # 1.45 X10^3/ul (4.0); Lymphocyte % 20.1 % (19-41); Mean Corp Hgb Conc 31.4 g/dL (32-36); Mean Corpuscular Hgb 26.1 pg (27.0-32.0); Mean Corpuscular Volume 83.1 fL (80-94); Mean Platelet Vol. 9.3 fl (6.2-12.0); Monocyte# 0.61 X10^3/uL; Monocyte% 8.4 % (0-10); NRBC Flagged by Analyzer 0 % (0-5); Neutrophil # 4.97 X10^3/uL (2.7-7.7); Neutrophil % 68.8 % (47-70); Platelet Count 379 K/mm3 (150-450); RBC Distribution Width SD 42.6 fl (35.1-43.9); Red Blood Count 3.91 M/mm3 (4.6-6.2); White Blood Count 7.2 K/mm3 (4.4-11.0)
[2019-11-30 18:13] LABS: ALB/GLOB Ratio 0.8 RATIO (0.9-2.4); AST(SGOT) 12 U/L (15-37); Alanine Aminotransfer ALT/SGPT 19 U/L (16-61); Alkaline Phosphatase 136 U/L (45-117); Anion Gap 9 (5-15); BUN 20 mg/dL (7-18); BUN/Creat Ratio 28.1 RATIO (10-20); Calcium,Total 8.6 mg/dL (8.5-10.1); Chloride 101 mmol/L (98-107); Creatinine, Serum 0.71 mg/dL (0.70-1.30); EST Glomerular Filtration Rate 122 mL/min (>60); Est Glom Filt Rate - Afr Amer 147 mL/min (>60); Globulin 3.9 g/dL (2.2-4.2); Glucose 81 mg/dL (74-106); Potassium 4.1 mmol/L (3.5-5.1); Protein, Total 6.9 g/dL (6.4-8.2); Sodium Level 133 mmol/L (136-145)
== END ==
PROVIDERS: Visit Provider Family Medicine Geriatric Medicine
DX: E11.9 Type 2 diabetes mellitus without complications (principal); I10 Essential (primary) hypertension
CPT/HCPCS: 36415; 80053; 84443; 85025

== ENCOUNTER → 2019-12-08 09:24 | Outpatient (CLI) | payer MEDICARE, SELFPAY ==
[2019-11-09 08:39] VITALS: BMI 27.3
--- NOTE | 2019-12-08 09:32 | RAD_ITS ---
STUDY: X-RAY EXAMINATION: ENTIRE SPINE (CERVICAL, THORACIC AND LUMBAR SPINE). REASON FOR EXAM: Male, 54 years old. POST OP LOWER BACK, FIRST SET IMAGES DONE WITH 5 DEGREE TUBE ANGULATION, SECOND SET DONE WITH 10 DEGREE ANGULATION TO INCLUDE ALL HARDWARE AND SPINE TECHNIQUE: 2 views of the cervical and thoracolumbar spine were obtained in the upright standing position. COMPARISON: Cervical spine radiographs 09/15/2019. Lumbar spine radiographs 11/09/2019. No prior thoracic spine radiographs for comparison. FINDINGS: CERVICAL SPINE: Metallic plate with transfixing screws and disc implants at C3-C4 and C4-C5 disc space levels remain intact and unchanged. Articular pillar screws both sides at C2, particularly over screw in the right C3, bilateral articular pillar screws at C4, C5-6, T1 and T2 and the respective vertical rods are intact and unchanged. Pronounced C5-C6 and C6-C7 disc space height narrowing are unchanged along with the anterior and posterior marginal spurs. Minimal anterolisthesis of C7 on T1 is unchanged. LUMBAR SPINE: Intact by pedicular screws T10, T11, T12, L1, L2, L4, L5 and S1. Intact left L3 pedicular screw. Intact vertical rods extending from T10 down to S1. Intact metallic screws across the SI joints. Postsurgical absence of the spinous processes and lamina at L2 down to S1. Bone graft in the paraspinal region from T12-L1 down to L5. Anterolisthesis of L4 on L5 is unchanged. THORACIC SPINE: No acute or remote compression fractures of the thoracic spine. Intact by pedicular screws coming from the cervical spine and the accompanying rods at at T1, T2. Intact by pedicular screws and rods at T10, T11 and T12. This extends down to the sacrum. RAD/Scoliosis 2 or 3 views IMPRESSION: 1. No acute abnormality of the cervical spine, thoracic spine and lumbar spine as described above in detail. 2. No significant interval changes when compared to lumbar spine radiographs dated 11/09/2019 and cervical spine radiographs dated 09/15/2019. Electronically Signed: Balaji Garibay MD at 10:43 EST , Service support ,
== END ==
PROVIDERS: Referring Provider Orthopaedic Surgery; Visit Provider Orthopaedic Surgery
DX: M54.9 Dorsalgia, unspecified (principal)
CPT/HCPCS: 72082

== ENCOUNTER → 2019-12-29 | Outpatient (CLI) | payer MEDICARE, SELFPAY ==
[2019-11-09 08:39] VITALS: BMI 27.3
[2019-12-08 10:00] VITALS: BMI 27.3
[2019-12-29 08:56] LABS: Hematocrit 38.4 % (40-54); Hemoglobin 12.2 g/dL (13.0-16.5)
== END | disposition home or self-care (01) ==
LOC: POLAB3 08:39
PROVIDERS: Visit Provider Family Medicine Geriatric Medicine
DX: D64.9 Anemia, unspecified (principal)
CPT/HCPCS: 36415; 85014; 85018

== ENCOUNTER → 2020-01-27 10:37 | Outpatient (CLI) | payer MEDICARE, SELFPAY ==
[2019-12-08 10:00] VITALS: BMI 27.3
[2020-01-27 12:44] LABS: Hematocrit 38.1 % (40-54); Hemoglobin 11.6 g/dL (13.0-16.5)
== END ==
PROVIDERS: PCP Family Medicine Geriatric Medicine; Visit Provider Family Medicine Geriatric Medicine
DX: D64.9 Anemia, unspecified (principal)
CPT/HCPCS: 36415; 85014; 85018

== ENCOUNTER → 2020-05-03 10:43 | Outpatient (CLI) | payer MEDICARE, MEDICAID, SELFPAY ==
[2019-12-08 10:00] VITALS: BMI 27.3
--- NOTE | 2020-05-03 10:43 | RAD_ITS ---
HISTORY: POST OP ADDITIONAL HISTORY: None provided. TECHNIQUE: AP and lateral views of the cervical, thoracic and spine Number of images including paperwork: 6 COMPARISON: 12/08/2019 FINDINGS: VERTEBRAE: No acute fracture. VERTEBRAL ALIGNMENT: No traumatic subluxation. DISKS AND JOINTS: Posterior spinal fusion hardware is noted spanning C2-T2 and T10 through this sacroiliac joints. Multilevel laminectomies are noted. Anterior spinal fusion hardware is noted at C3-C5. SOFT TISSUES: Unremarkable paraspinous soft tissues. RAD/Scoliosis 2 or 3 views IMPRESSION: Postoperative changes of the cervicothoracic and thoracolumbar spine. No acute findings. at [id number] Reported and signed by: Fátima Holbrook MD Electronically Signed: Fátima Holbrook MD at 4:48 EDT Tel , Service support ,
== END ==
PROVIDERS: PCP Family Medicine Geriatric Medicine; Referring Provider Orthopaedic Surgery; Visit Provider Orthopaedic Surgery
DX: Z98.1 Arthrodesis status (principal)
CPT/HCPCS: 72082

== ENCOUNTER → 2020-05-10 | Outpatient (CLI) | payer MEDICARE, MEDICAID, SELFPAY ==
[2020-05-03 10:46] VITALS: BMI 27.3
[2020-05-10 15:53] LABS: Absolute Lymphocyte Count 0.99 X10^3/uL (0.83-4.51); Absolute Neutrophil Count 4.4 X10^3/uL (2.0-7.7); Basophil# 0.04 X10^3/uL; Basophil% 0.6 % (0-1); Eosinophil# 0.35 X10^3/uL; Eosinophils% 5.3 % (0-5); Hematocrit 40.4 % (40-54); Hemoglobin 12.7 g/dL (13.0-16.5); Lymphocyte # 0.99 X10^3/ul (4.0); Lymphocyte % 15.1 % (19-41); Mean Corp Hgb Conc 31.4 g/dL (32-36); Mean Corpuscular Hgb 25.6 pg (27.0-32.0); Mean Corpuscular Volume 81.3 fL (80-94); Mean Platelet Vol. 9.2 fl (6.2-12.0); Monocyte# 0.77 X10^3/uL; Monocyte% 11.7 % (0-10); NRBC Flagged by Analyzer 0 % (0-5); Platelet Count 253 K/mm3 (150-450); RBC Distribution Width CV 15.4 % (11.6-14.6); RBC Distribution Width SD 44.7 fl (35.1-43.9); Red Blood Count 4.97 M/mm3 (4.6-6.2); White Blood Count 6.6 K/mm3 (4.4-11.0)
[2020-05-10 16:18] LABS: ALB/GLOB Ratio 0.9 RATIO (0.9-2.4); AST(SGOT) 19 U/L (15-37); Alanine Aminotransfer ALT/SGPT 28 U/L (16-61); Albumin, Serum 3.5 g/dL (3.2-5.0); Alkaline Phosphatase 115 U/L (45-117); Anion Gap 7 (5-15); BUN 17 mg/dL (7-18); BUN/Creat Ratio 28.1 RATIO (10-20); Calcium,Total 8.9 mg/dL (8.5-10.1); Chloride 102 mmol/L (98-107); Creatinine, Serum 0.61 mg/dL (0.70-1.30); EST Glomerular Filtration Rate 147 mL/min (>60); Est Glom Filt Rate - Afr Amer 178 mL/min (>60); Glucose 71 mg/dL (74-106); PSA,Total - Annual Screen 2.44 ng/mL (0.00-4.00); Protein, Total 7.5 g/dL (6.4-8.2); Sodium Level 136 mmol/L (136-145)
== END | disposition home or self-care (01) ==
PROVIDERS: PCP Family Medicine Geriatric Medicine; Visit Provider Family Medicine Geriatric Medicine
DX: E11.9 Type 2 diabetes mellitus without complications (principal); I10 Essential (primary) hypertension; Z12.5 Encounter for screening for malignant neoplasm of prostate
CPT/HCPCS: 36415; 80053; 84153; 84443; 85025; G0103

== ENCOUNTER → 2020-08-15 | Outpatient (CLI) | payer MEDICARE, MEDICAID, SELFPAY ==
[2020-05-03 10:46] VITALS: BMI 27.3
[2020-08-15 12:39] LABS: Absolute Lymphocyte Count 0.96 X10^3/uL (0.83-4.51); Absolute Neutrophil Count 5.1 X10^3/uL (2.0-7.7); Basophil# 0.04 X10^3/uL; Basophil% 0.6 % (0-1); Eosinophil# 0.45 X10^3/uL; Eosinophils% 6.2 % (0-5); Hemoglobin 13.2 g/dL (13.0-16.5); Lymphocyte # 0.96 X10^3/ul (4.0); Lymphocyte % 13.3 % (19-41); Mean Corp Hgb Conc 32.2 g/dL (32-36); Mean Corpuscular Hgb 27.4 pg (27.0-32.0); Mean Corpuscular Volume 85.2 fL (80-94); Mean Platelet Vol. 8.9 fl (6.2-12.0); Monocyte# 0.64 X10^3/uL; Monocyte% 8.9 % (0-10); NRBC Flagged by Analyzer 0 % (0-5); Neutrophil # 5.12 X10^3/uL (2.7-7.7); Neutrophil % 70.7 % (47-70); Platelet Count 270 K/mm3 (150-450); RBC Distribution Width CV 14.5 % (11.6-14.6); RBC Distribution Width SD 44.8 fl (35.1-43.9); Red Blood Count 4.81 M/mm3 (4.6-6.2); White Blood Count 7.2 K/mm3 (4.4-11.0)
[2020-08-15 13:03] LABS: ALB/GLOB Ratio 0.9 RATIO (0.9-2.4); AST(SGOT) 23 U/L (15-37); Alanine Aminotransfer ALT/SGPT 34 U/L (16-61); Albumin, Serum 3.7 g/dL (3.2-5.0); Alkaline Phosphatase 103 U/L (45-117); Anion Gap 9 (5-15); BUN 19 mg/dL (7-18); BUN/Creat Ratio 24.5 RATIO (10-20); Calcium,Total 9.2 mg/dL (8.5-10.1); Chloride 101 mmol/L (98-107); Creatinine, Serum 0.78 mg/dL (0.70-1.30); EST Glomerular Filtration Rate 110 mL/min (>60); Est Glom Filt Rate - Afr Amer 133 mL/min (>60); Globulin 4.1 g/dL (2.2-4.2); Glucose 103 mg/dL (74-106); Potassium 4.5 mmol/L (3.5-5.1); Protein, Total 7.8 g/dL (6.4-8.2); Sodium Level 135 mmol/L (136-145); Thyroid Stim Hormone (TSH) 0.83 uIU/mL (0.358-3.74)
== END | disposition home or self-care (01) ==
LOC: POLAB3 12:03
PROVIDERS: PCP Family Medicine Geriatric Medicine; Visit Provider Family Medicine Geriatric Medicine
DX: E11.9 Type 2 diabetes mellitus without complications (principal); I10 Essential (primary) hypertension
CPT/HCPCS: 36415; 80053; 84443; 85025

== ENCOUNTER → 2020-11-29 10:22 | Outpatient (CLI) | payer MEDICARE, MEDICAID, SELFPAY ==
[2020-05-03 10:46] VITALS: BMI 27.3
[2020-11-29 12:22] LABS: Absolute Lymphocyte Count 0.95 X10^3/uL (0.83-4.51); Absolute Neutrophil Count 6.3 X10^3/uL (2.0-7.7); Basophil# 0.05 X10^3/uL; Basophil% 0.6 % (0-1); Eosinophil# 0.35 X10^3/uL; Eosinophils% 4.3 % (0-5); Hematocrit 39.5 % (40-54); Hemoglobin 12.8 g/dL (13.0-16.5); Lymphocyte # 0.95 X10^3/ul (4.0); Lymphocyte % 11.6 % (19-41); Mean Corp Hgb Conc 32.4 g/dL (32-36); Mean Corpuscular Hgb 27.6 pg (27.0-32.0); Mean Corpuscular Volume 85.3 fL (80-94); Mean Platelet Vol. 8.8 fl (6.2-12.0); Monocyte# 0.55 X10^3/uL; Monocyte% 6.7 % (0-10); NRBC Flagged by Analyzer 0 % (0-5); Neutrophil % 76.6 % (47-70); Platelet Count 297 K/mm3 (150-450); RBC Distribution Width CV 13.1 % (11.6-14.6); RBC Distribution Width SD 41.1 fl (35.1-43.9); Red Blood Count 4.63 M/mm3 (4.6-6.2); White Blood Count 8.2 K/mm3 (4.4-11.0)
[2020-11-29 12:42] LABS: ALB/GLOB Ratio 0.9 RATIO (0.9-2.4); AST(SGOT) 17 U/L (15-37); Alanine Aminotransfer ALT/SGPT 32 U/L (16-61); Albumin, Serum 3.6 g/dL (3.2-5.0); Alkaline Phosphatase 102 U/L (45-117); Anion Gap 7 (5-15); BUN 18 mg/dL (7-18); BUN/Creat Ratio 21.5 RATIO (10-20); Calcium,Total 8.8 mg/dL (8.5-10.1); Chloride 98 mmol/L (98-107); Creatinine, Serum 0.84 mg/dL (0.70-1.30); EST Glomerular Filtration Rate 101 mL/min (>60); Est Glom Filt Rate - Afr Amer 122 mL/min (>60); Glucose 168 mg/dL (74-106); Potassium 4.5 mmol/L (3.5-5.1); Protein, Total 7.6 g/dL (6.4-8.2); Sodium Level 130 mmol/L (136-145); Thyroid Stim Hormone (TSH) 0.83 uIU/mL (0.358-3.74)
== END ==
PROVIDERS: PCP Family Medicine Geriatric Medicine; Visit Provider Family Medicine Geriatric Medicine
DX: E11.9 Type 2 diabetes mellitus without complications (principal); I10 Essential (primary) hypertension
CPT/HCPCS: 36415; 80053; 84443; 85025

== ENCOUNTER → 2021-02-27 11:27 | Outpatient (CLI) | payer MEDICARE, SELFPAY ==
[2021-02-27 12:19] LABS: Absolute Neutrophil Count 6.8 X10^3/uL (2.0-7.7); Basophil# 0.05 X10^3/uL; Basophil% 0.6 % (0-1); Eosinophil# 0.23 X10^3/uL; Eosinophils% 2.6 % (0-5); Hematocrit 42.1 % (40-54); Hemoglobin 13.3 g/dL (13.0-16.5); Lymphocyte % 12.2 % (19-41); Mean Corp Hgb Conc 31.6 g/dL (32-36); Mean Corpuscular Hgb 27.8 pg (27.0-32.0); Mean Corpuscular Volume 87.9 fL (80-94); Mean Platelet Vol. 9.3 fl (6.2-12.0); Monocyte# 0.75 X10^3/uL; Monocyte% 8.3 % (0-10); NRBC Flagged by Analyzer 0 % (0-5); Neutrophil # 6.84 X10^3/uL (2.7-7.7); Platelet Count 261 K/mm3 (150-450); RBC Distribution Width CV 13.3 % (11.6-14.6); RBC Distribution Width SD 42.8 fl (35.1-43.9); Red Blood Count 4.79 M/mm3 (4.6-6.2)
[2021-02-27 12:49] LABS: ALB/GLOB Ratio 0.9 RATIO (0.9-2.4); AST(SGOT) 16 U/L (15-37); Alanine Aminotransfer ALT/SGPT 31 U/L (16-61); Albumin, Serum 3.6 g/dL (3.2-5.0); Alkaline Phosphatase 102 U/L (45-117); Anion Gap 8 (5-15); BUN 21 mg/dL (7-18); BUN/Creat Ratio 29.7 RATIO (10-20); Calcium,Total 9.1 mg/dL (8.5-10.1); Chloride 98 mmol/L (98-107); Creatinine, Serum 0.71 mg/dL (0.70-1.30); EST Glomerular Filtration Rate 123 mL/min (>60); Est Glom Filt Rate - Afr Amer 148 mL/min (>60); Globulin 3.9 g/dL (2.2-4.2); Glucose 160 mg/dL (74-106); Potassium 4.3 mmol/L (3.5-5.1); Protein, Total 7.5 g/dL (6.4-8.2); Sodium Level 134 mmol/L (136-145); Thyroid Stim Hormone (TSH) 1.01 uIU/mL (0.358-3.74)
== END ==
PROVIDERS: PCP Family Medicine Geriatric Medicine; Visit Provider Family Medicine Geriatric Medicine
DX: E11.9 Type 2 diabetes mellitus without complications (principal); I10 Essential (primary) hypertension
CPT/HCPCS: 36415; 80053; 84443; 85025

== ENCOUNTER 2022-01-18 14:00 | Outpatient (RCR) | payer MEDICARE, MEDICAID, SELFPAY ==
[2022-01-04 14:04] VITALS: BP 142/52; PULSE 74; RESP 16; TEMP 36.6; BMI 31.5
--- NOTE | 2022-01-04 16:24 | HP.PCM_ITS ---
History of Present Illness Date of Service: 01/04/22 Chief Complaint: Right foot ulcer History of Wound: Patient is a 56-year-old male who presents with a non-healing ulcer to his right first metatarsal head. He has a past medical history including type 2 diabetes mellitus, SANTHOSH, chronic back pain, history of falls, history of amputation, history of opioid dependence, HLD, lumbar and cervical spinal stenosis, COPD, and hypertension. The patient states the wound first presented approximately 2 months ago, and he saw Dr. Villalba approximately 1 month ago who recommended a wound care referral and also a TCC. He lives at [facility] where he receives wound care from the nursing staff who are currently applying hydrogel to the wound daily and covering with gauze as ordered by Dr. Villalba. The patient denies any signs or symptoms of systemic or local infection, is a former smoker having quit several years ago, and states his right great toe was amputated years ago after a non-healing wound became infected with osteomyelitis. The patient had routine labs drawn in November 2021 but has not had a hemoglobin A1c drawn since June 2021 at which time it was 7.1. He denies any acute concerns at this time. Past medical, family, and social history reviewed and not pertinent to the current visit and all other systems reviewed and negative with exception of those listed above. [facility] Medical History (Updated 01/04/22 @ 16:43 by Patrick Clifton NP, NET MVC DEVELOPER-C) Diabetic ulcer of left foot associated with type 2 diabetes mellitus Scoliosis Home Medications acetaminophen 650 mg PO Q4H PRN PRN tab 09/07/19 [Rx Last Taken Unknown] atorvastatin 40 mg PO QHS 11/03/19 [History Last Taken Unknown] citalopram 20 mg PO DAILY 11/03/19 [History Last Taken Unknown] cyclobenzaprine 5 mg PO BID 11/03/19 [History Last Taken Unknown] doxepin 25 mg PO QHS #30 cap 11/19/19 [Rx Last Taken Unknown] polyethylene glycol 3350 17 gm PO DAILY #30 packet 11/19/19 [Rx Last Taken Unknown] polysaccharide iron complex 150 mg PO DAILYCM #30 cap 11/19/19 [Rx Last Taken Unknown] sennosides-docusate sodium 2 tab PO BID PRN #120 tab 11/19/19 [Rx Last Taken Unknown] tamsulosin 0.4 mg PO DAILY #30 cap 11/19/19 [Rx Last Taken Unknown] Allergy/AdvReac Type Severity Reaction Status Date / Time shellfish derived Allergy Rash Verified 12/06/20 13:20 bacitracin AdvReac Unknown Verified 12/06/20 13:20 [From Neosporin Plus] bacitracin zinc AdvReac Unknown Verified 12/06/20 13:20 [From Neosporin Plus] lisinopril AdvReac Hives, Verified 12/06/20 13:20 throat closed neomycin sulfate AdvReac Unknown Verified 12/06/20 13:20 [From Neosporin Plus] polymyxin B AdvReac Unknown Verified 12/06/20 13:20 [From Neosporin Plus] polymyxin B sulfate AdvReac Unknown Verified 12/06/20 13:20 [From Neosporin Plus] pramoxine AdvReac Unknown Verified 12/06/20 13:20 [From Neosporin Plus] pramoxine HCl AdvReac infection Verified 12/06/20 13:20 [From Neosporin Plus] when placed on a cut Social History (Updated 12/06/20 @ 13:[address] Lora Senior MD) Smoking Status: Former smoker ROS ROS Narrative Negative x10 systems with exception of those listed above Vital Signs Vital Signs Vital Signs: 01/04/22 14:04 Temperature 97.8 F Temperature Source Temporal Pulse Rate 74 Respiratory Rate 16 Blood Pressure 142/52 H Blood Pressure Mean 82 Blood Pressure Source Monitor Blood Pressure Position Semi-Fowlers Blood Pressure Location Right Forearm Weight Weight: 220 lb Body Mass Index (BMI) 31.5 Physical Exam Const alert, oriented x3, no apparent distress, healthy appearing and well nourished General Appearance: cooperative Exam Limitations: no limitations Nutritional Appearance: obese HEENT normocephalic Head and Scalp: normal to inspection Mouth: oral and palatal mucosa normal Eyes General Eye: normal appearance of both eyes Resp normal respiratory effort, normal air movement and no use of accessory muscles Effort and Inspection: able to speak in complete sentences Auscultation: clear to auscultation bilaterally Cardio regular rate, regular rhythm, S1 normal heart sound, S2 normal heart sound, no murmurs and peripheral pulses 2+ throughout Palpation: normal PMI Rate: regular rate Heart Sounds: S1 normal and S2 normal GI normal to inspection, nondistended, normoactive bowel sounds, soft to palpation, non-tender and non-distended Palpation: soft Extremity normal to inspection and full ROM General Extremity: normal exam except as noted Skin Wound Narrative: Wound to the plantar aspect of the first metatarsal head, dorsal pedis pulses present and 2+ bilaterally Neuro oriented x3 and moves all extremities Sensorium / Orientation: awake, alert, oriented to person, oriented to place and oriented to time Psych mental status grossly normal, thought process normal and denies hallucinations Appearance: grossly normal Attitude: calm Activity / Motor Behavior: appropriate eye contact Speech: normal speech Thought Process: normal thought process Thought Content: normal thought content Attention / Concentration: attention grossly intact Insight: insight good Judgement: judgement good Debridement Note Debridement Note Wound debrided: Left DFU first metatarsal head plantar Laterality: Left Wound Grade/Stage: Little 2 Type of Debridement: Excisional debridement Anesthesia Used: 4% Lidocaine Solution Depth: Down to and including healthy tissue and in the subcutaneous layer Percentage of wound debrided: 100 Instrument Used: 3mm curette Tissue Removed: Slough and devitalized tissue Severity: Fat Layer Exposed Amount of bleeding with debridement: Mild Bleeding Controlled with: Pressure Patient tolerated procedure: Patient tolerated procedure well Post-Debridement Measurements and Additional Note: Post-Debridement Measurements/Treatment - Nurse 1 - General Ulcer Assessment Start: 01/04/22 14:03 Freq: Status: Active Protocol: KAYLA Activity Type Activity Date Activity User E-Sign Co-Sign Detail Recorded Client Recorded Date Recorded By Document 01/04/22 14:04 KELSEY [id number] 01/04/22 14:13 Edit Result 01/04/22 14:04 KELSEY (1) [id number] 01/04/22 14:18 (1) Right - Posterior Tibial Palpable => Yes - Dorsalis Pedis Palpable => Yes - Hair Growth on Legs => Yes - Hair Growth on Toes => Yes - Temperature of Extremity => Warm - Capillary Refill => Less than 3 => Seconds - Dependent Rubor => No - Blanched when Elevated => No - Thick => Yes - Discolored => Yes - Deformed => Yes - Improper Length & Hygeine => No 01/04/22 14:04 - Today's Visit Information Type of service Initial Visit Arrival Mode Wheelchair Patient Identification Verified (Name & Yes ) Patient Requires Transmission-Based No Precautions Finger Stick Blood Sugar(mg/dl) (if 110 indicated): Blood Sugar Stated by Patient Height and Weight Height 5 ft 10 in Weight 220 lb Weight in Pounds 220.0 lbs Weight Measurement Method Estimated by Patient Body Mass Index (BMI) 31.5 BMI Classification Obese BSA - Demetrius 2.17 Vital Signs Temperature (97.8 F-99.1 F) 97.8 F Temperature Source Temporal Pulse Rate (60-100) 74 Pulse Location Monitor Respiratory Rate (12-18) 16 Respiratory rate source Observation Blood Pressure (90/60-120/80) 142/52 H Blood Pressure Mean 82 Source Monitor Position Semi-Fowlers Blood Pressure Location Right Forearm History Since Last Visit- (Skip if this is Patient's initial visit) Left Footwear Diabetic Shoe Right Footwear Surgical Shoe with pressure relief insole Pain Scale: 0-10 Numeric Is Patient Pain Free? Yes Lower Extremity Assessment/ Foot Assessment/ Toe Nail Assessment Right -Posterior Tibial Palpable Yes -Dorsalis Pedis Palpable Yes -Hair Growth on Legs Yes -Hair Growth on Toes Yes -Temperature of Extremity Warm -Capillary Refill Less than 3 Seconds -Dependent Rubor No -Blanched when Elevated No -Thick Yes -Discolored Yes -Deformed Yes -Improper Length & Hygeine No Communication Assessment Preferred language Moldovan Locomotive Operator Helper Required No Able to Read No: states has problems with that Able to Write No: difficulty with writing Communication Tools None Caregiver Communication Skills No Impairment Impairment Right Hearing Abillity Normal Left Hearing Abillity Normal Visual Assistive Devices Glasses Teaching Assessment Preferences Verbal,Written Barriers to Learning Low Literacy Readiness To Learn Fair Willingness to Engage in Self Management Med Activies Readiness to Engage in Self Management Med Activities Anxiety Level Calm Cooperation Cooperative Perception Coherent Interest in Health Problem Uninterested Education Importance Denies Need Does Patient Smoke tobacco or other No substances Smoking Status Former smoker Is Patient Diabetic Yes Functional Assessment Recent Decline in Ability to Perform Lower Body Dressing, Transferring Culture/Rastafarian/Airplane Pilot Helper Cultural/Rastafarian Needs that may affect No Treatment Plan Would you allow our hospital general technician to No meet you for the purpose of spiritual/ emotional support? Airplane Pilot Helper to contact place of baptism No Teaching: Wound Center *Welcome to the Wound Center -Person Taught Patient -Teaching Method Discussion, Demonstration -Response to teaching Return demonstration, Verbalize understanding WC - Nurse 1 - General Ulcer Measurement Start: 01/04/22 14:03 Freq: Status: Active Protocol: Activity Type Activity Date Activity User E-Sign Co-Sign Detail Recorded Client Recorded Date Recorded By Document 01/04/22 14:04 JF [id number] 01/04/22 14:13 JF 01/04/22 14:04 Wound Center Nurse 1 5-right 1st methead foot -Combined with other wound No -Current Size (cm) - Length 0.8 -Current Size (cm) - Width 0.6 -Current Size (cm) - Depth 0.2 -Total Square Cm 0.48 -Photo Taken Yes -Epithelialization Small 1-33% -Tunneling No -Circular Undermining No -Classification - Little Grading ( Grade 2 Diabetic Ulcer) -Exudate Amt Small -Exudate Type Serosanguineous -Wound Margin Flat & Intact -Granulation Amt Small (1-33%) -Granulation Quality Pale -Slough/Fibrin Yes -Necrosis Amt Medium (34-66%) -Necrotic Tissue Type Adherent Slough -Structure Exposed N/A -Texture (Aleyda-wound Skin Appearance) Assessed,Callus -Moisture (Aleyda-wound Skin Appearance) Assessed,Dry/ Scaly -Color (Aleyda-wound Skin Appearance) Assessed -Temperature (Aleyda-wound Skin No Abnormality Appearance) (Pt Warm) -Tenderness on Palpation (Aleyda-wound No Skin Appearance) -Ulcer Cleansing Rinsed/ Irrigated with Saline -Foul Odor after Cleansing No -Anesthetic Used 4% Lidocaine Solution Lower Limb Edema Present Yes Right Calf (cm) 39 Right Ankle (cm) 23 Left Calf (cm) 35.8 Left Ankle (cm) 22.2 - Nurse 2 - General Ulcer CM Notes Start: 01/04/22 14:03 Freq: Status: Active Protocol: Activity Type Activity Date Activity User E-Sign Co-Sign Detail Recorded Client Recorded Date Recorded By Document 01/04/22 14:37 MW [id number] 01/04/22 14:41 MW 01/04/22 14:37 Wound Center Nurse 2 5-right 1st methead foot -Time 14:37 -Correct Patient Yes -Correct Side, Site, Position Yes -Correct Procedure Yes -Procedure Performed Yes -Type of Procedure Debridement -Clinical Debridement Subcutaneous -Tissue Removed Subcutaneous -Post Debridement (cm) - Length 0.9 -Post Debridement (cm) - Width 1.4 -Post Debridement (cm) - Depth 0.1 -Total Square (Post) (cm) 1.26 -Area of Debridement (cm) - Length 0.9 -Area of Debridement (cm) - Width 1.4 -Total Square (Area) (cm) 1.26 -Tunneling No -Undermining/Tunneling No -Circular Undermining No -Wound/Ulcer Outcome Not Healed -Ulcer Cleansing Rinsed/ Irrigated with Saline -Foul Odor after Cleansing No -Bioengineered Tissue No -Bleeding Controlled with Pressure -Offloading No -Treatment Response Procedure Tolerated Well -Debridement - Subq, 1st 20sq cm Yes Pain Scale: 0-10 Numeric Is Patient Pain Free? Yes - Nurse 3 - General Ulcer D/C NN Start: 01/04/22 14:03 Freq: Status: Active Protocol: Activity Type Activity Date Activity User E-Sign Co-Sign Detail Recorded Client Recorded Date Recorded By Document 01/04/22 14:50 KELSEY [id number] 01/04/22 14:51 KELSEY 01/04/22 14:50 Wound Care Nurse 3 5-right 1st methead foot -Ulcer Cleansing Rinsed/ Irrigated with Saline -Foul Odor after Cleansing No -Primary Dressing Applied C Hydrogel ($), NonAdherent Contact Layer -Primary Dressing Covered/Secured with Dry Gauze, Secured with Tape Pain Scale: 0-10 Numeric Is Patient Pain Free? Yes - Visit Discharge Discharge Condition Stable Ambulatory Status Ambulatory, Wheelchair Transportation Private Auto Medication Reconcilliation completed & Yes provided to patient/care provider Clinical Summary of Care Provided Yes Charges/Coding Visit Charges Office Visits / Consults: [id number] OV L4 Est Procedures Integumentary 111xxx-113xx: [id number] Lori subq tissue 20 sq cm/< Assessment/Plan Assessment/Plan (1) Diabetic ulcer of left foot associated with type 2 diabetes mellitus: CODE(S): E11.621 - Type 2 diabetes mellitus with foot ulcer; L97.529 - Non-pressure chronic ulcer of other part of left foot with unspecified severity (2) Lumbar spinal stenosis: CODE(S): M48.061 - Spinal stenosis, lumbar region without neurogenic claudication (3) Hyperlipidemia: CODE(S): E78.5 - Hyperlipidemia, unspecified (4) Obstructive sleep apnea: CODE(S): G47.33 - Obstructive sleep apnea (adult) (pediatric) (5) Delayed wound healing: CODE(S): T14.8 - Other injury of unspecified body region (6) COPD (chronic obstructive pulmonary disease): CODE(S): J44.9 - Chronic obstructive pulmonary disease, unspecified (7) Hypertension: CODE(S): I10 - Essential (primary) hypertension (8) Peripheral vascular disease: CODE(S): I73.9 - Peripheral vascular disease, unspecified PLAN: Debridement performed today in clinic as annotated above. Hydrogel and Adaptic cover with gauze applied. At home wound-care instructions: Daily application of hydrogel and Adaptic cover with gauze, continue with offloading shoe Change dressing once daily or more frequently as needed due to contamination. Wash wounds daily with antibacterial soap and water, rinse and dry thoroughly before each dressing change. Compression: Tubigrip's Off-loading: The patient was instructed to avoid pressure and friction on the affected areas. Reposition every 2 hours at minimum. Avoid prolonged standing and/or dangling of legs. When seated, feet should be elevated at chest level. Frequent ambulation is encouraged. Diet: Patient encouraged to increase protein intake while taking caution to avoid high carbohydrate and/or sugar intake. Patient is a non-smoker Labs/cultures/imaging: Cultures ordered and collected today. Routine baseline lab work held, will reassess if no improvement. Vascular studies held. Follow-up: Return to clinic in 1 week for re-evaluation. Return sooner or repo rt to the emergency room should symptoms worsen, or new symptoms arise. This note was generated with [employer] dictation software. It may contain incorrect words, spelling, and punctuation that were not noted in checking the note before signing. I have spent 35 minutes today reviewing labs, records, and history. Time includes coordinating care, interpretation of tests, and counseling the patient/ family. This also includes time I spent with the patient for exam, treatment plan, and education as well as documenting clinical information in the electronic health record.
--- NOTE | 2022-01-09 12:33 | WC ---
Wound culture results reviewed per Patrick Clifton NP. Antibiotic called in to pharmacy per Patrick. Message left for patient Aunt next of kin on results and antibiotic. Instructed to call wound center if any questions.
[2022-01-11 13:18] VITALS: BP 186/76; PULSE 80; RESP 20; TEMP 36.5; BMI 31.5
--- NOTE | 2022-01-11 16:08 | PCM.WC.PN ---
History of Present Illness Date of Service: 01/11/22 Chief Complaint: Right foot ulcer History of Wound: Patient is a 56-year-old male who presents with a non-healing ulcer to his right first metatarsal head. He has a past medical history including type 2 diabetes mellitus, SANTHOSH, chronic back pain, history of falls, history of amputation, history of opioid dependence, HLD, lumbar and cervical spinal stenosis, COPD, and hypertension. The patient states the wound first presented approximately 2 months ago, and he saw Dr. Villalba approximately 1 month ago who recommended a wound care referral and also a TCC. He lives at [facility] where he receives wound care from the nursing staff who are currently applying hydrogel to the wound daily and covering with gauze as ordered by Dr. Villalba. The patient denies any signs or symptoms of systemic or local infection, is a former smoker having quit several years ago, and states his right great toe was amputated years ago after a non-healing wound became infected with osteomyelitis. The patient had routine labs drawn in November 2021 but has not had a hemoglobin A1c drawn since June 2021 at which time it was 7.1. He denies any acute concerns at this time. Past medical, family, and social history reviewed and not pertinent to the current visit and all other systems reviewed and negative with exception of those listed above. Progress of Wound: 01/11/2022?patient's wound is stable with continued delayed wound healing. He was approved for pur[facility] a.m., and [facility] His wound culture was reviewed and showed Enterobacter cloacae, most likely a skin contaminant as there are no signs of obvious infection at this time such as redness, purulent discharge, or warmth/streaking and patient denies any fever or chills. First application of purapply AM applied today along with a TCC which patient states that he has tolerated well in the past. Objective Data Objective Data Vital Signs: Vital Signs Temp Pulse Resp BP 97.7 F L 80 20 H 186/76 H 01/11/22 13:18 01/11/22 13:18 01/11/22 13:18 01/11/22 13:18 Weight: 220 lb Body Mass Index (BMI) 31.5 Lab / Micro Data Micro: Microbiology 01/05/22 14:45 Wound Abcess - Right Foot Gram Stain - Final 01/05/22 14:45 Wound Abcess - Right Foot Wound Culture - Final Enterobacter cloacae complex 01/05/22 14:45 Wound Abcess - Right Foot Anaerobic Culture - Final No anaerobic bacteria isolated. Charges/Coding Addendum Addendum: 78133 TCC application Procedures Integumentary 150xxx-152xx: 19306 Skin sub graft face/nk/hf/g Physical Exam Const alert, oriented x3, no apparent distress, healthy appearing and well nourished General Appearance: cooperative Exam Limitations: no limitations Nutritional Appearance: obese HEENT normocephalic Head and Scalp: normal to inspection Mouth: oral and palatal mucosa normal Eyes General Eye: normal appearance of both eyes Resp normal respiratory effort, normal air movement and no use of accessory muscles Effort and Inspection: able to speak in complete sentences Auscultation: clear to auscultation bilaterally Cardio regular rate, regular rhythm, S1 normal heart sound, S2 normal heart sound, no murmurs and peripheral pulses 2+ throughout Palpation: normal PMI Rate: regular rate Heart Sounds: S1 normal and S2 normal GI normal to inspection, nondistended, normoactive bowel sounds, soft to palpation, non-tender and non-distended Palpation: soft Extremity normal to inspection and full ROM General Extremity: normal exam except as noted Skin Wound Narrative: Wound to the plantar aspect of the first metatarsal head with callused wound edges, no erythema, warmth, streaking, or purulence noted at this time, dorsal pedis pulses present and 2+ bilaterally Neuro oriented x3 and moves all extremities Sensorium / Orientation: awake, alert, oriented to person, oriented to place and oriented to time Psych mental status grossly normal, thought process normal and denies hallucinations Appearance: grossly normal Attitude: calm Activity / Motor Behavior: appropriate eye contact Speech: normal speech Thought Process: normal thought process Thought Content: normal thought content Attention / Concentration: attention grossly intact Insight: insight good Judgement: judgement good Debridement Note Debridement Note Wound debrided: Right diabetic foot ulcer Laterality: Right Type of Debridement: Excisional debridement Anesthesia Used: 4% Lidocaine Solution and 5% Lidocaine Gel Depth: Down to and including healthy tissue and in the subcutaneous layer Percentage of wound debrided: 100 Instrument Used: 3mm curette and 5mm curette Tissue Removed: Slough and devitalized tissue Severity: Fat Layer Exposed Amount of bleeding with debridement: Mild Bleeding Controlled with: Pressure Patient tolerated procedure: Patient tolerated procedure well Post-Debridement Measurements and Additional Note: Post-Debridement Measurements/Treatment - Nurse 1 - General Ulcer Assessment Start: 01/04/22 14:03 Freq: Status: Active Protocol: KAYLA Activity Type Activity Date Activity User E-Sign Co-Sign Detail Recorded Client Recorded Date Recorded By Document 01/04/22 14:04 JF [id number] 01/04/22 14:13 JF Edit Result 01/04/22 14:04 JF (1) [id number] 01/04/22 14:18 JF Document 01/11/22 13:18 DL [id number] 01/11/22 13:25 DL (1) Right - Posterior Tibial Palpable => Yes - Dorsalis Pedis Palpable => Yes - Hair Growth on Legs => Yes - Hair Growth on Toes => Yes - Temperature of Extremity => Warm - Capillary Refill => Less than 3 => Seconds - Dependent Rubor => No - Blanched when Elevated => No - Thick => Yes - Discolored => Yes - Deformed => Yes - Improper Length & Hygeine => No 01/04/22 01/11/22 14:04 13:18 - Today's Visit Information Type of service Initial Visit Follow-up Visit (Physician/[facility]NER ) Arrival Mode Wheelchair Wheelchair Transfer Assistance None Patient Identification Verified (Name & Yes Yes ) Patient Requires Transmission-Based No No Precautions Finger Stick Blood Sugar(mg/dl) (if 110 110 indicated): Blood Sugar Stated by Stated by Patient Patient Height and Weight Height 5 ft 10 in Weight 220 lb Weight in Pounds 220.0 lbs Weight Measurement Method Estimated by Patient Body Mass Index (BMI) 31.5 31.5 BMI Classification Obese Obese BSA - Demetrius 2.17 Vital Signs Temperature (97.8 F-99.1 F) 97.8 F 97.7 F L Temperature Source Temporal Temporal Pulse Rate (60-100) 74 80 Pulse Location Monitor Monitor Respiratory Rate (12-18) 16 20 H Respiratory rate source Observation Observation Blood Pressure (90/60-120/80) 142/52 H 186/76 H Blood Pressure Mean (mm Hg) 82 112 Source Monitor Monitor Position Semi-Fowlers Blood Pressure Location Right Forearm Have you changed medications since your No last visit? Any new allergies or adverse reactions No Had a fall/change in ADL's that may No increase risk of falls Signs or symptoms of abuse and/or No neglect since last visit Have you been in the hospital since your No last visit? Has dressing in place as prescribed Yes Has compression in place as prescribed N/A Has offloadiing in place as prescribed Yes Experienced any changes in pain level or No management History Since Last Visit- (Skip if this is Patient's initial visit) Left Footwear Diabetic Shoe Right Footwear Surgical Shoe Surgical Shoe with pressure with pressure relief insole relief insole Pain Scale: 0-10 Numeric Is Patient Pain Free? Yes Yes Lower Extremity Assessment/ Foot Assessment/ Toe Nail Assessment Right -Posterior Tibial Palpable Yes -Dorsalis Pedis Palpable Yes -Hair Growth on Legs Yes -Hair Growth on Toes Yes -Temperature of Extremity Warm -Capillary Refill Less than 3 Seconds -Dependent Rubor No -Blanched when Elevated No -Thick Yes -Discolored Yes -Deformed Yes -Improper Length & Hygeine No Communication Assessment Preferred language Swedish Mobile Lounge Driver Required No Able to Read No: states has problems with that Able to Write No: difficulty with writing Communication Tools None Caregiver Communication Skills No Impairment Impairment Right Hearing Abillity Normal Left Hearing Abillity Normal Visual Assistive Devices Glasses Teaching Assessment Preferences Verbal,Written Barriers to Learning Low Literacy Readiness To Learn Fair Willingness to Engage in Self Management Med Activies Readiness to Engage in Self Management Med Activities Anxiety Level Calm Cooperation Cooperative Perception Coherent Interest in Health Problem Uninterested Education Importance Denies Need Does Patient Smoke tobacco or other No substances Smoking Status Former smoker Is Patient Diabetic Yes Functional Assessment Recent Decline in Ability to Perform Lower Body Dressing, Transferring Culture/Episcopal/Dialysis Biomed Technician Cultural/Episcopal Needs that may affect No Treatment Plan Would you allow our hospital instructional paraprofessional to No meet you for the purpose of spiritual/ emotional support? Dialysis Biomed Technician to contact place of jewish No Teaching: Wound Center *Welcome to the Wound Center -Person Taught Patient -Teaching Method Discussion, Demonstration -Response to teaching Return demonstration, Verbalize understanding WC - Nurse 1 - General Ulcer Measurement Start: 01/04/22 14:03 Freq: Status: Active Protocol: Activity Type Activity Date Activity User E-Sign Co-Sign Detail Recorded Client Recorded Date Recorded By Document 01/04/22 14:04 KELSEY [id number] 01/04/22 14:13 JF Document 01/11/22 13:18 DL [id number] 01/11/22 13:25 DL 01/04/22 01/11/22 14:04 13:18 Wound Center Nurse 1 5-right 1st methead foot -Combined with other wound No -Current Size (cm) - Length 0.8 0.7 -Current Size (cm) - Width 0.6 0.7 -Current Size (cm) - Depth 0.2 0.2 -Total Square Cm 0.48 0.49 -Photo Taken Yes No -Epithelialization Small 1-33% -Tunneling No -Circular Undermining No -Classification - Little Grading ( Grade 2 Diabetic Ulcer) -Exudate Amt Small Small -Exudate Type Serosanguineous -Wound Margin Flat & Intact Distinct, Outline Attached -Granulation Amt Small (1-33%) Large (67-100%) -Granulation Quality Pale Pale,[place] -Slough/Fibrin Yes -Necrosis Amt Medium (34-66%) Small (1-33%) -Necrotic Tissue Type Adherent Slough Adherent Slough -Structure Exposed N/A N/A -Texture (Aleyda-wound Skin Appearance) Assessed,Callus Callus -Moisture (Aleyda-wound Skin Appearance) Assessed,Dry/ Dry/Scaly Scaly -Color (Aleyda-wound Skin Appearance) Assessed No Abnormality -Temperature (Aleyda-wound Skin No Abnormality Appearance) (Pt Warm) -Tenderness on Palpation (Aleyda-wound No No Skin Appearance) -Ulcer Cleansing Rinsed/ Soap and Water Irrigated with Saline -Foul Odor after Cleansing No -Anesthetic Used 4% Lidocaine 5% Lidocaine Solution Gel Lower Limb Edema Present Yes Right Calf (cm) 39 Right Ankle (cm) 23 Left Calf (cm) 35.8 Left Ankle (cm) 22.2 WC - Nurse 2 - General Ulcer CM Notes Start: 01/04/22 14:03 Freq: Status: Active Protocol: Activity Type Activity Date Activity User E-Sign Co-Sign Detail Recorded Client Recorded Date Recorded By Document 01/04/22 14:37 MW [id number] 01/04/22 14:41 MW Document 01/11/22 13:46 MW [id number] 01/11/22 13:56 MW Edit Result 01/11/22 13:46 MW (1) [id number] 01/11/22 14:03 MW (1) 5-right 1st methead foot - Offloading No => Yes - Type of Offloading => Total Contact Cast => (TCC) - Right ($) 01/04/22 01/11/22 14:37 13:46 Wound Center Nurse 2 5-right 1st methead foot -Time 14:37 13:46 -Correct Patient Yes Yes -Correct Side, Site, Position Yes Yes -Correct Procedure Yes Yes -Procedure Performed Yes Yes -Type of Procedure Debridement Debridement -Clinical Debridement Subcutaneous Subcutaneous -Tissue Removed Subcutaneous Subcutaneous -Post Debridement (cm) - Length 0.9 1.0 -Post Debridement (cm) - Width 1.4 1.1 -Post Debridement (cm) - Depth 0.1 0.2 -Total Square (Post) (cm) 1.26 1.10 -Area of Debridement (cm) - Length 0.9 1.0 -Area of Debridement (cm) - Width 1.4 1.1 -Total Square (Area) (cm) 1.26 1.10 -Tunneling No No -Undermining/Tunneling No No -Circular Undermining No No -Wound/Ulcer Outcome Not Healed Not Healed -Ulcer Cleansing Rinsed/ Rinsed/ Irrigated with Irrigated with Saline Saline -Foul Odor after Cleansing No No -Bioengineered Tissue No Yes -Type of Bioengineered Tissue PuraPly AM -Expiration Date 10/24/23 -Product Lot Number [id number] -Percent Used 75 -Lot number of Saline Used [id number] -Bleeding Controlled with Pressure Pressure -Offloading No Yes -Type of Offloading Total Contact Cast (TCC) - Right ($) -Treatment Response Procedure Procedure Tolerated Well Tolerated Well -Debridement - Subq, 1st 20sq cm Yes No -Apply Skin Sub - 1st 25 sq cm - Feet 1 -PuraPly AM (per sq cm) 2 Pain Scale: 0-10 Numeric Is Patient Pain Free? Yes Yes - Nurse 3 - General Ulcer D/C NN Start: 01/04/22 14:03 Freq: Status: Active Protocol: Activity Type Activity Date Activity User E-Sign Co-Sign Detail Recorded Client Recorded Date Recorded By Document 01/04/22 14:50 KELSEY [id number] 01/04/22 14:51 KELSEY 01/04/22 14:50 Wound Care Nurse 3 5-right 1st methead foot -Ulcer Cleansing Rinsed/ Irrigated with Saline -Foul Odor after Cleansing No -Primary Dressing Applied C Hydrogel ($), NonAdherent Contact Layer -Primary Dressing Covered/Secured with Dry Gauze, Secured with Tape Pain Scale: 0-10 Numeric Is Patient Pain Free? Yes WC - Visit Discharge Discharge Condition Stable Ambulatory Status Ambulatory, Wheelchair Transportation Private Auto Medication Reconcilliation completed & Yes provided to patient/care provider Clinical Summary of Care Provided Yes Assessment/Plan Assessment/Plan (1) Diabetic ulcer of left foot associated with type 2 diabetes mellitus: CODE(S): E11.621 - Type 2 diabetes mellitus with foot ulcer; L97.529 - Non-pressure chronic ulcer of other part of left foot with unspecified severity (2) Lumbar spinal stenosis: CODE(S): M48.061 - Spinal stenosis, lumbar region without neurogenic claudication (3) Hyperlipidemia: CODE(S): E78.5 - Hyperlipidemia, unspecified (4) Obstructive sleep apnea: CODE(S): G47.33 - Obstructive sleep apnea (adult) (pediatric) (5) Delayed wound healing: CODE(S): T14.8 - Other injury of unspecified body region (6) COPD (chronic obstructive pulmonary disease): CODE(S): J44.9 - Chronic obstructive pulmonary disease, unspecified (7) Hypertension: CODE(S): I10 - Essential (primary) hypertension (8) Peripheral vascular disease: CODE(S): I73.9 - Peripheral vascular disease, unspecified PLAN: Debridement performed today in clinic as annotated above. First application of purapply am, 1.6 cm disc utilized today with 25% wastage due to product availability and center this was covered with wound veil and secured with Steri-Strips and a thin layer of hydrogel was applied afterwards and TCC applied. At home wound-care instructions: TCC applied today and to be changed out in 4 days Compression: n/a Off-loading: The patient was instructed to avoid pressure and friction on the affected areas. Reposition every 2 hours at minimum. Avoid prolonged standing and/or dangling of legs. When seated, feet should be elevated at chest level. Frequent ambulation is encouraged. Diet: Patient encouraged to increase protein intake while taking caution to avoid high carbohydrate and/or sugar intake. Patient is a non-smoker Labs/cultures/imaging: Cultures ordered and collected last week and showed Enterobacter cloacae which is likely a skin contaminant. Routine baseline lab work held, will reassess if no improvement. Vascular studies held. Follow-up: Return to clinic in 1 week for re-evaluation. Return sooner or report to the emergency room should symptoms worsen, or new symptoms arise. This note was generated with [employer] dictation software. It may contain incorrect words, spelling, and punctuation that were not noted in checking the note before signing. I have spent 35 minutes today reviewing labs, records, and history. Time includes coordinating care, interpretation of tests, and counseling the patient/family. This also includes time I spent with the patient for exam, treatment plan, and education as well as documenting clinical information in the electronic health record.
[2022-01-15 13:07] VITALS: BP 199/93; PULSE 67; RESP 16; TEMP 36.2; BMI 31.5
--- NOTE | 2022-01-15 14:07 | PCM.WC.PN ---
History of Present Illness Date of Service: 01/15/22 Chief Complaint: Right foot ulcer History of Wound: Patient is a 56-year-old male who presents with a non-healing ulcer to his right first metatarsal head. He has a past medical history including type 2 diabetes mellitus, SANTHOSH, chronic back pain, history of falls, history of amputation, history of opioid dependence, HLD, lumbar and cervical spinal stenosis, COPD, and hypertension. The patient states the wound first presented approximately 2 months ago, and he saw Dr. Villalba approximately 1 month ago who recommended a wound care referral and also a TCC. He lives at [facility] where he receives wound care from the nursing staff who are currently applying hydrogel to the wound daily and covering with gauze as ordered by Dr. Villalba. The patient denies any signs or symptoms of systemic or local infection, is a former smoker having quit several years ago, and states his right great toe was amputated years ago after a non-healing wound became infected with osteomyelitis. The patient had routine labs drawn in November 2021 but has not had a hemoglobin A1c drawn since June 2021 at which time it was 7.1. He denies any acute concerns at this time. Past medical, family, and social history reviewed and not pertinent to the current visit and all other systems reviewed and negative with exception of those listed above. Progress of Wound: Patient came in today for an evaluation of his skin after TCC placement. He has a new ulcer on his right lateral dorsal foot. The cast had some breakdown on the outer edge where his new ulcer is located. Due to his diabetic neuropathy, he does not have any feeling in his foot. He denies walking on the cast without his boot on. His first application of purapply AM came off when removing his TCC. Will apply Carey to both the right first metatarsal head ulcer and to the right lateral dorsal foot ulcer. Objective Data Objective Data Vital Signs: Vital Signs Temp Pulse Resp BP 97.2 F L 67 16 199/93 H 01/15/22 13:07 01/15/22 13:07 01/15/22 13:07 01/15/22 13:07 Oxygen Delivery Method Room Air Weight: 220 lb Body Mass Index (BMI) 31.5 Lab / Micro Data Micro: Microbiology 01/05/22 14:45 Wound Abcess - Right Foot Gram Stain - Final 01/05/22 14:45 Wound Abcess - Right Foot Wound Culture - Final Enterobacter cloacae complex 01/05/22 14:45 Wound Abcess - Right Foot Anaerobic Culture - Final No anaerobic bacteria isolated. Charges/Coding Addendum Addendum: [id number] right contact cast application Visit Charges Office Visits / Consults: 63598 OV L3 Est (25 modifier) Physical Exam Const alert and oriented x3 HEENT normocephalic Resp normal respiratory effort and clear to auscultation bilaterally Cardio regular rate and regular rhythm GI normal to inspection, nondistended, normoactive bowel sounds and non-tender Palpation: soft Extremity normal capillary refill Skin Wound Narrative: Right first metatarsal head ulcer is dry. No redness or streaking. New ulcer on right lateral dorsal foot is pink, superficial. ItThis occurred after placement of his TCC last week. Neither ulcer were debrided since he sees another provider on . Neuro CN's II-XII intact bilaterally Debridement Note Debridement Note No debridement was completed: No debridement was completed today Post-Debridement Measurements and Additional Note: Post-Debridement Measurements/Treatment WC - Nurse 1 - General Ulcer Assessment Start: 01/04/22 14:03 Freq: Status: Active Protocol: COSTA.LARA Activity Type Activity Date Activity User E-Sign Co-Sign Detail Recorded Client Recorded Date Recorded By Document 01/04/22 14:04 JF [id number] 01/04/22 14:13 JF Edit Result 01/04/22 14:04 KELSEY (1) [id number] 01/04/22 14:18 JF Document 01/11/22 13:18 DL [id number] 01/11/22 13:25 DL Document 01/15/22 13:07 BMF [id number] 01/15/22 13:20 BMF (1) Right - Posterior Tibial Palpable => Yes - Dorsalis Pedis Palpable => Yes - Hair Growth on Legs => Yes - Hair Growth on Toes => Yes - Temperature of Extremity => Warm - Capillary Refill => Less than 3 => Seconds - Dependent Rubor => No - Blanched when Elevated => No - Thick => Yes - Discolored => Yes - Deformed => Yes - Improper Length & Hygeine => No 02/09/1501/11/22 01/15/22 14:04 13:18 13:07 WC - Today's Visit Information Type of service Initial Visit Follow-up Visit Follow-up Visit (Physician/ENERGY AUDIT ADVISOR (Physician/ENERGY AUDIT ADVISOR ) ) Arrival Mode Wheelchair Wheelchair Wheelchair Transfer Assistance None Other Transfer Assist (Other) stand by Patient Identification Verified (Name & Yes Yes Yes ) Patient Requires Transmission-Based No No No Precautions Finger Stick Blood Sugar(mg/dl) (if 110 110 105 indicated): Blood Sugar Stated by Stated by Stated by Patient Patient Patient Height and Weight Height 5 ft 10 in Weight 220 lb Weight in Pounds 220.0 lbs Weight Measurement Method Estimated by Patient Body Mass Index (BMI) 31.5 31.5 31.5 BMI Classification Obese Obese Obese BSA - Demetrius 2.17 Vital Signs Temperature (97.8 F-99.1 F) 97.8 F 97.7 F L 97.2 F L Temperature Source Temporal Temporal Temporal Pulse Rate (60-100) 74 80 67 Pulse Location Monitor Monitor Monitor Respiratory Rate (12-18) 16 20 H 16 Respiratory rate source Observation Observation Observation Oxygen Delivery Method Room Air Blood Pressure (90/60-120/80) 142/52 H 186/76 H 199/93 H Blood Pressure Mean (mm Hg) 82 112 128 Source Monitor Monitor Monitor Position Semi-Fowlers Sitting Blood Pressure Location Right Forearm Comment counseled r/t bp Have you changed medications since your No No last visit? Any new allergies or adverse reactions No No Had a fall/change in ADL's that may No No increase risk of falls Signs or symptoms of abuse and/or No No neglect since last visit Have you been in the hospital since your No No last visit? Has dressing in place as prescribed Yes Yes Has compression in place as prescribed N/A N/A Has offloadiing in place as prescribed Yes Yes Experienced any changes in pain level or No No management History Since Last Visit- (Skip if this is Patient's initial visit) Left Footwear Diabetic Shoe Regular Shoe Right Footwear Surgical Shoe Surgical Shoe Total Contact with pressure with pressure Cast relief insole relief insole Pain Scale: 0-10 Numeric Is Patient Pain Free? Yes Yes Yes Lower Extremity Assessment/ Foot Assessment/ Toe Nail Assessment Right -Posterior Tibial Palpable Yes -Dorsalis Pedis Palpable Yes -Hair Growth on Legs Yes -Hair Growth on Toes Yes -Temperature of Extremity Warm -Capillary Refill Less than 3 Seconds -Dependent Rubor No -Blanched when Elevated No -Thick Yes -Discolored Yes -Deformed Yes -Improper Length & Hygeine No Communication Assessment Preferred language Venezuelan Prn Physical Therapist Required No Able to Read No: states has problems with that Able to Write No: difficulty with writing Communication Tools None Caregiver Communication Skills No Impairment Impairment Right Hearing Abillity Normal Left Hearing Abillity Normal Visual Assistive Devices Glasses Teaching Assessment Preferences Verbal,Written Barriers to Learning Low Literacy Readiness To Learn Fair Willingness to Engage in Self Management Med Activies Readiness to Engage in Self Management Med Activities Anxiety Level Calm Cooperation Cooperative Perception Coherent Interest in Health Problem Uninterested Education Importance Denies Need Does Patient Smoke tobacco or other No substances Smoking Status Former smoker Is Patient Diabetic Yes Functional Assessment Recent Decline in Ability to Perform Lower Body Dressing, Transferring Culture/Catholic/Hospice Consultant Cultural/Catholic Needs that may affect No Treatment Plan Would you allow our hospital locomotive crane operator helper to No meet you for the purpose of spiritual/ emotional support? Hospice Consultant to contact place of moravian No Teaching: Wound Center *Welcome to the Wound Center -Person Taught Patient -Teaching Method Discussion, Demonstration -Response to teaching Return demonstration, Verbalize understanding WC - Nurse 1 - General Ulcer Measurement Start: 01/04/22 14:03 Freq: Status: Active Protocol: Activity Type Activity Date Activity User E-Sign Co-Sign Detail Recorded Client Recorded Date Recorded By Document 01/04/22 14:04 [id number] 01/04/22 14:13 Document 01/11/22 13:18 DL [id number] 01/11/22 13:25 DL Document 01/15/22 13:07 [facility] [id number] 01/15/22 13:20 BM 01/04/22 01/11/22 01/15/22 14:04 13:18 13:07 Wound Center Nurse 1 #6- R LAT FOOT -Combined with other wound No -Current Size (cm) - Length 1 -Current Size (cm) - Width 1 -Current Size (cm) - Depth 0.1 -Total Square Cm 1 -Date of Last Picture (Recall this 01/15/22 field) -Photo Taken Yes -Epithelialization None Present -Tunneling No -Undermining/Tunneling No -Circular Undermining No -Exudate Amt Small -Exudate Type Serosanguineous -Wound Margin Distinct, Outline Attached -Granulation Amt Small (1-33%) -Granulation Quality Red -Slough/Fibrin Yes -Necrosis Amt Large (67-100%) -Necrotic Tissue Type Adherent Slough -Texture (Aleyda-wound Skin Appearance) Assessed -Moisture (Aleyda-wound Skin Appearance) Assessed -Color (Aleyda-wound Skin Appearance) Assessed, Erythema -Temperature (Aleyda-wound Skin No Abnormality Appearance) (Pt Warm) -Tenderness on Palpation (Aleyda-wound Yes Skin Appearance) -Ulcer Cleansing Soap and Water -Foul Odor after Cleansing No -Anesthetic Used 4% Lidocaine Solution 5-right 1st methead foot -Combined with other wound No No -Current Size (cm) - Length 0.8 0.7 1.4 -Current Size (cm) - Width 0.6 0.7 1.4 -Current Size (cm) - Depth 0.2 0.2 0.1 -Total Square Cm 0.48 0.49 1.96 -Date of Last Picture (Recall this 01/15/22 field) -Photo Taken Yes No Yes -Epithelialization Small 1-33% None Present -Tunneling No No -Undermining/Tunneling No -Circular Undermining No No -Classification - Little Grading ( Grade 2 Diabetic Ulcer) -Exudate Amt Small Small Medium -Exudate Type Serosanguineous Serosanguineous -Wound Margin Flat & Intact Distinct, Distinct, Outline Outline Attached Attached -Granulation Amt Small (1-33%) Large (67-100%) None Present (0 %) -Granulation Quality Pale Pale,[place] -Slough/Fibrin Yes Yes -Necrosis Amt Medium (34-66%) Small (1-33%) Large (67-100%) -Necrotic Tissue Type Adherent Slough Adherent Slough Adherent Slough -Structure Exposed N/A N/A -Texture (Aleyda-wound Skin Appearance) Assessed,Callus Callus Assessed, Scarring -Moisture (Aleyda-wound Skin Appearance) Assessed,Dry/ Dry/Scaly Assessed, Scaly Maceration -Color (Aleyda-wound Skin Appearance) Assessed No Abnormality Assessed,Palor -Temperature (Aleyda-wound Skin No Abnormality No Abnormality Appearance) (Pt Warm) (Pt Warm) -Tenderness on Palpation (Aleyda-wound No No Skin Appearance) -Ulcer Cleansing Rinsed/ Soap and Water Soap and Water Irrigated with Saline -Foul Odor after Cleansing No No -Anesthetic Used 4% Lidocaine 5% Lidocaine 4% Lidocaine Solution Gel Solution Lower Limb Edema Present Yes Right Calf (cm) 39 Right Ankle (cm) 23 Left Calf (cm) 35.8 Left Ankle (cm) 22.2 WC - Nurse 2 - General Ulcer CM Notes Start: 01/04/22 14:03 Freq: Status: Active Protocol: Activity Type Activity Date Activity User E-Sign Co-Sign Detail Recorded Client Recorded Date Recorded By Document 01/04/22 14:37 MW [id number] 01/04/22 14:41 MW Document 01/11/22 13:46 MW [id number] 01/11/22 13:56 MW Edit Result 01/11/22 13:46 MW (1) [id number] 01/11/22 14:03 MW Document 01/15/22 13:28 JF [id number] 01/15/22 13:31 JF (1) 5-right 1st methead foot - Offloading No => Yes - Type of Offloading => Total Contact Cast => (TCC) - Right ($) 01/04/22 01/11/22 01/15/22 14:37 13:46 13:28 Wound Center Nurse 2 #6- R LAT FOOT -Correct Patient No -Correct Side, Site, Position No -Correct Procedure No -Procedure Performed No -Wound/Ulcer Outcome Not Healed 5-right 1st methead foot -Time 14:37 13:46 -Correct Patient Yes Yes No -Correct Side, Site, Position Yes Yes No -Correct Procedure Yes Yes No -Procedure Performed Yes Yes No -Type of Procedure Debridement Debridement -Clinical Debridement Subcutaneous Subcutaneous -Tissue Removed Subcutaneous Subcutaneous -Post Debridement (cm) - Length 0.9 1.0 -Post Debridement (cm) - Width 1.4 1.1 -Post Debridement (cm) - Depth 0.1 0.2 -Total Square (Post) (cm) 1.26 1.10 -Area of Debridement (cm) - Length 0.9 1.0 -Area of Debridement (cm) - Width 1.4 1.1 -Total Square (Area) (cm) 1.26 1.10 -Tunneling No No -Undermining/Tunneling No No -Circular Undermining No No -Wound/Ulcer Outcome Not Healed Not Healed Not Healed -Ulcer Cleansing Rinsed/ Rinsed/ Irrigated with Irrigated with Saline Saline -Foul Odor after Cleansing No No -Bioengineered Tissue No Yes -Type of Bioengineered Tissue PuraPly AM -Expiration Date 10/24/23 -Product Lot Number [id number] -Percent Used 75 -Lot number of Saline Used [id number] -Bleeding Controlled with Pressure Pressure -Offloading No Yes -Type of Offloading Total Contact Cast (TCC) - Right ($) -Treatment Response Procedure Procedure Tolerated Well Tolerated Well -Debridement - Subq, 1st 20sq cm Yes No -Apply Skin Sub - 1st 25 sq cm - Feet 1 -PuraPly AM (per sq cm) 2 Pain Scale: 0-10 Numeric Is Patient Pain Free? Yes Yes Yes - Nurse 3 - General Ulcer D/C NN Start: 01/04/22 14:03 Freq: Status: Active Protocol: Activity Type Activity Date Activity User E-Sign Co-Sign Detail Recorded Client Recorded Date Recorded By Document 01/04/22 14:50 [id number] 01/04/22 14:51 01/04/22 14:50 Wound Care Nurse 3 5-right 1st methead foot -Ulcer Cleansing Rinsed/ Irrigated with Saline -Foul Odor after Cleansing No -Primary Dressing Applied C Hydrogel ($), NonAdherent Contact Layer -Primary Dressing Covered/Secured with Dry Gauze, Secured with Tape Pain Scale: 0-10 Numeric Is Patient Pain Free? Yes - Visit Discharge Discharge Condition Stable Ambulatory Status Ambulatory, Wheelchair Transportation Private Auto Medication Reconcilliation completed & Yes provided to patient/care provider Clinical Summary of Care Provided Yes Assessment/Plan Assessment/Plan (1) Diabetic ulcer of left foot associated with type 2 diabetes mellitus: CODE(S): E11.621 - Type 2 diabetes mellitus with foot ulcer; L97.529 - Non-pressure chronic ulcer of other part of left foot with unspecified severity (2) Diabetes mellitus with neuropathy: CODE(S): E11.40 - Type 2 diabetes mellitus with diabetic neuropathy, unspecified QUALIFIERS: Diabetes mellitus type: type 2 (3) Ulcer of right foot with fat layer exposed: CODE(S): L97.512 - Non-pressure chronic ulcer of other part of right foot with fat layer exposed (4) Chronic ulcer of right foot with fat layer exposed: CODE(S): L97.512 - Non-pressure chronic ulcer of other part of right foot with fat layer exposed (5) Peripheral vascular disease: CODE(S): I73.9 - Peripheral vascular disease, unspecified PLAN: His puraply came off his 1st metatarsal ulcer when removing his TCC. He has a new ulcer on his right lateral foot. Wound care - Will apply Carey to both ulcers until when he is seen by his regular provider. TCC placed today with extra padding placed at the site of ulcers to prevent any pressure points. We made him wait an extra 5 minutes to make sure the cast was hardened. Encouraged a diet high in protein and low in carbohydrates/sugars. He will follow up on for his regular appointment. He is to call or come in to be seen sooner if he develops any issues.
[2022-01-18 14:09] VITALS: BP 177/87; PULSE 76; RESP 17; TEMP 37; BMI 31.5
--- NOTE | 2022-01-18 20:54 | PCM.WC.PN ---
History of Present Illness Date of Service: 01/18/22 Chief Complaint: Right foot ulcer History of Wound: Patient is a 56-year-old male who presents with a non-healing ulcer to his right first metatarsal head. He has a past medical history including type 2 diabetes mellitus, SANTHOSH, chronic back pain, history of falls, history of amputation, history of opioid dependence, HLD, lumbar and cervical spinal stenosis, COPD, and hypertension. The patient states the wound first presented approximately 2 months ago, and he saw Dr. Villalba approximately 1 month ago who recommended a wound care referral and also a TCC. He lives at [facility] where he receives wound care from the nursing staff who are currently applying hydrogel to the wound daily and covering with gauze as ordered by Dr. Villalba. The patient denies any signs or symptoms of systemic or local infection, is a former smoker having quit several years ago, and states his right great toe was amputated years ago after a non-healing wound became infected with osteomyelitis. The patient had routine labs drawn in November 2021 but has not had a hemoglobin A1c drawn since June 2021 at which time it was 7.1. He denies any acute concerns at this time. Past medical, family, and social history reviewed and not pertinent to the current visit and all other systems reviewed and negative with exception of those listed above. Progress of Wound: Stable?patient did not tolerate the TCC placement due to it making him feel uncomfortable and also developing a new ulcer on his right lateral dorsal foot. His first application of purapply AM came off when removing his TCC earlier this week and he has been applying Carey to both the right first metatarsal head ulcer and to the right lateral dorsal foot ulcer. Objective Data Objective Data Vital Signs: Vital Signs Temp Pulse Resp BP 98.6 F 76 17 177/87 H 01/18/22 14:09 01/18/22 14:09 01/18/22 14:09 01/18/22 14:09 Oxygen Delivery Method Room Air Weight: 220 lb Body Mass Index (BMI) 31.5 Lab / Micro Data Micro: Microbiology 01/05/22 14:45 Wound Abcess - Right Foot Gram Stain - Final 01/05/22 14:45 Wound Abcess - Right Foot Wound Culture - Final Enterobacter cloacae complex 01/05/22 14:45 Wound Abcess - Right Foot Anaerobic Culture - Final No anaerobic bacteria isolated. Charges/Coding Procedures Integumentary 150xxx-152xx: [id number] Skin sub graft face/nk/hf/g Physical Exam Const alert and oriented x3 HEENT normocephalic Resp normal respiratory effort and clear to auscultation bilaterally Cardio regular rate and regular rhythm GI normal to inspection, nondistended, normoactive bowel sounds and non-tender Palpation: soft Extremity normal capillary refill Skin Wound Narrative: Right first metatarsal head ulcer beefy red after debridement of slough and devitalized tissue, no redness or streaking. New ulcer on right lateral dorsal foot is pink, superficial without any signs of infection Neuro CN's II-XII intact bilaterally Debridement Note Debridement Note Wound debrided: Diabetic foot ulcer right first metatarsal head Laterality: Right Wound Grade/Stage: Little 2 Type of Debridement: Excisional debridement Anesthesia Used: 5% Lidocaine Gel Depth: Down to and including healthy tissue and in the subcutaneous layer Percentage of wound debrided: 100 Instrument Used: 5mm curette Tissue Removed: Slough and devitalized tissue Severity: Fat Layer Exposed Amount of bleeding with debridement: Mild Bleeding Controlled with: Pressure Patient tolerated procedure: Patient tolerated procedure well Post-Debridement Measurements and Additional Note: Post-Debridement Measurements/Treatment WC - Nurse 1 - General Ulcer Assessment Start: 01/04/22 14:03 Freq: Status: Active Protocol: KAYLA Activity Type Activity Date Activity User E-Sign Co-Sign Detail Recorded Client Recorded Date Recorded By Document 01/04/22 14:04 [id number] 01/04/22 14:13 Edit Result 01/04/22 14:04 JF (1) [id number] 01/04/22 14:18 JF Document 01/11/22 13:18 DL [id number] 01/11/22 13:25 DL Document 01/15/22 13:07 BMF [id number] 01/15/22 13:20 BMF Document 01/18/22 14:09 ML [id number] 01/18/22 14:24 ML (1) Right - Posterior Tibial Palpable => Yes - Dorsalis Pedis Palpable => Yes - Hair Growth on Legs => Yes - Hair Growth on Toes => Yes - Temperature of Extremity => Warm - Capillary Refill => Less than 3 => Seconds - Dependent Rubor => No - Blanched when Elevated => No - Thick => Yes - Discolored => Yes - Deformed => Yes - Improper Length & Hygeine => No 01/04/22 01/11/22 01/15/22 14:04 13:18 13:07 WC - Today's Visit Information Type of service Initial Visit Follow-up Visit Follow-up Visit (Physician/[facility] (Physician/[facility] ) ) Arrival Mode Wheelchair Wheelchair Wheelchair Transfer Assistance None Other Transfer Assist (Other) stand by Patient Identification Verified (Name & Yes Yes Yes ) Patient Requires Transmission-Based No No No Precautions Safety Precautions Finger Stick Blood Sugar(mg/dl) (if 110 110 105 indicated): Blood Sugar Stated by Stated by Stated by Patient Patient Patient Height and Weight Height 5 ft 10 in Weight 220 lb Weight in Pounds 220.0 lbs Weight Measurement Method Estimated by Patient Body Mass Index (BMI) 31.5 31.5 31.5 BMI Classification Obese Obese Obese BSA - Demetrius 2.17 Vital Signs Temperature (97.8 F-99.1 F) 97.8 F 97.7 F L 97.2 F L Temperature Source Temporal Temporal Temporal Pulse Rate (60-100) 74 80 67 Pulse Location Monitor Monitor Monitor Respiratory Rate (12-18) 16 20 H 16 Respiratory rate source Observation Observation Observation Oxygen Delivery Method Room Air Blood Pressure (90/60-120/80) 142/52 H 186/76 H 199/93 H Blood Pressure Mean (mm Hg) 82 112 128 Source Monitor Monitor Monitor Position Semi-Fowlers Sitting Blood Pressure Location Right Forearm Comment counseled r/t bp Have you changed medications since your No No last visit? Any new allergies or adverse reactions No No Had a fall/change in ADL's that may No No increase risk of falls Signs or symptoms of abuse and/or No No neglect since last visit Have you been in the hospital since your No No last visit? Has dressing in place as prescribed Yes Yes Has compression in place as prescribed N/A N/A Has offloadiing in place as prescribed Yes Yes Experienced any changes in pain level or No No management History Since Last Visit- (Skip if this is Patient's initial visit) Left Footwear Diabetic Shoe Regular Shoe Right Footwear Surgical Shoe Surgical Shoe Total Contact with pressure with pressure Cast relief insole relief insole Pain Scale: 0-10 Numeric Is Patient Pain Free? Yes Yes Yes Lower Extremity Assessment/ Foot Assessment/ Toe Nail Assessment Right -Posterior Tibial Palpable Yes -Dorsalis Pedis Palpable Yes -Hair Growth on Legs Yes -Hair Growth on Toes Yes -Temperature of Extremity Warm -Capillary Refill Less than 3 Seconds -Dependent Rubor No -Blanched when Elevated No -Thick Yes -Discolored Yes -Deformed Yes -Improper Length & Hygeine No Communication Assessment Preferred language [employer] Staff Member Required No Able to Read No: states has problems with that Able to Write No: difficulty with writing Communication Tools None Caregiver Communication Skills No Impairment Impairment Right Hearing Abillity Normal Left Hearing Abillity Normal Visual Assistive Devices Glasses Teaching Assessment Preferences Verbal,Written Barriers to Learning Low Literacy Readiness To Learn Fair Willingness to Engage in Self Management Med Activies Readiness to Engage in Self Management Med Activities Anxiety Level Calm Cooperation Cooperative Perception Coherent Interest in Health Problem Uninterested Education Importance Denies Need Does Patient Smoke tobacco or other No substances Smoking Status Former smoker Is Patient Diabetic Yes Functional Assessment Recent Decline in Ability to Perform Lower Body Dressing, Transferring Culture/Restorationism/Internal Specialist Cultural/Restorationism Needs that may affect No Treatment Plan Would you allow our hospital gas engineer to No meet you for the purpose of spiritual/ emotional support? Internal Specialist to contact place of jew No Teaching: Wound Center *Welcome to the Wound Center -Person Taught Patient -Teaching Method Discussion, Demonstration -Response to teaching Return demonstration, Verbalize understanding 01/18/22 14:09 WC - Today's Visit Information Type of service Follow-up Visit (Physician/[facility] ) Arrival Mode Wheelchair Transfer Assistance None Transfer Assist (Other) Patient Identification Verified (Name & Yes ) Patient Requires Transmission-Based No Precautions Safety Precautions NA Finger Stick Blood Sugar(mg/dl) (if 110 indicated): Blood Sugar Stated by Patient Height and Weight Height Weight Weight in Pounds Weight Measurement Method Body Mass Index (BMI) 31.5 BMI Classification Obese BSA - Demetrius Vital Signs Temperature (97.8 F-99.1 F) 98.6 F Temperature Source Temporal Pulse Rate (60-100) 76 Pulse Location Monitor Respiratory Rate (12-18) 17 Respiratory rate source Observation Oxygen Delivery Method Blood Pressure (90/60-120/80) 177/87 H Blood Pressure Mean (mm Hg) 117 Source Monitor Position Sitting Blood Pressure Location Right Arm Comment Have you changed medications since your No last visit? Any new allergies or adverse reactions No Had a fall/change in ADL's that may No increase risk of falls Signs or symptoms of abuse and/or No neglect since last visit Have you been in the hospital since your No last visit? Has dressing in place as prescribed Yes Has compression in place as prescribed Yes Has offloadiing in place as prescribed Yes Experienced any changes in pain level or No management History Since Last Visit- (Skip if this is Patient's initial visit) Left Footwear Regular Shoe Right Footwear Surgical Shoe with pressure relief insole Pain Scale: 0-10 Numeric Is Patient Pain Free? Yes Lower Extremity Assessment/ Foot Assessment/ Toe Nail Assessment Right -Posterior Tibial Palpable -Dorsalis Pedis Palpable -Hair Growth on Legs -Hair Growth on Toes -Temperature of Extremity -Capillary Refill -Dependent Rubor -Blanched when Elevated -Thick -Discolored -Deformed -Improper Length & Hygeine Communication Assessment Preferred foreign languages department chair Required Able to Read Able to Write Communication Tools Caregiver Communication Skills Impairment Right Hearing Abillity Left Hearing Abillity Visual Assistive Devices Teaching Assessment Preferences Barriers to Learning Readiness To Learn Willingness to Engage in Self Management Activies Readiness to Engage in Self Management Activities Anxiety Level Cooperation Perception Interest in Health Problem Education Importance Does Patient Smoke tobacco or other substances Smoking Status Is Patient Diabetic Functional Assessment Recent Decline in Ability to Perform Culture/Restorationism/Internal Specialist Cultural/Restorationism Needs that may affect Treatment Plan Would you allow our hospital gas engineer to meet you for the purpose of spiritual/ emotional support? Internal Specialist to contact place of jew Teaching: Wound Center *Welcome to the Wound Center -Person Taught -Teaching Method -Response to teaching WC - Nurse 1 - General Ulcer Measurement Start: 01/04/22 14:03 Freq: Status: Active Protocol: Activity Type Activity Date Activity User E-Sign Co-Sign Detail Recorded Client Recorded Date Recorded By Document 01/04/22 14:04 JF [id number] 01/04/22 14:13 JF Document 01/11/22 13:18 DL [id number] 01/11/22 13:25 DL Document 01/15/22 13:07 [facility] [id number] 01/15/22 13:20 BMF Document 01/18/22 14:09 ML [id number] 01/18/22 14:24 ML 01/04/22 01/11/22 01/15/22 14:04 13:18 13:07 Wound Center Nurse 1 #6- R LAT FOOT -Combined with other wound No -Current Size (cm) - Length 1 -Current Size (cm) - Width 1 -Current Size (cm) - Depth 0.1 -Total Square Cm 1 -Date of Last Picture (Recall this 01/15/22 field) -Photo Taken Yes -Epithelialization None Present -Tunneling No -Undermining/Tunneling No -Circular Undermining No -Exudate Amt Small -Exudate Type Serosanguineous -Wound Margin Distinct, Outline Attached -Granulation Amt Small (1-33%) -Granulation Quality Red -Slough/Fibrin Yes -Necrosis Amt Large (67-100%) -Necrotic Tissue Type Adherent Slough -Structure Exposed -Texture (Aleyda-wound Skin Appearance) Assessed -Moisture (Aleyda-wound Skin Appearance) Assessed -Color (Aleyda-wound Skin Appearance) Assessed, Erythema -Temperature (Aleyda-wound Skin No Abnormality Appearance) (Pt Warm) -Tenderness on Palpation (Aleyda-wound Yes Skin Appearance) -Ulcer Cleansing Soap and Water -Foul Odor after Cleansing No -Anesthetic Used 4% Lidocaine Solution 5-right 1st methead foot -Combined with other wound No No -Current Size (cm) - Length 0.8 0.7 1.4 -Current Size (cm) - Width 0.6 0.7 1.4 -Current Size (cm) - Depth 0.2 0.2 0.1 -Total Square Cm 0.48 0.49 1.96 -Date of Last Picture (Recall this 01/15/22 field) -Photo Taken Yes No Yes -Epithelialization Small 1-33% None Present -Tunneling No No -Undermining/Tunneling No -Circular Undermining No No -Classification - Little Grading ( Grade 2 Diabetic Ulcer) -Exudate Amt Small Small Medium -Exudate Type Serosanguineous Serosanguineous -Wound Margin Flat & Intact Distinct, Distinct, Outline Outline Attached Attached -Granulation Amt Small (1-33%) Large (67-100%) None Present (0 %) -Granulation Quality Pale Pale,[place] -Slough/Fibrin Yes Yes -Necrosis Amt Medium (34-66%) Small (1-33%) Large (67-100%) -Necrotic Tissue Type Adherent Slough Adherent Slough Adherent Slough -Structure Exposed N/A N/A -Texture (Aleyda-wound Skin Appearance) Assessed,Callus Callus Assessed, Scarring -Moisture (Aleyda-wound Skin Appearance) Assessed,Dry/ Dry/Scaly Assessed, Scaly Maceration -Color (Aleyda-wound Skin Appearance) Assessed No Abnormality Assessed,Palor -Temperature (Aleyda-wound Skin No Abnormality No Abnormality Appearance) (Pt Warm) (Pt Warm) -Tenderness on Palpation (Aleyda-wound No No Skin Appearance) -Ulcer Cleansing Rinsed/ Soap and Water Soap and Water Irrigated with Saline -Foul Odor after Cleansing No No -Anesthetic Used 4% Lidocaine 5% Lidocaine 4% Lidocaine Solution Gel Solution Lower Limb Edema Present Yes Right Calf (cm) 39 Right Ankle (cm) 23 Left Calf (cm) 35.8 Left Ankle (cm) 22.2 01/18/22 14:09 Wound Center Nurse 1 #6- R LAT FOOT -Combined with other wound -Current Size (cm) - Length 1.2 -Current Size (cm) - Width 0.8 -Current Size (cm) - Depth 0.1 -Total Square Cm 0.96 -Date of Last Picture (Recall this field) -Photo Taken No -Epithelialization -Tunneling -Undermining/Tunneling -Circular Undermining -Exudate Amt Small -Exudate Type Serosanguineous -Wound Margin Distinct, Outline Attached -Granulation Amt Small (1-33%) -Granulation Quality Red -Slough/Fibrin -Necrosis Amt Small (1-33%) -Necrotic Tissue Type Adherent Slough -Structure Exposed N/A -Texture (Aleyda-wound Skin Appearance) Scarring -Moisture (Aleyda-wound Skin Appearance) No Abnormality -Color (Aleyda-wound Skin Appearance) No Abnormality -Temperature (Aleyda-wound Skin No Abnormality Appearance) (Pt Warm) -Tenderness on Palpation (Aleyda-wound No Skin Appearance) -Ulcer Cleansing Soap and Water -Foul Odor after Cleansing No -Anesthetic Used 4% Lidocaine Solution 5-right 1st methead foot -Combined with other wound -Current Size (cm) - Length 0.3 -Current Size (cm) - Width 0.4 -Current Size (cm) - Depth 0.1 -Total Square Cm 0.12 -Date of Last Picture (Recall this field) -Photo Taken No -Epithelialization -Tunneling -Undermining/Tunneling -Circular Undermining -Classification - Little Grading ( Diabetic Ulcer) -Exudate Amt Small -Exudate Type Serosanguineous -Wound Margin Distinct, Outline Attached -Granulation Amt Large (67-100%) -Granulation Quality -Slough/Fibrin -Necrosis Amt Small (1-33%) -Necrotic Tissue Type Adherent Slough -Structure Exposed -Texture (Aleyda-wound Skin Appearance) Callus -Moisture (Aleyda-wound Skin Appearance) Dry/Scaly -Color (Aleyda-wound Skin Appearance) No Abnormality -Temperature (Aleyda-wound Skin No Abnormality Appearance) (Pt Warm) -Tenderness on Palpation (Aleyda-wound No Skin Appearance) -Ulcer Cleansing Soap and Water -Foul Odor after Cleansing No -Anesthetic Used 4% Lidocaine Solution Lower Limb Edema Present Right Calf (cm) 36.5 Right Ankle (cm) 27 Left Calf (cm) Left Ankle (cm) WC - Nurse 2 - General Ulcer CM Notes Start: 01/04/22 14:03 Freq: Status: Active Protocol: Activity Type Activity Date Activity User E-Sign Co-Sign Detail Recorded Client Recorded Date Recorded By Document 01/04/22 14:37 MW [id number] 01/04/22 14:41 MW Document 01/11/22 13:46 MW [id number] 01/11/22 13:56 MW Edit Result 01/11/22 13:46 MW (1) [id number] 01/11/22 14:03 MW Document 01/15/22 13:28 JF [id number] 01/15/22 13:31 JF Edit Result 01/15/22 13:28 JF (2) [id number] 01/16/22 07:25 PL Document 01/18/22 14:51 MW [id number] 01/18/22 15:05 MW (1) 5-right 1st methead foot - Offloading No => Yes - Type of Offloading => Total Contact Cast => (TCC) - Right ($) (2) #6- R LAT FOOT - Type of Offloading => Total Contact Cast => (TCC) - Right ($) 01/04/22 01/11/22 01/15/22 14:37 13:46 13:28 Wound Center Nurse 2 #6- R LAT FOOT -Time -Correct Patient No -Correct Side, Site, Position No -Correct Procedure No -Procedure Performed No -Type of Procedure -Clinical Debridement -Tissue Removed -Post Debridement (cm) - Length -Post Debridement (cm) - Width -Post Debridement (cm) - Depth -Total Square (Post) (cm) -Area of Debridement (cm) - Length -Area of Debridement (cm) - Width -Total Square (Area) (cm) -Tunneling -Undermining/Tunneling -Circular Undermining -Wound/Ulcer Outcome Not Healed -Ulcer Cleansing -Foul Odor after Cleansing -Bioengineered Tissue -Bleeding Controlled with -Offloading -Type of Offloading Total Contact Cast (TCC) - Right ($) -Treatment Response -Debridement - Subq, 1st 20sq cm 5-right 1st methead foot -Time 14:37 13:46 -Correct Patient Yes Yes No -Correct Side, Site, Position Yes Yes No -Correct Procedure Yes Yes No -Procedure Performed Yes Yes No -Type of Procedure Debridement Debridement -Clinical Debridement Subcutaneous Subcutaneous -Tissue Removed Subcutaneous Subcutaneous -Post Debridement (cm) - Length 0.9 1.0 -Post Debridement (cm) - Width 1.4 1.1 -Post Debridement (cm) - Depth 0.1 0.2 -Total Square (Post) (cm) 1.26 1.10 -Area of Debridement (cm) - Length 0.9 1.0 -Area of Debridement (cm) - Width 1.4 1.1 -Total Square (Area) (cm) 1.26 1.10 -Tunneling No No -Undermining/Tunneling No No -Circular Undermining No No -Wound/Ulcer Outcome Not Healed Not Healed Not Healed -Ulcer Cleansing Rinsed/ Rinsed/ Irrigated with Irrigated with Saline Saline -Foul Odor after Cleansing No No -Bioengineered Tissue No Yes -Type of Bioengineered Tissue PuraPly AM -Expiration Date 10/24/23 -Product Lot Number [id number] -Percent Used 75 -Lot number of Saline Used [id number] -Bleeding Controlled with Pressure Pressure -Offloading No Yes -Type of Offloading Total Contact Cast (TCC) - Right ($) -Treatment Response Procedure Procedure Tolerated Well Tolerated Well -Debridement - Subq, 1st 20sq cm Yes No -Apply Skin Sub - 1st 25 sq cm - Feet 1 -PuraPly AM (per sq cm) 2 -PuraPly AM 16mm Disc (per sq cm) Pain Scale: 0-10 Numeric Is Patient Pain Free? Yes Yes Yes 01/18/22 14:51 Wound Center Nurse 2 #6- R LAT FOOT -Time 14:51 -Correct Patient Yes -Correct Side, Site, Position Yes -Correct Procedure Yes -Procedure Performed Yes -Type of Procedure Debridement -Clinical Debridement Subcutaneous -Tissue Removed Subcutaneous -Post Debridement (cm) - Length 1.0 -Post Debridement (cm) - Width 1.0 -Post Debridement (cm) - Depth 0.1 -Total Square (Post) (cm) 1.00 -Area of Debridement (cm) - Length 1.0 -Area of Debridement (cm) - Width 1.0 -Total Square (Area) (cm) 1.00 -Tunneling No -Undermining/Tunneling No -Circular Undermining No -Wound/Ulcer Outcome Not Healed -Ulcer Cleansing Rinsed/ Irrigated with Saline -Foul Odor after Cleansing No -Bioengineered Tissue No -Bleeding Controlled with Pressure -Offloading No -Type of Offloading -Treatment Response Procedure Tolerated Well -Debridement - Subq, 1st 20sq cm Yes 5-right 1st methead foot -Time 14:52 -Correct Patient Yes -Correct Side, Site, Position Yes -Correct Procedure Yes -Procedure Performed Yes -Type of Procedure Debridement -Clinical Debridement Subcutaneous -Tissue Removed Subcutaneous -Post Debridement (cm) - Length 0.6 -Post Debridement (cm) - Width 0.6 -Post Debridement (cm) - Depth 0.1 -Total Square (Post) (cm) 0.36 -Area of Debridement (cm) - Length 0.6 -Area of Debridement (cm) - Width 0.6 -Total Square (Area) (cm) 0.36 -Tunneling No -Undermining/Tunneling No -Circular Undermining No -Wound/Ulcer Outcome Not Healed -Ulcer Cleansing Rinsed/ Irrigated with Saline -Foul Odor after Cleansing No -Bioengineered Tissue Yes -Type of Bioengineered Tissue PuraPly AM Disc -Expiration Date 02/18/24 -Product Lot Number [id number] -Percent Used 50 -Lot number of Saline Used [id number] -Bleeding Controlled with Pressure -Offloading No -Type of Offloading -Treatment Response Procedure Tolerated Well -Debridement - Subq, 1st 20sq cm No -Apply Skin Sub - 1st 25 sq cm - Feet 1 -PuraPly AM (per sq cm) -PuraPly AM 16mm Disc (per sq cm) 2 Pain Scale: 0-10 Numeric Is Patient Pain Free? Yes - Nurse 3 - General Ulcer D/C NN Start: 01/04/22 14:03 Freq: Status: Active Protocol: Activity Type Activity Date Activity User E-Sign Co-Sign Detail Recorded Client Recorded Date Recorded By Document 01/04/22 14:50 JF [id number] 01/04/22 14:51 JF Document 01/18/22 15:36 AK [id number] 01/18/22 15:38 AK 01/04/22 01/18/22 14:50 15:36 Wound Care Nurse 3 #6- R LAT FOOT -Ulcer Cleansing Rinsed/ Irrigated with Saline -Primary Dressing Applied Aquacel Extra -Primary Dressing Covered/Secured with Dry Gauze, Secured with Tape -Aquacel Extra 1 5-right 1st methead foot -Ulcer Cleansing Rinsed/ Irrigated with Saline -Foul Odor after Cleansing No No -Negative Pressure Wound Therapy N/A -Primary Dressing Applied C Hydrogel ($), Aquacel AG 4x4 NonAdherent Contact Layer -Primary Dressing Covered/Secured with Dry Gauze, Dry Gauze & Secured with Roll Gauze, Tape Secured with Tape -Aquacel AG 4x4 0 Pain Scale: 0-10 Numeric Is Patient Pain Free? Yes Yes - Visit Discharge Discharge Condition Stable Stable Ambulatory Status Ambulatory, Wheelchair Wheelchair Transportation Private Auto Medication Reconcilliation completed & Yes Yes provided to patient/care provider Clinical Summary of Care Provided Yes Yes Assessment/Plan Assessment/Plan (1) Diabetic ulcer of left foot associated with type 2 diabetes mellitus: CODE(S): E11.621 - Type 2 diabetes mellitus with foot ulcer; L97.529 - Non-pressure chronic ulcer of other part of left foot with unspecified severity (2) Diabetes mellitus with neuropathy: CODE(S): E11.40 - Type 2 diabetes mellitus with diabetic neuropathy, unspecified QUALIFIERS: Diabetes mellitus type: type 2 (3) Ulcer of right foot with fat layer exposed: CODE(S): L97.512 - Non-pressure chronic ulcer of other part of right foot with fat layer exposed (4) Chronic ulcer of right foot with fat layer exposed: CODE(S): L97.512 - Non-pressure chronic ulcer of other part of right foot with fat layer exposed (5) Peripheral vascular disease: CODE(S): I73.9 - Peripheral vascular disease, unspecified PLAN: Debridement performed today in clinic as annotated above. Second application of purapply am, 1.6 cm disc utilized today with 50% wastage due to product availability and center policy, this was covered with wound veil and secured with Steri-Strips and a thin layer of hydrogel was applied afterwards. Aquacel extra applied to the new right lateral foot wound which can be changed daily.. At home wound-care instructions: Plan as above Compression: Double layer Tubigrip's Off-loading: The patient was instructed to avoid pressure and friction on the affected areas. Reposition every 2 hours at minimum. Avoid prolonged standing and/or dangling of legs. When seated, feet should be elevated at chest level. Frequent ambulation is encouraged. Diet: Patient encouraged to increase protein intake while taking caution to avoid high carbohydrate and/or sugar intake. Patient is a non-smoker Labs/cultures/imaging: Cultures ordered and collected last week and showed Enterobacter cloacae which is likely a skin contaminant. Routine baseline lab work held, will reassess if no improvement. Vascular studies held, if no improvement will consider ordering. Follow-up: Return to clinic in 1 week for re-evaluation. Return sooner or report to the emergency room should symptoms worsen, or new symptoms arise. This note was generated with [employer] dictation software. It may contain incorrect words, spelling, and punctuation that were not noted in checking the note before signing. I have spent 35 minutes today reviewing labs, records, and history. Time includes coordinating care, interpretation of tests, and counseling the patient/family. This also includes time I spent with the patient for exam, treatment plan, and education as well as documenting clinical information in the electronic health record.
== END 2022-01-22 23:59 | disposition home or self-care (01) ==
LOC: WC 14:00
PROVIDERS: PCP Family Medicine Geriatric Medicine; Visit Provider Nurse Practitioner Family
DX: E11.621 Type 2 diabetes mellitus with foot ulcer (principal); E11.51 Type 2 diabetes mellitus with diabetic peripheral angiopathy without gangrene; L97.512 Non-pressure chronic ulcer of other part of right foot with fat layer exposed; J44.9 Chronic obstructive pulmonary disease, unspecified; E11.40 Type 2 diabetes mellitus with diabetic neuropathy, unspecified; M48.061 Spinal stenosis, lumbar region without neurogenic claudication; E78.5 Hyperlipidemia, unspecified; I10 Essential (primary) hypertension; Z87.891 Personal history of nicotine dependence; G47.33 Obstructive sleep apnea (adult) (pediatric)
CPT/HCPCS: 11042; 15275; 29445; 87070; 87075; 87077; 87186; 87205; 99213; Q4196; G0463

== ENCOUNTER 2022-02-22 15:00 | Outpatient (RCR) | payer MEDICARE, MEDICAID, SELFPAY ==
[2022-01-23 00:10] VITALS: BP 177/87; PULSE 76; RESP 17; TEMP 37; BMI 31.5
[2022-01-25 14:50] VITALS: BP 156/84; RESP 19; TEMP 36.4; BMI 31.5
--- NOTE | 2022-01-25 17:07 | PCM.WC.PN ---
History of Present Illness Date of Service: 01/25/22 Chief Complaint: Right foot ulcer History of Wound: Patient is a 56-year-old male who presents with a non-healing ulcer to his right first metatarsal head. He has a past medical history including type 2 diabetes mellitus, SANTHOSH, chronic back pain, history of falls, history of amputation, history of opioid dependence, HLD, lumbar and cervical spinal stenosis, COPD, and hypertension. The patient states the wound first presented approximately 2 months ago, and he saw Dr. Villalba approximately 1 month ago who recommended a wound care referral and also a TCC. He lives at [facility] where he receives wound care from the nursing staff who are currently applying hydrogel to the wound daily and covering with gauze as ordered by Dr. Villlaba. The patient denies any signs or symptoms of systemic or local infection, is a former smoker having quit several years ago, and states his right great toe was amputated years ago after a non-healing wound became infected with osteomyelitis. The patient had routine labs drawn in November 2021 but has not had a hemoglobin A1c drawn since June 2021 at which time it was 7.1. He denies any acute concerns at this time. Past medical, family, and social history reviewed and not pertinent to the current visit and all other systems reviewed and negative with exception of those listed above. Progress of Wound: Stable?no new concerns, the patient's wound to his first metatarsal head has basically healed and is only 0.1 cm with 2 applications of purapply a.m., newer wound to his right lateral foot is improving in size, no obvious infection at this time Objective Data Objective Data Vital Signs: Vital Signs Temp Pulse Resp BP 97.6 F L 76 19 H 156/84 H 01/25/22 14:50 01/23/22 00:10 01/25/22 14:50 01/25/22 14:50 Weight: 220 lb Body Mass Index (BMI) 31.5 Charges/Coding Procedures Integumentary 111xxx-113xx: [id number] Lori subq tissue 20 sq cm/< Physical Exam Const alert and oriented x3 HEENT normocephalic Resp normal respiratory effort and clear to auscultation bilaterally Cardio regular rate and regular rhythm GI normal to inspection, nondistended, normoactive bowel sounds and non-tender Palpation: soft Extremity normal capillary refill Skin Wound Narrative: Right first metatarsal head ulcer basically healed, .1cm , no redness or streaking. New ulcer on right lateral dorsal foot is pink, superficial without any signs of infection Neuro CN's II-XII intact bilaterally Debridement Note Debridement Note Wound debrided: Right first metatarsal head ulcer DFU and right lateral foot ulcer Laterality: Right Type of Debridement: Excisional debridement Anesthesia Used: 5% Lidocaine Gel Depth: Down to and including healthy tissue and in the subcutaneous layer Percentage of wound debrided: 100 Instrument Used: 3mm curette Tissue Removed: Slough and devitalized tissue Severity: Fat Layer Exposed Amount of bleeding with debridement: Mild Bleeding Controlled with: Pressure Patient tolerated procedure: Patient tolerated procedure well Post-Debridement Measurements and Additional Note: Post-Debridement Measurements/Treatment - Nurse 1 - General Ulcer Assessment Start: 01/25/22 14:49 Freq: Status: Active Protocol: COSTA.LOWEXT Activity Type Activity Date Activity User E-Sign Co-Sign Detail Recorded Client Recorded Date Recorded By Document 01/25/22 14:50 ML [id number] 01/25/22 14:58 ML 01/25/22 14:50 - Today's Visit Information Type of service Follow-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 ) Arrival Mode Wheelchair Transfer Assistance None Patient Identification Verified (Name & Yes ) Patient Requires Transmission-Based No Precautions Safety Precautions NA Height and Weight Body Mass Index (BMI) 31.5 BMI Classification Obese Vital Signs Temperature (97.8 F-99.1 F) 97.6 F L Temperature Source Temporal Respiratory Rate (12-18) 19 H Respiratory rate source Observation Blood Pressure (90/60-120/80) 156/84 H Blood Pressure Mean (mm Hg) 108 Source Monitor Position Sitting Blood Pressure Location Left Arm History Since Last Visit- (Skip if this is Patient's initial visit) Have you changed medications since your No last visit? Any new allergies or adverse reactions No Had a fall/change in ADL's that may No increase risk of falls Signs or symptoms of abuse and/or No neglect since last visit Have you been in the hospital since your No last visit? Has dressing in place as prescribed Yes Has compression in place as prescribed No Has offloadiing in place as prescribed Yes Experienced any changes in pain level or No management Left Footwear Surgical Shoe with pressure relief insole Right Footwear Diabetic Shoe Pain Scale: 0-10 Numeric Is Patient Pain Free? Yes WC - Nurse 1 - General Ulcer Measurement Start: 01/25/22 14:49 Freq: Status: Active Protocol: Activity Type Activity Date Activity User E-Sign Co-Sign Detail Recorded Client Recorded Date Recorded By Document 01/25/22 14:50 ML [id number] 01/25/22 14:58 ML 01/25/22 14:50 Wound Center Nurse 1 #6- R LAT FOOT -Current Size (cm) - Length 1 -Current Size (cm) - Width 0.5 -Current Size (cm) - Depth 0.1 -Total Square Cm 0.5 -Exudate Amt None Present -Wound Margin Distinct, Outline Attached -Granulation Amt Small (1-33%) -Necrosis Amt Small (1-33%) -Texture (Aleyda-wound Skin Appearance) Assessed -Moisture (Aleyda-wound Skin Appearance) Assessed,Dry/ Scaly -Color (Aleyda-wound Skin Appearance) Assessed -Temperature (Aleyda-wound Skin No Abnormality Appearance) (Pt Warm) -Tenderness on Palpation (Aleyda-wound No Skin Appearance) -Ulcer Cleansing Rinsed/ Irrigated with Saline -Foul Odor after Cleansing No -Anesthetic Used 5% Lidocaine Gel 5-right 1st methead foot -Current Size (cm) - Length 0.4 -Current Size (cm) - Width 0.5 -Current Size (cm) - Depth 0.2 -Total Square Cm 0.20 -Wound Margin Distinct, Outline Attached -Granulation Amt Small (1-33%) -Granulation Quality Pale -Slough/Fibrin No -Necrosis Amt None Present (0 %) -Texture (Aleyda-wound Skin Appearance) Assessed -Moisture (Aleyda-wound Skin Appearance) Assessed,Dry/ Scaly -Color (Aleyda-wound Skin Appearance) Assessed -Temperature (Aleyda-wound Skin No Abnormality Appearance) (Pt Warm) -Tenderness on Palpation (Aleyda-wound No Skin Appearance) -Ulcer Cleansing Rinsed/ Irrigated with Saline -Foul Odor after Cleansing No -Anesthetic Used 5% Lidocaine Gel COSTA - Nurse 2 - General Ulcer CM Notes Start: 01/25/22 14:49 Freq: Status: Active Protocol: Activity Type Activity Date Activity User E-Sign Co-Sign Detail Recorded Client Recorded Date Recorded By Document 03/03/22 15:13 MW [id number] 01/25/22 15:16 MW 01/25/22 15:13 Wound Center Nurse 2 #6- R LAT FOOT -Time 15:13 -Correct Patient Yes -Correct Side, Site, Position Yes -Correct Procedure Yes -Procedure Performed Yes -Type of Procedure Debridement -Clinical Debridement Subcutaneous -Tissue Removed Subcutaneous -Post Debridement (cm) - Length 0.8 -Post Debridement (cm) - Width 0.6 -Post Debridement (cm) - Depth 0.1 -Total Square (Post) (cm) 0.48 -Area of Debridement (cm) - Length 0.8 -Area of Debridement (cm) - Width 0.6 -Total Square (Area) (cm) 0.48 -Tunneling No -Undermining/Tunneling No -Circular Undermining No -Wound/Ulcer Outcome Not Healed -Ulcer Cleansing Rinsed/ Irrigated with Saline -Foul Odor after Cleansing No -Bioengineered Tissue No -Bleeding Controlled with Pressure -Offloading No -Treatment Response Procedure Tolerated Well -Debridement - Subq, 1st 20sq cm Yes 5-right 1st methead foot -Time 15:14 -Correct Patient Yes -Correct Side, Site, Position Yes -Correct Procedure Yes -Procedure Performed No -Post Debridement (cm) - Length 0.1 -Post Debridement (cm) - Width 0.1 -Post Debridement (cm) - Depth 0.1 -Total Square (Post) (cm) 0.01 -Area of Debridement (cm) - Length 0.1 -Area of Debridement (cm) - Width 0.1 -Total Square (Area) (cm) 0.01 -Tunneling No -Undermining/Tunneling No -Circular Undermining No -Wound/Ulcer Outcome Not Healed -Ulcer Cleansing Rinsed/ Irrigated with Saline -Foul Odor after Cleansing No -Bioengineered Tissue No -Bleeding Controlled with Pressure -Offloading No -Treatment Response Procedure Tolerated Well Pain Scale: 0-10 Numeric Is Patient Pain Free? Yes WC - Nurse 3 - General Ulcer D/C NN Start: 01/25/22 14:49 Freq: Status: Active Protocol: Activity Type Activity Date Activity User E-Sign Co-Sign Detail Recorded Client Recorded Date Recorded By Document 01/25/22 15:35 DL [id number] 01/25/22 15:37 DL 01/25/22 15:35 Wound Care Nurse 3 #6- R LAT FOOT -Ulcer Cleansing Rinsed/ Irrigated with Saline -Foul Odor after Cleansing No -Primary Dressing Applied NonAdherent Contact Layer, Promogran Robert Matter -Primary Dressing Covered/Secured with Dry Gauze & Roll Gauze, Secured with Tape -Promogran Robert Matter 1 5-right 1st methead foot -Ulcer Cleansing Rinsed/ Irrigated with Saline -Foul Odor after Cleansing No -Primary Dressing Applied NonAdherent Contact Layer -Other Dressing robert -Primary Dressing Covered/Secured with Dry Gauze & Roll Gauze, Secured with Tape Treatment Response Procedure Tolerated Well Pain Scale: 0-10 Numeric Is Patient Pain Free? Yes WC - Visit Discharge Discharge Condition Stable Ambulatory Status Wheelchair Transportation [facility] Type Release Engineer Care Facility Orders Sent Yes Assessment/Plan Assessment/Plan (1) Diabetic ulcer of left foot associated with type 2 diabetes mellitus: CODE(S): E11.621 - Type 2 diabetes mellitus with foot ulcer; L97.529 - Non-pressure chronic ulcer of other part of left foot with unspecified severity (2) Diabetes mellitus with neuropathy: CODE(S): E11.40 - Type 2 diabetes mellitus with diabetic neuropathy, unspecified QUALIFIERS: Diabetes mellitus type: type 2 (3) Ulcer of right foot with fat layer exposed: CODE(S): L97.512 - Non-pressure chronic ulcer of other part of right foot with fat layer exposed (4) Chronic ulcer of right foot with fat layer exposed: CODE(S): L97.512 - Non-pressure chronic ulcer of other part of right foot with fat layer exposed (5) Peripheral vascular disease: CODE(S): I73.9 - Peripheral vascular disease, unspecified PLAN: Debridement performed today in clinic as annotated above. Robert cover with Adaptic and gauze to all wounds which can be changed daily.. At home wound-care instructions: Plan as above Compression: Double layer Tubigrip's Off-loading: The patient was instructed to avoid pressure and friction on the affected areas. Reposition every 2 hours at minimum. Avoid prolonged standing and/or dangling of legs. When seated, feet should be elevated at chest level. Frequent ambulation is encouraged. Diet: Patient encouraged to increase protein intake while taking caution to avoid high carbohydrate and/or sugar intake. Patient is a non-smoker Labs/cultures/imaging: Cultures ordered and collected previously and showed Enterobacter cloacae which is likely a skin contaminant. Routine baseline lab work held, will reassess if no improvement. Vascular studies held, if no improvement will consider ordering. Follow-up: Return to clinic in 1 week for re-evaluation. Return sooner or report to the emergency room should symptoms worsen, or new symptoms arise. This note was generated with [employer] dictation software. It may contain incorrect words, spelling, and punctuation that were not noted in checking the note before signing. I have spent 25 minutes today reviewing labs, records, and history. Time includes coordinating care, interpretation of tests, and counseling the patient/family. This also includes time I spent with the patient for exam, treatment plan, and education as well as documenting clinical information in the electronic health record.
[2022-02-01 13:59] VITALS: BP 173/69; PULSE 74; RESP 18; TEMP 35.7; BMI 31.5
--- NOTE | 2022-02-01 20:23 | PN.PCM_ITS ---
History of Present Illness Date of Service: 02/01/22 Chief Complaint: Right foot ulcer History of Wound: Patient is a 56-year-old male who presents with a non-healing ulcer to his right first metatarsal head. He has a past medical history including type 2 diabetes mellitus, SANTHOSH, chronic back pain, history of falls, history of amputation, history of opioid dependence, HLD, lumbar and cervical spinal stenosis, COPD, and hypertension. The patient states the wound first presented approximately 2 months ago, and he saw Dr. Villalba approximately 1 month ago who recommended a wound care referral and also a TCC. He lives at [facility] where he receives wound care from the nursing staff who are currently applying hydrogel to the wound daily and covering with gauze as ordered by Dr. Villalba. The patient denies any signs or symptoms of systemic or local infection, is a former smoker having quit several years ago, and states his right great toe was amputated years ago after a non-healing wound became infected with osteomyelitis. The patient had routine labs drawn in November 2021 but has not had a hemoglobin A1c drawn since June 2021 at which time it was 7.1. He denies any acute concerns at this time. Past medical, family, and social history reviewed and not pertinent to the current visit and all other systems reviewed and negative with exception of those listed above. Progress of Wound: Stable?no new concerns, the patient's wound to his first metatarsal head has deteriorated, will apply his third product application and first nushield application today, newer wound to his right lateral foot is improving in size with Aquacel, no obvious infection at this time Objective Data Objective Data Vital Signs: Vital Signs Temp Pulse Resp BP 96.2 F L 74 18 173/69 H 02/01/22 13:59 02/01/22 13:59 02/01/22 13:59 02/01/22 13:59 Weight: 220 lb Body Mass Index (BMI) 31.5 Charges/Coding Procedures Integumentary 150xxx-152xx: 39642 Skin sub graft face/nk/hf/g Physical Exam Const alert and oriented x3 HEENT normocephalic Resp normal respiratory effort and clear to auscultation bilaterally Cardio regular rate and regular rhythm GI normal to inspection, nondistended, normoactive bowel sounds and non-tender Palpation: soft Extremity normal capillary refill Skin Wound Narrative: Right first metatarsal head ulcer with a granular wound bed, no redness or streaking. New ulcer on right lateral dorsal foot is pink, superficial without any signs of infection Neuro CN's II-XII intact bilaterally Debridement Note Debridement Note Wound debrided: Right first metatarsal head ulcer and right lateral foot ulcer Laterality: Right Wound Grade/Stage: Little 2 Type of Debridement: Excisional debridement Anesthesia Used: 5% Lidocaine Gel Depth: Down to and including healthy tissue and in the subcutaneous layer Percentage of wound debrided: 100 Instrument Used: 3mm curette and #12 blade Tissue Removed: Slough and devitalized tissue Severity: Fat Layer Exposed Amount of bleeding with debridement: Mild Bleeding Controlled with: Pressure Patient tolerated procedure: Patient tolerated procedure well Post-Debridement Measurements and Additional Note: Post-Debridement Measurements/Treatment - Nurse 1 - General Ulcer Assessment Start: 01/25/22 14:49 Freq: Status: Active Protocol: KAYLA Activity Type Activity Date Activity User E-Sign Co-Sign Detail Recorded Client Recorded Date Recorded By Document 01/25/22 14:50 ML [id number] 01/25/22 14:58 ML Document 02/01/22 13:59 AK [id number] 02/01/22 14:02 AK 01/25/22 02/01/22 14:50 13:59 - Today's Visit Information Type of service Follow-up Visit Follow-up Visit (Physician/DRY CHAIN OPERATOR (Physician/DRY CHAIN OPERATOR ) ) Arrival Mode Wheelchair Wheelchair Transfer Assistance None None Patient Identification Verified (Name & Yes Yes ) Patient Requires Transmission-Based No No Precautions Safety Precautions NA NA Height and Weight Body Mass Index (BMI) 31.5 31.5 BMI Classification Obese Obese Vital Signs Temperature (97.8 F-99.1 F) 97.6 F L 96.2 F L Temperature Source Temporal Temporal Pulse Rate (60-100) 74 Pulse Location Monitor Respiratory Rate (12-18) 19 H 18 Respiratory rate source Observation Observation Blood Pressure (90/60-120/80) 156/84 H 173/69 H Blood Pressure Mean (mm Hg) 108 103 Source Monitor Monitor Position Sitting Sitting Blood Pressure Location Left Arm Left Arm History Since Last Visit- (Skip if this is Patient's initial visit) Have you changed medications since your No No last visit? Any new allergies or adverse reactions No No Had a fall/change in ADL's that may No No increase risk of falls Signs or symptoms of abuse and/or No No neglect since last visit Have you been in the hospital since your No No last visit? Has dressing in place as prescribed Yes No Has compression in place as prescribed No N/A Has offloadiing in place as prescribed Yes N/A Experienced any changes in pain level or No No management Left Footwear Surgical Shoe Surgical Shoe with pressure with pressure relief insole relief insole Right Footwear Diabetic Shoe Diabetic Shoe Pain Scale: 0-10 Numeric Is Patient Pain Free? Yes Yes WC - Nurse 1 - General Ulcer Measurement Start: 01/25/22 14:49 Freq: Status: Active Protocol: Activity Type Activity Date Activity User E-Sign Co-Sign Detail Recorded Client Recorded Date Recorded By Document 01/25/22 14:50 ML [id number] 01/25/22 14:58 ML Document 02/01/22 13:59 AK [id number] 02/01/22 14:02 AK 01/25/22 02/01/22 14:50 13:59 Wound Center Nurse 1 #6- R LAT FOOT -Current Size (cm) - Length 1 0.5 -Current Size (cm) - Width 0.5 0.6 -Current Size (cm) - Depth 0.1 0.2 -Total Square Cm 0.5 0.30 -Exudate Amt None Present Small -Exudate Type Serosanguineous -Wound Margin Distinct, Distinct, Outline Outline Attached Attached -Granulation Amt Small (1-33%) Large (67-100%) -Slough/Fibrin Yes -Necrosis Amt Small (1-33%) Medium (34-66%) -Necrotic Tissue Type Adherent Slough -Texture (Aleyda-wound Skin Appearance) Assessed Assessed -Moisture (Aleyda-wound Skin Appearance) Assessed,Dry/ Assessed,Dry/ Scaly Scaly -Color (Aleyda-wound Skin Appearance) Assessed Assessed -Temperature (Aleyda-wound Skin No Abnormality No Abnormality Appearance) (Pt Warm) (Pt Warm) -Tenderness on Palpation (Aleyda-wound No No Skin Appearance) -Ulcer Cleansing Rinsed/ Rinsed/ Irrigated with Irrigated with Saline Saline -Foul Odor after Cleansing No No -Anesthetic Used 5% Lidocaine 4% Lidocaine Gel Solution 5-right 1st methead foot -Current Size (cm) - Length 0.4 0.5 -Current Size (cm) - Width 0.5 0.5 -Current Size (cm) - Depth 0.2 0.1 -Total Square Cm 0.20 0.25 -Epithelialization Small 1-33% -Exudate Amt Small -Exudate Type Serosanguineous -Wound Margin Distinct, Distinct, Outline Outline Attached Attached -Granulation Amt Small (1-33%) Medium (34-66%) -Granulation Quality Pale -Slough/Fibrin No Yes -Necrosis Amt None Present (0 Medium (34-66%) %) -Necrotic Tissue Type Adherent Slough -Texture (Aleyda-wound Skin Appearance) Assessed Assessed -Moisture (Aleyda-wound Skin Appearance) Assessed,Dry/ Dry/Scaly Scaly -Color (Aleyda-wound Skin Appearance) Assessed Assessed -Temperature (Aleyda-wound Skin No Abnormality No Abnormality Appearance) (Pt Warm) (Pt Warm) -Tenderness on Palpation (Aleyda-wound No No Skin Appearance) -Ulcer Cleansing Rinsed/ Rinsed/ Irrigated with Irrigated with Saline Saline -Foul Odor after Cleansing No No -Anesthetic Used 5% Lidocaine 4% Lidocaine Gel Solution WC - Nurse 2 - General Ulcer CM Notes Start: 01/25/22 14:49 Freq: Status: Active Protocol: Activity Type Activity Date Activity User E-Sign Co-Sign Detail Recorded Client Recorded Date Recorded By Document 01/25/22 15:13 MW [id number] 01/25/22 15:16 MW Document 02/01/22 14:10 MW [id number] 02/01/22 14:26 MW 01/25/22 02/01/22 15:13 14:10 Wound Center Nurse 2 #6- R LAT FOOT -Time 15:13 14:11 -Correct Patient Yes Yes -Correct Side, Site, Position Yes Yes -Correct Procedure Yes Yes -Procedure Performed Yes Yes -Type of Procedure Debridement Debridement -Clinical Debridement Subcutaneous Subcutaneous -Tissue Removed Subcutaneous Subcutaneous -Post Debridement (cm) - Length 0.8 0.7 -Post Debridement (cm) - Width 0.6 0.7 -Post Debridement (cm) - Depth 0.1 0.1 -Total Square (Post) (cm) 0.48 0.49 -Area of Debridement (cm) - Length 0.8 0.7 -Area of Debridement (cm) - Width 0.6 0.7 -Total Square (Area) (cm) 0.48 0.49 -Tunneling No No -Undermining/Tunneling No No -Circular Undermining No No -Wound/Ulcer Outcome Not Healed Not Healed -Ulcer Cleansing Rinsed/ Rinsed/ Irrigated with Irrigated with Saline Saline -Foul Odor after Cleansing No No -Bioengineered Tissue No No -Bleeding Controlled with Pressure Pressure -Offloading No No -Treatment Response Procedure Procedure Tolerated Well Tolerated Well -Debridement - Subq, 1st 20sq cm Yes Yes 5-right 1st methead foot -Time 15:14 14:11 -Correct Patient Yes Yes -Correct Side, Site, Position Yes Yes -Correct Procedure Yes Yes -Procedure Performed No Yes -Type of Procedure Debridement -Clinical Debridement Subcutaneous -Tissue Removed Subcutaneous -Post Debridement (cm) - Length 0.1 0.6 -Post Debridement (cm) - Width 0.1 0.5 -Post Debridement (cm) - Depth 0.1 0.2 -Total Square (Post) (cm) 0.01 0.30 -Area of Debridement (cm) - Length 0.1 0.6 -Area of Debridement (cm) - Width 0.1 0.5 -Total Square (Area) (cm) 0.01 0.30 -Tunneling No No -Undermining/Tunneling No No -Circular Undermining No No -Wound/Ulcer Outcome Not Healed Not Healed -Ulcer Cleansing Rinsed/ Rinsed/ Irrigated with Irrigated with Saline Saline -Foul Odor after Cleansing No No -Bioengineered Tissue No Yes -Type of Bioengineered Tissue NuShield Disc -Expiration Date 06/26/26 -Product Lot Number [id number] -Percent Used 50 -Lot number of Saline Used [id number] -Bleeding Controlled with Pressure Pressure -Offloading No No -Treatment Response Procedure Procedure Tolerated Well Tolerated Well -Debridement - Subq, 1st 20sq cm No -Apply Skin Sub - 1st 25 sq cm - Legs 1 -NuShield 16mm Disc 2 Pain Scale: 0-10 Numeric Is Patient Pain Free? Yes Yes WC - Nurse 3 - General Ulcer D/C NN Start: 01/25/22 14:49 Freq: Status: Active Protocol: Activity Type Activity Date Activity User E-Sign Co-Sign Detail Recorded Client Recorded Date Recorded By Document 01/25/22 15:35 DL [id number] 01/25/22 15:37 DL Document 02/01/22 14:34 AK [id number] 02/01/22 14:35 AK 01/25/22 02/01/22 15:35 14:34 Wound Care Nurse 3 #6- R LAT FOOT -Ulcer Cleansing Rinsed/ Rinsed/ Irrigated with Irrigated with Saline Saline -Foul Odor after Cleansing No No -Negative Pressure Wound Therapy N/A -Primary Dressing Applied NonAdherent Aquacel Extra, Contact Layer, Mepilex Border Promogran Robert Matter -Primary Dressing Covered/Secured with Dry Gauze & Roll Gauze, Secured with Tape -Aquacel Extra 1 -Mepilex Border 2 -Promogran Robert Matter 1 5-right 1st methead foot -Ulcer Cleansing Rinsed/ Rinsed/ Irrigated with Irrigated with Saline Saline -Foul Odor after Cleansing No No -Negative Pressure Wound Therapy N/A -Primary Dressing Applied NonAdherent Aquacel Extra, Contact Layer Mepilex Border -Other Dressing robert -Primary Dressing Covered/Secured with Dry Gauze & Roll Gauze, Secured with Tape -Aquacel Extra 0 -Mepilex Border 0 Treatment Response Procedure Tolerated Well Pain Scale: 0-10 Numeric Is Patient Pain Free? Yes Yes WC - Visit Discharge Discharge Condition Stable Stable Ambulatory Status Wheelchair Wheelchair Transportation [facility] Medication Reconcilliation completed & Yes provided to patient/care provider Clinical Summary of Care Provided Yes Facility Type [facility] Orders Sent Yes Assessment/Plan Assessment/Plan (1) Diabetic ulcer of left foot associated with type 2 diabetes mellitus: CODE(S): E11.621 - Type 2 diabetes mellitus with foot ulcer; L97.529 - Non-pressure chronic ulcer of other part of left foot with unspecified severity (2) Diabetes mellitus with neuropathy: CODE(S): E11.40 - Type 2 diabetes mellitus with diabetic neuropathy, unspecified QUALIFIERS: Diabetes mellitus type: type 2 (3) Ulcer of right foot with fat layer exposed: CODE(S): L97.512 - Non-pressure chronic ulcer of other part of right foot with fat layer exposed (4) Chronic ulcer of right foot with fat layer exposed: CODE(S): L97.512 - Non-pressure chronic ulcer of other part of right foot with fat layer exposed (5) Peripheral vascular disease: CODE(S): I73.9 - Peripheral vascular disease, unspecified PLAN: Debridement performed today in clinic as annotated above. Third product application and first nushield application applied today, a 1.6 cm disc was utilized and 50% was wasted. This was covered with a wound veil moistened with hydrogel and secured with Steri-Strips. Instructed to keep this in place for a week. Aquacel daily dressing changes to the right lateral foot. At home wound-care instructions: Plan as above Compression: Double layer Tubigrip's Off-loading: The patient was instructed to avoid pressure and friction on the affected areas. Reposition every 2 hours at minimum. Avoid prolonged standing and/or dangling of legs. When seated, feet should be elevated at chest level. Frequent ambulation is encouraged. Diet: Patient encouraged to increase protein intake while taking caution to avoid high carbohydrate and/or sugar intake. Patient is a non-smoker Labs/cultures/imaging: Cultures ordered and collected previously and showed Enterobacter cloacae which is likely a skin contaminant. Routine baseline lab work held, will reassess if no improvement. Vascular studies held, if no improvement will consider ordering. Follow-up: Return to clinic in 1 week for re-evaluation. Return sooner or report to the emergency room should symptoms worsen, or new symptoms arise. This note was generated with [employer] dictation software. It may contain incorrect words, spelling, and punctuation that were not noted in checking the note before signing. I have spent 25 minutes today reviewing labs, records, and history. Time includes coordinating care, interpretation of tests, and counseling the patient/family. This also includes time I spent with the patient for exam, treatment plan, and education as well as documenting clinical information in the electronic health record.
[2022-02-08 14:46] VITALS: BP 146/88; PULSE 85; RESP 20; TEMP 36.3; BMI 31.5
--- NOTE | 2022-02-08 22:50 | PCM.WC.PN ---
History of Present Illness Date of Service: 02/08/22 Chief Complaint: Right foot ulcer History of Wound: Patient is a 56-year-old male who presents with a non-healing ulcer to his right first metatarsal head. He has a past medical history including type 2 diabetes mellitus, SANTHOSH, chronic back pain, history of falls, history of amputation, history of opioid dependence, HLD, lumbar and cervical spinal stenosis, COPD, and hypertension. The patient states the wound first presented approximately 2 months ago, and he saw Dr. Villalba approximately 1 month ago who recommended a wound care referral and also a TCC. He lives at [facility] where he receives wound care from the nursing staff who are currently applying hydrogel to the wound daily and covering with gauze as ordered by Dr. Villalba. The patient denies any signs or symptoms of systemic or local infection, is a former smoker having quit several years ago, and states his right great toe was amputated years ago after a non-healing wound became infected with osteomyelitis. The patient had routine labs drawn in November 2021 but has not had a hemoglobin A1c drawn since June 2021 at which time it was 7.1. He denies any acute concerns at this time. Past medical, family, and social history reviewed and not pertinent to the current visit and all other systems reviewed and negative with exception of those listed above. Progress of Wound: Stable?no new concerns, the patient's wound to his first metatarsal head is stable, will apply his for product application and second nushield application today, newer wound to his right lateral foot is improving in size with Aquacel, no obvious infection at this time Objective Data Objective Data Vital Signs: Vital Signs Temp Pulse Resp BP 97.4 F L 85 20 H 146/88 H 02/08/22 14:46 02/08/22 14:46 02/08/22 14:46 02/08/22 14:46 Weight: 220 lb Body Mass Index (BMI) 31.5 Lab / Micro Data Micro: Microbiology 02/08/22 15:20 Wound Abcess - Right Foot Gram Stain - Final Charges/Coding Procedures Integumentary 150xxx-152xx: 12684 Skin sub graft face/nk/hf/g Physical Exam Const alert and oriented x3 HEENT normocephalic Resp normal respiratory effort and clear to auscultation bilaterally Cardio regular rate and regular rhythm GI normal to inspection, nondistended, normoactive bowel sounds and non-tender Palpation: soft Extremity normal capillary refill Skin Wound Narrative: Right first metatarsal head ulcer with a granular wound bed, no redness or streaking. New ulcer on right lateral dorsal foot is pink, superficial without any signs of infection Neuro CN's II-XII intact bilaterally Debridement Note Debridement Note Wound debrided: Right first metatarsal head ulcer and right lateral foot ulcer Laterality: Right Type of Debridement: Excisional debridement Anesthesia Used: 4% Lidocaine Solution and 5% Lidocaine Gel Depth: Down to and including healthy tissue and in the subcutaneous layer Percentage of wound debrided: 100 Instrument Used: 3mm curette Tissue Removed: Slough and devitalized tissue Severity: Limited To Skin Breakdown Amount of bleeding with debridement: Mild Bleeding Controlled with: Pressure Patient tolerated procedure: Patient tolerated procedure well Post-Debridement Measurements and Additional Note: Post-Debridement Measurements/Treatment WC - Nurse 1 - General Ulcer Assessment Start: 01/25/22 14:49 Freq: Status: Active Protocol: KAYLA Activity Type Activity Date Activity User E-Sign Co-Sign Detail Recorded Client Recorded Date Recorded By Document 01/25/22 14:50 ML [id number] 01/25/22 14:58 ML Document 02/01/22 13:59 AK [id number] 02/01/22 14:02 AK Document 02/08/22 14:46 DL [id number] 02/08/22 14:58 DL 01/25/22 02/01/22 02/08/22 14:50 13:59 14:46 - Today's Visit Information Type of service Follow-up Visit Follow-up Visit Follow-up Visit (Physician/TRACK MAINTAINER (Physician/TRACK MAINTAINER (Physician/TRACK MAINTAINER ) ) ) Arrival Mode Wheelchair Wheelchair Wheelchair Transfer Assistance None None None Patient Identification Verified (Name & Yes Yes Yes ) Patient Requires Transmission-Based No No No Precautions Safety Precautions NA NA NA Height and Weight Body Mass Index (BMI) 31.5 31.5 31.5 BMI Classification Obese Obese Obese Vital Signs Temperature (97.8 F-99.1 F) 97.6 F L 96.2 F L 97.4 F L Temperature Source Temporal Temporal Temporal Pulse Rate (60-100) 74 85 Pulse Location Monitor Monitor Respiratory Rate (12-18) 19 H 18 20 H Respiratory rate source Observation Observation Observation Blood Pressure (90/60-120/80) 156/84 H 173/69 H 146/88 H Blood Pressure Mean (mm Hg) 108 103 107 Source Monitor Monitor Monitor Position Sitting Sitting Sitting Blood Pressure Location Left Arm Left Arm Right Arm History Since Last Visit- (Skip if this is Patient's initial visit) Have you changed medications since your No No No last visit? Any new allergies or adverse reactions No No No Had a fall/change in ADL's that may No No No increase risk of falls Signs or symptoms of abuse and/or No No No neglect since last visit Have you been in the hospital since your No No No last visit? Has dressing in place as prescribed Yes No Yes Has compression in place as prescribed No N/A No Has offloadiing in place as prescribed Yes N/A Yes Experienced any changes in pain level or No No No management Left Footwear Surgical Shoe Surgical Shoe with pressure with pressure relief insole relief insole Right Footwear Diabetic Shoe Diabetic Shoe Pain Scale: 0-10 Numeric Is Patient Pain Free? Yes Yes Yes - Nurse 1 - General Ulcer Measurement Start: 01/25/22 14:49 Freq: Status: Active Protocol: Activity Type Activity Date Activity User E-Sign Co-Sign Detail Recorded Client Recorded Date Recorded By Document 01/25/22 14:50 ML [id number] 01/25/22 14:58 ML Document 02/01/22 13:59 AK [id number] 02/01/22 14:02 AK Document 02/08/22 14:46 DL [id number] 02/08/22 14:58 DL 01/25/22 02/01/22 02/08/22 14:50 13:59 14:46 Wound Center Nurse 1 #6- R LAT FOOT -Current Size (cm) - Length 1 0.5 1 -Current Size (cm) - Width 0.5 0.6 1 -Current Size (cm) - Depth 0.1 0.2 0.1 -Total Square Cm 0.5 0.30 1 -Exudate Amt None Present Small Small -Exudate Type Serosanguineous Serosanguineous -Wound Margin Distinct, Distinct, Distinct, Outline Outline Outline Attached Attached Attached -Granulation Amt Small (1-33%) Large (67-100%) Medium (34-66%) -Slough/Fibrin Yes Yes -Necrosis Amt Small (1-33%) Medium (34-66%) Small (1-33%) -Necrotic Tissue Type Adherent Slough Adherent Slough -Texture (Aleyda-wound Skin Appearance) Assessed Assessed Assessed -Moisture (Aleyda-wound Skin Appearance) Assessed,Dry/ Assessed,Dry/ Assessed Scaly Scaly -Color (Aleyda-wound Skin Appearance) Assessed Assessed Assessed -Temperature (Aleyda-wound Skin No Abnormality No Abnormality No Abnormality Appearance) (Pt Warm) (Pt Warm) (Pt Warm) -Tenderness on Palpation (Aleyda-wound No No Yes Skin Appearance) -Ulcer Cleansing Rinsed/ Rinsed/ Rinsed/ Irrigated with Irrigated with Irrigated with Saline Saline Saline -Foul Odor after Cleansing No No No -Anesthetic Used 5% Lidocaine 4% Lidocaine 5% Lidocaine Gel Solution Gel 5-right 1st methead foot -Current Size (cm) - Length 0.4 0.5 0.1 -Current Size (cm) - Width 0.5 0.5 0.1 -Current Size (cm) - Depth 0.2 0.1 0.1 -Total Square Cm 0.20 0.25 0.01 -Epithelialization Small 1-33% -Exudate Amt Small None Present -Exudate Type Serosanguineous -Wound Margin Distinct, Distinct, Distinct, Outline Outline Outline Attached Attached Attached -Granulation Amt Small (1-33%) Medium (34-66%) Small (1-33%) -Granulation Quality Pale -Slough/Fibrin No Yes Yes -Necrosis Amt None Present (0 Medium (34-66%) None Present (0 %) %) -Necrotic Tissue Type Adherent Slough -Texture (Aleyda-wound Skin Appearance) Assessed Assessed Assessed -Moisture (Aleyda-wound Skin Appearance) Assessed,Dry/ Dry/Scaly Dry/Scaly Scaly -Color (Aleyda-wound Skin Appearance) Assessed Assessed Assessed -Temperature (Aleyda-wound Skin No Abnormality No Abnormality No Abnormality Appearance) (Pt Warm) (Pt Warm) (Pt Warm) -Tenderness on Palpation (Aleyda-wound No No Yes Skin Appearance) -Ulcer Cleansing Rinsed/ Rinsed/ Rinsed/ Irrigated with Irrigated with Irrigated with Saline Saline Saline -Foul Odor after Cleansing No No No -Anesthetic Used 5% Lidocaine 4% Lidocaine 5% Lidocaine Gel Solution Gel WC - Nurse 2 - General Ulcer CM Notes Start: 01/25/22 14:49 Freq: Status: Active Protocol: Activity Type Activity Date Activity User E-Sign Co-Sign Detail Recorded Client Recorded Date Recorded By Document 01/25/22 15:13 MW [id number] 01/25/22 15:16 MW Document 02/01/22 14:10 MW [id number] 02/01/22 14:26 MW Document 02/08/22 15:19 MW [id number] 02/08/22 15:33 MW 01/25/22 02/01/22 02/08/22 15:13 14:10 15:19 Wound Center Nurse 2 #6- R LAT FOOT -Time 15:13 14:11 15:20 -Correct Patient Yes Yes Yes -Correct Side, Site, Position Yes Yes Yes -Correct Procedure Yes Yes Yes -Procedure Performed Yes Yes Yes -Type of Procedure Debridement Debridement Debridement -Clinical Debridement Subcutaneous Subcutaneous Subcutaneous -Tissue Removed Subcutaneous Subcutaneous Subcutaneous -Post Debridement (cm) - Length 0.8 0.7 0.6 -Post Debridement (cm) - Width 0.6 0.7 0.7 -Post Debridement (cm) - Depth 0.1 0.1 0.1 -Total Square (Post) (cm) 0.48 0.49 0.42 -Area of Debridement (cm) - Length 0.8 0.7 0.6 -Area of Debridement (cm) - Width 0.6 0.7 0.7 -Total Square (Area) (cm) 0.48 0.49 0.42 -Tunneling No No No -Undermining/Tunneling No No No -Circular Undermining No No No -Wound/Ulcer Outcome Not Healed Not Healed Not Healed -Ulcer Cleansing Rinsed/ Rinsed/ Rinsed/ Irrigated with Irrigated with Irrigated with Saline Saline Saline -Foul Odor after Cleansing No No No -Bioengineered Tissue No No No -Bleeding Controlled with Pressure Pressure Pressure -Treatment Response Procedure Procedure Procedure Tolerated Well Tolerated Well Tolerated Well -Offloading No No No -Debridement - Subq, 1st 20sq cm Yes Yes Yes 5-right 1st methead foot -Time 15:14 14:11 15:21 -Correct Patient Yes Yes Yes -Correct Side, Site, Position Yes Yes Yes -Correct Procedure Yes Yes Yes -Procedure Performed No Yes Yes -Type of Procedure Debridement Debridement -Clinical Debridement Subcutaneous Subcutaneous -Tissue Removed Subcutaneous Subcutaneous -Post Debridement (cm) - Length 0.1 0.6 0.4 -Post Debridement (cm) - Width 0.1 0.5 0.5 -Post Debridement (cm) - Depth 0.1 0.2 0.2 -Total Square (Post) (cm) 0.01 0.30 0.20 -Area of Debridement (cm) - Length 0.1 0.6 0.4 -Area of Debridement (cm) - Width 0.1 0.5 0.5 -Total Square (Area) (cm) 0.01 0.30 0.20 -Tunneling No No No -Undermining/Tunneling No No No -Circular Undermining No No No -Wound/Ulcer Outcome Not Healed Not Healed Not Healed -Ulcer Cleansing Rinsed/ Rinsed/ Rinsed/ Irrigated with Irrigated with Irrigated with Saline Saline Saline -Foul Odor after Cleansing No No No -Bioengineered Tissue No Yes Yes -Type of Bioengineered Tissue NuShield Disc NuShield Disc -Expiration Date 06/26/26 06/26/26 -Product Lot Number [id number] -Percent Used 50 50 -Lot number of Saline Used [id number] -Bleeding Controlled with Pressure Pressure Pressure -Treatment Response Procedure Procedure Procedure Tolerated Well Tolerated Well Tolerated Well -Offloading No No No -Debridement - Subq, 1st 20sq cm No No -Apply Skin Sub - 1st 25 sq cm - Legs 1 -Apply Skin Sub - 1st 25 sq cm - Feet 1 -NuShield 16mm Disc 2 2 Pain Scale: 0-10 Numeric Is Patient Pain Free? Yes Yes Yes WC - Nurse 3 - General Ulcer D/C NN Start: 01/25/22 14:49 Freq: Status: Active Protocol: Activity Type Activity Date Activity User E-Sign Co-Sign Detail Recorded Client Recorded Date Recorded By Document 01/25/22 15:35 DL [id number] 01/25/22 15:37 DL Document 02/01/22 14:34 AK [id number] 02/01/22 14:35 AK Document 02/08/22 15:44 AK [id number] 02/08/22 15:44 AK 01/25/22 02/01/22 02/08/22 15:35 14:34 15:44 Wound Care Nurse 3 #6- R LAT FOOT -Ulcer Cleansing Rinsed/ Rinsed/ Irrigated with Irrigated with Saline Saline -Foul Odor after Cleansing No No -Negative Pressure Wound Therapy N/A -Primary Dressing Applied NonAdherent Aquacel Extra, Aquacel Extra Contact Layer, Mepilex Border Promogran Robert Matter -Primary Dressing Covered/Secured with Dry Gauze & Dry Gauze & Roll Gauze, Roll Gauze, Secured with Secured with Tape Tape -Aquacel Extra 1 1 -Mepilex Border 2 -Promogran Robert Matter 1 5-right 1st methead foot -Ulcer Cleansing Rinsed/ Rinsed/ Irrigated with Irrigated with Saline Saline -Foul Odor after Cleansing No No -Negative Pressure Wound Therapy N/A -Primary Dressing Applied NonAdherent Aquacel Extra, Aquacel Extra Contact Layer Mepilex Border -Other Dressing robert -Primary Dressing Covered/Secured with Dry Gauze & Dry Gauze & Roll Gauze, Roll Gauze Secured with Tape -Aquacel Extra 0 0 -Mepilex Border 0 Treatment Response Procedure Tolerated Well Pain Scale: 0-10 Numeric Is Patient Pain Free? Yes Yes Yes WC - Visit Discharge Discharge Condition Stable Stable Stable Ambulatory Status Wheelchair Wheelchair Wheelchair Transportation [facility] Medication Reconcilliation completed & Yes Yes provided to patient/care provider Clinical Summary of Care Provided Yes Yes Facility Type Skilled Nursing Care Facility Orders Sent Yes Assessment/Plan Assessment/Plan (1) Diabetic ulcer of left foot associated with type 2 diabetes mellitus: CODE(S): E11.621 - Type 2 diabetes mellitus with foot ulcer; L97.529 - Non-pressure chronic ulcer of other part of left foot with unspecified severity (2) Diabetes mellitus with neuropathy: CODE(S): E11.40 - Type 2 diabetes mellitus with diabetic neuropathy, unspecified QUALIFIERS: Diabetes mellitus type: type 2 (3) Ulcer of right foot with fat layer exposed: CODE(S): L97.512 - Non-pressure chronic ulcer of other part of right foot with fat layer exposed (4) Chronic ulcer of right foot with fat layer exposed: CODE(S): L97.512 - Non-pressure chronic ulcer of other part of right foot with fat layer exposed (5) Peripheral vascular disease: CODE(S): I73.9 - Peripheral vascular disease, unspecified PLAN: Debridement performed today in clinic as annotated above. Fourth product application and second nushield application applied today, a 1.6 cm disc was utilized and 50% was wasted. This was covered with a wound veil moistened with hydrogel and secured with Steri-Strips. Instructed to keep this in place for a week. Aquacel daily dressing changes to the right lateral foot. At home wound-care instructions: Plan as above Compression: Double layer Tubigrip's Off-loading: The patient was instructed to avoid pressure and friction on the affected areas. Reposition every 2 hours at minimum. Avoid prolonged standing and/or dangling of legs. When seated, feet should be elevated at chest level. Frequent ambulation is encouraged. Diet: Patient encouraged to increase protein intake while taking caution to avoid high carbohydrate and/or sugar intake. Patient is a non-smoker Labs/cultures/imaging: Cultures ordered and collected previously and showed Enterobacter cloacae which is likely a skin contaminant. Routine baseline lab work held, will reassess if no improvement. Vascular studies held, if no improvement will consider ordering. Follow-up: Return to clinic in 1 week for re-evaluation. Return sooner or report to the emergency room should symptoms worsen, or new symptoms arise. This note was generated with [employer] dictation software. It may contain incorrect words, spelling, and punctuation that were not noted in checking the note before signing. I have spent 25 minutes today reviewing labs, records, and history. Time includes coordinating care, interpretation of tests, and counseling the patient/family. This also includes time I spent with the patient for exam, treatment plan, and education as well as documenting clinical information in the electronic health record.
[2022-02-15 14:34] VITALS: BP 159/76; PULSE 78; TEMP 35.7; BMI 31.5
--- NOTE | 2022-02-15 17:52 | PCM.WC.PN ---
History of Present Illness Date of Service: 02/15/22 Chief Complaint: Right foot ulcer History of Wound: Patient is a 56-year-old male who presents with a non-healing ulcer to his right first metatarsal head. He has a past medical history including type 2 diabetes mellitus, SANTHOSH, chronic back pain, history of falls, history of amputation, history of opioid dependence, HLD, lumbar and cervical spinal stenosis, COPD, and hypertension. The patient states the wound first presented approximately 2 months ago, and he saw Dr. Villalba approximately 1 month ago who recommended a wound care referral and also a TCC. He lives at [facility] where he receives wound care from the nursing staff who are currently applying hydrogel to the wound daily and covering with gauze as ordered by Dr. Villalba. The patient denies any signs or symptoms of systemic or local infection, is a former smoker having quit several years ago, and states his right great toe was amputated years ago after a non-healing wound became infected with osteomyelitis. The patient had routine labs drawn in November 2021 but has not had a hemoglobin A1c drawn since June 2021 at which time it was 7.1. He denies any acute concerns at this time. Past medical, family, and social history reviewed and not pertinent to the current visit and all other systems reviewed and negative with exception of those listed above. Progress of Wound: Stable?no new concerns, the patient's wound to his first metatarsal head is stable, will apply his 5th product application and third nushield application today, newer wound to his right lateral foot is improving in size with Aquacel, no obvious infection at this time Objective Data Objective Data Vital Signs: Vital Signs Temp Pulse Resp BP 96.2 F L 78 20 H 159/76 H 02/15/22 14:34 02/15/22 14:34 02/08/22 14:46 02/15/22 14:34 Weight: 220 lb Body Mass Index (BMI) 31.5 Lab / Micro Data Micro: Microbiology 02/08/22 15:20 Wound Abcess - Right Foot Gram Stain - Final 02/08/22 15:20 Wound Abcess - Right Foot Wound Culture - Final No growth aerobically. 02/08/22 15:20 Wound Abcess - Right Foot Anaerobic Culture - Final No anaerobic bacteria isolated. Charges/Coding Procedures Integumentary 150xxx-152xx: [id number] Skin sub graft face/nk/hf/g Physical Exam Const alert and oriented x3 HEENT normocephalic Resp normal respiratory effort and clear to auscultation bilaterally Cardio regular rate and regular rhythm GI normal to inspection, nondistended, normoactive bowel sounds and non-tender Palpation: soft Extremity normal capillary refill Skin Wound Narrative: Right first metatarsal head ulcer with a granular wound bed, no redness or streaking. New ulcer on right lateral dorsal foot is pink, superficial without any signs of infection Neuro CN's II-XII intact bilaterally Debridement Note Debridement Note Wound debrided: Diabetic right first metatarsal head ulcer and lateral foot ulcer Laterality: Right Type of Debridement: Excisional debridement Anesthesia Used: 5% Lidocaine Gel Depth: in the subcutaneous layer Percentage of wound debrided: 100 Instrument Used: 3mm curette Tissue Removed: Slough and devitalized tissue Severity: Fat Layer Exposed Amount of bleeding with debridement: Mild Bleeding Controlled with: Pressure Patient tolerated procedure: Patient tolerated procedure well Post-Debridement Measurements and Additional Note: Post-Debridement Measurements/Treatment - Nurse 1 - General Ulcer Assessment Start: 01/25/22 14:49 Freq: Status: Active Protocol: COSTA.LOWLIZBETH Activity Type Activity Date Activity User E-Sign Co-Sign Detail Recorded Client Recorded Date Recorded By Document 01/25/22 14:50 ML [id number] 01/25/22 14:58 ML Document 02/01/22 13:59 AK [id number] 02/01/22 14:02 AK Document 02/08/22 14:46 DL [id number] 02/08/22 14:58 DL Document 02/15/22 14:34 AK [id number] 02/15/22 14:36 AK 01/25/22 02/01/22 02/08/22 14:50 13:59 14:46 - Today's Visit Information Type of service Follow-up Visit Follow-up Visit Follow-up Visit (Physician/DELINQUENCY PREVENTION OFFICER (Physician/DELINQUENCY PREVENTION OFFICER (Physician/DELINQUENCY PREVENTION OFFICER ) ) ) Arrival Mode Wheelchair Wheelchair Wheelchair Transfer Assistance None None None Patient Identification Verified (Name & Yes Yes Yes ) Patient Requires Transmission-Based No No No Precautions Safety Precautions NA NA NA Height and Weight Body Mass Index (BMI) 31.5 31.5 31.5 BMI Classification Obese Obese Obese Vital Signs Temperature (97.8 F-99.1 F) 97.6 F L 96.2 F L 97.4 F L Temperature Source Temporal Temporal Temporal Pulse Rate (60-100) 74 85 Pulse Location Monitor Monitor Respiratory Rate (12-18) 19 H 18 20 H Respiratory rate source Observation Observation Observation Blood Pressure (90/60-120/80) 156/84 H 173/69 H 146/88 H Blood Pressure Mean (mm Hg) 108 103 107 Source Monitor Monitor Monitor Position Sitting Sitting Sitting Blood Pressure Location Left Arm Left Arm Right Arm History Since Last Visit- (Skip if this is Patient's initial visit) Have you changed medications since your No No No last visit? Any new allergies or adverse reactions No No No Had a fall/change in ADL's that may No No No increase risk of falls Signs or symptoms of abuse and/or No No No neglect since last visit Have you been in the hospital since your No No No last visit? Has dressing in place as prescribed Yes No Yes Has compression in place as prescribed No N/A No Has offloadiing in place as prescribed Yes N/A Yes Experienced any changes in pain level or No No No management Left Footwear Surgical Shoe Surgical Shoe with pressure with pressure relief insole relief insole Right Footwear Diabetic Shoe Diabetic Shoe Pain Scale: 0-10 Numeric Is Patient Pain Free? Yes Yes Yes 02/15/22 14:34 WC - Today's Visit Information Type of service Follow-up Visit (Physician/DELINQUENCY PREVENTION OFFICER ) Arrival Mode Wheelchair Transfer Assistance Patient Identification Verified (Name & Yes ) Patient Requires Transmission-Based No Precautions Safety Precautions NA Height and Weight Body Mass Index (BMI) 31.5 BMI Classification Obese Vital Signs Temperature (97.8 F-99.1 F) 96.2 F L Temperature Source Temporal Pulse Rate (60-100) 78 Pulse Location Monitor Respiratory Rate (12-18) Respiratory rate source Blood Pressure (90/60-120/80) 159/76 H Blood Pressure Mean (mm Hg) 103 Source Monitor Position Blood Pressure Location History Since Last Visit- (Skip if this is Patient's initial visit) Have you changed medications since your No last visit? Any new allergies or adverse reactions No Had a fall/change in ADL's that may No increase risk of falls Signs or symptoms of abuse and/or No neglect since last visit Have you been in the hospital since your No last visit? Has dressing in place as prescribed Yes Has compression in place as prescribed N/A Has offloadiing in place as prescribed N/A Experienced any changes in pain level or No management Left Footwear Regular Shoe Right Footwear Surgical Shoe with pressure relief insole Pain Scale: 0-10 Numeric Is Patient Pain Free? Yes WC - Nurse 1 - General Ulcer Measurement Start: 01/25/22 14:49 Freq: Status: Active Protocol: Activity Type Activity Date Activity User E-Sign Co-Sign Detail Recorded Client Recorded Date Recorded By Document 01/25/22 14:50 ML [id number] 01/25/22 14:58 ML Document 02/01/22 13:59 AK [id number] 02/01/22 14:02 AK Document 02/08/22 14:46 DL [id number] 02/08/22 14:58 DL Document 02/15/22 14:34 AK [id number] 02/15/22 14:36 AK 01/25/22 02/01/22 02/08/22 14:50 13:59 14:46 Wound Center Nurse 1 #6- R LAT FOOT -Combined with other wound -Current Size (cm) - Length 1 0.5 1 -Current Size (cm) - Width 0.5 0.6 1 -Current Size (cm) - Depth 0.1 0.2 0.1 -Total Square Cm 0.5 0.30 1 -Photo Taken -Tunneling -Undermining/Tunneling -Circular Undermining -Change in Wound Grade/Stage -Exudate Amt None Present Small Small -Exudate Type Serosanguineous Serosanguineous -Wound Margin Distinct, Distinct, Distinct, Outline Outline Outline Attached Attached Attached -Granulation Amt Small (1-33%) Large (67-100%) Medium (34-66%) -Granulation Quality -Slough/Fibrin Yes Yes -Necrosis Amt Small (1-33%) Medium (34-66%) Small (1-33%) -Necrotic Tissue Type Adherent Slough Adherent Slough -Structure Exposed -Texture (Aleyda-wound Skin Appearance) Assessed Assessed Assessed -Moisture (Aleyda-wound Skin Appearance) Assessed,Dry/ Assessed,Dry/ Assessed Scaly Scaly -Color (Aleyda-wound Skin Appearance) Assessed Assessed Assessed -Temperature (Aleyda-wound Skin No Abnormality No Abnormality No Abnormality Appearance) (Pt Warm) (Pt Warm) (Pt Warm) -Tenderness on Palpation (Aleyda-wound No No Yes Skin Appearance) -Ulcer Cleansing Rinsed/ Rinsed/ Rinsed/ Irrigated with Irrigated with Irrigated with Saline Saline Saline -Foul Odor after Cleansing No No No -Anesthetic Used 5% Lidocaine 4% Lidocaine 5% Lidocaine Gel Solution Gel 5-right 1st methead foot -Combined with other wound -Current Size (cm) - Length 0.4 0.5 0.1 -Current Size (cm) - Width 0.5 0.5 0.1 -Current Size (cm) - Depth 0.2 0.1 0.1 -Total Square Cm 0.20 0.25 0.01 -Photo Taken -Epithelialization Small 1-33% -Tunneling -Undermining/Tunneling -Circular Undermining -Change in Wound Grade/Stage -Exudate Amt Small None Present -Exudate Type Serosanguineous -Wound Margin Distinct, Distinct, Distinct, Outline Outline Outline Attached Attached Attached -Granulation Amt Small (1-33%) Medium (34-66%) Small (1-33%) -Granulation Quality Pale -Slough/Fibrin No Yes Yes -Necrosis Amt None Present (0 Medium (34-66%) None Present (0 %) %) -Necrotic Tissue Type Adherent Slough -Structure Exposed -Texture (Aleyda-wound Skin Appearance) Assessed Assessed Assessed -Moisture (Aleyda-wound Skin Appearance) Assessed,Dry/ Dry/Scaly Dry/Scaly Scaly -Color (Aleyda-wound Skin Appearance) Assessed Assessed Assessed -Temperature (Aleyda-wound Skin No Abnormality No Abnormality No Abnormality Appearance) (Pt Warm) (Pt Warm) (Pt Warm) -Tenderness on Palpation (Aleyda-wound No No Yes Skin Appearance) -Ulcer Cleansing Rinsed/ Rinsed/ Rinsed/ Irrigated with Irrigated with Irrigated with Saline Saline Saline -Foul Odor after Cleansing No No No -Anesthetic Used 5% Lidocaine 4% Lidocaine 5% Lidocaine Gel Solution Gel 02/15/22 14:34 Wound Center Nurse 1 #6- R LAT FOOT -Combined with other wound No -Current Size (cm) - Length 0.1 -Current Size (cm) - Width 0.1 -Current Size (cm) - Depth 0.1 -Total Square Cm 0.01 -Photo Taken No -Tunneling No -Undermining/Tunneling No -Circular Undermining No -Change in Wound Grade/Stage No -Exudate Amt Medium -Exudate Type Serosanguineous -Wound Margin Distinct, Outline Attached -Granulation Amt None Present (0 %) -Granulation Quality N/A -Slough/Fibrin No -Necrosis Amt Small (1-33%) -Necrotic Tissue Type Eschar -Structure Exposed N/A -Texture (Aleyda-wound Skin Appearance) No Abnormality, Assessed -Moisture (Aleyda-wound Skin Appearance) No Abnormality, Assessed -Color (Aleyda-wound Skin Appearance) No Abnormality, Assessed -Temperature (Aleyda-wound Skin No Abnormality Appearance) (Pt Warm) -Tenderness on Palpation (Aleyda-wound No Skin Appearance) -Ulcer Cleansing Rinsed/ Irrigated with Saline -Foul Odor after Cleansing No -Anesthetic Used 4% Lidocaine Solution 5-right 1st methead foot -Combined with other wound No -Current Size (cm) - Length 0.1 -Current Size (cm) - Width 0.1 -Current Size (cm) - Depth 0.1 -Total Square Cm 0.01 -Photo Taken No -Epithelialization -Tunneling No -Undermining/Tunneling No -Circular Undermining No -Change in Wound Grade/Stage No -Exudate Amt Medium -Exudate Type Serosanguineous -Wound Margin Distinct, Outline Attached -Granulation Amt None Present (0 %) -Granulation Quality N/A -Slough/Fibrin -Necrosis Amt -Necrotic Tissue Type -Structure Exposed N/A -Texture (Aleyda-wound Skin Appearance) Assessed,Callus -Moisture (Aelyda-wound Skin Appearance) No Abnormality, Assessed -Color (Aleyda-wound Skin Appearance) No Abnormality, Assessed -Temperature (Aleyda-wound Skin No Abnormality Appearance) (Pt Warm) -Tenderness on Palpation (Aleyda-wound No Skin Appearance) -Ulcer Cleansing Rinsed/ Irrigated with Saline -Foul Odor after Cleansing No -Anesthetic Used 4% Lidocaine Solution WC - Nurse 2 - General Ulcer CM Notes Start: 01/25/22 14:49 Freq: Status: Active Protocol: Activity Type Activity Date Activity User E-Sign Co-Sign Detail Recorded Client Recorded Date Recorded By Document 01/25/22 15:13 MW [id number] 01/25/22 15:16 MW Document 02/01/22 14:10 MW [id number] 02/01/22 14:26 MW Document 02/08/22 15:19 MW [id number] 02/08/22 15:33 MW Document 02/15/22 15:21 MW [id number] 02/15/22 15:36 MW 01/25/22 02/01/22 02/08/22 15:13 14:10 15:19 Wound Center Nurse 2 #6- R LAT FOOT -Time 15: 14:11 15:20 -Correct Patient Yes Yes Yes -Correct Side, Site, Position Yes Yes Yes -Correct Procedure Yes Yes Yes -Procedure Performed Yes Yes Yes -Type of Procedure Debridement Debridement Debridement -Clinical Debridement Subcutaneous Subcutaneous Subcutaneous -Tissue Removed Subcutaneous Subcutaneous Subcutaneous -Post Debridement (cm) - Length 0.8 0.7 0.6 -Post Debridement (cm) - Width 0.6 0.7 0.7 -Post Debridement (cm) - Depth 0.1 0.1 0.1 -Total Square (Post) (cm) 0.48 0.49 0.42 -Area of Debridement (cm) - Length 0.8 0.7 0.6 -Area of Debridement (cm) - Width 0.6 0.7 0.7 -Total Square (Area) (cm) 0.48 0.49 0.42 -Tunneling No No No -Undermining/Tunneling No No No -Circular Undermining No No No -Wound/Ulcer Outcome Not Healed Not Healed Not Healed -Ulcer Cleansing Rinsed/ Rinsed/ Rinsed/ Irrigated with Irrigated with Irrigated with Saline Saline Saline -Foul Odor after Cleansing No No No -Bioengineered Tissue No No No -Bleeding Controlled with Pressure Pressure Pressure -Treatment Response Procedure Procedure Procedure Tolerated Well Tolerated Well Tolerated Well -Offloading No No No -Debridement - Subq, 1st 20sq cm Yes Yes Yes 5-right 1st methead foot -Time 15:14 14:11 15:21 -Correct Patient Yes Yes Yes -Correct Side, Site, Position Yes Yes Yes -Correct Procedure Yes Yes Yes -Procedure Performed No Yes Yes -Type of Procedure Debridement Debridement -Clinical Debridement Subcutaneous Subcutaneous -Tissue Removed Subcutaneous Subcutaneous -Post Debridement (cm) - Length 0.1 0.6 0.4 -Post Debridement (cm) - Width 0.1 0.5 0.5 -Post Debridement (cm) - Depth 0.1 0.2 0.2 -Total Square (Post) (cm) 0.01 0.30 0.20 -Area of Debridement (cm) - Length 0.1 0.6 0.4 -Area of Debridement (cm) - Width 0.1 0.5 0.5 -Total Square (Area) (cm) 0.01 0.30 0.20 -Tunneling No No No -Undermining/Tunneling No No No -Circular Undermining No No No -Wound/Ulcer Outcome Not Healed Not Healed Not Healed -Ulcer Cleansing Rinsed/ Rinsed/ Rinsed/ Irrigated with Irrigated with Irrigated with Saline Saline Saline -Foul Odor after Cleansing No No No -Bioengineered Tissue No Yes Yes -Type of Bioengineered Tissue NuShield Disc NuShield Disc -Expiration Date 06/26/26 06/26/26 -Product Lot Number [id number] -Percent Used 50 50 -Lot number of Saline Used [id number] -Bleeding Controlled with Pressure Pressure Pressure -Treatment Response Procedure Procedure Procedure Tolerated Well Tolerated Well Tolerated Well -Offloading No No No -Debridement - Subq, 1st 20sq cm No No -Apply Skin Sub - 1st 25 sq cm - Legs 1 -Apply Skin Sub - 1st 25 sq cm - Feet 1 -NuShield 16mm Disc 2 2 Pain Scale: 0-10 Numeric Is Patient Pain Free? Yes Yes Yes 02/15/22 15:21 Wound Center Nurse 2 #6- R LAT FOOT -Time 15:26 -Correct Patient Yes -Correct Side, Site, Position Yes -Correct Procedure Yes -Procedure Performed Yes -Type of Procedure Debridement -Clinical Debridement Subcutaneous -Tissue Removed Subcutaneous -Post Debridement (cm) - Length 0.5 -Post Debridement (cm) - Width 0.5 -Post Debridement (cm) - Depth 0.2 -Total Square (Post) (cm) 0.25 -Area of Debridement (cm) - Length 0.5 -Area of Debridement (cm) - Width 0.5 -Total Square (Area) (cm) 0.25 -Tunneling No -Undermining/Tunneling No -Circular Undermining No -Wound/Ulcer Outcome Not Healed -Ulcer Cleansing Rinsed/ Irrigated with Saline -Foul Odor after Cleansing No -Bioengineered Tissue No -Bleeding Controlled with NA -Treatment Response Procedure Tolerated Well -Offloading No -Debridement - Subq, 1st 20sq cm Yes 5-right 1st methead foot -Time 15:22 -Correct Patient Yes -Correct Side, Site, Position Yes -Correct Procedure Yes -Procedure Performed Yes -Type of Procedure Debridement -Clinical Debridement Subcutaneous -Tissue Removed Subcutaneous -Post Debridement (cm) - Length 0.3 -Post Debridement (cm) - Width 0.4 -Post Debridement (cm) - Depth 0.2 -Total Square (Post) (cm) 0.12 -Area of Debridement (cm) - Length 0.3 -Area of Debridement (cm) - Width 0.4 -Total Square (Area) (cm) 0.12 -Tunneling No -Undermining/Tunneling No -Circular Undermining No -Wound/Ulcer Outcome Not Healed -Ulcer Cleansing Rinsed/ Irrigated with Saline -Foul Odor after Cleansing No -Bioengineered Tissue Yes -Type of Bioengineered Tissue NuShield Disc -Expiration Date 07/13/26 -Product Lot Number [id number] -Percent Used 50 -Lot number of Saline Used [id number] -Bleeding Controlled with Pressure -Treatment Response Procedure Tolerated Well -Offloading No -Debridement - Subq, 1st 20sq cm No -Apply Skin Sub - 1st 25 sq cm - Legs -Apply Skin Sub - 1st 25 sq cm - Feet 1 -NuShield 16mm Disc 2 Pain Scale: 0-10 Numeric Is Patient Pain Free? Yes WC - Nurse 3 - General Ulcer D/C NN Start: 01/25/22 14:49 Freq: Status: Active Protocol: Activity Type Activity Date Activity User E-Sign Co-Sign Detail Recorded Client Recorded Date Recorded By Document 01/25/22 15:35 DL [id number] 01/25/22 15:37 DL Document 02/01/22 14:34 AK [id number] 02/01/22 14:35 AK Document 02/08/22 15:44 AK [id number] 02/08/22 15:44 AK Document 02/15/22 15:46 AK [id number] 02/15/22 15:47 AK 01/25/22 02/01/22 02/08/22 15:35 14:34 15:44 Wound Care Nurse 3 #6- R LAT FOOT -Ulcer Cleansing Rinsed/ Rinsed/ Irrigated with Irrigated with Saline Saline -Foul Odor after Cleansing No No -Negative Pressure Wound Therapy N/A -Primary Dressing Applied NonAdherent Aquacel Extra, Aquacel Extra Contact Layer, Mepilex Border Promogran Robert Matter -Primary Dressing Covered/Secured with Dry Gauze & Dry Gauze & Roll Gauze, Roll Gauze, Secured with Secured with Tape Tape -Aquacel Extra 1 1 -Mepilex Border 2 -Promogran Robert Matter 1 5-right 1st methead foot -Ulcer Cleansing Rinsed/ Rinsed/ Irrigated with Irrigated with Saline Saline -Foul Odor after Cleansing No No -Negative Pressure Wound Therapy N/A -Primary Dressing Applied NonAdherent Aquacel Extra, Aquacel Extra Contact Layer Mepilex Border -Other Dressing robert -Primary Dressing Covered/Secured with Dry Gauze & Dry Gauze & Roll Gauze, Roll Gauze Secured with Tape -Aquacel Extra 0 0 -Mepilex Border 0 Treatment Response Procedure Tolerated Well Pain Scale: 0-10 Numeric Is Patient Pain Free? Yes Yes Yes WC - Visit Discharge Discharge Condition Stable Stable Stable Ambulatory Status Wheelchair Wheelchair Wheelchair Transportation [facility] Medication Reconcilliation completed & Yes Yes provided to patient/care provider Clinical Summary of Care Provided Yes Yes Facility Type [facility] Facility Orders Sent Yes 02/15/22 15:46 Wound Care Nurse 3 #6- R LAT FOOT -Ulcer Cleansing -Foul Odor after Cleansing -Negative Pressure Wound Therapy -Primary Dressing Applied Aquacel Extra -Primary Dressing Covered/Secured with Dry Gauze & Roll Gauze, Secured with Tape -Aquacel Extra 1 -Mepilex Border -Promogran Robert Matter 5-right 1st methead foot -Ulcer Cleansing -Foul Odor after Cleansing -Negative Pressure Wound Therapy -Primary Dressing Applied Aquacel Extra -Other Dressing -Primary Dressing Covered/Secured with Dry Gauze & Roll Gauze, Secured with Tape -Aquacel Extra 0 -Mepilex Border Treatment Response Pain Scale: 0-10 Numeric Is Patient Pain Free? Yes WC - Visit Discharge Discharge Condition Stable Ambulatory Status Wheelchair Transportation Medication Reconcilliation completed & Yes provided to patient/care provider Clinical Summary of Care Provided Yes Facility Type Orders Sent Assessment/Plan Assessment/Plan (1) Diabetic ulcer of left foot associated with type 2 diabetes mellitus: CODE(S): E11.621 - Type 2 diabetes mellitus with foot ulcer; L97.529 - Non-pressure chronic ulcer of other part of left foot with unspecified severity (2) Diabetes mellitus with neuropathy: CODE(S): E11.40 - Type 2 diabetes mellitus with diabetic neuropathy, unspecified QUALIFIERS: Diabetes mellitus type: type 2 (3) Ulcer of right foot with fat layer exposed: CODE(S): L97.512 - Non-pressure chronic ulcer of other part of right foot with fat layer exposed (4) Chronic ulcer of right foot with fat layer exposed: CODE(S): L97.512 - Non-pressure chronic ulcer of other part of right foot with fat layer exposed (5) Peripheral vascular disease: CODE(S): I73.9 - Peripheral vascular disease, unspecified PLAN: Debridement performed today in clinic as annotated above. Fifth product application and second third application applied today, a 1.6 cm disc was utilized and 50% was wasted. This was covered with a wound veil moistened with hydrogel and secured with Steri-Strips. Instructed to keep this in place for a week. Aquacel daily dressing changes to the right lateral foot. At home wound-care instructions: Plan as above Compression: Double layer Tubigrip's Off-loading: The patient was instructed to avoid pressure and friction on the affected areas. Reposition every 2 hours at minimum. Avoid prolonged standing and/or dangling of legs. When seated, feet should be elevated at chest level. Frequent ambulation is encouraged. Diet: Patient encouraged to increase protein intake while taking caution to avoid high carbohydrate and/or sugar intake. Patient is a non-smoker Labs/cultures/imaging: Cultures ordered and collected previously and showed Enterobacter cloacae which is likely a skin contaminant. Routine baseline lab work held, will reassess if no improvement. Vascular studies held, if no improvement will consider ordering. Follow-up: Return to clinic in 1 week for re-evaluation. Return sooner or report to the emergency room should symptoms worsen, or new symptoms arise. This note was generated with Qiroation software. It may contain incorrect words, spelling, and punctuation that were not noted in checking the note before signing. I have spent 25 minutes today reviewing labs, records, and history. Time includes coordinating care, interpretation of tests, and counseling the patient/family. This also includes time I spent with the patient for exam, treatment plan, and education as well as documenting clinical information in the electronic health record.
--- NOTE | 2022-02-21 09:52 | ART_ITS ---
Reason For Study: PAD Procedure A bilateral lower extremity continuous wave Doppler with analog waveform analysis,segmental pressures,and ankle brachial indexes without exercise. Left Segmental Pressures Left brachial= 159mmHg. Left posterior tibial artery = >254mmHg. Left dorsalis pedis artery = >254mmHg. Left digit = 125 mmHg. The left dorsalis pedis waveforms are triphasic. The left posterior tibial artery waveforms are triphasic. Right Segmental Pressures Right brachial= 156mmHg. Right posterior tibial artery = >254mmHg. Right dorsalis pedis artery = >254mmHg. Right digit = 96 mmHg. The right dorsalis pedis waveforms are triphasic. The right posterior tibial artery waveforms are triphasic. Indices The right ankle brachial index by the dorsalis pedis is NC. The right ankle brachial index by the posterior tibial artery is NC. The right digital-brachial index is 0.60. The left ankle brachial index by the dorsalis pedis is NC. The left ankle brachial index by the posterior tibial artery is NC. The left digital-brachial index is 0.79. VL/Lower Ext Art Exam w/o Exercis Interpretation Summary Triphasic Doppler waveforms are noted at ankle level bilaterally. Pulse-volume recordings appear satisfactory at all levels bilaterally, including low thigh, calf, ankle, and d igital level. Resting ankle-brachial indices could not be determined on either side due to the non-co mpressibility of the vasculature. The right digital-brachial index is mildly diminished. The left di gital-brachial index is normal. There is evidence of arterial calcification at ankle level bilaterally. Arteria l flow appears normal at ankle level bilaterally, and at digital level on the left. There is evidence of mild arterial occlusive disease at digital level on the right. Ordering Physician: Patrick Clifton Referring Physician: Michael De Dios Chi Performed By: Lindsay Zacarias RVT
--- NOTE | 2022-02-21 09:52 | VDLE_ITS ---
Reason For Study: PVD RIGHT LEFT CFV is compressible, spontaneous, phasic, CFV is compressible, spontaneous, phasic, competent and demonstrates normal competent, and demonstrates normal augmentation. augmentation. FV is compressible, spontaneous, phasic, FV is compressible, spontaneous, phasic, competent and demonstrates normal competent and demonstrates normal augmentation. augmentation. POP V is compressible, spontaneous, phasic, POP V is compressible, spontaneous, phasic, competent and demonstrates normal competent and demonstrates normal augmentation. augmentation. T/P Trunk is compressible. T/P Trunk is compressible. PTV is compressible. PTV is compressible. RT PerV is compressible. LT PerV is compressible. SFJ is competent and measures 0.90 x 1.09 cm. SFJ is competent and measures 0.67 x 0.70 cm. GSV proximal thigh measures 0.47 x 0.48 cm. GSV proximal thigh measures 0.32 x 0.31 cm. GSV at knee measures 0.33 x 0.33 cm. GSV at knee measures 0.31 x 0.32 cm. GSV is competent throughout. GSV is competent throughout. SSV at junction is competent and measures SSV at junction is competent and measures 0.21 x 0.21 cm. 0.14 x 0.16 cm. Procedure This is a venous duplex using B-mode, color flow and spectral Doppler. Exam performed in department. A preliminary report was called and/or faxed to . VL/Venous Duplex US - Oliver Extrem Interpretation Summary Deep veins of the lower extremities are bilaterally patent and compressible seg mentally. There is no evidence of deep vein thrombosis on either side. Valvular competence appears in tact within the proximal deep venous systems bilaterally. The great saphenous veins appear bila terally patent and compressible segmentally. Sapheno-femoral junctions are bilaterally competent . Valvular competence appears to be intact segmentally within the great saphenous veins bilaterally. Small saphenous veins are patent and competent bilaterally. Ordering Physician: Patrick Clifton Referring Physician: Michael De Dios Chi Performed By: Lindsay Zacarias RVT
[2022-02-22 14:45] VITALS: BP 180/75; PULSE 68; RESP 20; BMI 31.5
--- NOTE | 2022-02-22 20:05 | PCM.WC.PN ---
History of Present Illness Date of Service: 02/22/22 Chief Complaint: Right foot ulcer History of Wound: Patient is a 56-year-old male who presents with a non-healing ulcer to his right first metatarsal head. He has a past medical history including type 2 diabetes mellitus, SANTHOSH, chronic back pain, history of falls, history of amputation, history of opioid dependence, HLD, lumbar and cervical spinal stenosis, COPD, and hypertension. The patient states the wound first presented approximately 2 months ago, and he saw Dr. Villalba approximately 1 month ago who recommended a wound care referral and also a TCC. He lives at [facility] where he receives wound care from the nursing staff who are currently applying hydrogel to the wound daily and covering with gauze as ordered by Dr. Villalba. The patient denies any signs or symptoms of systemic or local infection, is a former smoker having quit several years ago, and states his right great toe was amputated years ago after a non-healing wound became infected with osteomyelitis. The patient had routine labs drawn in November 2021 but has not had a hemoglobin A1c drawn since June 2021 at which time it was 7.1. He denies any acute concerns at this time. Past medical, family, and social history reviewed and not pertinent to the current visit and all other systems reviewed and negative with exception of those listed above. Progress of Wound: Stable?no new concerns, the patient's wound to his first metatarsal head is stable and his 5th product application with nushield left in place today due to product availability. his right lateral foot is improving in size with Aquacel, no obvious infection at this time Objective Data Objective Data Vital Signs: Vital Signs Temp Pulse Resp BP 96.2 F L 68 20 H 180/75 H 02/15/22 14:34 02/22/22 14:45 02/22/22 14:45 02/22/22 14:45 Weight: 220 lb Body Mass Index (BMI) 31.5 Lab / Micro Data Micro: Microbiology 02/08/22 15:20 Wound Abcess - Right Foot Gram Stain - Final 02/08/22 15:20 Wound Abcess - Right Foot Wound Culture - Final No growth aerobically. 02/08/22 15:20 Wound Abcess - Right Foot Anaerobic Culture - Final No anaerobic bacteria isolated. Charges/Coding Visit Charges Office Visits / Consults: 99811 OV L2 Est Physical Exam Const alert and oriented x3 HEENT normocephalic Resp normal respiratory effort and clear to auscultation bilaterally Cardio regular rate and regular rhythm GI normal to inspection, nondistended, normoactive bowel sounds and non-tender Palpation: soft Extremity normal capillary refill Skin Wound Narrative: Right first metatarsal head ulcer with with product left in place, no redness or streaking. New ulcer on right lateral dorsal foot is pink, superficial without any signs of infection Neuro CN's II-XII intact bilaterally Debridement Note Debridement Note No debridement was completed: No debridement was completed today Post-Debridement Measurements and Additional Note: Post-Debridement Measurements/Treatment - Nurse 1 - General Ulcer Assessment Start: 01/25/22 14:49 Freq: Status: Active Protocol: KAYLA Activity Type Activity Date Activity User E-Sign Co-Sign Detail Recorded Client Recorded Date Recorded By Document 01/25/22 14:50 ML [id number] 01/25/22 14:58 ML Document 02/01/22 13:59 AK [id number] 02/01/22 14:02 AK Document 02/08/22 14:46 DL [id number] 02/08/22 14:58 DL Document 02/15/22 14:34 AK [id number] 02/15/22 14:36 AK Document 02/22/22 14:45 ML [id number] 02/22/22 14:52 ML 01/25/22 02/01/22 02/08/22 14:50 13:59 14:46 - Today's Visit Information Type of service Follow-up Visit Follow-up Visit Follow-up Visit (Physician/NAVAL AIRCREWMAN OPERATOR (Physician/NAVAL AIRCREWMAN OPERATOR (Physician/NAVAL AIRCREWMAN OPERATOR ) ) ) Arrival Mode Wheelchair Wheelchair Wheelchair Transfer Assistance None None None Patient Identification Verified (Name & Yes Yes Yes ) Patient Requires Transmission-Based No No No Precautions Safety Precautions NA NA NA Height and Weight Body Mass Index (BMI) 31.5 31.5 31.5 BMI Classification Obese Obese Obese Vital Signs Temperature (97.8 F-99.1 F) 97.6 F L 96.2 F L 97.4 F L Temperature Source Temporal Temporal Temporal Pulse Rate (60-100) 74 85 Pulse Location Monitor Monitor Respiratory Rate (12-18) 19 H 18 20 H Respiratory rate source Observation Observation Observation Blood Pressure (90/60-120/80) 156/84 H 173/69 H 146/88 H Blood Pressure Mean (mm Hg) 108 103 107 Source Monitor Monitor Monitor Position Sitting Sitting Sitting Blood Pressure Location Left Arm Left Arm Right Arm History Since Last Visit- (Skip if this is Patient's initial visit) Have you changed medications since your No No No last visit? Any new allergies or adverse reactions No No No Had a fall/change in ADL's that may No No No increase risk of falls Signs or symptoms of abuse and/or No No No neglect since last visit Have you been in the hospital since your No No No last visit? Has dressing in place as prescribed Yes No Yes Has compression in place as prescribed No N/A No Has offloadiing in place as prescribed Yes N/A Yes Experienced any changes in pain level or No No No management Left Footwear Surgical Shoe Surgical Shoe with pressure with pressure relief insole relief insole Right Footwear Diabetic Shoe Diabetic Shoe Pain Scale: 0-10 Numeric Is Patient Pain Free? Yes Yes Yes 02/15/22 02/22/22 14:34 14:45 WC - Today's Visit Information Type of service Follow-up Visit Follow-up Visit (Physician/NAVAL AIRCREWMAN OPERATOR (Physician/NAVAL AIRCREWMAN OPERATOR ) ) Arrival Mode Wheelchair Wheelchair Transfer Assistance None Patient Identification Verified (Name & Yes Yes ) Patient Requires Transmission-Based No No Precautions Safety Precautions NA NA Height and Weight Body Mass Index (BMI) 31.5 31.5 BMI Classification Obese Obese Vital Signs Temperature (97.8 F-99.1 F) 96.2 F L Temperature Source Temporal Pulse Rate (60-100) 78 68 Pulse Location Monitor Monitor Respiratory Rate (12-18) 20 H Respiratory rate source Observation Blood Pressure (90/60-120/80) 159/76 H 180/75 H Blood Pressure Mean (mm Hg) 103 110 Source Monitor Monitor Position Sitting Blood Pressure Location Left Arm History Since Last Visit- (Skip if this is Patient's initial visit) Have you changed medications since your No No last visit? Any new allergies or adverse reactions No No Had a fall/change in ADL's that may No No increase risk of falls Signs or symptoms of abuse and/or No No neglect since last visit Have you been in the hospital since your No No last visit? Has dressing in place as prescribed Yes Yes Has compression in place as prescribed N/A No Has offloadiing in place as prescribed N/A Yes Experienced any changes in pain level or No No management Left Footwear Regular Shoe Surgical Shoe with pressure relief insole Right Footwear Surgical Shoe Diabetic Shoe with pressure relief insole Pain Scale: 0-10 Numeric Is Patient Pain Free? Yes Yes WC - Nurse 1 - General Ulcer Measurement Start: 01/25/22 14:49 Freq: Status: Active Protocol: Activity Type Activity Date Activity User E-Sign Co-Sign Detail Recorded Client Recorded Date Recorded By Document 01/25/22 14:50 ML [id number] 01/25/22 14:58 ML Document 02/01/22 13:59 AK [id number] 02/01/22 14:02 AK Document 02/08/22 14:46 DL [id number] 02/08/22 14:58 DL Document 02/15/22 14:34 AK [id number] 02/15/22 14:36 AK 01/25/22 02/01/22 02/08/22 14:50 13:59 14:46 Wound Center Nurse 1 #6- R LAT FOOT -Combined with other wound -Current Size (cm) - Length 1 0.5 1 -Current Size (cm) - Width 0.5 0.6 1 -Current Size (cm) - Depth 0.1 0.2 0.1 -Total Square Cm 0.5 0.30 1 -Photo Taken -Tunneling -Undermining/Tunneling -Circular Undermining -Change in Wound Grade/Stage -Exudate Amt None Present Small Small -Exudate Type Serosanguineous Serosanguineous -Wound Margin Distinct, Distinct, Distinct, Outline Outline Outline Attached Attached Attached -Granulation Amt Small (1-33%) Large (67-100%) Medium (34-66%) -Granulation Quality -Slough/Fibrin Yes Yes -Necrosis Amt Small (1-33%) Medium (34-66%) Small (1-33%) -Necrotic Tissue Type Adherent Slough Adherent Slough -Structure Exposed -Texture (Aleyda-wound Skin Appearance) Assessed Assessed Assessed -Moisture (Aleyda-wound Skin Appearance) Assessed,Dry/ Assessed,Dry/ Assessed Scaly Scaly -Color (Aleyda-wound Skin Appearance) Assessed Assessed Assessed -Temperature (Aleyda-wound Skin No Abnormality No Abnormality No Abnormality Appearance) (Pt Warm) (Pt Warm) (Pt Warm) -Tenderness on Palpation (Aleyda-wound No No Yes Skin Appearance) -Ulcer Cleansing Rinsed/ Rinsed/ Rinsed/ Irrigated with Irrigated with Irrigated with Saline Saline Saline -Foul Odor after Cleansing No No No -Anesthetic Used 5% Lidocaine 4% Lidocaine 5% Lidocaine Gel Solution Gel 5-right 1st methead foot -Combined with other wound -Current Size (cm) - Length 0.4 0.5 0.1 -Current Size (cm) - Width 0.5 0.5 0.1 -Current Size (cm) - Depth 0.2 0.1 0.1 -Total Square Cm 0.20 0.25 0.01 -Photo Taken -Epithelialization Small 1-33% -Tunneling -Undermining/Tunneling -Circular Undermining -Change in Wound Grade/Stage -Exudate Amt Small None Present -Exudate Type Serosanguineous -Wound Margin Distinct, Distinct, Distinct, Outline Outline Outline Attached Attached Attached -Granulation Amt Small (1-33%) Medium (34-66%) Small (1-33%) -Granulation Quality Pale -Slough/Fibrin No Yes Yes -Necrosis Amt None Present (0 Medium (34-66%) None Present (0 %) %) -Necrotic Tissue Type Adherent Slough -Structure Exposed -Texture (Aleyda-wound Skin Appearance) Assessed Assessed Assessed -Moisture (Aleyda-wound Skin Appearance) Assessed,Dry/ Dry/Scaly Dry/Scaly Scaly -Color (Aleyda-wound Skin Appearance) Assessed Assessed Assessed -Temperature (Aleyda-wound Skin No Abnormality No Abnormality No Abnormality Appearance) (Pt Warm) (Pt Warm) (Pt Warm) -Tenderness on Palpation (Aleyda-wound No No Yes Skin Appearance) -Ulcer Cleansing Rinsed/ Rinsed/ Rinsed/ Irrigated with Irrigated with Irrigated with Saline Saline Saline -Foul Odor after Cleansing No No No -Anesthetic Used 5% Lidocaine 4% Lidocaine 5% Lidocaine Gel Solution Gel 02/15/22 14:34 Wound Center Nurse 1 #6- R LAT FOOT -Combined with other wound No -Current Size (cm) - Length 0.1 -Current Size (cm) - Width 0.1 -Current Size (cm) - Depth 0.1 -Total Square Cm 0.01 -Photo Taken No -Tunneling No -Undermining/Tunneling No -Circular Undermining No -Change in Wound Grade/Stage No -Exudate Amt Medium -Exudate Type Serosanguineous -Wound Margin Distinct, Outline Attached -Granulation Amt None Present (0 %) -Granulation Quality N/A -Slough/Fibrin No -Necrosis Amt Small (1-33%) -Necrotic Tissue Type Eschar -Structure Exposed N/A -Texture (Aleyda-wound Skin Appearance) No Abnormality, Assessed -Moisture (Aleyda-wound Skin Appearance) No Abnormality, Assessed -Color (Aleyda-wound Skin Appearance) No Abnormality, Assessed -Temperature (Aleyda-wound Skin No Abnormality Appearance) (Pt Warm) -Tenderness on Palpation (Aleyda-wound No Skin Appearance) -Ulcer Cleansing Rinsed/ Irrigated with Saline -Foul Odor after Cleansing No -Anesthetic Used 4% Lidocaine Solution 5-right 1st methead foot -Combined with other wound No -Current Size (cm) - Length 0.1 -Current Size (cm) - Width 0.1 -Current Size (cm) - Depth 0.1 -Total Square Cm 0.01 -Photo Taken No -Epithelialization -Tunneling No -Undermining/Tunneling No -Circular Undermining No -Change in Wound Grade/Stage No -Exudate Amt Medium -Exudate Type Serosanguineous -Wound Margin Distinct, Outline Attached -Granulation Amt None Present (0 %) -Granulation Quality N/A -Slough/Fibrin -Necrosis Amt -Necrotic Tissue Type -Structure Exposed N/A -Texture (Aleyda-wound Skin Appearance) Assessed,Callus -Moisture (Aleyda-wound Skin Appearance) No Abnormality, Assessed -Color (Aleyda-wound Skin Appearance) No Abnormality, Assessed -Temperature (Aleyda-wound Skin No Abnormality Appearance) (Pt Warm) -Tenderness on Palpation (Aleyda-wound No Skin Appearance) -Ulcer Cleansing Rinsed/ Irrigated with Saline -Foul Odor after Cleansing No -Anesthetic Used 4% Lidocaine Solution WC - Nurse 2 - General Ulcer CM Notes Start: 01/25/22 14:49 Freq: Status: Active Protocol: Activity Type Activity Date Activity User E-Sign Co-Sign Detail Recorded Client Recorded Date Recorded By Document 01/25/22 15:13 MW [id number] 01/25/22 15:16 MW Document 02/01/22 14:10 MW [id number] 02/01/22 14:26 MW Document 02/08/22 15:19 MW [id number] 02/08/22 15:33 MW Document 02/15/22 15:21 MW [id number] 02/15/22 15:36 MW Document 02/22/22 15:19 ML [id number] 02/22/22 15:21 ML 01/25/22 02/01/22 02/08/22 15:13 14:10 15:19 Wound Center Nurse 2 #6- R LAT FOOT -Time 15:13 14:11 15:20 -Correct Patient Yes Yes Yes -Correct Side, Site, Position Yes Yes Yes -Correct Procedure Yes Yes Yes -Procedure Performed Yes Yes Yes -Type of Procedure Debridement Debridement Debridement -Clinical Debridement Subcutaneous Subcutaneous Subcutaneous -Tissue Removed Subcutaneous Subcutaneous Subcutaneous -Post Debridement (cm) - Length 0.8 0.7 0.6 -Post Debridement (cm) - Width 0.6 0.7 0.7 -Post Debridement (cm) - Depth 0.1 0.1 0.1 -Total Square (Post) (cm) 0.48 0.49 0.42 -Area of Debridement (cm) - Length 0.8 0.7 0.6 -Area of Debridement (cm) - Width 0.6 0.7 0.7 -Total Square (Area) (cm) 0.48 0.49 0.42 -Tunneling No No No -Undermining/Tunneling No No No -Circular Undermining No No No -Wound/Ulcer Outcome Not Healed Not Healed Not Healed -Ulcer Cleansing Rinsed/ Rinsed/ Rinsed/ Irrigated with Irrigated with Irrigated with Saline Saline Saline -Foul Odor after Cleansing No No No -Bioengineered Tissue No No No -Bleeding Controlled with Pressure Pressure Pressure -Treatment Response Procedure Procedure Procedure Tolerated Well Tolerated Well Tolerated Well -Offloading No No No -Debridement - Subq, 1st 20sq cm Yes Yes Yes 5-right 1st methead foot -Time 15:14 14:11 15:21 -Correct Patient Yes Yes Yes -Correct Side, Site, Position Yes Yes Yes -Correct Procedure Yes Yes Yes -Procedure Performed No Yes Yes -Type of Procedure Debridement Debridement -Clinical Debridement Subcutaneous Subcutaneous -Tissue Removed Subcutaneous Subcutaneous -Post Debridement (cm) - Length 0.1 0.6 0.4 -Post Debridement (cm) - Width 0.1 0.5 0.5 -Post Debridement (cm) - Depth 0.1 0.2 0.2 -Total Square (Post) (cm) 0.01 0.30 0.20 -Area of Debridement (cm) - Length 0.1 0.6 0.4 -Area of Debridement (cm) - Width 0.1 0.5 0.5 -Total Square (Area) (cm) 0.01 0.30 0.20 -Tunneling No No No -Undermining/Tunneling No No No -Circular Undermining No No No -Wound/Ulcer Outcome Not Healed Not Healed Not Healed -Ulcer Cleansing Rinsed/ Rinsed/ Rinsed/ Irrigated with Irrigated with Irrigated with Saline Saline Saline -Foul Odor after Cleansing No No No -Bioengineered Tissue No Yes Yes -Type of Bioengineered Tissue NuShield Disc NuShield Disc -Expiration Date 06/26/26 06/26/26 -Product Lot Number [id number] -Percent Used 50 50 -Lot number of Saline Used [id number] -Bleeding Controlled with Pressure Pressure Pressure -Treatment Response Procedure Procedure Procedure Tolerated Well Tolerated Well Tolerated Well -Offloading No No No -Debridement - Subq, 1st 20sq cm No No -Apply Skin Sub - 1st 25 sq cm - Legs 1 -Apply Skin Sub - 1st 25 sq cm - Feet 1 -NuShield 16mm Disc 2 2 Pain Scale: 0-10 Numeric Is Patient Pain Free? Yes Yes Yes 02/15/22 02/22/22 15:21 15:19 Wound Center Nurse 2 #6- R LAT FOOT -Time 15:26 15:20 -Correct Patient Yes Yes -Correct Side, Site, Position Yes Yes -Correct Procedure Yes Yes -Procedure Performed Yes No -Type of Procedure Debridement -Clinical Debridement Subcutaneous -Tissue Removed Subcutaneous -Post Debridement (cm) - Length 0.5 -Post Debridement (cm) - Width 0.5 -Post Debridement (cm) - Depth 0.2 -Total Square (Post) (cm) 0.25 -Area of Debridement (cm) - Length 0.5 -Area of Debridement (cm) - Width 0.5 -Total Square (Area) (cm) 0.25 -Tunneling No No -Undermining/Tunneling No No -Circular Undermining No No -Wound/Ulcer Outcome Not Healed Not Healed -Ulcer Cleansing Rinsed/ Irrigated with Saline -Foul Odor after Cleansing No No -Bioengineered Tissue No No -Bleeding Controlled with NA NA -Treatment Response Procedure Tolerated Well -Offloading No -Debridement - Subq, 1st 20sq cm Yes 5-right 1st methead foot -Time 15:22 15:20 -Correct Patient Yes Yes -Correct Side, Site, Position Yes Yes -Correct Procedure Yes Yes -Procedure Performed Yes No -Type of Procedure Debridement -Clinical Debridement Subcutaneous -Tissue Removed Subcutaneous -Post Debridement (cm) - Length 0.3 -Post Debridement (cm) - Width 0.4 -Post Debridement (cm) - Depth 0.2 -Total Square (Post) (cm) 0.12 -Area of Debridement (cm) - Length 0.3 -Area of Debridement (cm) - Width 0.4 -Total Square (Area) (cm) 0.12 -Tunneling No No -Undermining/Tunneling No No -Circular Undermining No No -Wound/Ulcer Outcome Not Healed Not Healed -Ulcer Cleansing Rinsed/ Irrigated with Saline -Foul Odor after Cleansing No -Bioengineered Tissue Yes -Type of Bioengineered Tissue NuShield Disc -Expiration Date 07/13/26 -Product Lot Number [id number] -Percent Used 50 -Lot number of Saline Used [id number] -Bleeding Controlled with Pressure -Treatment Response Procedure Tolerated Well -Offloading No -Debridement - Subq, 1st 20sq cm No -Apply Skin Sub - 1st 25 sq cm - Legs -Apply Skin Sub - 1st 25 sq cm - Feet 1 -NuShield 16mm Disc 2 Pain Scale: 0-10 Numeric Is Patient Pain Free? Yes Yes WC - Nurse 3 - General Ulcer D/C NN Start: 01/25/22 14:49 Freq: Status: Active Protocol: Activity Type Activity Date Activity User E-Sign Co-Sign Detail Recorded Client Recorded Date Recorded By Document 01/25/22 15:35 DL [id number] 01/25/22 15:37 DL Document 02/01/22 14:34 AK [id number] 02/01/22 14:35 AK Document 02/08/22 15:44 AK [id number] 02/08/22 15:44 AK Document 02/15/22 15:46 AK [id number] 02/15/22 15:47 AK Document 02/22/22 15:31 ML [id number] 02/22/22 15:32 ML 01/25/22 02/01/22 02/08/22 15:35 14:34 15:44 Wound Care Nurse 3 #6- R LAT FOOT -Ulcer Cleansing Rinsed/ Rinsed/ Irrigated with Irrigated with Saline Saline -Foul Odor after Cleansing No No -Negative Pressure Wound Therapy N/A -Primary Dressing Applied NonAdherent Aquacel Extra, Aquacel Extra Contact Layer, Mepilex Border Promogran Robert Matter -Primary Dressing Covered/Secured with Dry Gauze & Dry Gauze & Roll Gauze, Roll Gauze, Secured with Secured with Tape Tape -Aquacel Extra 1 1 -Mepilex Border 2 -Promogran Robert Matter 1 5-right 1st methead foot -Ulcer Cleansing Rinsed/ Rinsed/ Irrigated with Irrigated with Saline Saline -Foul Odor after Cleansing No No -Negative Pressure Wound Therapy N/A -Primary Dressing Applied NonAdherent Aquacel Extra, Aquacel Extra Contact Layer Mepilex Border -Other Dressing robert -Primary Dressing Covered/Secured with Dry Gauze & Dry Gauze & Roll Gauze, Roll Gauze Secured with Tape -Aquacel Extra 0 0 -Mepilex Border 0 Treatment Response Procedure Tolerated Well Pain Scale: 0-10 Numeric Is Patient Pain Free? Yes Yes Yes WC - Visit Discharge Discharge Condition Stable Stable Stable Ambulatory Status Wheelchair Wheelchair Wheelchair Transportation [facility] Medication Reconcilliation completed & Yes Yes provided to patient/care provider Clinical Summary of Care Provided Yes Yes Facility Type Patient Placement Coordinator Care Facility Orders Sent Yes 02/15/22 02/22/22 15:46 15:31 Wound Care Nurse 3 #6- R LAT FOOT -Ulcer Cleansing -Foul Odor after Cleansing -Negative Pressure Wound Therapy -Primary Dressing Applied Aquacel Extra Aquacel Extra -Primary Dressing Covered/Secured with Dry Gauze & Dry Gauze & Roll Gauze, Roll Gauze, Secured with Secured with Tape Tape -Aquacel Extra 1 1 -Mepilex Border -Promogran Robert Matter 5-right 1st methead foot -Ulcer Cleansing -Foul Odor after Cleansing -Negative Pressure Wound Therapy -Primary Dressing Applied Aquacel Extra Aquacel Extra -Other Dressing -Primary Dressing Covered/Secured with Dry Gauze & Dry Gauze & Roll Gauze, Roll Gauze, Secured with Secured with Tape Tape -Aquacel Extra 0 0 -Mepilex Border Treatment Response Pain Scale: 0-10 Numeric Is Patient Pain Free? Yes Yes WC - Visit Discharge Discharge Condition Stable Stable Ambulatory Status Wheelchair Wheelchair Transportation Medication Reconcilliation completed & Yes Yes provided to patient/care provider Clinical Summary of Care Provided Yes Yes Facility Type Orders Sent Assessment/Plan Assessment/Plan (1) Diabetic ulcer of left foot associated with type 2 diabetes mellitus: CODE(S): E11.621 - Type 2 diabetes mellitus with foot ulcer; L97.529 - Non-pressure chronic ulcer of other part of left foot with unspecified severity (2) Diabetes mellitus with neuropathy: CODE(S): E11.40 - Type 2 diabetes mellitus with diabetic neuropathy, unspecified QUALIFIERS: Diabetes mellitus type: type 2 (3) Ulcer of right foot with fat layer exposed: CODE(S): L97.512 - Non-pressure chronic ulcer of other part of right foot with fat layer exposed (4) Chronic ulcer of right foot with fat layer exposed: CODE(S): L97.512 - Non-pressure chronic ulcer of other part of right foot with fat layer exposed (5) Peripheral vascular disease: CODE(S): I73.9 - Peripheral vascular disease, unspecified PLAN: No Debridement today, [facility] left in place due to product availability. Continue with aquacell over other ulcer At home wound-care instructions: Plan as above Compression: Double layer Tubigrip's Off-loading: The patient was instructed to avoid pressure and friction on the affected areas. Reposition every 2 hours at minimum. Avoid prolonged standing and/or dangling of legs. When seated, feet should be elevated at chest level. Frequent ambulation is encouraged. Diet: Patient encouraged to increase protein intake while taking caution to avoid high carbohydrate and/or sugar intake. Patient is a non-smoker Labs/cultures/imaging: Cultures ordered and collected previously and showed Enterobacter cloacae which is likely a skin contaminant. Routine baseline lab work held, will reassess if no improvement. Vascular studies held, if no improvement will consider ordering. Follow-up: Return to clinic in 1 week for re-evaluation. Return sooner or report to the emergency room should symptoms worsen, or new symptoms arise. This note was generated with [employer] dictation software. It may contain incorrect words, spelling, and punctuation that were not noted in checking the note before signing. I have spent 25 minutes today reviewing labs, records, and history. Time includes coordinating care, interpretation of tests, and counseling the patient/family. This also includes time I spent with the patient for exam, treatment plan, and education as well as documenting clinical information in the electronic health record.
== END 2022-02-22 23:59 | disposition home or self-care (01) ==
LOC: WC 15:00
PROVIDERS: PCP Family Medicine Geriatric Medicine; Referring Provider Nurse Practitioner Family; Visit Provider Nurse Practitioner Family
DX: E11.621 Type 2 diabetes mellitus with foot ulcer (principal); E11.51 Type 2 diabetes mellitus with diabetic peripheral angiopathy without gangrene; L97.512 Non-pressure chronic ulcer of other part of right foot with fat layer exposed; J44.9 Chronic obstructive pulmonary disease, unspecified; E11.40 Type 2 diabetes mellitus with diabetic neuropathy, unspecified; E78.5 Hyperlipidemia, unspecified; G89.29 Other chronic pain; I10 Essential (primary) hypertension; Z87.891 Personal history of nicotine dependence; M54.9 Dorsalgia, unspecified
CPT/HCPCS: 11042; 15271; 15275; 87070; 87075; 87205; 93923; 93970; 99213; Q4160; G0463

== ENCOUNTER 2022-03-22 14:00 | Outpatient (RCR) | payer MEDICARE, MEDICAID, SELFPAY ==
[2022-02-23 00:15] VITALS: BP 180/75; PULSE 68; RESP 20; TEMP 35.7; BMI 31.5
[2022-03-08 14:34] VITALS: BP 156/77; PULSE 90; RESP 20; TEMP 35.9; BMI 31.5
--- NOTE | 2022-03-08 19:01 | PN.PCM_ITS ---
History of Present Illness Date of Service: 03/08/22 Chief Complaint: Right foot ulcer History of Wound: Patient is a 56-year-old male who presents with a non-healing ulcer to his right first metatarsal head. He has a past medical history including type 2 diabetes mellitus, SANTHOSH, chronic back pain, history of falls, history of amputation, history of opioid dependence, HLD, lumbar and cervical spinal stenosis, COPD, and hypertension. The patient states the wound first presented approximately 2 months ago, and he saw Dr. Villalba approximately 1 month ago who recommended a wound care referral and also a TCC. He lives at [facility] where he receives wound care from the nursing staff who are currently applying hydrogel to the wound daily and covering with gauze as ordered by Dr. Villalba. The patient denies any signs or symptoms of systemic or local infection, is a former smoker having quit several years ago, and states his right great toe was amputated years ago after a non-healing wound became infected with osteomyelitis. The patient had routine labs drawn in November 2021 but has not had a hemoglobin A1c drawn since June 2021 at which time it was 7.1. He denies any acute concerns at this time. Past medical, family, and social history reviewed and not pertinent to the current visit and all other systems reviewed and negative with exception of those listed above. Progress of Wound: Deteriorated, the patient's wound is right first metatarsal head has deteriorated, patient did not have visit at wound center last week. He also notes that he fell and scraped his knee 2 days ago as well and has a new wound there. Denies any other acute concerns. 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 New ulcer on right knee is pink, superficial without any signs of infection Neuro CN's II-XII intact bilaterally Debridement Note Debridement Note Wound debrided: Right first metatarsal head ulcer and right knee wound Laterality: Right Type of Debridement: Excisional debridement Anesthesia Used: 5% Lidocaine Gel Depth: Down to and including healthy tissue and in the subcutaneous layer Percentage of wound debrided: 100 Instrument Used: 5mm curette Tissue Removed: Slough and vitalized tissue Severity: Fat Layer Exposed Amount of bleeding with debridement: Mild Bleeding Controlled with: Pressure Patient tolerated procedure: Patient tolerated procedure well Post-Debridement Measurements and Additional Note: Post-Debridement Measuremen ts/Treatment WC - Nurse 1 - General Ulcer Assessment Start: 03/08/22 14:34 Freq: Status: Active Protocol: KAYLA Activity Type Activity Date Activity User E-Sign Co-Sign Detail Recorded Client Recorded Date Recorded By Document 03/08/22 14:34 DL [id number] 03/08/22 14:49 DL 03/08/22 14:34 WC - Today's Visit Information Type of service Follow-up Visit (Physician/PRODUCTION CORRUGATOR ) Arrival Mode Wheelchair Transfer Assistance None Patient Identification Verified (Name & Yes ) Patient Requires Transmission-Based No Precautions Finger Stick Blood Sugar(mg/dl) (if 122 indicated): Blood Sugar Stated by Patient Height and Weight Body Mass Index (BMI) 31.5 BMI Classification Obese Vital Signs Temperature (97.8 F-99.1 F) 96.7 F L Temperature Source Temporal Pulse Rate (60-100) 90 Pulse Location Monitor Respiratory Rate (12-18) 20 H Respiratory rate source Observation Blood Pressure (90/60-120/80) 156/77 H Blood Pressure Mean (mm Hg) 103 Source Monitor History Since Last Visit- (Skip if this is Patient's initial visit) Have you changed medications since your No last visit? Any new allergies or adverse reactions No Had a fall/change in ADL's that may No increase risk of falls Signs or symptoms of abuse and/or No neglect since last visit Have you been in the hospital since your No last visit? Has dressing in place as prescribed Yes Has compression in place as prescribed N/A Experienced any changes in pain level or No management Left Footwear Diabetic Shoe Right Footwear Surgical Shoe with pressure relief insole Pain Scale: 0-10 Numeric Is Patient Pain Free? Yes WC - Nurse 1 - General Ulcer Measurement Start: 03/08/22 14:34 Freq: Status: Active Protocol: Activity Type Activity Date Activity User E-Sign Co-Sign Detail Recorded Client Recorded Date Recorded By Document 03/08/22 14:34 DL [id number] 03/08/22 14:49 DL 03/08/22 14:34 Wound Center Nurse 1 #7 R Knee -Current Size (cm) - Length 1.5 -Current Size (cm) - Width 1.5 -Current Size (cm) - Depth 0.2 -Total Square Cm 2.25 -Photo Taken Yes -Exudate Amt Small -Exudate Type Serosanguineous -Wound Margin Distinct, Outline Attached -Granulation Amt Medium (34-66%) -Granulation Quality Pale,[place] -Necrosis Amt Medium (34-66%) -Necrotic Tissue Type Adherent Slough -Structure Exposed N/A -Texture (Aleyda-wound Skin Appearance) Scarring -Moisture (Aleyda-wound Skin Appearance) Dry/Scaly -Color (Aleyda-wound Skin Appearance) No Abnormality -Temperature (Aleyda-wound Skin No Abnormality Appearance) (Pt Warm) -Tenderness on Palpation (Aleyda-wound No Skin Appearance) -Ulcer Cleansing Soap and Water -Foul Odor after Cleansing No -Anesthetic Used 5% Lidocaine Gel #6- R LAT FOOT -Current Size (cm) - Length 0.2 -Current Size (cm) - Width 0.2 -Current Size (cm) - Depth 0.1 -Total Square Cm 0.04 -Photo Taken No -Exudate Amt Small -Exudate Type Serosanguineous -Wound Margin Distinct, Outline Attached -Granulation Amt Small (1-33%) -Granulation Quality [place] -Necrosis Amt Small (1-33%) -Necrotic Tissue Type Adherent Slough -Structure Exposed N/A -Texture (Aleyda-wound Skin Appearance) Scarring -Color (Aleyda-wound Skin Appearance) No Abnormality -Temperature (Aleyda-wound Skin No Abnormality Appearance) (Pt Warm) -Tenderness on Palpation (Aleyda-wound No Skin Appearance) -Ulcer Cleansing Soap and Water -Anesthetic Used 5% Lidocaine Gel 5-right 1st methead foot -Current Size (cm) - Length 0.7 -Current Size (cm) - Width 0.7 -Current Size (cm) - Depth 0.6 -Total Square Cm 0.49 -Maximum Distance #2 (cm) 0.4 -Circular Undermining Yes -Exudate Amt Small -Exudate Type Serosanguineous -Wound Margin Distinct, Outline Attached -Granulation Amt None Present (0 %) -Necrosis Amt Large (67-100%) -Necrotic Tissue Type Adherent Slough -Structure Exposed N/A -Texture (Aleyda-wound Skin Appearance) Scarring -Moisture (Aleyda-wound Skin Appearance) Dry/Scaly -Color (Aleyda-wound Skin Appearance) No Abnormality -Temperature (Aleyda-wound Skin No Abnormality Appearance) (Pt Warm) -Tenderness on Palpation (Aleyda-wound No Skin Appearance) -Ulcer Cleansing Soap and Water -Foul Odor after Cleansing No -Anesthetic Used 5% Lidocaine Gel WC - Nurse 2 - General Ulcer CM Notes Start: 03/08/22 14:34 Freq: Status: Active Protocol: Activity Type Activity Date Activity User E-Sign Co-Sign Detail Recorded Client Recorded Date Recorded By Document 03/08/22 15:00 MW [id number] 03/08/22 15:15 MW 03/08/22 15:00 Wound Center Nurse 2 #7 R Knee -Time 15:14 -Correct Patient Yes -Correct Side, Site, Position Yes -Correct Procedure Yes -Procedure Performed Yes -Type of Procedure Debridement -Clinical Debridement Subcutaneous -Tissue Removed Subcutaneous -Post Debridement (cm) - Length 2.0 -Post Debridement (cm) - Width 1.5 -Post Debridement (cm) - Depth 0.1 -Total Square (Post) (cm) 3.00 -Area of Debridement (cm) - Length 2.0 -Area of Debridement (cm) - Width 1.5 -Total Square (Area) (cm) 3.00 -Tunneling No -Undermining/Tunneling No -Circular Undermining No -Wound/Ulcer Outcome Not Healed -Ulcer Cleansing Rinsed/ Irrigated with Saline -Foul Odor after Cleansing No -Bioengineered Tissue No -Bleeding Controlled with Pressure -Treatment Response Procedure Tolerated Well -Offloading No -Debridement - Subq, 1st 20sq cm Yes #6- R LAT FOOT -Time 15:14 -Correct Patient Yes -Correct Side, Site, Position Yes -Correct Procedure Yes -Procedure Performed No -Post Debridement (cm) - Length 0 -Post Debridement (cm) - Width 0 -Post Debridement (cm) - Depth 0 -Total Square (Post) (cm) 0 -Wound/Ulcer Outcome Healed- Epithelialized 5-right 1st methead foot -Time 15:07 -Correct Patient Yes -Correct Side, Site, Position Yes -Correct Procedure Yes -Procedure Performed Yes -Type of Procedure Debridement -Clinical Debridement Subcutaneous -Tissue Removed Subcutaneous -Post Debridement (cm) - Length 1.0 -Post Debridement (cm) - Width 0.7 -Post Debridement (cm) - Depth 0.1 -Total Square (Post) (cm) 0.70 -Area of Debridement (cm) - Length 1.0 -Area of Debridement (cm) - Width 0.7 -Total Square (Area) (cm) 0.70 -Tunneling No -Undermining/Tunneling No -Circular Undermining No -Wound/Ulcer Outcome Not Healed -Ulcer Cleansing Rinsed/ Irrigated with Saline -Foul Odor after Cleansing No -Bioengineered Tissue Yes -Type of Bioengineered Tissue NuShield Disc -Expiration Date 08/07/26 -Product Lot Number [id number] -Percent Used 100 -Lot number of Saline Used [id number] -Bleeding Controlled with Pressure -Treatment Response Procedure Tolerated Well -Offloading No -Debridement - Subq, 1st 20sq cm No -Apply Skin Sub - 1st 25 sq cm - Legs 1 -NuShield 16mm Disc 2 Pain Scale: 0-10 Numeric Is Patient Pain Free? Yes WC - Nurse 3 - General Ulcer D/C NN Start: 03/08/22 14:34 Freq: Status: Active Protocol: Activity Type Activity Date Activity User E-Sign Co-Sign Detail Recorded Client Recorded Date Recorded By Document 03/08/22 15:28 ZANE [id number] 03/08/22 15:30 AK 03/08/22 15:28 Wound Care Nurse 3 #7 R Knee -Primary Dressing Applied C Hydrogel ($), NonAdherent Contact Layer -Primary Dressing Covered/Secured with Dry Gauze & Roll Gauze, Secured with Tape #6- R LAT FOOT -Primary Dressing Applied C Hydrogel ($) -Primary Dressing Covered/Secured with Dry Gauze & Roll Gauze, Secured with Tape 5-right 1st methead foot -Primary Dressing Applied C Hydrogel ($), NonAdherent Contact Layer -Primary Dressing Covered/Secured with Dry Gauze & Roll Gauze, Secured with Tape Pain Scale: 0-10 Numeric Is Patient Pain Free? Yes WC - Visit Discharge Discharge Condition Stable Ambulatory Status Wheelchair Medication Reconcilliation completed & Yes provided to patient/care provider Clinical Summary of Care Provided Yes Assessment/Plan Assessment/Plan (1) Ulcer of right foot with fat layer exposed: CODE(S): L97.512 - Non-pressure chronic ulcer of other part of right foot with fat layer exposed (2) Diabetes mellitus with neuropathy: CODE(S): E11.40 - Type 2 diabetes mellitus with diabetic neuropathy, unspecified QUALIFIERS: Diabetes mellitus type: type 2 (3) Chronic ulcer of right foot with fat layer exposed: CODE(S): L97.512 - Non-pressure chronic ulcer of other part of right foot with fat layer exposed (4) Peripheral vascular disease: CODE(S): I73.9 - Peripheral vascular disease, unspecified (5) Non-healing wound of right lower extremity: CODE(S): S81.801A - Unspecified open wound, right lower leg, initial encounter (6) Abrasion of right lower extremity: CODE(S): S80.811A - Abrasion, right lower leg, initial encounter PLAN: Debridement done today as documented above, product #6 1.6 cm? nushield was placed on the right diabetic ulcer of the first metatarsal head, 100% of the product was utilized and secured with Steri-Strips and a thin layer of hydrogel, cover with Aquacel extra and change every other day, continue with offloading surgical postop shoe. To the new abrasion to his right knee instructed to utilize hydrogel and Adaptic change daily. At home wound-care instructions: Plan as above Compression: Double layer Tubigrip's Off-loading: The patient was instructed to avoid pressure and friction on the affected areas. Reposition every 2 hours at minimum. Avoid prolonged standing and/or dangling of legs. When seated, feet should be elevated at chest level. Frequent ambulation is encouraged. Diet: Patient encouraged to increase protein intake while taking caution to avoid high carbohydrate and/or sugar intake. Patient is a non-smoker Labs/cultures/imaging: Cultures ordered and collected today given delayed healing. Routine baseline lab work held, will reassess if no improvement. Vascular studies ordered and pending. Follow-up: Return to clinic in 1 week for re-evaluation. Return sooner or report to the emergency room should symptoms worsen, or new symptoms arise. This note was generated with [employer] dictation software. It may contain incorrect words, spelling, and punctuation that were not noted in checking the note before signing. I have spent 25 minutes today reviewing labs, records, and history. Time includes coordinating care, interpretation of tests, and counseling the patient/family. This also includes time I spent with the patient for exam, treatment plan, and education as well as documenting clinical information in the electronic health record.
[2022-03-22 13:56] VITALS: BP 175/67; PULSE 93; TEMP 35.9; BMI 31.5
--- NOTE | 2022-03-22 17:17 | PN.PCM_ITS ---
History of Present Illness Date of Service: 03/22/22 Chief Complaint: Right foot ulcer History of Wound: Patient is a 56-year-old male who presents with a non-healing ulcer to his right first metatarsal head. He has a past medical history including type 2 diabetes mellitus, SANTHOSH, chronic back pain, history of falls, history of amputation, history of opioid dependence, HLD, lumbar and cervical spinal stenosis, COPD, and hypertension. The patient states the wound first presented approximately 2 months ago, and he saw Dr. Villalba approximately 1 month ago who recommended a wound care referral and also a TCC. He lives at [facility] where he receives wound care from the nursing staff who are currently applying hydrogel to the wound daily and covering with gauze as ordered by Dr. Villalba. The patient denies any signs or symptoms of systemic or local infection, is a former smoker having quit several years ago, and states his right great toe was amputated years ago after a non-healing wound became infected with osteomyelitis. The patient had routine labs drawn in November 2021 but has not had a hemoglobin A1c drawn since June 2021 at which time it was 7.1. He denies any acute concerns at this time. Past medical, family, and social history reviewed and not pertinent to the current visit and all other systems reviewed and negative with exception of those listed above. Progress of Wound: Deteriorated, the patient's wound is right first metatarsal head has deteriorated and is heavily callused over with difficulty debriding with a scalpel today due to the amount of callus, patient did not have visit at wound center last week. Patient's wound to his right knee has improved some. Denies any other acute concerns. Will consult podiatry for next week and hold off on further skin substitute application. Patient is a high fall risk and therefore TCC contraindicated. Objective Data Objective Data Vital Signs: Vital Signs Temp Pulse Resp BP 96.7 F L 93 20 H 175/67 H 03/22/22 13:56 03/22/22 13:56 03/08/22 14:34 03/22/22 13:56 Weight: 220 lb Body Mass Index (BMI) 31.5 Lab / Micro Data Micro: Microbiology 03/08/22 15:00 Wound - Other Gram Stain - Final 03/08/22 15:00 Wound - Other Wound Culture - Final Enterobacter cloacae complex Staphylococcus aureus 03/08/22 15:00 Wound - Other Anaerobic Culture - Final Anaerobic cocci Charges/Coding Procedures Integumentary [id number]: [id number] Lori subq tissue 20 sq cm/< Physical Exam Const alert and oriented x3 HEENT normocephalic Resp normal respiratory effort and clear to auscultation bilaterally Cardio regular rate and regular rhythm GI normal to inspection, nondistended, normoactive bowel sounds and non-tender Palpation: soft Extremity normal capillary refill Skin Wound Narrative: Right first metatarsal head ulcer with heavily callused wound edges and adherent slough, no redness or streaking. New ulcer on right knee is pink, superficial without any signs of infection Neuro CN's II-XII intact bilaterally Debridement Note Debridement Note Wound debrided: Ulceration right first metatarsal head and right knee Laterality: Right Type of Debridement: Excisional debridement Anesthesia Used: 5% Lidocaine Gel Depth: Down to and including healthy tissue and in the subcutaneous layer Percentage of wound debrided: 100 Instrument Used: 5mm curette Tissue Removed: Slough and devitalized tissue Severity: Fat Layer Exposed Amount of bleeding with debridement: Mild Bleeding Controlled with: Pressure Patient tolerated procedure: Patient tolerated procedure well Post-Debridement Measurements and Additional Note: Post-Debridement Measurements/Treatment - Nurse 1 - General Ulcer Assessment Start: 03/08/22 14:34 Freq: Status: Active Protocol: KAYLA Activity Type Activity Date Activity User E-Sign Co-Sign Detail Recorded Client Recorded Date Recorded By Document 03/08/22 14:34 DL [id number] 03/08/22 14:49 DL Document 03/22/22 13:56 KR [id number] 03/22/22 13:59 KR 03/08/22 03/22/22 14:34 13:56 - Today's Visit Information Type of service Follow-up Visit Follow-up Visit (Physician/TALENT DEVELOPMENT COORDINATOR (Physician/TALENT DEVELOPMENT COORDINATOR ) ) Arrival Mode Wheelchair Wheelchair Transfer Assistance None Patient Identification Verified (Name & Yes Yes ) Patient Requires Transmission-Based No Precautions Finger Stick Blood Sugar(mg/dl) (if 122 indicated): Blood Sugar Stated by Patient Height and Weight Body Mass Index (BMI) 31.5 31.5 BMI Classification Obese Obese Vital Signs Temperature (97.8 F-99.1 F) 96.7 F L 96.7 F L Temperature Source Temporal Temporal Pulse Rate (60-100) 90 93 Pulse Location Monitor Monitor Respiratory Rate (12-18) 20 H Respiratory rate source Observation Blood Pressure (90/60-120/80) 156/77 H 175/67 H Blood Pressure Mean (mm Hg) 103 103 Source Monitor Monitor Position Sitting Blood Pressure Location Right Arm History Since Last Visit- (Skip if this is Patient's initial visit) Have you changed medications since your No No last visit? Any new allergies or adverse reactions No No Had a fall/change in ADL's that may No No increase risk of falls Signs or symptoms of abuse and/or No No neglect since last visit Have you been in the hospital since your No No last visit? Has dressing in place as prescribed Yes Yes Has compression in place as prescribed N/A N/A Has offloadiing in place as prescribed N/A Experienced any changes in pain level or No No management Left Footwear Diabetic Shoe Right Footwear Surgical Shoe with pressure relief insole Pain Scale: 0-10 Numeric Is Patient Pain Free? Yes Yes WC - Nurse 1 - General Ulcer Measurement Start: 03/08/22 14:34 Freq: Status: Active Protocol: Activity Type Activity Date Activity User E-Sign Co-Sign Detail Recorded Client Recorded Date Recorded By Document 03/08/22 14:34 DL [id number] 03/08/22 14:49 DL Document 03/22/22 13:56 KR [id number] 03/22/22 13:59 KR 03/08/22 03/22/22 14:34 13:56 Wound Center Nurse 1 #7 R Knee -Current Size (cm) - Length 1.5 0.3 -Current Size (cm) - Width 1.5 0.3 -Current Size (cm) - Depth 0.2 0.1 -Total Square Cm 2.25 0.09 -Photo Taken Yes -Exudate Amt Small Small -Exudate Type Serosanguineous Serosanguineous -Wound Margin Distinct, Distinct, Outline Outline Attached Attached -Granulation Amt Medium (34-66%) -Granulation Quality Pale,[place] -Necrosis Amt Medium (34-66%) -Necrotic Tissue Type Adherent Slough -Structure Exposed N/A -Texture (Aleyda-wound Skin Appearance) Scarring Assessed, Scarring -Moisture (Aleyda-wound Skin Appearance) Dry/Scaly No Abnormality, Assessed -Color (Aleyda-wound Skin Appearance) No Abnormality No Abnormality, Assessed -Temperature (Aleyda-wound Skin No Abnormality No Abnormality Appearance) (Pt Warm) (Pt Warm) -Tenderness on Palpation (Aleyda-wound No No Skin Appearance) -Ulcer Cleansing Soap and Water Rinsed/ Irrigated with Saline -Foul Odor after Cleansing No No -Anesthetic Used 5% Lidocaine 5% Lidocaine Gel Gel #6- R LAT FOOT -Current Size (cm) - Length 0.2 0.1 -Current Size (cm) - Width 0.2 0.1 -Current Size (cm) - Depth 0.1 0.1 -Total Square Cm 0.04 0.01 -Photo Taken No -Exudate Amt Small None Present -Exudate Type Serosanguineous -Wound Margin Distinct, Distinct, Outline Outline Attached Attached -Granulation Amt Small (1-33%) Small (1-33%) -Granulation Quality [place] Red -Necrosis Amt Small (1-33%) None Present (0 %) -Necrotic Tissue Type Adherent Slough -Structure Exposed N/A -Texture (Aleyda-wound Skin Appearance) Scarring Assessed, Scarring -Moisture (Aleyda-wound Skin Appearance) No Abnormality, Assessed -Color (Aleyda-wound Skin Appearance) No Abnormality No Abnormality, Assessed -Temperature (Aleyda-wound Skin No Abnormality No Abnormality Appearance) (Pt Warm) (Pt Warm) -Tenderness on Palpation (Aleyda-wound No No Skin Appearance) -Ulcer Cleansing Soap and Water Rinsed/ Irrigated with Saline -Foul Odor after Cleansing No -Anesthetic Used 5% Lidocaine 5% Lidocaine Gel Gel 5-right 1st methead foot -Current Size (cm) - Length 0.7 0.4 -Current Size (cm) - Width 0.7 0.3 -Current Size (cm) - Depth 0.6 0.1 -Total Square Cm 0.49 0.12 -Maximum Distance #2 (cm) 0.4 -Circular Undermining Yes -Exudate Amt Small Small -Exudate Type Serosanguineous Serosanguineous -Wound Margin Distinct, Distinct, Outline Outline Attached Attached -Granulation Amt None Present (0 Small (1-33%) %) -Granulation Quality [place] -Necrosis Amt Large (67-100%) None Present (0 %) -Necrotic Tissue Type Adherent Slough -Structure Exposed N/A -Texture (Aleyda-wound Skin Appearance) Scarring Assessed, Scarring -Moisture (Aleyda-wound Skin Appearance) Dry/Scaly No Abnormality, Assessed -Color (Aleyda-wound Skin Appearance) No Abnormality No Abnormality, Assessed -Temperature (Aleyda-wound Skin No Abnormality No Abnormality Appearance) (Pt Warm) (Pt Warm) -Tenderness on Palpation (Aleyda-wound No No Skin Appearance) -Ulcer Cleansing Soap and Water Rinsed/ Irrigated with Saline -Foul Odor after Cleansing No No -Anesthetic Used 5% Lidocaine 5% Lidocaine Gel Gel WC - Nurse 2 - General Ulcer CM Notes Start: 03/08/22 14:34 Freq: Status: Active Protocol: Activity Type Activity Date Activity User E-Sign Co-Sign Detail Recorded Client Recorded Date Recorded By Document 03/08/22 15:00 MW [id number] 03/08/22 15:15 MW Document 03/22/22 14:46 MW [id number] 03/22/22 14:51 MW 03/08/22 03/22/22 15:00 14:46 Wound Center Nurse 2 #7 R Knee -Time 15:14 14:47 -Correct Patient Yes Yes -Correct Side, Site, Position Yes Yes -Correct Procedure Yes Yes -Procedure Performed Yes Yes -Type of Procedure Debridement Debridement -Clinical Debridement Subcutaneous Subcutaneous -Tissue Removed Subcutaneous Subcutaneous -Post Debridement (cm) - Length 2.0 0.5 -Post Debridement (cm) - Width 1.5 1.2 -Post Debridement (cm) - Depth 0.1 0.1 -Total Square (Post) (cm) 3.00 0.60 -Area of Debridement (cm) - Length 2.0 0.5 -Area of Debridement (cm) - Width 1.5 1.2 -Total Square (Area) (cm) 3.00 0.60 -Tunneling No No -Undermining/Tunneling No No -Circular Undermining No No -Wound/Ulcer Outcome Not Healed Not Healed -Ulcer Cleansing Rinsed/ Rinsed/ Irrigated with Irrigated with Saline Saline -Foul Odor after Cleansing No No -Bioengineered Tissue No No -Bleeding Controlled with Pressure Pressure -Treatment Response Procedure Procedure Tolerated Well Tolerated Well -Offloading No No -Debridement - Subq, 1st 20sq cm Yes Yes #6- R LAT FOOT -Time 15:14 14:48 -Correct Patient Yes Yes -Correct Side, Site, Position Yes Yes -Correct Procedure Yes Yes -Procedure Performed No No -Post Debridement (cm) - Length 0 0 -Post Debridement (cm) - Width 0 0 -Post Debridement (cm) - Depth 0 0 -Total Square (Post) (cm) 0 0 -Wound/Ulcer Outcome Healed- Healed- Epithelialized Epithelialized 5-right 1st methead foot -Time 15:07 14:48 -Correct Patient Yes Yes -Correct Side, Site, Position Yes Yes -Correct Procedure Yes Yes -Procedure Performed Yes Yes -Type of Procedure Debridement Debridement -Clinical Debridement Subcutaneous Subcutaneous -Tissue Removed Subcutaneous Subcutaneous -Post Debridement (cm) - Length 1.0 0.8 -Post Debridement (cm) - Width 0.7 0.5 -Post Debridement (cm) - Depth 0.1 0.3 -Total Square (Post) (cm) 0.70 0.40 -Area of Debridement (cm) - Length 1.0 0.8 -Area of Debridement (cm) - Width 0.7 0.5 -Total Square (Area) (cm) 0.70 0.40 -Tunneling No No -Undermining/Tunneling No No -Circular Undermining No No -Wound/Ulcer Outcome Not Healed Not Healed -Ulcer Cleansing Rinsed/ Rinsed/ Irrigated with Irrigated with Saline Saline -Foul Odor after Cleansing No No -Bioengineered Tissue Yes No -Type of Bioengineered Tissue NuShield Disc -Expiration Date 08/07/26 -Product Lot Number [id number] -Percent Used 100 -Lot number of Saline Used [id number] -Bleeding Controlled with Pressure Pressure -Treatment Response Procedure Procedure Tolerated Well Tolerated Well -Offloading No No -Debridement - Subq, 1st 20sq cm No No -Apply Skin Sub - 1st 25 sq cm - Legs 1 -NuShield 16mm Disc 2 Pain Scale: 0-10 Numeric Is Patient Pain Free? Yes Yes WC - Nurse 3 - General Ulcer D/C NN Start: 03/08/22 14:34 Freq: Status: Active Protocol: Activity Type Activity Date Activity User E-Sign Co-Sign Detail Recorded Client Recorded Date Recorded By Document 03/08/22 15:28 AK [id number] 03/08/22 15:30 AK Document 03/22/22 14:54 KR [id number] 03/22/22 14:56 RAYO 03/08/22 03/22/22 15:28 14:54 Wound Care Nurse 3 #7 R Knee -Ulcer Cleansing Rinsed/ Irrigated with Saline -Primary Dressing Applied C Hydrogel ($), C Hydrogel ($) NonAdherent Contact Layer -Primary Dressing Covered/Secured with Dry Gauze & Dry Gauze, Roll Gauze, Secured with Secured with Tape Tape #6- R LAT FOOT -Primary Dressing Applied C Hydrogel ($) -Primary Dressing Covered/Secured with Dry Gauze & Roll Gauze, Secured with Tape 5-right 1st methead foot -Ulcer Cleansing Rinsed/ Irrigated with Saline -Primary Dressing Applied C Hydrogel ($), C Hydrogel ($) NonAdherent Contact Layer -Primary Dressing Covered/Secured with Dry Gauze & Dry Gauze, Roll Gauze, Secured with Secured with Tape Tape Pain Scale: 0-10 Numeric Is Patient Pain Free? Yes Yes WC - Visit Discharge Discharge Condition Stable Stable Ambulatory Status Wheelchair Wheelchair Transportation [facility] Medication Reconcilliation completed & Yes provided to patient/care provider Clinical Summary of Care Provided Yes Assessment/Plan Assessment/Plan (1) Ulcer of right foot with fat layer exposed: CODE(S): L97.512 - Non-pressure chronic ulcer of other part of right foot with fat layer exposed (2) Diabetes mellitus with neuropathy: CODE(S): E11.40 - Type 2 diabetes mellitus with diabetic neuropathy, unspecified QUALIFIERS: Diabetes mellitus type: type 2 (3) Chronic ulcer of right foot with fat layer exposed: CODE(S): L97.512 - Non-pressure chronic ulcer of other part of right foot with fat layer exposed (4) Peripheral vascular disease: CODE(S): I73.9 - Peripheral vascular disease, unspecified (5) Non-healing wound of right lower extremity: CODE(S): S81.801A - Unspecified open wound, right lower leg, initial encounter (6) Abrasion of right lower extremity: CODE(S): S80.811A - Abrasion, right lower leg, initial encounter PLAN: Debridement done today as documented above, daily application of hydrogel cover with Adaptic and gauze, continue with offloading surgical postop shoe. To the new abrasion to his right knee instructed to utilize hydrogel and Adaptic change daily. At home wound-care instructions: Plan as above Compression: Double layer Tubigrip's Off-loading: The patient was instructed to avoid pressure and friction on the affected areas. Reposition every 2 hours at minimum. Avoid prolonged standing and/or dangling of legs. When seated, feet should be elevated at chest level. Frequent ambulation is encouraged. Diet: Patient encouraged to increase protein intake while taking caution to avoid high carbohydrate and/or sugar intake. Patient is a non-smoker Labs/cultures/imaging: Cultures ordered and collected today given delayed healing. Routine baseline lab work held, will reassess if no improvement. Vascular studies ordered and pending. Follow-up: Return to clinic in 1 week for re-evaluation. He will have a consult with podiatry. Return sooner or report to the emergency room should symptoms worsen, or new symptoms arise. This note was generated with [employer]step dictation software. It may contain incorrect words, spelling, and punctuation that were not noted in checking the note before signing. I have spent 25 minutes today reviewing labs, records, and history. Time includes coordinating care, interpretation of tests, and counseling the patient/family. This also includes time I spent with the patient for exam, treatment plan, and education as well as documenting clinical information in the electronic health record.
== END 2022-03-24 23:59 | disposition home or self-care (01) ==
LOC: WC 14:00
PROVIDERS: PCP Family Medicine Geriatric Medicine; Referring Provider Nurse Practitioner Family; Visit Provider Nurse Practitioner Family
DX: E11.621 Type 2 diabetes mellitus with foot ulcer (principal); E11.51 Type 2 diabetes mellitus with diabetic peripheral angiopathy without gangrene; L97.512 Non-pressure chronic ulcer of other part of right foot with fat layer exposed; J44.9 Chronic obstructive pulmonary disease, unspecified; E11.40 Type 2 diabetes mellitus with diabetic neuropathy, unspecified; S80.811A Abrasion, right lower leg, initial encounter; E78.5 Hyperlipidemia, unspecified; I10 Essential (primary) hypertension; M54.9 Dorsalgia, unspecified; G89.29 Other chronic pain; Z87.891 Personal history of nicotine dependence; G47.33 Obstructive sleep apnea (adult) (pediatric); Z91.81 History of falling
CPT/HCPCS: 11042; 15271; 87070; 87075; 87077; 87186; 87205; Q4160

== ENCOUNTER 2022-03-29 10:52 | Outpatient (RCR) | payer MEDICARE, MEDICAID, SELFPAY ==
[2022-03-25 00:17] VITALS: BP 175/67; PULSE 93; RESP 20; TEMP 35.9; BMI 31.5
[2022-03-29 11:22] VITALS: BP 161/91; PULSE 78; TEMP 36.4; BMI 31.5
--- NOTE | 2022-03-29 12:13 | PCM.WC.PN ---
History of Present Illness Date of Service: 03/29/22 Chief Complaint: Right foot ulcer History of Wound: Patient is a 56-year-old male who presents with a non-healing ulcer to his right first metatarsal head. He has a past medical history including type 2 diabetes mellitus, SANTHOSH, chronic back pain, history of falls, history of amputation, history of opioid dependence, HLD, lumbar and cervical spinal stenosis, COPD, and hypertension. The patient states the wound first presented approximately 2 months ago, and he saw Dr. Villalba approximately 1 month ago who recommended a wound care referral and also a TCC. He lives at [facility] where he receives wound care from the nursing staff who are currently applying hydrogel to the wound daily and covering with gauze as ordered by Dr. Villalba. The patient denies any signs or symptoms of systemic or local infection, is a former smoker having quit several years ago, and states his right great toe was amputated years ago after a non-healing wound became infected with osteomyelitis. The patient had routine labs drawn in November 2021 but has not had a hemoglobin A1c drawn since June 2021 at which time it was 7.1. He denies any acute concerns at this time. Past medical, family, and social history reviewed and not pertinent to the current visit and all other systems reviewed and negative with exception of those listed above. Subjective Subjective This 56-year-old with history of DM type II inability presents to the wound care center today for follow-up of a nonhealing lower extremity ulceration plantar subfirst metatarsal head. He denies any constitutional symptoms today. He states that he has been compliant in wearing his offloading shoe to the right foot right foot. He has no other complaints today. Objective Data Objective Data Vital Signs: Vital Signs Temp Pulse Resp BP 97.5 F L 78 20 H 161/91 H 03/29/22 11:22 03/29/22 11:22 03/25/22 00:17 03/29/22 11:22 Weight: 99.79 kg Body Mass Index (BMI) 31.5 Physical Exam Const alert, oriented x3 and no apparent distress General Appearance: cooperative and comfortable HEENT normocephalic Eyes General Eye: normal appearance of both eyes Neck General: normal visual inspection Lymph Lymphatic: no lymphadenopathy noted and no lymphedema noted Chest inspection of chest normal Resp normal respiratory effort Cardio regular rate and regular rhythm Extremity normal capillary refill, no calf tenderness and no pedal edema Peripheral Pulses: Yes posterior tibial pulses present and dorsalis pedis pulses present Skin no rashes or lesions noted, skin turgor normal and no jaundice Wound Narrative: Lateral right foot wound demonstrates stable eschar with no signs of infection. Hallux amputation stump remains closed. Subfirst metatarsal head demonstrates good granular base with surrounding hyperkeratotic tissue. No signs of infection. No palpable fluctuance or bogginess about the ulcerative site. No palpable bone within the ulcerative bed. Neuro oriented x3 Debridement Note Debridement Note Wound debrided: Right plantar first metatarsal Laterality: Right Wound Grade/Stage: Little stage I Type of Debridement: Excisional debridement Anesthesia Used: 4% Lidocaine Solution Depth: Down to and including healthy tissue and in the subcutaneous layer Percentage of wound debrided: 100 Instrument Used: #15 blade and - (1 mm curette) Tissue Removed: Fibrous, devitalized subcutaneous, biofilm, slough Severity: Fat Layer Exposed Amount of bleeding with debridement: Mild Bleeding Controlled with: Compression and gauze Patient tolerated procedure: Patient tolerated procedure well Post-Debridement Measurements and Additional Note: Post-Debridement Measurements/Treatment WC - Nurse 1 - General Ulcer Assessment Start: 03/29/22 11:15 Freq: Status: Active Protocol: KAYLA Activity Type Activity Date Activity User E-Sign Co-Sign Detail Recorded Client Recorded Date Recorded By Document 03/29/22 11:22 RAYO [id number] 03/29/22 11:26 RAYO 03/29/22 11:22 - Today's Visit Information Type of service Follow-up Visit (Physician/G[facility]ER ) Arrival Mode Wheelchair Patient Identification Verified (Name & Yes ) Height and Weight Body Mass Index (BMI) 31.5 BMI Classification Obese Vital Signs Temperature (97.8 F-99.1 F) 97.5 F L Temperature Source Temporal Pulse Rate (60-100) 78 Pulse Location Monitor Blood Pressure (90/60-120/80) 161/91 H Blood Pressure Mean (mm Hg) 114 Source Monitor Position Semi-Fowlers Blood Pressure Location Right Arm History Since Last Visit- (Skip if this is Patient's initial visit) Have you changed medications since your No last visit? Any new allergies or adverse reactions No Had a fall/change in ADL's that may No increase risk of falls Signs or symptoms of abuse and/or No neglect since last visit Have you been in the hospital since your No last visit? Has dressing in place as prescribed Yes Has offloadiing in place as prescribed N/A Experienced any changes in pain level or No management Left Footwear Regular Shoe Right Footwear No Footwear Pain Scale: 0-10 Numeric Is Patient Pain Free? Yes WC - Nurse 1 - General Ulcer Measurement Start: 03/29/22 11:15 Freq: Status: Active Protocol: Activity Type Activity Date Activity User E-Sign Co-Sign Detail Recorded Client Recorded Date Recorded By Document 03/29/22 11:22 RAYO [id number] 03/29/22 11:26 KR 03/29/22 11:22 Wound Center Nurse 1 #7 R Knee -Current Size (cm) - Length 0.5 -Current Size (cm) - Width 0.6 -Current Size (cm) - Depth 0.1 -Total Square Cm 0.30 -Exudate Amt None Present -Wound Margin Distinct, Outline Attached -Granulation Amt None Present (0 %) -Necrosis Amt None Present (0 %) -Texture (Aleyda-wound Skin Appearance) Assessed, Scarring -Moisture (Aleyda-wound Skin Appearance) Assessed,Dry/ Scaly -Color (Aleyda-wound Skin Appearance) No Abnormality, Assessed -Temperature (Aleyda-wound Skin No Abnormality Appearance) (Pt Warm) -Tenderness on Palpation (Aleyda-wound No Skin Appearance) -Ulcer Cleansing Rinsed/ Irrigated with Saline -Foul Odor after Cleansing No -Anesthetic Used 5% Lidocaine Gel #6- R LAT FOOT -Current Size (cm) - Length 0.1 -Current Size (cm) - Width 0.1 -Current Size (cm) - Depth 0.1 -Total Square Cm 0.01 -Exudate Amt None Present -Wound Margin Distinct, Outline Attached -Granulation Amt None Present (0 %) -Necrosis Amt None Present (0 %) -Texture (Aleyda-wound Skin Appearance) Assessed, Scarring -Moisture (Aleyda-wound Skin Appearance) No Abnormality, Assessed -Color (Aleyda-wound Skin Appearance) No Abnormality, Assessed -Temperature (Aleyda-wound Skin No Abnormality Appearance) (Pt Warm) -Tenderness on Palpation (Aleyda-wound No Skin Appearance) -Ulcer Cleansing Rinsed/ Irrigated with Saline -Foul Odor after Cleansing No -Anesthetic Used 5% Lidocaine Gel 5-right 1st methead foot -Current Size (cm) - Length 0.4 -Current Size (cm) - Width 0.6 -Current Size (cm) - Depth 0.3 -Total Square Cm 0.24 -Exudate Amt Small -Exudate Type Serosanguineous -Wound Margin Distinct, Outline Attached -Granulation Amt Large (67-100%) -Granulation Quality Red -Necrosis Amt Small (1-33%) -Necrotic Tissue Type Adherent Slough -Texture (Aleyda-wound Skin Appearance) Assessed, Scarring -Moisture (Aleyda-wound Skin Appearance) No Abnormality, Assessed -Color (Aleyda-wound Skin Appearance) No Abnormality, Assessed -Temperature (Aleyda-wound Skin No Abnormality Appearance) (Pt Warm) -Tenderness on Palpation (Aleyda-wound No Skin Appearance) -Ulcer Cleansing Rinsed/ Irrigated with Saline -Foul Odor after Cleansing No -Anesthetic Used 5% Lidocaine Gel Assessment/Plan Assessment/Plan (1) Abrasion of right lower extremity: CODE(S): S80.811A - Abrasion, right lower leg, initial encounter (2) Non-healing wound of right lower extremity: CODE(S): S81.801A - Unspecified open wound, right lower leg, initial encounter (3) Diabetic ulcer of left foot associated with type 2 diabetes mellitus: CODE(S): E11.621 - Type 2 diabetes mellitus with foot ulcer; L97.529 - Non-pressure chronic ulcer of other part of left foot with unspecified severity (4) Debility: CODE(S): R53.81 - Other malaise (5) Non-pressure chronic ulcer of other part of right foot with fat layer exposed: CODE(S): L97.512 - Non-pressure chronic ulcer of other part of right foot with fat layer exposed PLAN: Patient seen and evaluated. I reviewed and discussed his case today. Debridement was performed today as noted in the clinical panel to all of the ulcer sites. I discussed continued offloading in his surgical shoe with the offloading pad until ulcerative site closes at which time he will be transition back to his protective diabetic shoes with inserts with an offloading pad placed under the first metatarsal neck to elevate the first metatarsal head to relieve distal pressure. Ulcerative site dressed with Carey and hydrogel with dry sterile dressing to the right foot. Patient urged to continue protein supplementation to aid in wound healing. He was encouraged to continue proper glycemic control and perform daily foot checks. I discussed signs of infection to observe for today. He is instructed if he experiences any red streaking moving up the leg, purulent drainage from the wound site, malodor, or if he experiences any nausea, vomiting, fever, chills that he is to report to the ED as these are signs of a progressing infection. He voices understanding of this today. The following work up and care recommendations were made: Dressing: Carey, Hydrogel, dry sterile dressing Wash: Soap and water Tissue growth optimization: Carey Offload: Surgical shoe with offloading padding Vascular: Palpable pedal pulses Edema: Elevate legs at times at rest Infection: No signs of infection Pain: Well-controlled today Host factors: DM type II, debility, history of hallux amputation right foot I answered all the patient's questions. To return to the wound healing center in 1 week or call sooner if the patient has any questions or concerns. Note: [employer] speech recognition time study technologist software was used to create portions of this document. Sound-alike and misspelled words, as well as other time study technologist errors may be contained in the documentation.
== END 2022-03-30 10:42 | disposition home or self-care (01) ==
LOC: WC 10:52
PROVIDERS: PCP Family Medicine Geriatric Medicine; Referring Provider Nurse Practitioner Family; Visit Provider Student in an Organized Health Care Education/Training Program
DX: E11.621 Type 2 diabetes mellitus with foot ulcer (principal); L97.512 Non-pressure chronic ulcer of other part of right foot with fat layer exposed; L97.522 Non-pressure chronic ulcer of other part of left foot with fat layer exposed; J44.9 Chronic obstructive pulmonary disease, unspecified; E78.5 Hyperlipidemia, unspecified; Z87.891 Personal history of nicotine dependence; M54.9 Dorsalgia, unspecified; G89.29 Other chronic pain; I10 Essential (primary) hypertension; S80.811A Abrasion, right lower leg, initial encounter; R53.81 Other malaise
CPT/HCPCS: 11042